=== PATIENT | female | born 1950 ===

== ENCOUNTER 2016-12-20 12:56 | Inpatient (IN) | payer MEDICARE, OTHER ==
[2016-12-20 12:56] VITALS: BMI 33.2
[2016-12-20] MEDS ORDERED: Morphine 4 MG/ML VIAL ONE (13:34)
[2016-12-20 13:47] LABS: BASO # 0.1 K/uL (0.0-0.2); BASO % 0.3 % (0.0-2.0); EOS # 0.1 K/uL (0.0-0.7); EOS % 0.5 % (0.0-4.0); HEMATOCRIT 38.5 % (34.0-47.0); LYMPH # 0.9 K/uL (1.0-4.3); LYMPH % 4.1 % (20.0-40.0); MEAN CELL VOLUME 85.5 fL (81.0-99.0); MEAN CORPUSCULAR HEMOGLOBIN 27.8 pg (27.0-31.0); MEAN CORPUSCULAR HGB CONC 32.5 g/dL (33.0-37.0); MEAN PLATELET VOLUME 8.7 fL (7.2-11.7); MONO # 1.5 K/uL (0.0-0.8); MONO % 6.7 % (0.0-10.0); PLATELET COUNT 239 K/uL (130-400); RED CELL DISTRIBUTION WIDTH 13.7 % (11.5-14.5); WHITE BLOOD COUNT 22.7 K/uL (4.8-10.8)
[2016-12-20 13:55] LABS: CHLORIDE 96 mmol/L (98-107); SODIUM 138 mmol/L (132-148)
[2016-12-20 13:57] LABS: GFR AFRICAN-AMERICAN > 60
[2016-12-20 13:58] LABS: ALB/GLOB RATIO 1.2 (1.0-2.1); ALKALINE PHOSPHATASE 62 U/L (38-126); ALT/SGPT 21 U/L (9-52); AST/SGOT 19 U/L (14-36); BILIRUBIN,TOTAL 0.6 mg/dL (0.2-1.3); BLOOD UREA NITROGEN 14 mg/dL (7-17); CALCIUM 8.7 mg/dl (8.6-10.4); CARBON DIOXIDE 34 mmol/L (22-30); GLUCOSE,RANDOM 121 mg/dL (65-105); TOTAL PROTEIN 6.9 g/dL (6.3-8.3)
[2016-12-20 14:12] LABS: INR 0.9
--- NOTE | 2016-12-20 14:28 | C.PDOC ---
History Of Present Illness Patient is a 66 y/o female, whose PMHx includes asthma, HTN, and hypercholesterolemia, presents to the ED s/p fall injury for evaluation of left side neck, shoulder, arm, hip, and leg pain. Pt states she tripped and fell at 11:30 this morning in her room, and landed on the left side of her body. Pt also reports hitting the left side of her head, and reports blackout of vision at the time. Patient states she had fever, and headache prior to the fall injury , and noted taking 2 tablets of Tylenol this morning for it. Pt also complains of intermittent cough and shortness of breath since early this morning. Otherwise, denies any abdominal pain, n/v/d, chest pain, palpitations, back pain , sensory changes, or any other associated symptoms at this time. - HPI Time Seen by Provider: 12/20/16 13:05 Chief Complaint (Nursing): Trauma History Per: Patient History/Exam Limitations: no limitations Injury Occurred (Timing): Today @ (11:30) Location Of Injury: Left: Arm, Hip, Neck, Shoulder Recent travel outside of the [place]: No Additional History Per: Family - Fall Fall:Prior To Injury: Tripped Past Medical History Reviewed: Historical Data, Nursing Documentation, Vital Signs Vital Signs: Last Vital Signs Temp 98 F 12/20/16 14:55 Pulse 94 H 12/20/16 13:19 Resp 22 12/20/16 13:19 BP 106/61 12/20/16 13:19 Pulse Ox 90 L 12/20/16 14:57 - Medical History PMH: Anemia, Arthritis, Asthma, COPD, Depression, Gastritis, HTN, Hypercholesterolemia Denies: Chronic Kidney Disease - [facility] Procedures ASSISTANCE WITH RESPIRATORY VENTILATION, 24-96 HRS, CPAP (09/22/16) ASSISTANCE WITH RESPIRATORY VENTILATION, <24 HRS, CPAP (05/19/15) ASSISTANCE WITH RESPIRATORY VENTILATION, >96 HRS, CPAP (05/12/16) EXCISION OF DESCENDING COLON, ENDO (09/30/15) EXCISION OF STOMACH, ENDO, DIAGN (09/30/15) INSERTION OF MONITOR DEV INTO PULM TRUNK, PERC APPROACH (04/04/16) MEASURE OF CARDIAC SAMPL & PRESSURE, L HEART, PERC APPROACH (04/04/16) NON-INVASIVE MECHANICAL VENTILATION (10/25/14) PLAIN RADIOGRAPHY OF LEFT HEART USING OTHER CONTRAST (04/04/16) PLAIN RADIOGRAPHY OF MULT COR ART USING OTH CONTRAST (04/04/16) Family History: States: Unknown Family Hx - Social History Hx Tobacco Use: No Hx Alcohol Use: No Hx Substance Use: No - Immunization History Hx Tetanus Toxoid Vaccination: No Hx Influenza Vaccination: Yes Hx Pneumococcal Vaccination: Yes Review Of Systems Except As Marked, All Systems Reviewed And Found Negative. Constitutional: Positive for: Fever Cardiovascular: Negative for: Chest Pain, Palpitations Respiratory: Positive for: Cough, Shortness of Breath. Negative for: Hemoptysis , Sputum, Wheezing Gastrointestinal: Negative for: Nausea, Vomiting, Abdominal Pain, Diarrhea Musculoskeletal: Positive for: Neck Pain, Shoulder Pain, Arm Pain, Leg Pain. Negative for: Back Pain, Hand Pain, Foot Pain Skin: Negative for: Rash Neurological: Positive for: Headache. Negative for: Weakness, Numbness Physical Exam - Physical Exam Appears: Non-toxic, No Acute Distress Skin: Warm, Dry Head: Atraumatic, Normacephalic Eye(s): bilateral: Normal Inspection, EOMI Neck: Normal, Normal ROM, No Midline Cervical Tenderness, No Paracervical Tenderness, Supple Chest: Symmetrical, No Tenderness Cardiovascular: Rhythm Regular, No Murmur Respiratory: No Accessory Muscle Use, No Rales, No Rhonchi, No Wheezing Gastrointestinal/Abdominal: Soft, No Tenderness, No Guarding, No Rebound Back: No CVA Tenderness, No Vertebral Tenderness, No Paraspinal Tenderness Extremity: No Normal ROM (limited ROM of left shoulder secondary to pain), Tenderness (diffuse tenderness to left shoulder; pain with flexion of left hip) , Capillary Refill (< 2 sec.), No Deformity, No Swelling, Other (testing impaired due to pain) Pulses: Left Radial: Normal, Right Radial: Normal, Left Dorsalis Pedis: Normal, Right Dorsalis Pedis: Normal Neurological/Psych: Oriented x3, Normal Speech, Normal Cognition, Normal Sensation (Normal sensation, strength, and ROM to left wrist, elbow, knee, and ankle), Other (no focal deficits) ED Course And Treatment - Laboratory Results Result Diagrams: 12/20/16 13:43 12/20/16 13:43 O2 Sat by Pulse Oximetry: 90 Progress Note: Labs, EKG, cervical spine CT, head CT, CXR, pelvis, left shoulder , left femur x-ray ordered and reviewed. Pt was given Albuterol treatment, Morphine, and solumedrol. Medical Decision Making Medical Decision Making: Head CT FINDINGS: HEMORRHAGE: No intracranial hemorrhage. BRAIN: No mass effect or edema. No atrophy or chronic microvascular ischemic changes. VENTRICLES: Unremarkable. No hydrocephalus. CALVARIUM: Unremarkable. PARANASAL SINUSES: Unremarkable as visualized. No significant inflammatory changes. MASTOID AIR CELLS: Unremarkable as visualized. No inflammatory changes. OTHER FINDINGS: None. IMPRESSION: No acute intracranial abnormalities. No significant findings to account for the clinical presentation. Cervical spine CT FINDINGS: VERTEBRAE: No fracture. Normal alignment. No destructive bony lesion. DISCS/SPINAL CANAL/NEURAL FORAMINA: No significant central canal or neural foraminal stenosis. Discs heights are grossly preserved. PARASPINAL SOFT TISSUES: Unremarkable. OTHER FINDINGS: Incompletely visualized apical scarring. No focal mass identified IMPRESSION: No acute findings related to/accounting for the clinical presentation. CXR FINDINGS: LUNGS: No active pulmonary disease. PLEURA: No significant pleural effusion identified, no pneumothorax apparent. CARDIOVASCULAR: No radiographic findings to suggest acute or significant cardiovascular disease. OSSEOUS STRUCTURES: No significant abnormalities. VISUALIZED UPPER ABDOMEN: Normal. OTHER FINDINGS: None. IMPRESSION: No active disease. No significant interval change compared to the prior examination(s). Left shoulder x-ray FINDINGS: BONES: Normal. No fracture. JOINTS: Normal. Glenohumeral and acromioclavicular joints preserved. No osteoarthritis. SOFT TISSUES: Normal. OTHER FINDINGS: None. IMPRESSION: No acute findings related to/accounting for the clinical presentation. Left femur x-ray FINDINGS: No significant/acute osseous, articular or soft tissue abnormalities. IMPRESSION: No acute findings related to/accounting for the clinical presentation. Left hip x-ray FINDINGS: BONES: No acute fracture. Diffuse osteopenia. JOINTS: Normal. SOFT TISSUES: Normal. OTHER FINDINGS: Mild and symmetrical degenerative changes both hips. IMPRESSION: No acute findings related to/accounting for the clinical presentation. Disposition - Disposition Disposition: HOSPITALIZED Disposition Time: 14:54 Condition: STABLE - Clinical Impression Clinical Impression: COPD exacerbation, Fall, Left shoulder pain, Left hip pain - Scribe Statement The provider has reviewed the documentation as recorded by the Maicol Escobar Provider Attestation: All medical record entries made by the Maicol were at my direction and personally dictated by me. I have reviewed the chart and agree that the record accurately reflects my personal performance of the history, physical exam, medical decision making, and the department course for this patient. I have also personally directed, reviewed, and agree with the discharge instructions and disposition.
[2016-12-20] MEDS ORDERED: Azithromycin 500 MG in Sodium Chloride 0.9% 250 ML IVPB STA (14:32)
[2016-12-20 14:35] LABS: NEUTROPHIL 84 % (50-75); TOTAL CELLS COUNTED 100
[2016-12-20] MEDS ORDERED: Albuterol-Ipratrop 3 mg / 0.5 (3 ml) UD IH STA (14:35)
--- NOTE | 2016-12-20 14:41 | CT ---
PROCEDURE: CT HEAD WITHOUT CONTRAST. HISTORY: Trauma/fall. COMPARISON: None available. TECHNIQUE: Axial computed tomography images were obtained through the head/brain without intravenous contrast. Radiation dose: Total exam DLP = 928.66 mGy-cm. This CT exam was performed using one or more of the following dose reduction techniques: Automated exposure control, adjustment of the mA and/or kV according to patient size, and/or use of iterative reconstruction technique. FINDINGS: HEMORRHAGE: No intracranial hemorrhage. BRAIN: No mass effect or edema. No atrophy or chronic microvascular ischemic changes. VENTRICLES: Unremarkable. No hydrocephalus. CALVARIUM: Unremarkable. PARANASAL SINUSES: Unremarkable as visualized. No significant inflammatory changes. MASTOID AIR CELLS: Unremarkable as visualized. No inflammatory changes. OTHER FINDINGS: None. IMPRESSION: No acute intracranial abnormalities. No significant findings to account for the clinical presentation.
--- NOTE | 2016-12-20 14:44 | CT ---
PROCEDURE: CT Cervical Spine without contrast HISTORY: <fall> COMPARISON: None available. TECHNIQUE: Axial computed tomography images were obtained of the cervical spine without the use of intravenous contrast. Coronal and sagittal reformatted images were created and reviewed. 3D volume rendering Radiation dose: Total exam DLP = 550.51 mGy-cm. This CT exam was performed using one or more of the following dose reduction techniques: Automated exposure control, adjustment of the mA and/or kV according to patient size, and/or use of iterative reconstruction technique. FINDINGS: VERTEBRAE: No fracture. Normal alignment. No destructive bony lesion. DISCS/SPINAL CANAL/NEURAL FORAMINA: No significant central canal or neural foraminal stenosis. Discs heights are grossly preserved. PARASPINAL SOFT TISSUES: Unremarkable. OTHER FINDINGS: Incompletely visualized apical scarring. No focal mass identified IMPRESSION: No acute findings related to/accounting for the clinical presentation.
[2016-12-20] MEDS ORDERED: Azithromycin 500mg/250ML NS 500 MG/250 ML BAG IVPB ONE (15:01)
--- NOTE | 2016-12-20 15:05 | RAD ---
PROCEDURE: Left Hip X-ray Radiographs. HISTORY: fall pain COMPARISON: None. FINDINGS: BONES: No acute fracture. Diffuse osteopenia. JOINTS: Normal. SOFT TISSUES: Normal. OTHER FINDINGS: Mild and symmetrical degenerative changes both hips. IMPRESSION: No acute findings related to/accounting for the clinical presentation.
--- NOTE | 2016-12-20 15:06 | RAD ---
PROCEDURE: Radiographs of the Left Shoulder HISTORY: fall pain COMPARISON: No prior. FINDINGS: BONES: Normal. No fracture. JOINTS: Normal. Glenohumeral and acromioclavicular joints preserved. No osteoarthritis. SOFT TISSUES: Normal. OTHER FINDINGS: None. IMPRESSION: No acute findings related to/accounting for the clinical presentation.
--- NOTE | 2016-12-20 15:06 | RAD ---
PROCEDURE: Left femur HISTORY: fall pain COMPARISON: December 20, 2016. TECHNIQUE: Standard protocol for this study/examination. FINDINGS: No significant/acute osseous, articular or soft tissue abnormalities. IMPRESSION: No acute findings related to/accounting for the clinical presentation.
--- NOTE | 2016-12-20 15:07 | RAD ---
HISTORY: Trauma. COMPARISON: 09/21/2016. FINDINGS: LUNGS: No active pulmonary disease. PLEURA: No significant pleural effusion identified, no pneumothorax apparent. CARDIOVASCULAR: No radiographic findings to suggest acute or significant cardiovascular disease. OSSEOUS STRUCTURES: No significant abnormalities. VISUALIZED UPPER ABDOMEN: Normal. OTHER FINDINGS: None. IMPRESSION: No active disease. No significant interval change compared to the prior examination(s).
[2016-12-20] MEDS ORDERED: MethylPREDNISolone 40 mg Vial ONE (15:16)
[2016-12-20] MEDS ORDERED: Albuterol-Ipratrop 3 mg / 0.5 (3 ml) UD ONE (15:46)
[2016-12-20 16:10] LABS: RBC URINE 1 /hpf (0-3); URINE BILIRUBIN NEGATIVE (NEGATIVE); URINE BLOOD NEGATIVE (NEGATIVE); URINE COLOR Straw (YELLOW); URINE GLUCOSE (UA) NORMAL (Normal); URINE KETONE NEGATIVE (NEGATIVE); URINE LEUKOCYTE ESTERASE NEG Leu/uL (Negative); URINE PROTEIN NEGATIVE (NEGATIVE); URINE UROBILINOGEN NORMAL mg/dL (0.2-1.0); WBC URINE < 1 /hpf (0-5)
[2016-12-20] MEDS: Fluticasone-Salmeterol 250-50mcg Diskus INH SCH (20:26)
[2016-12-20] MEDS: MethylPREDNISolone 40 mg Vial IVP SCH (21:57)
[2016-12-20] MEDS: Piperacill/Tazo 3.375gm in Dex 3.375 GM/50 ML BAG IVPB SCH (21:57)
[2016-12-20] MEDS ORDERED: Moxifloxacin IV 400mg/250ml NS 400 MG/250 ML BAG IVPB SCH (22:00)
[2016-12-21] MEDS: MethylPREDNISolone 40 mg Vial IVP SCH ×3 (06:44→21:50)
[2016-12-21] MEDS: Piperacill/Tazo 3.375gm in Dex 3.375 GM/50 ML BAG IVPB SCH ×3 (06:44→21:50)
[2016-12-21] MEDS: Fluticasone-Salmeterol 250-50mcg Diskus INH SCH ×2 (09:00→19:24)
[2016-12-21] MEDS: Tiotropium 18 mcg Cap For Inhalation INH SCH (09:00)
[2016-12-21] MEDS: Enoxaparin 40 mg Syringe SC SCH (09:10)
--- NOTE | 2016-12-21 12:55 | CP.PCM.HP ---
History of Present Illness - History of Present Illness History of Present Illness: Patient is 66-year-old female whose past medical history includes asthma, hypertension and hypercholesterolemia, presented to the ED S/P fall injury for evaluation of left-sided neck, shoulder, arm, hip and leg pain. Patient states she tripped and fell at 1130 this morning in her room, and landed on the left side of her body. Patient also reports hitting the left side of her head and reports a blackout of wheezing at the time. Patient states she has fever and headache prior to the fall injury and noted taking 2 tablets of Tylenol this morning for it. Patient also complains of intermittent cough and S OB since early this morning. Otherwise, denies any abdominal pain, nausea/vomiting/ diarrhea, chest pain, palpitation, back pain, sensory changes or any other associated symptoms at this time. Present on Admission - Present on Admission Any Indicators Present on Admission: No Past Patient History - Infectious Disease Hx of Infectious Diseases: None - Past Medical History & Family History Past Medical History?: Yes - Past Social History Smoking Status: Former Smoker - CARDIAC Hx Hypercholesterolemia: Yes Hx Hypertension: Yes - PULMONARY Hx Asthma: Yes Hx Chronic Obstructive Pulmonary Disease (COPD): Yes - NEUROLOGICAL Hx Neurological Disorder: No - HEENT Hx HEENT Problems: Yes Hx Cataracts: Yes Hx Glaucoma: Yes (Sx last Apr 2015) - RENAL Hx Chronic Kidney Disease: No - ENDOCRINE/METABOLIC Hx Endocrine Disorders: No - HEMATOLOGICAL/ONCOLOGICAL Hx Anemia: Yes - INTEGUMENTARY Hx Dermatological Problems: No - MUSCULOSKELETAL/RHEUMATOLOGICAL Hx Arthritis: Yes Hx Falls: Yes - GASTROINTESTINAL Hx Gastritis: Yes - GENITOURINARY/GYNECOLOGICAL Hx Genitourinary Disorders: No - PSYCHIATRIC Hx Depression: Yes Hx Substance Use: No - SURGICAL HISTORY Hx Surgeries: Yes Hx Breast Biopsy: Yes Hx Eye Surgery: Yes (glaucoma OU) Hx Musculoskeletal Surgery: Yes (L leg) Other/Comment: left leg surgery - ANESTHESIA Hx Anesthesia: Yes Hx Anesthesia Reactions: No Hx Malignant Hyperthermia: No Meds Home Medications: Home Medication List Medication Instructions Recorded Confirmed Type Aspirin [Aspirin Chewable] 81 mg PO DAILY 12/26/16 Rx Benzocaine/Menthol [Cepacol Sore 1 alexa MT Q4H PRN alexa 12/26/16 Rx Throat] Bisacodyl [Dulcolax] 5 mg PO ONCE 12/26/16 Rx Docusate [Colace] 100 mg PO BID cap 12/26/16 Rx Enoxaparin [Lovenox] 40 mg SC DAILY syr 12/26/16 Rx Rosuvastatin Calcium [Crestor] 5 mg PO HS tab 12/26/16 Rx Allergies/Adverse Reactions: Allergies Allergy/AdvReac Type Severity Reaction Status Date / Time moxifloxacin HCl Allergy Verified 01/13/17 11:57 [From Avelox] Physical Exam - Constitutional Appears: Well - Head Exam Head Exam: ATRAUMATIC, NORMAL INSPECTION, NORMOCEPHALIC - Eye Exam Eye Exam: EOMI, Normal appearance, PERRL Pupil Exam: NORMAL ACCOMODATION, PERRL - ENT Exam ENT Exam: Mucous Membranes Moist, Normal Exam - Neck Exam Neck exam: Positive for: Normal Inspection - Respiratory Exam Respiratory Exam: Decreased Breath Sounds - Cardiovascular Exam Cardiovascular Exam: REGULAR RHYTHM, +S1, +S2 - GI/Abdominal Exam GI & Abdominal Exam: Diminished Bowel Sounds, Soft - Rectal Exam Rectal Exam: Deferred Results - Vital Signs Recent Vital Signs: Last Vital Signs Temp 97.8 F 12/21/16 08:00 Pulse 63 12/21/16 08:00 Resp 20 12/21/16 08:00 BP 118/71 12/21/16 08:00 Pulse Ox 94 L 12/21/16 00:24 - Labs Result Diagrams: 12/26/16 07:08 12/26/16 07:08 Labs: Laboratory Results - last 24 hr 12/20/16 16:03 Urine Color Straw Urine Clarity Clear Urine pH 6.0 Ur Specific [place] 1.010 Urine Protein Negative Urine Glucose (UA) Normal Urine Ketones Negative Urine Blood Negative Urine Nitrate Negative Urine Bilirubin Negative Urine Urobilinogen Normal Ur Leukocyte Esterase Neg Urine WBC (Auto) < 1 Urine RBC (Auto) 1 Ur Squamous Epith Cells 2 Assessment & Plan (1) Acute and chronic respiratory failure with hypercapnia Status: Acute (2) Acute dyspnea Status: Acute (3) Acute electrocardiogram changes Status: Acute (4) Acute hypercapnic respiratory failure Status: Acute (5) Asthma Status: Acute (6) Asthma exacerbation Status: Acute (7) Asthma with COPD with status asthmaticus Status: Acute Priority: High (8) COPD (chronic obstructive pulmonary disease) Status: Acute (9) COPD exacerbation Status: Acute (10) Chest pain Status: Acute (11) Chronic back pain Status: Acute (12) Chronic respiratory failure Status: Acute (13) Closed fracture of anterior column of left acetabulum Status: Acute (14) Closed sacral fracture Status: Acute (15) Colitis Status: Acute (16) Dislocation of left shoulder joint Status: Acute (17) Dyspnea Status: Acute (18) Elevated troponin Status: Acute (19) Exacerbation of asthma Status: Acute (20) Fall Status: Acute (21) Fracture of glenoid process of left scapula Status: Acute (22) Fracture of left inferior pubic ramus Status: Acute (23) GI bleeding Status: Acute (24) Herniated lumbar disc without myelopathy Status: Acute (25) Hill-Sachs fracture of left humerus Status: Acute (26) Intractable pain Status: Acute (27) Left hip pain Status: Acute (28) Left shoulder pain Status: Acute (29) Leukocytosis Status: Acute (30) Liver mass Status: Acute (31) Lung nodule Status: Acute (32) Pneumonia Status: Acute (33) Prophylactic measure Status: Acute (34) Pulmonary hypertension Status: Acute (35) Respiratory distress Status: Acute (36) Respiratory distress Status: Acute (37) Respiratory failure, acute and chronic Status: Acute (38) Scapula coracoid process fracture Status: Acute (39) Shoulder dislocation Status: Acute (40) Tracheobronchitis Status: Acute (41) Chronic osteoarthritis Status: Chronic (42) Depressed Status: Chronic Priority: Medium (43) GERD (gastroesophageal reflux disease) Status: Chronic Priority: Medium (44) Lumbago Status: Chronic Priority: Medium - Assessment and Plan (Free Text) Plan: ct spine ct head x ray shoudlerx ray hip all cameback negative coti same mx for copd duoneb ivantibiotic cardio pulm consult avila as ordered
[2016-12-22] MEDS: Piperacill/Tazo 3.375gm in Dex 3.375 GM/50 ML BAG IVPB SCH ×3 (05:02→21:43)
[2016-12-22] MEDS: MethylPREDNISolone 40 mg Vial IVP SCH ×3 (05:02→21:43)
--- NOTE | 2016-12-22 07:50 | CP.PCM.CON ---
History of Present Illness - History of Present Illness History of Present Illness: Pt s/pfall no syncope. Found to have dislocation and is planned for emergency reduction. Called to evaluate for surgery. 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 Will follow enzymes and control bp Review of Systems - Review of Systems Systems not reviewed;Unavailable: Acuity of Condition - Constitutional Constitutional: absent: Headache - EENT Eyes: absent: Change in Vision Ears: absent: Ear Discharge, Ear Pain Nose/Mouth/Throat: absent: Nasal Congestion, Nasal Discharge - Cardiovascular Cardiovascular: Chest Pain - Respiratory Respiratory: absent: Dyspnea on Exertion - Gastrointestinal Gastrointestinal: absent: Diarrhea - Genitourinary Genitourinary: absent: Dysuria - Integumentary Integumentary: absent: Bleeding Lesions - Neurological Neurological: absent: Abnormal Hearing - Psychiatric Psychiatric: absent: Anxiety - Endocrine Endocrine: Fatigue Past Patient History - Infectious Disease Hx of Infectious Diseases: None - Past Medical History & Family History Past Medical History?: Yes - Past Social History Smoking Status: Former Smoker - CARDIAC Hx Hypercholesterolemia: Yes Hx Hypertension: Yes - PULMONARY Hx Asthma: Yes Hx Chronic Obstructive Pulmonary Disease (COPD): Yes - NEUROLOGICAL Hx Neurological Disorder: No - HEENT Hx HEENT Problems: Yes Hx Cataracts: Yes Hx Glaucoma: Yes (Sx last Apr 2015) - RENAL Hx Chronic Kidney Disease: No - ENDOCRINE/METABOLIC Hx Endocrine Disorders: No - HEMATOLOGICAL/ONCOLOGICAL Hx Anemia: Yes - INTEGUMENTARY Hx Dermatological Problems: No - MUSCULOSKELETAL/RHEUMATOLOGICAL Hx Arthritis: Yes Hx Falls: Yes - GASTROINTESTINAL Hx Gastritis: Yes - GENITOURINARY/GYNECOLOGICAL Hx Genitourinary Disorders: No - PSYCHIATRIC Hx Depression: Yes Hx Substance Use: No - SURGICAL HISTORY Hx Surgeries: Yes Hx Breast Biopsy: Yes Hx Eye Surgery: Yes (glaucoma OU) Hx Musculoskeletal Surgery: Yes (L leg) Other/Comment: left leg surgery - ANESTHESIA Hx Anesthesia: Yes Hx Anesthesia Reactions: No Hx Malignant Hyperthermia: No Meds Home Medications: Home Medication List Medication Instructions Recorded Confirmed Type Aspirin [Aspirin Chewable] 81 mg PO DAILY 12/26/16 Rx Benzocaine/Menthol [Cepacol Sore 1 alexa MT Q4H PRN alexa 12/26/16 Rx Throat] Bisacodyl [Dulcolax] 5 mg PO ONCE 12/26/16 Rx Docusate [Colace] 100 mg PO BID cap 12/26/16 Rx Enoxaparin [Lovenox] 40 mg SC DAILY syr 12/26/16 Rx Rosuvastatin Calcium [Crestor] 5 mg PO HS tab 12/26/16 Rx Allergies/Adverse Reactions: Allergies Allergy/AdvReac Type Severity Reaction Status Date / Time moxifloxacin HCl Allergy Verified 01/13/17 11:57 [From Avelox] - Medications Medications: Current Medications Enoxaparin Sodium (Lovenox) 40 mg SC DAILY [facility] Last Admin: 12/21/16 09:10 Dose: 40 mg Hydromorphone HCl (Dilaudid) 1 mg IVP Q4H PRN PRN Reason: Pain, moderate (4-7) Piperacillin Sod/Tazobactam Sod (Zosyn 3.375 Gm Iv Premix) 3.375 gm in 50 mls @ 100 mls/hr IVPB Q8 [facility] Last Admin: 12/22/16 05:02 Dose: 100 mls/hr Methylprednisolone (Solu-Medrol) 40 mg IVP Q8 [facility] Last Admin: 12/22/16 05:02 Dose: 40 mg Montelukast Sodium (Singulair) 10 mg PO [facility] Last Admin: 12/21/16 21:50 Dose: 10 mg Pantoprazole Sodium (Protonix Inj) 40 mg IVP DAILY [facility] Last Admin: 12/21/16 09:10 Dose: 40 mg Rosuvastatin Calcium (Crestor) 5 mg PO [facility] Last Admin: 12/21/16 21:50 Dose: 5 mg Fluticasone/Salmeterol (Advair Diskus 250/50) 1 puff INH RQ12 [facility] Last Admin: 12/21/16 19:24 Dose: Not Given Tiotropium [place] (Spiriva) 18 mcg INH RQ24 [facility] Last Admin: 12/21/16 09:00 Dose: Not Given Physical Exam - Constitutional Appears: Chronically Ill - Head Exam Head Exam: NORMOCEPHALIC - Eye Exam Eye Exam: Normal appearance - ENT Exam ENT Exam: Mucous Membranes Moist - Respiratory Exam Respiratory Exam: Clear to Auscultation Bilateral, NORMAL BREATHING PATTERN - Cardiovascular Exam Cardiovascular Exam: REGULAR RHYTHM - GI/Abdominal Exam GI & Abdominal Exam: Normal Bowel Sounds - Exam External exam: absent: Erythema - Extremities Exam Extremities exam: Positive for: joint swelling - Neurological Exam Neurological exam: Alert - Psychiatric Exam Psychiatric exam: Normal Affect - Skin Skin Exam: Dry Results - Vital Signs Recent Vital Signs: Last Vital Signs Temp 98 F 12/22/16 00:00 Pulse 71 12/22/16 00:00 Resp 20 12/22/16 00:00 BP 127/69 12/22/16 00:00 Pulse Ox 96 12/22/16 00:00 - Labs Result Diagrams: 12/26/16 07:08 12/26/16 07:08 Labs: Laboratory Results - last 24 hr 12/21/16 12/22/16 20:49 06:11 Total Creatine Kinase 83 57 CK-MB (Mass) 1.41 1.19 Troponin I, Quant < 0.0120 < 0.0120 Assessment & Plan (1) Acute electrocardiogram changes Assessment and Plan: Pt with ekg changes nl cardiac cath eval enzymes' nl ef in lieu of non obstructive cath benefits outweigh risks and may proceed to surgery Status: Acute (2) Closed fracture of anterior column of left acetabulum Status: Acute (3) Dislocation of left shoulder joint Status: Acute
[2016-12-22] MEDS: HYDROmorphone 1 mg/ml ISec IVP PRN ×2 (08:06→20:50)
[2016-12-22] MEDS: Tiotropium 18 mcg Cap For Inhalation INH SCH (09:56)
[2016-12-22] MEDS: Fluticasone-Salmeterol 250-50mcg Diskus INH SCH ×2 (09:56→22:42)
--- NOTE | 2016-12-22 11:04 | CT ---
PROCEDURE: CT left shoulder HISTORY: r/o fracture s/p fall COMPARISON: 12/20/2016 left shoulder radiographs. TECHNIQUE: 2.5 mm axial acquisition and display. Coronal and sagittal reconstructions. Dose report (mGy-cm): 383.85 3D volume rendering FINDINGS: Anterior inferior subluxation of the humeral head relative to the left glenoid. Associated avulsion fracture from the humeral head identified anterior to the main humeral component. Soft tissue swelling attests to the acuity of the fracture. Associated joint effusion identified. Hussein Incidental finding(s):Scarring, a traction bronchiectatic change noted left upper lobe. IMPRESSION: Acute Anterior inferior subluxation of the humeral head relative to the glenoid with small avulsion fracture anteriorly. Considerable soft tissue swelling and joint effusion identified.
[2016-12-22] MEDS: Enoxaparin 40 mg Syringe SC SCH (11:29)
[2016-12-22] MEDS ORDERED: Succinylcholine Chloride 20 mg/ml Syr (5 ml) IV ONE (12:22)
[2016-12-22] MEDS ORDERED: Propofol 10 mg/ml Inj (20 ML) ONE (12:23)
[2016-12-22] MEDS ORDERED: Lactated Ringer's 1,000 ML IV ONE (12:26)
[2016-12-22] MEDS ORDERED: Neostigmine Methylsulfate 3mg/3ml Syringe IV ONE ×2 (12:52→13:06)
[2016-12-22] MEDS ORDERED: HYDROmorphone 0.5 mg/0.5 ml ISec IVP PRN (13:00)
--- NOTE | 2016-12-22 13:00 | PCM.SURG1 ---
Surgeon's Initial Post Op Note - Surgeon's Notes Surgeon: marcelo Body Fitter: none Type of Anesthesia: General Endo Pre-Operative Diagnosis: left shoulder dislocation Operative Findings: see dictation Post-Operative Diagnosis: same Operation Performed: closed reduction left shoulder Specimen/Specimens Removed: nonw Estimated Blood Loss: EBL {In ML}: 0 Date of Surgery/Procedure: 12/23/16 Time of Surgery/Procedure: 13:00
[2016-12-22] MEDS ORDERED: Esmolol 100 mg/10ml Inj IV ONE (13:08)
[2016-12-22] MEDS ORDERED: Albuterol HFA 90 mcg/actuation (8 g) ONE (13:17)
--- NOTE | 2016-12-22 13:55 | RAD ---
PROCEDURE: Intraoperative Fluoroscopy. HISTORY: DISLOCATED LT. SHUOLDER FINDINGS: Fluoroscopic assistance was provided for left shoulder reduction. Total fluoroscopic time (continuous mode) utilized during the procedure: 24.4 seconds.. Please refer to the operative report from
--- NOTE | 2016-12-22 14:33 | RAD ---
PROCEDURE: Radiographs of the Left Shoulder HISTORY: post reduction COMPARISON: December 22, 2016. FINDINGS: BONES: Anatomic alignment returned left glenohumeral relationship. No fracture is seen. JOINTS: Unremarkable glenohumeral relationship, acromioclavicular degenerative change: Mild. SOFT TISSUES: Normal. OTHER FINDINGS: None. IMPRESSION: Satisfactory reduction of previously identified anterior inferior subluxation.
--- NOTE | 2016-12-22 18:23 | CP.PCM.PN ---
Subjective - Date & Time of Evaluation Date of Evaluation: 12/22/16 Time of Evaluation: 13:40 - Subjective Subjective: clinically same Objective - Vital Signs/Intake and Output Vital Signs (last 24 hours): Temp Pulse Resp BP Pulse Ox 98.2 F 60 20 138/64 98 12/22/16 15:40 12/22/16 15:40 12/22/16 15:40 12/22/16 15:40 12/22/16 15:40 - Medications Medications: Current Medications Enoxaparin Sodium (Lovenox) 40 mg SC DAILY [facility] Last Admin: 12/22/16 11:29 Dose: Not Given Hydromorphone HCl (Dilaudid) 1 mg IVP Q4H PRN PRN Reason: Pain, moderate (4-7) Last Admin: 12/22/16 08:06 Dose: 1 mg Piperacillin Sod/Tazobactam Sod (Zosyn 3.375 Gm Iv Premix) 3.375 gm in 50 mls @ 100 mls/hr IVPB Q8 [facility] Last Admin: 12/22/16 15:03 Dose: 100 mls/hr Methylprednisolone (Solu-Medrol) 40 mg IVP Q8 [facility] Last Admin: 12/22/16 15:02 Dose: 40 mg Montelukast Sodium (Singulair) 10 mg PO HS [facility] Last Admin: 12/21/16 21:50 Dose: 10 mg Pantoprazole Sodium (Protonix Inj) 40 mg IVP DAILY [facility] Last Admin: 12/22/16 11:27 Dose: 40 mg Rosuvastatin Calcium (Crestor) 5 mg PO HS [facility] Last Admin: 12/21/16 21:50 Dose: 5 mg Fluticasone/Salmeterol (Advair Diskus 250/50) 1 puff INH RQ12 [facility] Last Admin: 12/22/16 09:56 Dose: 1 puff Tiotropium [place] (Spiriva) 18 mcg INH RQ24 [facility] Last Admin: 12/22/16 09:56 Dose: 18 mcg - Labs Labs: PT 10.4 SECONDS (9.7-12.2) 12/20/16 13:43 INR 0.9 12/20/16 13:43 APTT 30 SECONDS (21-34) 12/20/16 13:43 - Constitutional Appears: Well - Head Exam Head Exam: ATRAUMATIC, NORMAL INSPECTION, NORMOCEPHALIC - Eye Exam Eye Exam: EOMI, Normal appearance, PERRL Pupil Exam: NORMAL ACCOMODATION, PERRL - ENT Exam ENT Exam: Mucous Membranes Moist, Normal Exam - Neck Exam Neck Exam: Full ROM, Normal Inspection. absent: Lymphadenopathy - Respiratory Exam Respiratory Exam: Decreased Breath Sounds - Cardiovascular Exam Cardiovascular Exam: REGULAR RHYTHM, +S1, +S2 - GI/Abdominal Exam GI & Abdominal Exam: Soft, Diminished Bowel Sounds - Rectal Exam Rectal Exam: Deferred Assessment and Plan (1) Acute and chronic respiratory failure with hypercapnia Status: Acute (2) Acute dyspnea Status: Acute (3) Acute electrocardiogram changes Status: Acute (4) Acute hypercapnic respiratory failure Status: Acute (5) Asthma Status: Acute (6) Asthma exacerbation Status: Acute (7) Asthma with COPD with status asthmaticus Status: Acute (8) COPD (chronic obstructive pulmonary disease) Status: Acute (9) COPD exacerbation Status: Acute (10) Chest pain Status: Acute (11) Chronic back pain Status: Acute (12) Chronic respiratory failure Status: Acute (13) Closed fracture of anterior column of left acetabulum Status: Acute (14) Closed sacral fracture Status: Acute (15) Colitis Status: Acute (16) Dislocation of left shoulder joint Status: Acute (17) Dyspnea Status: Acute (18) Elevated troponin Status: Acute (19) Exacerbation of asthma Status: Acute (20) Fall Status: Acute (21) Fracture of glenoid process of left scapula Status: Acute (22) Fracture of left inferior pubic ramus Status: Acute (23) GI bleeding Status: Acute (24) Herniated lumbar disc without myelopathy Status: Acute (25) Hill-Sachs fracture of left humerus Status: Acute (26) Intractable pain Status: Acute (27) Left hip pain Status: Acute (28) Left shoulder pain Status: Acute (29) Leukocytosis Status: Acute (30) Liver mass Status: Acute (31) Lung nodule Status: Acute (32) Pneumonia Status: Acute (33) Prophylactic measure Status: Acute (34) Pulmonary hypertension Status: Acute (35) Respiratory distress Status: Acute (36) Respiratory distress Status: Acute (37) Respiratory failure, acute and chronic Status: Acute (38) Scapula coracoid process fracture Status: Acute (39) Shoulder dislocation Status: Acute (40) Tracheobronchitis Status: Acute (41) Chronic osteoarthritis Status: Chronic (42) Depressed Status: Chronic (43) GERD (gastroesophageal reflux disease) Status: Chronic (44) Lumbago Status: Chronic - Assessment and Plan (Free Text) Plan: Status post left shoulder closed reduction Continue pain meds Antibiotics Dilaudid Lovenox Advair
[2016-12-22] MEDS ORDERED: Benzocaine/Menthol (Cepacol) Lozenge MT PRN (20:36)
--- NOTE | 2016-12-23 04:19 | OP ---
PROCEDURE DATE: 12/22/2016 SURGEON: Dwayne Morrow M.D. COVER STITCH MACHINE OPERATOR: None. PREOPERATIVE DIAGNOSIS: Dislocated left shoulder. POSTOPERATIVE DIAGNOSIS: Dislocated left shoulder. PROCEDURE: Left shoulder closed reduction. ESTIMATED BLOOD LOSS: None. ANESTHESIA: General. COMPLICATIONS: None. INDICATIONS: A 66-year-old female, who sustained a slip and fall 2 days ago. The patient was brought to the Emergency Room and admitted to the hospital for workup. Left shoulder CT scan confirmed an anterior inferior shoulder dislocation. DESCRIPTION OF PROCEDURE: The patient was brought into the operating room and placed supine on the operating room table. After general anesthesia was given, timeout was performed. Then, under fluoroscopy, x-rays of the left shoulder confirmed anterior dislocation of the glenohumeral joint. With manual traction , abduction, and external rotation, the shoulder was pulled and placed back into the joint. Fluoroscopy, both AP, y view and axillary, confirmed well- reduced glenohumeral joint. The patient tolerated the procedure well. Abduction sling was placed. She was extubated and returned to recovery room in excellent condition. Dwayne Morrow M.D. cc: [id number] TT: 12/23/2016 04:19:10 tn MTDD
[2016-12-23] MEDS: Piperacill/Tazo 3.375gm in Dex 3.375 GM/50 ML BAG IVPB SCH ×3 (05:38→21:13)
[2016-12-23] MEDS: MethylPREDNISolone 40 mg Vial IVP SCH ×3 (05:38→21:12)
[2016-12-23] MEDS: HYDROmorphone 1 mg/ml ISec IVP PRN (05:39)
--- NOTE | 2016-12-23 07:47 | CP.PCM.PN ---
<Ashwini Barnhart - Last Filed: 12/23/16 10:56> Subjective - Date & Time of Evaluation Date of Evaluation: 12/23/16 Time of Evaluation: 09:00 - Subjective Subjective: Cardiology Progress Note- Dr. Romero Service: Patient seen and examined at bedside this AM. Patient seen and examined at bedside this AM. Patient reports feeling in some pain this AM. She admits to left sided chest pain that has been present only since her fall. Admits to associated left sided body pain also related to fall. She admits SOB secondary to asthma in the past that is controlled. No fevers, chills, nausea, vomiting. No other complaints at this time. All other 12 point ROS done and negative. Objective - Vital Signs/Intake and Output Vital Signs (last 24 hours): Temp Pulse Resp BP Pulse Ox 98.1 F 65 20 136/62 99 12/22/16 23:45 12/23/16 05:51 12/22/16 23:45 12/23/16 05:51 12/22/16 23:45 Intake and Output: 12/23/16 12/23/16 06:59 18:59 Intake Total 600 Output Total 500 Balance 100 - Medications Medications: Current Medications Benzocaine/Menthol (Cepacol Sore Throat) 1 alexa MT Q4H PRN PRN Reason: Sore Throat Last Admin: 12/22/16 21:43 Dose: 1 alexa Enoxaparin Sodium (Lovenox) 40 mg SC DAILY [facility] Last Admin: 12/22/16 11:29 Dose: Not Given Hydromorphone HCl (Dilaudid) 1 mg IVP Q4H PRN PRN Reason: Pain, moderate (4-7) Last Admin: 12/23/16 05:39 Dose: 1 mg Piperacillin Sod/Tazobactam Sod (Zosyn 3.375 Gm Iv Premix) 3.375 gm in 50 mls @ 100 mls/hr IVPB Q8 [facility] Last Admin: 12/23/16 05:38 Dose: 100 mls/hr Methylprednisolone (Solu-Medrol) 40 mg IVP Q8 [facility] Last Admin: 12/23/16 05:38 Dose: 40 mg Montelukast Sodium (Singulair) 10 mg PO HS [facility] Last Admin: 12/22/16 21:44 Dose: 10 mg Pantoprazole Sodium (Protonix Inj) 40 mg IVP DAILY [facility] Last Admin: 12/22/16 11:27 Dose: 40 mg Rosuvastatin Calcium (Crestor) 5 mg PO HS [facility] Last Admin: 12/22/16 21:43 Dose: 5 mg Fluticasone/Salmeterol (Advair Diskus 250/50) 1 puff INH RQ12 [facility] Last Admin: 12/22/16 22:42 Dose: 1 puff Tiotropium [place] (Spiriva) 18 mcg INH RQ24 [facility] Last Admin: 12/22/16 09:56 Dose: 18 mcg - Labs Labs: PT 10.4 SECONDS (9.7-12.2) 12/20/16 13:43 INR 0.9 12/20/16 13:43 APTT 30 SECONDS (21-34) 12/20/16 13:43 - Constitutional Appears: No Acute Distress - Head Exam Head Exam: NORMAL INSPECTION, NORMOCEPHALIC - Eye Exam Eye Exam: EOMI, Normal appearance - ENT Exam ENT Exam: Mucous Membranes Moist - Neck Exam Neck Exam: Normal Inspection - Respiratory Exam Respiratory Exam: Clear to Ausculation Bilateral, NORMAL BREATHING PATTERN - Cardiovascular Exam Cardiovascular Exam: REGULAR RHYTHM, +S1, +S2 Additional comments: +chest wall on left TTP (improved as per pt) - GI/Abdominal Exam GI & Abdominal Exam: Soft. absent: Distended, Tenderness - Extremities Exam Extremities Exam: Tenderness (left LE). absent: Pedal Edema - Neurological Exam Neurological Exam: Alert, Awake, Oriented x3 Assessment and Plan (1) Chest pain Assessment & Plan: 66 y/o F POD #1 s/p closed reduction left shoulder. CONOR negative X 3. EKG 12/20/16 on admission showed NSR [address] changes. CXR 12/20/16 showed no active disease. ECHO 07/30/16 shows LV Fx normal 65% EF. Cardiac cath done 04/08/[address] Frank showed: 1. Mild to Moderate Pulmonary HTN (PA 47/10) 3. Moderate CAD L Main: Patent LAD: Distal long 60% stenosis L Cx: Patent RCA: dominant and patent EF: 55-60% Cath impression on 03/2016: 1. Moderate CAD. 2. Moderate pulmonary HTN. 3. Diastolic CHF. Continue medical management: * ASA 81 mg PO daily * Crestor 5 mg PO HS Status: Acute (2) Fall Assessment & Plan: 66 y/o F POD #1 s/p closed reduction left shoulder. Status: Acute - Assessment and Plan (Free Text) Assessment: Discussed with Dr. Romero. <Hira Romero - Last Filed: 02/02/17 03:06> Objective - Vital Signs/Intake and Output Vital Signs (last 24 hours): Temp Pulse Resp BP Pulse Ox 98.5 F 70 20 134/75 98 12/26/16 15:33 12/26/16 15:33 12/26/16 15:33 12/26/16 15:33 12/26/16 15:33 - Labs Labs: 12/26/16 07:08 12/26/16 07:08 PT 10.4 SECONDS (9.7-12.2) 12/20/16 13:43 INR 0.9 12/20/16 13:43 APTT 30 SECONDS (21-34) 12/20/16 13:43 Attending/Attestation - Attestation I have personally seen and examined this patient.: Yes I have fully participated in the care of the patient.: Yes I have reviewed all pertinent clinical information, including history, physical exam and plan: Yes Notes (Text): 02/02/17 03:06 pt c/o cp but from fall causing ortho isues bp stable
[2016-12-23] MEDS: Tiotropium 18 mcg Cap For Inhalation INH SCH (07:56)
[2016-12-23] MEDS: Fluticasone-Salmeterol 250-50mcg Diskus INH SCH ×2 (07:56→19:58)
[2016-12-23] MEDS: Enoxaparin 40 mg Syringe SC SCH (09:43)
[2016-12-23] MEDS ORDERED: Magnesium Hydroxide Susp 30 ml UD PO ONE ×2 (11:58→14:45)
--- NOTE | 2016-12-23 12:15 | CARD ---
APPROVED REPORT EKG Measurement Heart [id number] <Conclusion> Normal sinus rhythm Normal ECG
[2016-12-23 14:30] LABS: BASO % 0.3 % (0.0-2.0); EOS % 0.1 % (0.0-4.0); HEMATOCRIT 38.9 % (34.0-47.0); LYMPH # 0.9 K/uL (1.0-4.3); MEAN CELL VOLUME 86.2 fL (81.0-99.0); MEAN CORPUSCULAR HEMOGLOBIN 27.6 pg (27.0-31.0); MEAN PLATELET VOLUME 9.2 fL (7.2-11.7); MONO # 0.7 K/uL (0.0-0.8); MONO % 5.1 % (0.0-10.0); PLATELET COUNT 289 K/uL (130-400); RED CELL DISTRIBUTION WIDTH 13.5 % (11.5-14.5); WHITE BLOOD COUNT 14.7 K/uL (4.8-10.8)
[2016-12-23 14:39] LABS: CHLORIDE 90 mmol/L (98-107)
[2016-12-23 14:40] LABS: SODIUM 134 mmol/L (132-148)
[2016-12-23 14:43] LABS: ALB/GLOB RATIO 1.1 (1.0-2.1); ALKALINE PHOSPHATASE 56 U/L (38-126); AST/SGOT 17 U/L (14-36); BILIRUBIN,TOTAL 0.4 mg/dL (0.2-1.3); BLOOD UREA NITROGEN 19 mg/dL (7-17); CARBON DIOXIDE 36 mmol/L (22-30); GFR AFRICAN-AMERICAN > 60; TOTAL PROTEIN 6.3 g/dL (6.3-8.3)
[2016-12-23 14:44] LABS: ALT/SGPT 19 U/L (9-52); CALCIUM 8.4 mg/dl (8.6-10.4); GLUCOSE,RANDOM 253 mg/dL (65-105)
--- NOTE | 2016-12-23 15:52 | CP.PCM.PN ---
Subjective - Date & Time of Evaluation Date of Evaluation: 12/23/16 Time of Evaluation: 13:00 - Subjective Subjective: clinically same Objective - Vital Signs/Intake and Output Vital Signs (last 24 hours): Temp Pulse Resp BP Pulse Ox 98.9 F 66 20 127/65 97 12/23/16 15:23 12/23/16 15:23 12/23/16 15:23 12/23/16 15:23 12/23/16 15:23 Intake and Output: 12/23/16 12/23/16 06:59 18:59 Intake Total 600 Output Total 500 Balance 100 - Medications Medications: Current Medications Aspirin (Aspirin Chewable) 81 mg PO DAILY [facility] Benzocaine/Menthol (Cepacol Sore Throat) 1 alexa MT Q4H PRN PRN Reason: Sore Throat Last Admin: 12/22/16 21:43 Dose: 1 alexa Enoxaparin Sodium (Lovenox) 40 mg SC DAILY [facility] Last Admin: 12/23/16 09:43 Dose: 40 mg Hydromorphone HCl (Dilaudid) 1 mg IVP Q4H PRN PRN Reason: Pain, moderate (4-7) Last Admin: 12/23/16 05:39 Dose: 1 mg Piperacillin Sod/Tazobactam Sod (Zosyn 3.375 Gm Iv Premix) 3.375 gm in 50 mls @ 100 mls/hr IVPB Q8 [facility] Last Admin: 12/23/16 13:48 Dose: 100 mls/hr Methylprednisolone (Solu-Medrol) 40 mg IVP Q8 [facility] Last Admin: 12/23/16 13:47 Dose: 40 mg Montelukast Sodium (Singulair) 10 mg PO [facility] Last Admin: 12/22/16 21:44 Dose: 10 mg Pantoprazole Sodium (Protonix Inj) 40 mg IVP DAILY [facility] Last Admin: 12/23/16 09:43 Dose: 40 mg Pneumococcal Polyvalent Vaccine (Pneumovax 23 Vaccine) 0.5 ml IM .ONCE ONE Stop: 12/24/16 10:01 Rosuvastatin Calcium (Crestor) 5 mg PO [facility] Last Admin: 12/22/16 21:43 Dose: 5 mg Fluticasone/Salmeterol (Advair Diskus 250/50) 1 puff INH RQ12 [facility] Last Admin: 12/23/16 07:56 Dose: 1 puff Tiotropium [place] (Spiriva) 18 mcg INH RQ24 [facility] Last Admin: 12/23/16 07:56 Dose: 18 mcg - Labs Labs: 12/23/16 14:20 12/23/16 14:20 PT 10.4 SECONDS (9.7-12.2) 12/20/16 13:43 INR 0.9 12/20/16 13:43 APTT 30 SECONDS (21-34) 12/20/16 13:43 - Constitutional Appears: Well - Head Exam Head Exam: ATRAUMATIC, NORMAL INSPECTION, NORMOCEPHALIC - Eye Exam Eye Exam: EOMI, Normal appearance, PERRL Pupil Exam: NORMAL ACCOMODATION, PERRL - ENT Exam ENT Exam: Mucous Membranes Moist, Normal Exam - Neck Exam Neck Exam: Full ROM, Normal Inspection. absent: Lymphadenopathy - Respiratory Exam Respiratory Exam: Decreased Breath Sounds - Cardiovascular Exam Cardiovascular Exam: REGULAR RHYTHM, +S1, +S2 - GI/Abdominal Exam GI & Abdominal Exam: Soft, Diminished Bowel Sounds - Rectal Exam Rectal Exam: Deferred Assessment and Plan (1) Acute and chronic respiratory failure with hypercapnia Status: Acute (2) Acute dyspnea Status: Acute (3) Acute electrocardiogram changes Status: Acute (4) Acute hypercapnic respiratory failure Status: Acute (5) Asthma Status: Acute (6) Asthma exacerbation Status: Acute (7) Asthma with COPD with status asthmaticus Status: Acute (8) COPD (chronic obstructive pulmonary disease) Status: Acute (9) COPD exacerbation Status: Acute (10) Chest pain Status: Acute (11) Chronic back pain Status: Acute (12) Chronic respiratory failure Status: Acute (13) Closed fracture of anterior column of left acetabulum Status: Acute (14) Closed sacral fracture Status: Acute (15) Colitis Status: Acute (16) Dislocation of left shoulder joint Status: Acute (17) Dyspnea Status: Acute (18) Elevated troponin Status: Acute (19) Exacerbation of asthma Status: Acute (20) Fall Status: Acute (21) Fracture of glenoid process of left scapula Status: Acute (22) Fracture of left inferior pubic ramus Status: Acute (23) GI bleeding Status: Acute (24) Herniated lumbar disc without myelopathy Status: Acute (25) Hill-Sachs fracture of left humerus Status: Acute (26) Intractable pain Status: Acute (27) Left hip pain Status: Acute (28) Left shoulder pain Status: Acute (29) Leukocytosis Status: Acute (30) Liver mass Status: Acute (31) Lung nodule Status: Acute (32) Pneumonia Status: Acute (33) Prophylactic measure Status: Acute (34) Pulmonary hypertension Status: Acute (35) Respiratory distress Status: Acute (36) Respiratory distress Status: Acute (37) Respiratory failure, acute and chronic Status: Acute (38) Scapula coracoid process fracture Status: Acute (39) Shoulder dislocation Status: Acute (40) Tracheobronchitis Status: Acute (41) Chronic osteoarthritis Status: Chronic (42) Depressed Status: Chronic (43) GERD (gastroesophageal reflux disease) Status: Chronic (44) Lumbago Status: Chronic - Assessment and Plan (Free Text) Plan: Monitor vitals Continue antibiotics Cardio consult on board Aspirin Lovenox Solu-Medrol Advair
[2016-12-23 16:16] LABS: NEUTROPHIL 89 % (50-75); TOTAL CELLS COUNTED 100
--- NOTE | 2016-12-23 17:34 | CP.PCM.CON ---
History of Present Illness - History of Present Illness History of Present Illness: Reason for consultation: History of COPD and dyspnea on exertion 66 y/o female, whose PMHx includes copd, HTN, and hypercholesterolemia, presents to the ED s/p fall . Pt states she tripped and fell in her room, and landed on the left side of her body. Pt also reports hitting the left side of her head, and reports blackout of vision at the time. Pt also complains of intermittent cough and shortness of breath. Otherwise, denies any abdominal pain , n/v/d, chest pain, palpitations, back pain, sensory changes, or any other associated symptoms at this time. Patient status post closed reduction of left shoulder dislocation. Review of Systems - Review of Systems All systems: reviewed and no additional remarkable complaints except (Left shoulder pain and shortness of breath on exertion) Past Patient History - Infectious Disease Hx of Infectious Diseases: None - Past Medical History & Family History Past Medical History?: Yes - Past Social History Smoking Status: Former Smoker - CARDIAC Hx Hypercholesterolemia: Yes Hx Hypertension: Yes - PULMONARY Hx Asthma: Yes Hx Chronic Obstructive Pulmonary Disease (COPD): Yes - NEUROLOGICAL Hx Neurological Disorder: No - HEENT Hx HEENT Problems: Yes Hx Cataracts: Yes Hx Glaucoma: Yes (Sx last Apr 2015) - RENAL Hx Chronic Kidney Disease: No - ENDOCRINE/METABOLIC Hx Endocrine Disorders: No - HEMATOLOGICAL/ONCOLOGICAL Hx Anemia: Yes - INTEGUMENTARY Hx Dermatological Problems: No - MUSCULOSKELETAL/RHEUMATOLOGICAL Hx Arthritis: Yes Hx Falls: Yes - GASTROINTESTINAL Hx Gastritis: Yes - GENITOURINARY/GYNECOLOGICAL Hx Genitourinary Disorders: No - PSYCHIATRIC Hx Depression: Yes Hx Substance Use: No - SURGICAL HISTORY Hx Surgeries: Yes Hx Breast Biopsy: Yes Hx Eye Surgery: Yes (glaucoma OU) Hx Musculoskeletal Surgery: Yes (L leg) Other/Comment: left leg surgery - ANESTHESIA Hx Anesthesia: Yes Hx Anesthesia Reactions: No Hx Malignant Hyperthermia: No Meds Allergies/Adverse Reactions: Allergies Allergy/AdvReac Type Severity Reaction Status Date / Time moxifloxacin HCl Allergy Verified 09/21/16 13:59 [From Avelox] - Medications Medications: Current Medications Aspirin (Aspirin Chewable) 81 mg PO DAILY [facility] Benzocaine/Menthol (Cepacol Sore Throat) 1 alexa MT Q4H PRN PRN Reason: Sore Throat Last Admin: 12/22/16 21:43 Dose: 1 alexa Enoxaparin Sodium (Lovenox) 40 mg SC DAILY [facility] Last Admin: 12/23/16 09:43 Dose: 40 mg Hydromorphone HCl (Dilaudid) 1 mg IVP Q4H PRN PRN Reason: Pain, moderate (4-7) Last Admin: 12/23/16 05:39 Dose: 1 mg Piperacillin Sod/Tazobactam Sod (Zosyn 3.375 Gm Iv Premix) 3.375 gm in 50 mls @ 100 mls/hr IVPB Q8 [facility] Last Admin: 12/23/16 13:48 Dose: 100 mls/hr Methylprednisolone (Solu-Medrol) 40 mg IVP Q8 [facility] Last Admin: 12/23/16 13:47 Dose: 40 mg Montelukast Sodium (Singulair) 10 mg PO [facility] Last Admin: 12/22/16 21:44 Dose: 10 mg Pantoprazole Sodium (Protonix Inj) 40 mg IVP DAILY [facility] Last Admin: 12/23/16 09:43 Dose: 40 mg Pneumococcal Polyvalent Vaccine (Pneumovax 23 Vaccine) 0.5 ml IM .ONCE ONE Stop: 12/24/16 10:01 Rosuvastatin Calcium (Crestor) 5 mg PO [facility] Last Admin: 12/22/16 21:43 Dose: 5 mg Fluticasone/Salmeterol (Advair Diskus 250/50) 1 puff INH RQ12 [facility] Last Admin: 12/23/16 07:56 Dose: 1 puff Tiotropium [place] (Spiriva) 18 mcg INH RQ24 [facility] Last Admin: 12/23/16 07:56 Dose: 18 mcg Physical Exam - Constitutional Appears: No Acute Distress - Head Exam Head Exam: ATRAUMATIC, NORMOCEPHALIC - Eye Exam Eye Exam: Normal appearance - ENT Exam ENT Exam: Mucous Membranes Moist - Neck Exam Neck exam: Positive for: Normal Inspection - Respiratory Exam Respiratory Exam: Decreased Breath Sounds - Cardiovascular Exam Cardiovascular Exam: REGULAR RHYTHM - GI/Abdominal Exam GI & Abdominal Exam: Normal Bowel Sounds, Soft - Extremities Exam Extremities exam: Positive for: normal inspection, pedal edema - Neurological Exam Neurological exam: Alert, Oriented x3 Results - Vital Signs Recent Vital Signs: Last Vital Signs Temp 98.9 F 12/23/16 15:23 Pulse 66 12/23/16 15:23 Resp 20 12/23/16 15:23 BP 127/65 12/23/16 15:23 Pulse Ox 97 12/23/16 15:23 - Labs Result Diagrams: 12/23/16 14:20 12/23/16 14:20 Labs: Laboratory Results - last 24 hr 12/22/16 12/23/16 12/23/16 19:19 14:20 14:20 WBC 14.7 H RBC 4.52 Hgb 12.5 Hct 38.9 MCV 86.2 MCH 27.6 MCHC 32.0 L RDW 13.5 Plt Count 289 MPV 9.2 Neut % (Auto) 88.5 H Lymph % (Auto) 6.0 L [place] % (Auto) 5.1 Eos % (Auto) 0.1 Baso % (Auto) 0.3 Neut # 13.1 H Lymph # 0.9 L [place] # 0.7 Eos # 0.0 Baso # 0.0 Neutrophils % (Manual) 89 H Lymphocytes % (Manual) 7 L Monocytes % (Manual) 4 Platelet Estimate Normal RBC Morphology Normal Sodium 134 Potassium 4.0 Chloride 90 L Carbon Dioxide 36 H Anion Gap 12 BUN 19 H Creatinine 0.6 L Est GFR ( Amer) > 60 Est GFR (Non-Af Amer) > 60 Random Glucose 253 H Calcium 8.4 L Total Bilirubin 0.4 AST 17 ALT 19 Alkaline Phosphatase 56 Total Creatine Kinase 70 CK-MB (Mass) 0.96 Troponin I, Quant 0.0290 Total Protein 6.3 Albumin 3.4 L Globulin 3.0 Albumin/Globulin Ratio 1.1 Assessment & Plan (1) COPD (chronic obstructive pulmonary disease) Status: Acute (2) Shoulder dislocation Status: Acute
[2016-12-24] MEDS: HYDROmorphone 1 mg/ml ISec IVP PRN ×2 (02:02→21:59)
[2016-12-24] MEDS: MethylPREDNISolone 40 mg Vial IVP SCH ×3 (06:38→21:51)
[2016-12-24] MEDS: Piperacill/Tazo 3.375gm in Dex 3.375 GM/50 ML BAG IVPB SCH ×3 (06:38→22:03)
[2016-12-24] MEDS: Tiotropium 18 mcg Cap For Inhalation INH SCH (08:06)
[2016-12-24] MEDS: Fluticasone-Salmeterol 250-50mcg Diskus INH SCH ×2 (08:06→20:56)
[2016-12-24] MEDS ORDERED: Pneumococcal 23-Valent Vaccine IM ONE (10:00)
[2016-12-24] MEDS: Enoxaparin 40 mg Syringe SC SCH (10:39)
--- NOTE | 2016-12-24 12:15 | CP.PCM.PN ---
<Braeden Griffith - Last Filed: 12/24/16 12:12> Subjective - Date & Time of Evaluation Date of Evaluation: 12/24/16 Time of Evaluation: 12:00 - Subjective Subjective: Cardiology Progress Note Dr. Romero Patient seen and examined at bedside. No acute distress, no acute events overnight. Midline and left sided chest pain persists, worse with deep respiration or movement of neck or attempted movement of left shoulder/arm; overall though improved. Generalized body aches persist as well, although improved over yesterday. Baseline SOB 2/2 longstanding asthma persists but is controlled, no acute exacerbations. Admits also to some nausea, and some lightheadedness when attempting to lay bed flat, but denies emesis or syncopal/ near-syncopal episodes. All other ROS are negative. Objective - Vital Signs/Intake and Output Vital Signs (last 24 hours): Temp Pulse Resp BP Pulse Ox 97.5 F L 65 20 145/76 96 12/24/16 07:35 12/24/16 07:35 12/24/16 07:35 12/24/16 07:35 12/24/16 07:35 Intake and Output: 12/24/16 12/24/16 06:59 18:59 Intake Total 240 300 Balance 240 300 - Medications Medications: Current Medications Aspirin (Aspirin Chewable) 81 mg PO DAILY [facility] Last Admin: 12/24/16 10:32 Dose: 81 mg Benzocaine/Menthol (Cepacol Sore Throat) 1 alexa MT Q4H PRN PRN Reason: Sore Throat Last Admin: 12/22/16 21:43 Dose: 1 alexa Enoxaparin Sodium (Lovenox) 40 mg SC DAILY [facility] Last Admin: 12/24/16 10:39 Dose: 40 mg Hydromorphone HCl (Dilaudid) 1 mg IVP Q4H PRN PRN Reason: Pain, moderate (4-7) Last Admin: 12/24/16 02:02 Dose: 1 mg Piperacillin Sod/Tazobactam Sod (Zosyn 3.375 Gm Iv Premix) 3.375 gm in 50 mls @ 100 mls/hr IVPB Q8 [facility] Last Admin: 12/24/16 06:38 Dose: 100 mls/hr Methylprednisolone (Solu-Medrol) 40 mg IVP Q8 [facility] Last Admin: 12/24/16 06:38 Dose: 40 mg Montelukast Sodium (Singulair) 10 mg PO HS [facility] Last Admin: 12/23/16 21:12 Dose: 10 mg Pantoprazole Sodium (Protonix Inj) 40 mg IVP DAILY [facility] Last Admin: 12/24/16 10:24 Dose: 40 mg Rosuvastatin Calcium (Crestor) 5 mg PO HS [facility] Last Admin: 12/23/16 21:12 Dose: 5 mg Fluticasone/Salmeterol (Advair Diskus 250/50) 1 puff INH RQ12 [facility] Last Admin: 12/24/16 08:06 Dose: 1 puff Tiotropium [place] (Spiriva) 18 mcg INH RQ24 [facility] Last Admin: 12/24/16 08:06 Dose: 18 mcg - Labs Labs: 12/23/16 14:20 12/23/16 14:20 PT 10.4 SECONDS (9.7-12.2) 12/20/16 13:43 INR 0.9 12/20/16 13:43 APTT 30 SECONDS (21-34) 12/20/16 13:43 - Constitutional Appears: Non-toxic, No Acute Distress - Head Exam Head Exam: ATRAUMATIC, NORMAL INSPECTION, NORMOCEPHALIC - Eye Exam Eye Exam: EOMI, Normal appearance. absent: Conjunctival injection, Scleral icterus Pupil Exam: absent: Irregular, Unequal - ENT Exam ENT Exam: Mucous Membranes Moist - Neck Exam Neck Exam: Tenderness. absent: Full ROM (intentionally restricting ROM 2/2 pain , but no anatomical/physiological barriers/abnormalities appreciated with mild passive movement) - Respiratory Exam Respiratory Exam: Chest Wall Tenderness (mild diffuse tenderness to palpation, most prominent along superior midline and left lateral chest wall), Clear to Ausculation Bilateral, NORMAL BREATHING PATTERN. absent: Accessory Muscle Use, Rales, Rhonchi, Wheezes - Cardiovascular Exam Cardiovascular Exam: REGULAR RHYTHM, RRR, +S1, +S2. absent: Bradycardia, Tachycardia, Irregular Rhythm, +S4 - GI/Abdominal Exam GI & Abdominal Exam: Soft, Tenderness (mild diffuse tenderness, no single area of prominence), Normal Bowel Sounds. absent: Distended, Firm, Rigid, Diminished Bowel Sounds, Hypoactive Bowel Sounds - Extremities Exam Extremities Exam: Normal Capillary Refill, Normal Inspection. absent: Calf Tenderness, Full ROM (appropriate ROM of RLE, intentionally limiting LLE movement due to pain) - Back Exam Back Exam: tenderness (at and immediately around left shoulder/scapular region) - Neurological Exam Neurological Exam: Alert, Awake, Oriented x3 Additional comments: Gross motor of RLE and RUE intact, LLE foot and LUE hand movements intact Sensory grossly intact, able to discriminate sensation between R and L LE - Psychiatric Exam Psychiatric exam: Normal Affect, Normal Mood - Skin Skin Exam: Dry, Intact, Normal Color, Warm Assessment and Plan (1) Chest pain Assessment & Plan: EKG 12/20/16 on admission showed NSR [address] changes. CXR 12/20/16 showed no active disease. ECHO 07/30/16 shows LV Fx normal 65% EF. Cardiac cath 04/08/16 (Dr. Frank): Mild to Moderate Pulmonary HTN (PA 47/10), Moderate CAD, LAD: Distal long 60% stenosis, EF: 55-60%, Diastolic CHF. CONOR negative X 3. -Likely 2/2 traumatic fall, less likely ACS as trops are negative and EKG was NSR with no abnormal ST-T segments -Continue medical management: ASA 81 mg PO daily, Crestor 5 mg PO HS -Pain control as per Primary and Ortho teams Status: Acute (2) Fall Assessment & Plan: -As per description of patient, fall was mechanical, tripped and fell -Retains full memory of the fall, denies LOS/loss of memory -Neurologically appropriate on exam, gross sensory intact, AAO, answering questions appropriately and following all commands appropriately -Head CT on admission negative for acute intracranial abnormalities, and EKG on admission NSR without segment abnormalities, no signs/sx of arrhythmias since admission -Continue to monitor, rec fall precautions Status: Acute - Assessment and Plan (Free Text) Assessment: Case discussed with Dr. Romero. <Hira Romero - Last Filed: 02/02/17 03:05> Objective - Vital Signs/Intake and Output Vital Signs (last 24 hours): Temp Pulse Resp BP Pulse Ox 98.5 F 70 20 134/75 98 12/26/16 15:33 12/26/16 15:33 12/26/16 15:33 12/26/16 15:33 12/26/16 15:33 - Labs Labs: 12/26/16 07:08 06/02/17 07:08 PT 10.4 SECONDS (9.7-12.2) 12/20/16 13:43 INR 0.9 12/20/16 13:43 APTT 30 SECONDS (21-34) 12/20/16 13:43 Attending/Attestation - Attestation I have personally seen and examined this patient.: Yes I have fully participated in the care of the patient.: Yes I have reviewed all pertinent clinical information, including history, physical exam and plan: Yes Notes (Text): 02/02/17 03:05 pain controlled with meds clearance given in lieu of nl cath
--- NOTE | 2016-12-24 13:13 | CP.PCM.PN ---
Subjective - Date & Time of Evaluation Date of Evaluation: 12/24/16 Time of Evaluation: 13:11 - Subjective Subjective: Patient states pain in her left shoulder is much better. She still has pain all the time in shoulder, but it feels better, and hand feels stronger. She saysshe has pain in her left groin that is not getting any better, and she has a lot of pain when she tries to walk or to lift leg up. Denies back pain. Mild knee pain in that side also. She says she has arthritis but pain isn't usually this bad. Denies numbness/tingling. Objective - Vital Signs/Intake and Output Vital Signs (last 24 hours): Temp Pulse Resp BP Pulse Ox 97.5 F L 65 20 145/76 96 12/24/16 07:35 12/24/16 07:35 12/24/16 07:35 12/24/16 07:35 12/24/16 07:35 Intake and Output: 12/24/16 12/24/16 06:59 18:59 Intake Total 240 300 Balance 240 300 - Medications Medications: Current Medications Aspirin (Aspirin Chewable) 81 mg PO DAILY [facility] Last Admin: 12/24/16 10:32 Dose: 81 mg Benzocaine/Menthol (Cepacol Sore Throat) 1 alexa MT Q4H PRN PRN Reason: Sore Throat Last Admin: 12/22/16 21:43 Dose: 1 alexa Enoxaparin Sodium (Lovenox) 40 mg SC DAILY [facility] Last Admin: 12/24/16 10:39 Dose: 40 mg Hydromorphone HCl (Dilaudid) 1 mg IVP Q4H PRN PRN Reason: Pain, moderate (4-7) Last Admin: 12/24/16 02:02 Dose: 1 mg Piperacillin Sod/Tazobactam Sod (Zosyn 3.375 Gm Iv Premix) 3.375 gm in 50 mls @ 100 mls/hr IVPB Q8 [facility] Last Admin: 12/24/16 06:38 Dose: 100 mls/hr Methylprednisolone (Solu-Medrol) 40 mg IVP Q8 [facility] Last Admin: 12/24/16 06:38 Dose: 40 mg Montelukast Sodium (Singulair) 10 mg PO HS [facility] Last Admin: 12/23/16 21:12 Dose: 10 mg Pantoprazole Sodium (Protonix Inj) 40 mg IVP DAILY [facility] Last Admin: 12/24/16 10:24 Dose: 40 mg Rosuvastatin Calcium (Crestor) 5 mg PO HS [facility] Last Admin: 12/23/16 21:12 Dose: 5 mg Fluticasone/Salmeterol (Advair Diskus 250/50) 1 puff INH RQ12 [facility] Last Admin: 12/24/16 08:06 Dose: 1 puff Tiotropium [place] (Spiriva) 18 mcg INH RQ24 [facility] Last Admin: 12/24/16 08:06 Dose: 18 mcg - Labs Labs: 12/23/16 14:20 12/23/16 14:20 PT 10.4 SECONDS (9.7-12.2) 12/20/16 13:43 INR 0.9 12/20/16 13:43 APTT 30 SECONDS (21-34) 12/20/16 13:43 - Extremities Exam Additional comments: LUE: +ROM fingers/wrist flex/ext full strength and ROM. Minimal pain with elbow ROM in sling. TTP to shoulder, sensation intact o rad/ulnar/median nerve distrib. +Radial pulse, mild swelling to shoulder LLE: pain in groin with knee/hip flexion. Complains of pain with SLR but able to do do with 4/5 strength. Sensation intacyt, 5/5 ankle DF/PF, great toe ext. No pain with longitudinal traction or loading, no pain with log roll. Calves soft NT neg homans Assessment and Plan (1) Dislocation of left shoulder joint Assessment & Plan: s/p closed reduction in OR pain significantly improved continue immobilizer at this time d/w Dr. Morrow, agrees with above Status: Acute (2) Left hip pain Assessment & Plan: continuing after fall no fx on xray, some DJD of left hip noted on xray r/o OA exacerbation, occult fx from fall MRI ordered left hip xrays left knee for completion, no fracture noted on fluoroscopy intraop images , but do to continued pain will order complete series will follow plan PT/OT VTE proph Status: Acute Radiology Interpretation - Radiology Interpretation #2 Interpretation: atient Name / ID : HILARIO MOREL / [id number] Exam Date : 12/20/2016 13:46:30 ( Approved ) Study Comment : Sex / Age : F / 66Y Creator : Gonzalo Darby MD Dictator : Gonzalo Darby MD Iron Worker : Box Toe Cutter : Gonzalo Darby MD Approver2 : Report Date : 12/20/2016 15:03:50 My Comment : PROCEDURE: Left Hip X-ray Radiographs. HISTORY: fall pain COMPARISON: None. FINDINGS: BONES: No acute fracture. Diffuse osteopenia. JOINTS: Normal. SOFT TISSUES: Normal. OTHER FINDINGS: Mild and symmetrical degenerative changes both hips. IMPRESSION: No acute findings related to/accounting for the clinical presentation. - Radiology Interpretation #3 Interpretation: Patient Name / ID : HILARIO MOREL / [id number] Exam Date : 12/20/2016 13:46:10 ( Approved ) Study Comment : Sex / Age : Creator : Gonzalo Darby MD Dictator : Gonzalo Darby MD Iron Worker : Box Toe Cutter : Gonzalo Darby MD Approver2 : Report Date : 12/20/2016 15:04:33 My Comment : PROCEDURE: Left femur HISTORY: fall pain COMPARISON: December 20, 2016. TECHNIQUE: Standard protocol for this study/examination. FINDINGS: No significant/acute osseous, articular or soft tissue abnormalities.
[2016-12-24 13:59] LABS: BASO % 0.3 % (0.0-2.0); HEMATOCRIT 40.7 % (34.0-47.0); LYMPH # 1.1 K/uL (1.0-4.3); LYMPH % 7.8 % (20.0-40.0); MEAN CELL VOLUME 86.1 fL (81.0-99.0); MEAN CORPUSCULAR HGB CONC 32.5 g/dL (33.0-37.0); MEAN PLATELET VOLUME 8.6 fL (7.2-11.7); MONO # 0.9 K/uL (0.0-0.8); MONO % 6.7 % (0.0-10.0); PLATELET COUNT 312 K/uL (130-400); RED CELL DISTRIBUTION WIDTH 13.9 % (11.5-14.5); WHITE BLOOD COUNT 13.8 K/uL (4.8-10.8)
[2016-12-24 14:07] LABS: CHLORIDE 92 mmol/L (98-107); SODIUM 138 mmol/L (132-148)
[2016-12-24 14:10] LABS: ALB/GLOB RATIO 1.1 (1.0-2.1); ALKALINE PHOSPHATASE 67 U/L (38-126); ALT/SGPT 26 U/L (9-52); AST/SGOT 15 U/L (14-36); BILIRUBIN,TOTAL 0.4 mg/dL (0.2-1.3); BLOOD UREA NITROGEN 22 mg/dL (7-17); CARBON DIOXIDE 37 mmol/L (22-30); GFR AFRICAN-AMERICAN > 60; GLUCOSE,RANDOM 215 mg/dL (65-105); TOTAL PROTEIN 6.5 g/dL (6.3-8.3)
[2016-12-24 14:11] LABS: CALCIUM 8.7 mg/dl (8.6-10.4)
--- NOTE | 2016-12-24 14:55 | CP.PCM.PN ---
Subjective - Date & Time of Evaluation Date of Evaluation: 12/24/16 Time of Evaluation: 11:20 - Subjective Subjective: clinically same Objective - Vital Signs/Intake and Output Vital Signs (last 24 hours): Temp Pulse Resp BP Pulse Ox 97.5 F L 65 20 145/76 96 12/24/16 07:35 12/24/16 07:35 12/24/16 07:35 12/24/16 07:35 12/24/16 07:35 Intake and Output: 12/24/16 12/24/16 06:59 18:59 Intake Total 240 300 Balance 240 300 - Medications Medications: Current Medications Aspirin (Aspirin Chewable) 81 mg PO DAILY [facility] Last Admin: 12/24/16 10:32 Dose: 81 mg Benzocaine/Menthol (Cepacol Sore Throat) 1 alexa MT Q4H PRN PRN Reason: Sore Throat Last Admin: 12/22/16 21:43 Dose: 1 alexa Enoxaparin Sodium (Lovenox) 40 mg SC DAILY [facility] Last Admin: 12/24/16 10:39 Dose: 40 mg Hydromorphone HCl (Dilaudid) 1 mg IVP Q4H PRN PRN Reason: Pain, moderate (4-7) Last Admin: 12/24/16 02:02 Dose: 1 mg Piperacillin Sod/Tazobactam Sod (Zosyn 3.375 Gm Iv Premix) 3.375 gm in 50 mls @ 100 mls/hr IVPB Q8 [facility] Last Admin: 12/24/16 14:24 Dose: 100 mls/hr Methylprednisolone (Solu-Medrol) 40 mg IVP Q8 [facility] Last Admin: 12/24/16 14:24 Dose: 40 mg Montelukast Sodium (Singulair) 10 mg PO HS [facility] Last Admin: 12/23/16 21:12 Dose: 10 mg Pantoprazole Sodium (Protonix Inj) 40 mg IVP DAILY [facility] Last Admin: 12/24/16 10:24 Dose: 40 mg Rosuvastatin Calcium (Crestor) 5 mg PO HS [facility] Last Admin: 12/23/16 21:12 Dose: 5 mg Fluticasone/Salmeterol (Advair Diskus 250/50) 1 puff INH RQ12 [facility] Last Admin: 12/24/16 08:06 Dose: 1 puff Tiotropium [place] (Spiriva) 18 mcg INH RQ24 [facility] Last Admin: 12/24/16 08:06 Dose: 18 mcg - Labs Labs: 12/24/16 13:51 12/24/16 13:51 PT 10.4 SECONDS (9.7-12.2) 12/20/16 13:43 INR 0.9 12/20/16 13:43 APTT 30 SECONDS (21-34) 12/20/16 13:43 - Constitutional Appears: Well - Head Exam Head Exam: ATRAUMATIC, NORMAL INSPECTION, NORMOCEPHALIC - Eye Exam Eye Exam: EOMI, Normal appearance, PERRL Pupil Exam: NORMAL ACCOMODATION, PERRL - ENT Exam ENT Exam: Mucous Membranes Moist, Normal Exam - Neck Exam Neck Exam: Full ROM, Normal Inspection. absent: Lymphadenopathy - Respiratory Exam Respiratory Exam: Decreased Breath Sounds - Cardiovascular Exam Cardiovascular Exam: REGULAR RHYTHM, +S1, +S2 - GI/Abdominal Exam GI & Abdominal Exam: Soft, Diminished Bowel Sounds - Rectal Exam Rectal Exam: Deferred Assessment and Plan (1) Acute and chronic respiratory failure with hypercapnia Status: Acute (2) Acute dyspnea Status: Acute (3) Acute electrocardiogram changes Status: Acute (4) Acute hypercapnic respiratory failure Status: Acute (5) Asthma Status: Acute (6) Asthma exacerbation Status: Acute (7) Asthma with COPD with status asthmaticus Status: Acute (8) COPD (chronic obstructive pulmonary disease) Status: Acute (9) COPD exacerbation Status: Acute (10) Chest pain Status: Acute (11) Chronic back pain Status: Acute (12) Chronic respiratory failure Status: Acute (13) Closed fracture of anterior column of left acetabulum Status: Acute (14) Closed sacral fracture Status: Acute (15) Colitis Status: Acute (16) Dislocation of left shoulder joint Status: Acute (17) Dyspnea Status: Acute (18) Elevated troponin Status: Acute (19) Exacerbation of asthma Status: Acute (20) Fall Status: Acute (21) Fracture of glenoid process of left scapula Status: Acute (22) Fracture of left inferior pubic ramus Status: Acute (23) GI bleeding Status: Acute (24) Herniated lumbar disc without myelopathy Status: Acute (25) Hill-Sachs fracture of left humerus Status: Acute (26) Intractable pain Status: Acute (27) Left hip pain Status: Acute (28) Left shoulder pain Status: Acute (29) Leukocytosis Status: Acute (30) Liver mass Status: Acute (31) Lung nodule Status: Acute (32) Pneumonia Status: Acute (33) Prophylactic measure Status: Acute (34) Pulmonary hypertension Status: Acute (35) Respiratory distress Status: Acute (36) Respiratory distress Status: Acute (37) Respiratory failure, acute and chronic Status: Acute (38) Scapula coracoid process fracture Status: Acute (39) Shoulder dislocation Status: Acute (40) Tracheobronchitis Status: Acute (41) Chronic osteoarthritis Status: Chronic (42) Depressed Status: Chronic (43) GERD (gastroesophageal reflux disease) Status: Chronic (44) Lumbago Status: Chronic - Assessment and Plan (Free Text) Plan: Continue Zosyn Lovenox Dilaudid Postop care Fall precautions Singulair Monitor vitals
[2016-12-24 14:58] LABS: NEUTROPHIL 84 % (50-75); TOTAL CELLS COUNTED 100
[2016-12-25] MEDS: HYDROmorphone 1 mg/ml ISec IVP PRN ×2 (02:01→05:55)
[2016-12-25] MEDS: MethylPREDNISolone 40 mg Vial IVP SCH ×2 (05:16→21:55)
[2016-12-25] MEDS: Piperacill/Tazo 3.375gm in Dex 3.375 GM/50 ML BAG IVPB SCH ×3 (05:16→21:58)
[2016-12-25] MEDS: Fluticasone-Salmeterol 250-50mcg Diskus INH SCH ×2 (08:02→20:27)
[2016-12-25] MEDS: Tiotropium 18 mcg Cap For Inhalation INH SCH (08:02)
--- NOTE | 2016-12-25 08:19 | RAD ---
Left knee three views History: Pain. Comparison: None available. Findings: Vascular calcifications. Moderate medial compartment joint space narrowing with subchondral sclerosis. No significant suprapatellar joint effusion. Mild patellofemoral compartment joint space narrowing. Impression: Degenerative changes. If pain persists, consider MRI.
--- NOTE | 2016-12-25 09:29 | CP.PCM.PN ---
Subjective - Date & Time of Evaluation Date of Evaluation: 12/25/16 Time of Evaluation: 09:00 - Subjective Subjective: PGY2 on medicine Dr. Escobar service: Pt seen and examined at bedside this morning. Pt reports severe pain with left arm in the morning and cannot move. Pain not controlled with medication. Per RN sling also not in correct position. No other complaints at the moment. Objective - Vital Signs/Intake and Output Vital Signs (last 24 hours): Temp Pulse Resp BP Pulse Ox 97.9 F 60 20 162/72 H 98 12/25/16 08:28 12/25/16 08:28 12/25/16 08:28 12/25/16 09:07 12/25/16 08:28 Intake and Output: 12/25/16 12/25/16 06:59 18:59 Intake Total 290 Balance 290 - Medications Medications: Current Medications Aspirin (Aspirin Chewable) 81 mg PO DAILY [facility] Last Admin: 12/24/16 10:32 Dose: 81 mg Benzocaine/Menthol (Cepacol Sore Throat) 1 alexa MT Q4H PRN PRN Reason: Sore Throat Last Admin: 12/22/16 21:43 Dose: 1 alexa Enoxaparin Sodium (Lovenox) 40 mg SC DAILY [facility] Last Admin: 12/24/16 10:39 Dose: 40 mg Hydromorphone HCl (Dilaudid) 1 mg IVP Q4H PRN PRN Reason: Pain, moderate (4-7) Last Admin: 12/25/16 05:55 Dose: 1 mg Piperacillin Sod/Tazobactam Sod (Zosyn 3.375 Gm Iv Premix) 3.375 gm in 50 mls @ 100 mls/hr IVPB Q8 [facility] Last Admin: 12/25/16 05:16 Dose: 100 mls/hr Methylprednisolone (Solu-Medrol) 40 mg IVP Q8 [facility] Last Admin: 12/25/16 05:16 Dose: 40 mg Montelukast Sodium (Singulair) 10 mg PO HS [facility] Last Admin: 12/24/16 21:51 Dose: 10 mg Morphine Sulfate (Morphine) 4 mg IVP Q4 PRN PRN Reason: moderate pain Pantoprazole Sodium (Protonix Inj) 40 mg IVP DAILY [facility] Last Admin: 12/24/16 10:24 Dose: 40 mg Rosuvastatin Calcium (Crestor) 5 mg PO HS [facility] Last Admin: 12/24/16 21:51 Dose: 5 mg Fluticasone/Salmeterol (Advair Diskus 250/50) 1 puff INH RQ12 [facility] Last Admin: 12/25/16 08:02 Dose: 1 puff Tiotropium [place] (Spiriva) 18 mcg INH RQ24 [facility] Last Admin: 12/25/16 08:02 Dose: 18 mcg - Labs Labs: 12/24/16 13:51 12/24/16 13:51 PT 10.4 SECONDS (9.7-12.2) 12/20/16 13:43 INR 0.9 12/20/16 13:43 APTT 30 SECONDS (21-34) 12/20/16 13:43 - Constitutional Appears: Non-toxic, No Acute Distress - Head Exam Head Exam: NORMOCEPHALIC - Eye Exam Eye Exam: Normal appearance Pupil Exam: NORMAL ACCOMODATION - ENT Exam ENT Exam: Mucous Membranes Moist - Respiratory Exam Respiratory Exam: Clear to Ausculation Bilateral, NORMAL BREATHING PATTERN. absent: Rhonchi, Wheezes - Cardiovascular Exam Cardiovascular Exam: REGULAR RHYTHM, +S1, +S2. absent: Gallop, Rubs - Extremities Exam Additional comments: left shoulder severe tenderness, sling not in place - Neurological Exam Neurological Exam: Alert, Awake, Oriented x3 - Psychiatric Exam Psychiatric exam: Normal Mood - Skin Skin Exam: Intact Assessment and Plan - Assessment and Plan (Free Text) Assessment: Left shoulder pain S/P reduction on 12/22. Repeat xray today show anterior dislocation. Ortho team notified, will have OR reduction today in the afternoon. Dilaudid and morphine PRN. Zosyn started 12/20. NPO for procedure. Chest pain CONOR negative Cath 2015 showed moderate CAD and diastolic CHF. Continue medical management ASA and Crestor. Asthma Solumedrol 40mg IV q8. Singulair 10mg PO HS. Advair, Spiriva Prophylactic measure Lovenox, Protonix, SCD
[2016-12-25] MEDS: Enoxaparin 40 mg Syringe SC SCH (09:40)
[2016-12-25] MEDS ORDERED: HYDROmorphone 1 mg/ml ISec IVP PRN (09:45)
[2016-12-25] MEDS: Morphine 4 MG/ML VIAL IVP PRN ×2 (09:51→20:07)
--- NOTE | 2016-12-25 09:59 | CP.PCM.PN ---
<Ashwini Barnhart - Last Filed: 12/25/16 09:55> Subjective - Date & Time of Evaluation Date of Evaluation: 12/25/16 Time of Evaluation: 08:00 - Subjective Subjective: Cardiology Progress Note- Dr. Sotomayor Patient seen and examined at bedside this Am. Patient admits to 10/10 left upper extremity pain. Patient is POD #1 s/p closed reduction left shoulder. She admits to left chest wall pain that is related to her arm pain. She was reaching for objects yesterday and today which aggravated her symptoms. No fevers, chills, nausea, vomiting. No other complaints at this time. All other 12 point ROS done and negative. Objective - Vital Signs/Intake and Output Vital Signs (last 24 hours): Temp Pulse Resp BP Pulse Ox 97.9 F 60 20 162/72 H 98 12/25/16 08:28 12/25/16 08:28 12/25/16 08:28 12/25/16 09:07 12/25/16 08:28 Intake and Output: 12/25/16 12/25/16 06:59 18:59 Intake Total 290 Balance 290 - Medications Medications: Current Medications Aspirin (Aspirin Chewable) 81 mg PO DAILY [facility] Last Admin: 12/25/16 09:39 Dose: 81 mg Benzocaine/Menthol (Cepacol Sore Throat) 1 alexa MT Q4H PRN PRN Reason: Sore Throat Last Admin: 12/22/16 21:43 Dose: 1 alexa Enoxaparin Sodium (Lovenox) 40 mg SC DAILY [facility] Last Admin: 12/25/16 09:40 Dose: 40 mg Hydromorphone HCl (Dilaudid) 1 mg IVP Q4H PRN PRN Reason: SEVERE PAIN 8-10 Piperacillin Sod/Tazobactam Sod (Zosyn 3.375 Gm Iv Premix) 3.375 gm in 50 mls @ 100 mls/hr IVPB Q8 [facility] Last Admin: 12/25/16 05:16 Dose: 100 mls/hr Methylprednisolone (Solu-Medrol) 40 mg IVP Q8 [facility] Last Admin: 12/25/16 05:16 Dose: 40 mg Montelukast Sodium (Singulair) 10 mg PO HS [facility] Last Admin: 12/24/16 21:51 Dose: 10 mg Morphine Sulfate (Morphine) 4 mg IVP Q4 PRN PRN Reason: moderate pain Last Admin: 12/25/16 09:51 Dose: 4 mg Pantoprazole Sodium (Protonix Inj) 40 mg IVP DAILY [facility] Last Admin: 12/25/16 09:40 Dose: 40 mg Rosuvastatin Calcium (Crestor) 5 mg PO HS [facility] Last Admin: 12/24/16 21:51 Dose: 5 mg Fluticasone/Salmeterol (Advair Diskus 250/50) 1 puff INH RQ12 [facility] Last Admin: 12/25/16 08:02 Dose: 1 puff Tiotropium [place] (Spiriva) 18 mcg INH RQ24 [facility] Last Admin: 12/25/16 08:02 Dose: 18 mcg - Labs Labs: 12/24/16 13:51 12/24/16 13:51 PT 10.4 SECONDS (9.7-12.2) 12/20/16 13:43 INR 0.9 12/20/16 13:43 APTT 30 SECONDS (21-34) 12/20/16 13:43 - Constitutional Appears: In Acute Distress (in pain) - Head Exam Head Exam: NORMAL INSPECTION, NORMOCEPHALIC - Eye Exam Eye Exam: EOMI, Normal appearance - ENT Exam ENT Exam: Mucous Membranes Moist - Respiratory Exam Respiratory Exam: Clear to Ausculation Bilateral, NORMAL BREATHING PATTERN - Cardiovascular Exam Cardiovascular Exam: REGULAR RHYTHM, +S1, +S2 - GI/Abdominal Exam GI & Abdominal Exam: Soft. absent: Distended, Tenderness - Extremities Exam Extremities Exam: Full ROM, Normal Inspection - Back Exam Back Exam: NORMAL INSPECTION - Neurological Exam Neurological Exam: Alert, Awake, Oriented x3 - Psychiatric Exam Psychiatric exam: Normal Affect, Normal Mood - Skin Skin Exam: Dry, Normal Color, Warm Assessment and Plan - Assessment and Plan (Free Text) Assessment: (1) Chest pain Assessment & Plan: 66 y/o F POD #1 s/p closed reduction left shoulder. CONOR negative X 3. EKG 12/20/16 on admission showed NSR [address] changes. CXR 12/20/16 showed no active disease. ECHO 07/30/16 shows LV Fx normal 65% EF. Cardiac cath done 04/08/[address] Frank showed: 1. Mild to Moderate Pulmonary HTN (PA 47/10) 3. Moderate CAD L Main: Patent LAD: Distal long 60% stenosis L Cx: Patent RCA: dominant and patent EF: 55-60% Cath impression on 03/2016: 1. Moderate CAD. 2. Moderate pulmonary HTN. 3. Diastolic CHF. Continue medical management: * ASA 81 mg PO daily * Crestor 5 mg PO HS Status: Acute (2) Fall Assessment & Plan: 66 y/o F POD #3 s/p closed reduction left shoulder. Status: Acute - Assessment and Plan (Free Text) Assessment: Will sign off case. Please re-consult as needed. Patient seen and discussed with Dr. Romero. Bailee Barnhart, PGY 2 <Hira Romero - Last Filed: 02/02/17 03:03> Objective - Vital Signs/Intake and Output Vital Signs (last 24 hours): Temp Pulse Resp BP Pulse Ox 98.5 F 70 20 134/75 98 12/26/16 15:33 12/26/16 15:33 12/26/16 15:33 12/26/16 15:33 12/26/16 15:33 - Labs Labs: 12/26/16 07:08 12/26/16 07:08 PT 10.4 SECONDS (9.7-12.2) 12/20/16 13:43 INR 0.9 12/20/16 13:43 APTT 30 SECONDS (21-34) 12/20/16 13:43 Attending/Attestation - Attestation I have personally seen and examined this patient.: Yes I have fully participated in the care of the patient.: Yes I have reviewed all pertinent clinical information, including history, physical exam and plan: Yes Notes (Text): 02/02/17 03:03 non obstructive cad nl enzymes continue bp control and anti platetlet
--- NOTE | 2016-12-25 10:39 | CP.PCM.PN ---
Subjective - Date & Time of Evaluation Date of Evaluation: 12/25/16 Time of Evaluation: 10:00 - Subjective Subjective: clinically same Objective - Vital Signs/Intake and Output Vital Signs (last 24 hours): Temp Pulse Resp BP Pulse Ox 97.9 F 60 20 162/72 H 98 12/25/16 08:28 12/25/16 08:28 12/25/16 08:28 12/25/16 09:07 12/25/16 08:28 Intake and Output: 12/25/16 12/25/16 06:59 18:59 Intake Total 290 Balance 290 - Medications Medications: Current Medications Aspirin (Aspirin Chewable) 81 mg PO DAILY [facility] Last Admin: 12/25/16 09:39 Dose: 81 mg Benzocaine/Menthol (Cepacol Sore Throat) 1 alexa MT Q4H PRN PRN Reason: Sore Throat Last Admin: 12/22/16 21:43 Dose: 1 alexa Enoxaparin Sodium (Lovenox) 40 mg SC DAILY [facility] Last Admin: 12/25/16 09:40 Dose: 40 mg Hydromorphone HCl (Dilaudid) 1 mg IVP Q4H PRN PRN Reason: SEVERE PAIN 8-10 Piperacillin Sod/Tazobactam Sod (Zosyn 3.375 Gm Iv Premix) 3.375 gm in 50 mls @ 100 mls/hr IVPB Q8 [facility] Last Admin: 12/25/16 05:16 Dose: 100 mls/hr Methylprednisolone (Solu-Medrol) 40 mg IVP Q8 [facility] Last Admin: 12/25/16 05:16 Dose: 40 mg Montelukast Sodium (Singulair) 10 mg PO [facility] Last Admin: 12/24/16 21:51 Dose: 10 mg Morphine Sulfate (Morphine) 4 mg IVP Q4 PRN PRN Reason: moderate pain Last Admin: 12/25/16 09:51 Dose: 4 mg Pantoprazole Sodium (Protonix Inj) 40 mg IVP DAILY [facility] Last Admin: 12/25/16 09:40 Dose: 40 mg Rosuvastatin Calcium (Crestor) 5 mg PO [facility] Last Admin: 12/24/16 21:51 Dose: 5 mg Fluticasone/Salmeterol (Advair Diskus 250/50) 1 puff INH RQ12 [facility] Last Admin: 12/25/16 08:02 Dose: 1 puff Tiotropium [place] (Spiriva) 18 mcg INH RQ24 [facility] Last Admin: 12/25/16 08:02 Dose: 18 mcg - Labs Labs: 12/24/16 13:51 12/24/16 13:51 PT 10.4 SECONDS (9.7-12.2) 12/20/16 13:43 INR 0.9 12/20/16 13:43 APTT 30 SECONDS (21-34) 12/20/16 13:43 - Constitutional Appears: Well - Head Exam Head Exam: ATRAUMATIC, NORMAL INSPECTION, NORMOCEPHALIC - Eye Exam Eye Exam: EOMI, Normal appearance, PERRL Pupil Exam: NORMAL ACCOMODATION, PERRL - ENT Exam ENT Exam: Mucous Membranes Moist, Normal Exam - Neck Exam Neck Exam: Full ROM, Normal Inspection. absent: Lymphadenopathy - Respiratory Exam Respiratory Exam: Decreased Breath Sounds - Cardiovascular Exam Cardiovascular Exam: REGULAR RHYTHM, +S1, +S2 - GI/Abdominal Exam GI & Abdominal Exam: Soft, Diminished Bowel Sounds - Rectal Exam Rectal Exam: Deferred Assessment and Plan (1) Acute and chronic respiratory failure with hypercapnia Status: Acute (2) Acute dyspnea Status: Acute (3) Acute electrocardiogram changes Status: Acute (4) Acute hypercapnic respiratory failure Status: Acute (5) Asthma Status: Acute (6) Asthma exacerbation Status: Acute (7) Asthma with COPD with status asthmaticus Status: Acute (8) COPD (chronic obstructive pulmonary disease) Status: Acute (9) COPD exacerbation Status: Acute (10) Chest pain Status: Acute (11) Chronic back pain Status: Acute (12) Chronic respiratory failure Status: Acute (13) Closed fracture of anterior column of left acetabulum Status: Acute (14) Closed sacral fracture Status: Acute (15) Colitis Status: Acute (16) Dislocation of left shoulder joint Status: Acute (17) Dyspnea Status: Acute (18) Elevated troponin Status: Acute (19) Exacerbation of asthma Status: Acute (20) Fall Status: Acute (21) Fracture of glenoid process of left scapula Status: Acute (22) Fracture of left inferior pubic ramus Status: Acute (23) GI bleeding Status: Acute (24) Herniated lumbar disc without myelopathy Status: Acute (25) Hill-Sachs fracture of left humerus Status: Acute (26) Intractable pain Status: Acute (27) Left hip pain Status: Acute (28) Left shoulder pain Status: Acute (29) Leukocytosis Status: Acute (30) Liver mass Status: Acute (31) Lung nodule Status: Acute (32) Pneumonia Status: Acute (33) Prophylactic measure Status: Acute (34) Pulmonary hypertension Status: Acute (35) Respiratory distress Status: Acute (36) Respiratory distress Status: Acute (37) Respiratory failure, acute and chronic Status: Acute (38) Scapula coracoid process fracture Status: Acute (39) Shoulder dislocation Status: Acute (40) Tracheobronchitis Status: Acute (41) Chronic osteoarthritis Status: Chronic (42) Depressed Status: Chronic (43) GERD (gastroesophageal reflux disease) Status: Chronic (44) Lumbago Status: Chronic - Assessment and Plan (Free Text) Plan: Left shoulder pain 10/ 10 Pain not controlled with medications Ortho consult Continue Zosyn Solu-Medrol Lovenox Advair
--- NOTE | 2016-12-25 10:45 | RAD ---
PROCEDURE: Left shoulder HISTORY: new onset pain, s/p reduction COMPARISON: 12/22/2016 TECHNIQUE: AP and transscapular views FINDINGS: There is anterior dislocation of the left humeral head. No definite fracture is identified. There is mild acromioclavicular degenerative arthritis. IMPRESSION: Anterior glenohumeral dislocation.
--- NOTE | 2016-12-25 11:57 | CP.PCM.PN ---
Subjective - Date & Time of Evaluation Date of Evaluation: 12/25/16 Time of Evaluation: 11:54 - Subjective Subjective: Called by resident at 09:30 as patient was having increased pain to left shoulder. Advised to order xray to see if shoulder dislocated. Xrays reviewed, shows recurrence of left shoulder anterior dislocation. D/w Dr. Morrow, NPO now for CR in OR setting. Patient ate little breakfast at 9am, however per DR. Morrow, this is emergency and shoulder should be reduced as quickly as possible to try to prevent further laxity and risk of recurrent dislocations. Objective - Vital Signs/Intake and Output Vital Signs (last 24 hours): Temp Pulse Resp BP Pulse Ox 97.9 F 60 20 162/72 H 98 12/25/16 08:28 12/25/16 08:28 12/25/16 08:28 12/25/16 09:07 12/25/16 08:28 Intake and Output: 12/25/16 12/25/16 06:59 18:59 Intake Total 290 Balance 290 - Medications Medications: Current Medications Aspirin (Aspirin Chewable) 81 mg PO DAILY [facility] Last Admin: 12/25/16 09:39 Dose: 81 mg Benzocaine/Menthol (Cepacol Sore Throat) 1 alexa MT Q4H PRN PRN Reason: Sore Throat Last Admin: 12/22/16 21:43 Dose: 1 alexa Enoxaparin Sodium (Lovenox) 40 mg SC DAILY [facility] Last Admin: 12/25/16 09:40 Dose: 40 mg Hydromorphone HCl (Dilaudid) 1 mg IVP Q4H PRN PRN Reason: SEVERE PAIN 8-10 Piperacillin Sod/Tazobactam Sod (Zosyn 3.375 Gm Iv Premix) 3.375 gm in 50 mls @ 100 mls/hr IVPB Q8 [facility] Last Admin: 12/25/16 05:16 Dose: 100 mls/hr Methylprednisolone (Solu-Medrol) 40 mg IVP Q8 [facility] Last Admin: 12/25/16 05:16 Dose: 40 mg Montelukast Sodium (Singulair) 10 mg PO HS [facility] Last Admin: 12/24/16 21:51 Dose: 10 mg Morphine Sulfate (Morphine) 4 mg IVP Q4 PRN PRN Reason: moderate pain Last Admin: 12/25/16 09:51 Dose: 4 mg Pantoprazole Sodium (Protonix Inj) 40 mg IVP DAILY [facility] Last Admin: 12/25/16 09:40 Dose: 40 mg Rosuvastatin Calcium (Crestor) 5 mg PO HS [facility] Last Admin: 12/24/16 21:51 Dose: 5 mg Fluticasone/Salmeterol (Advair Diskus 250/50) 1 puff INH RQ12 [facility] Last Admin: 12/25/16 08:02 Dose: 1 puff Tiotropium [place] (Spiriva) 18 mcg INH RQ24 [facility] Last Admin: 12/25/16 08:02 Dose: 18 mcg - Labs Labs: 12/24/16 13:51 12/24/16 13:51 PT 10.4 SECONDS (9.7-12.2) 12/20/16 13:43 INR 0.9 12/20/16 13:43 APTT 30 SECONDS (21-34) 12/20/16 13:43 Assessment and Plan (1) Dislocation of left shoulder joint Assessment & Plan: s/p CR 12/22, now again dislocated NPO for OR for CR Status: Acute (2) Left hip pain Assessment & Plan: MRI completed, awaiting reading per THIERNO Soto LLE Status: Acute Radiology Interpretation - Radiology Interpretation #2 Interpretation: Accession No. : [id number] Patient Name / ID : HILARIO MOREL / [id number] Exam Date : 12/25/2016 10:23:48 ( Approved ) Study Comment : Sex / Age : F / 66Y Creator : Dmitriy Magaña MD Dictator : Dmitriy Magaña MD Intelligence Operations Specialist : Design/Animation Instructor : Dmitriy Magaña MD Approver2 : Report Date : 12/25/2016 10:43:32 My Comment : PROCEDURE: Left shoulder HISTORY: new onset pain, s/p reduction COMPARISON: 12/22/2016 TECHNIQUE: AP and transscapular views FINDINGS: There is anterior dislocation of the left humeral head. No definite fracture is identified. There is mild acromioclavicular degenerative arthritis. IMPRESSION: Anterior glenohumeral dislocation. atient Name / ID : HILARIO Foreman [id number] Exam Date : 12/24/2016 15:56:38 ( Approved ) Study Comment : Sex / Age : F / 66Y Creator : Dmitriy Navarrete MD Dictator : Dmitriy Navarrete MD Intelligence Operations Specialist : Design/Animation Instructor : Dmitriy Navarrete MD Approver2 : Report Date : 12/25/2016 08:14:08 My Comment : Left knee three views History: Pain. Comparison: None available. Findings: Vascular calcifications. Moderate medial compartment joint space narrowing with subchondral sclerosis. No significant suprapatellar joint effusion. Mild patellofemoral compartment joint space narrowing. Impression: Degenerative changes. If pain persists, consider MRI. Patient Name / ID : HILARIO Foreman [id number] Exam Date : 12/24/2016 17:08:11 ( Approved ) Study Comment : Sex / Age : F / 66Y Creator : Dmitriy Navarrete MD Dictator : Dmitriy Navarrete MD Intelligence Operations Specialist : Design/Animation Instructor : Dmitriy Navarrete MD Approver2 : Report Date : 12/25/2016 12:37:32 My Comment : MRI left hip History: Hip pain. Comparison: None available. Technique: Multi-echo multiplanar sequences were performed through the left hip without the use of intravenous contrast. Findings: Focal signal abnormality with patchy decreased T1 signal and increased STIR signal seen within the left anterior acetabular at the level of the anterior column with additional similar signal abnormality seen within the mid inferior left pubic bone. This is concerning for subchondral osseous injury/fracture deformities versus prominent bone bruising. Adjacent prominent reactive edema seen within the lateral musculature at the level of the left inferior pubic bone concerning for muscle strain and or partial tearing. Focal signal abnormality with decreased T1 signal and increased STIR signal seen at the level of the left hemisacrum suggestive for a fracture deformity versus stress injury versus additional etiology. Narrowing at the superior aspect of the left hip joint space with cartilage thinning. Adjacent degenerative fraying of the left anterior acetabular labrum. Moderate insertional tendinopathy and or mild partial interstitial tearing of the distal left iliopsoas tendon at its attachment on the lesser trochanter. Left rectus femoris and hamstring tendon origins are preserved. Partial tearing and or moderate tendinopathy of the left gluteus tendon at their attachment on the greater trochanter. Lobulated 5.9 x 2.5 x 8.9 centimeter focal area of signal abnormality seen within the musculature anterior to proximal medullary cavity of the left femur demonstrating increased T1 signal which demonstrates suppression on fat saturated sequences suggestive for an intramuscular lipomatous lesion with a few internal septations versus prominent focal fatty atrophy of the muscle at that level versus additional etiology. Evaluation of the right hip demonstrates moderate degenerative changes with joint space narrowing and cartilage thinning. Moderate insertional tendinopathy of the right gluteus tendons at their attachment on the greater trochanter. Prominent degenerative changes in the lower lumbar spine. Impression: 1. Focal signal abnormality with patchy decreased T1 signal and increased STIR signal seen within the left anterior acetabular at the level of the anterior column with additional similar signal abnormality seen within the mid inferior left pubic bone. This is concerning for subchondral osseous injury/fracture deformities versus prominent bone bruising. 2. Adjacent prominent reactive edema seen within the lateral musculature at the level of the left inferior pubic bone concerning for muscle strain and or partial tearing. 3. Focal signal abnormality with decreased T1 signal and increased STIR signal seen at the level of the left hemisacrum suggestive for a fracture deformity versus stress injury versus additional etiology. 4. Narrowing at the superior aspect of the left hip joint space with cartilage thinning. Adjacent degenerative fraying of the left anterior acetabular labrum. 5. Moderate insertional tendinopathy and or mild partial interstitial tearing of the distal left iliopsoas tendon at its attachment on the lesser trochanter. 6. Partial tearing and or moderate tendinopathy of the left gluteus tendon at their attachment on the greater trochanter. 7. Lobulated 5.9 x 2.5 x 8.9 centimeter focal area of signal abnormality seen within the musculature anterior to proximal medullary cavity of the left femur demonstrating increased T1 signal which demonstrates suppression on fat saturated sequences suggestive for an intramuscular lipomatous lesion with a few internal septations versus prominent focal fatty atrophy of the muscle at that level versus additional etiology. 8. Evaluation of the right hip demonstrates moderate degenerative changes with joint space narrowing and cartilage thinning. 9. Moderate insertional tendinopathy of the right gluteus tendons at their attachment on the greater trochanter. 10. Prominent degenerative changes in the lower lumbar spine.
--- NOTE | 2016-12-25 12:42 | MRI ---
MRI left hip History: Hip pain. Comparison: None available. Technique: Multi-echo multiplanar sequences were performed through the left hip without the use of intravenous contrast. Findings: Focal signal abnormality with patchy decreased T1 signal and increased STIR signal seen within the left anterior acetabular at the level of the anterior column with additional similar signal abnormality seen within the mid inferior left pubic bone. This is concerning for subchondral osseous injury/fracture deformities versus prominent bone bruising. Adjacent prominent reactive edema seen within the lateral musculature at the level of the left inferior pubic bone concerning for muscle strain and or partial tearing. Focal signal abnormality with decreased T1 signal and increased STIR signal seen at the level of the left hemisacrum suggestive for a fracture deformity versus stress injury versus additional etiology. Narrowing at the superior aspect of the left hip joint space with cartilage thinning. Adjacent degenerative fraying of the left anterior acetabular labrum. Moderate insertional tendinopathy and or mild partial interstitial tearing of the distal left iliopsoas tendon at its attachment on the lesser trochanter. Left rectus femoris and hamstring tendon origins are preserved. Partial tearing and or moderate tendinopathy of the left gluteus tendon at their attachment on the greater trochanter. Lobulated 5.9 x 2.5 x 8.9 centimeter focal area of signal abnormality seen within the musculature anterior to proximal medullary cavity of the left femur demonstrating increased T1 signal which demonstrates suppression on fat saturated sequences suggestive for an intramuscular lipomatous lesion with a few internal septations versus prominent focal fatty atrophy of the muscle at that level versus additional etiology. Evaluation of the right hip demonstrates moderate degenerative changes with joint space narrowing and cartilage thinning. Moderate insertional tendinopathy of the right gluteus tendons at their attachment on the greater trochanter. Prominent degenerative changes in the lower lumbar spine. Impression: 1. Focal signal abnormality with patchy decreased T1 signal and increased STIR signal seen within the left anterior acetabular at the level of the anterior column with additional similar signal abnormality seen within the mid inferior left pubic bone. This is concerning for subchondral osseous injury/fracture deformities versus prominent bone bruising. 2. Adjacent prominent reactive edema seen within the lateral musculature at the level of the left inferior pubic bone concerning for muscle strain and or partial tearing. 3. Focal signal abnormality with decreased T1 signal and increased STIR signal seen at the level of the left hemisacrum suggestive for a fracture deformity versus stress injury versus additional etiology. 4. Narrowing at the superior aspect of the left hip joint space with cartilage thinning. Adjacent degenerative fraying of the left anterior acetabular labrum. 5. Moderate insertional tendinopathy and or mild partial interstitial tearing of the distal left iliopsoas tendon at its attachment on the lesser trochanter. 6. Partial tearing and or moderate tendinopathy of the left gluteus tendon at their attachment on the greater trochanter. 7. Lobulated 5.9 x 2.5 x 8.9 centimeter focal area of signal abnormality seen within the musculature anterior to proximal medullary cavity of the left femur demonstrating increased T1 signal which demonstrates suppression on fat saturated sequences suggestive for an intramuscular lipomatous lesion with a few internal septations versus prominent focal fatty atrophy of the muscle at that level versus additional etiology. 8. Evaluation of the right hip demonstrates moderate degenerative changes with joint space narrowing and cartilage thinning. 9. Moderate insertional tendinopathy of the right gluteus tendons at their attachment on the greater trochanter. 10. Prominent degenerative changes in the lower lumbar spine.
[2016-12-25] MEDS ORDERED: Lactated Ringer's 1,000 ML IV ONE ×2 (13:08)
[2016-12-25] MEDS ORDERED: Propofol 10 mg/ml Inj (20 ML) ONE (13:28)
[2016-12-25] MEDS ORDERED: Succinylcholine Chloride 20 mg/ml Syr (5 ml) IV ONE (13:28)
[2016-12-25] MEDS ORDERED: Midazolam 2 MG/2 ML VIAL ONE (13:28)
--- NOTE | 2016-12-25 13:51 | CP.PCM.PN ---
Subjective - Date & Time of Evaluation Date of Evaluation: 12/25/16 Time of Evaluation: 10:20 - Subjective Subjective: patient seen and examined. complaining of left shoulder pain with dislocation. Patient states breathing stable Denies cough, denies fever chills Objective - Vital Signs/Intake and Output Vital Signs (last 24 hours): Temp Pulse Resp BP Pulse Ox 97.9 F 60 20 162/72 H 98 12/25/16 08:28 12/25/16 08:28 12/25/16 08:28 12/25/16 09:07 12/25/16 08:28 Intake and Output: 12/25/16 12/25/16 06:59 18:59 Intake Total 290 Balance 290 - Medications Medications: Current Medications Aspirin (Aspirin Chewable) 81 mg PO DAILY [facility] Last Admin: 12/25/16 09:39 Dose: 81 mg Benzocaine/Menthol (Cepacol Sore Throat) 1 alexa MT Q4H PRN PRN Reason: Sore Throat Last Admin: 12/22/16 21:43 Dose: 1 alexa Enoxaparin Sodium (Lovenox) 40 mg SC DAILY [facility] Last Admin: 12/25/16 09:40 Dose: 40 mg Hydromorphone HCl (Dilaudid) 1 mg IVP Q4H PRN PRN Reason: SEVERE PAIN 8-10 Piperacillin Sod/Tazobactam Sod (Zosyn 3.375 Gm Iv Premix) 3.375 gm in 50 mls @ 100 mls/hr IVPB Q8 [facility] Last Admin: 12/25/16 05:16 Dose: 100 mls/hr Methylprednisolone (Solu-Medrol) 40 mg IVP Q8 [facility] Last Admin: 12/25/16 05:16 Dose: 40 mg Montelukast Sodium (Singulair) 10 mg PO [facility] Last Admin: 12/24/16 21:51 Dose: 10 mg Morphine Sulfate (Morphine) 4 mg IVP Q4 PRN PRN Reason: moderate pain Last Admin: 12/25/16 09:51 Dose: 4 mg Pantoprazole Sodium (Protonix Inj) 40 mg IVP DAILY [facility] Last Admin: 12/25/16 09:40 Dose: 40 mg Rosuvastatin Calcium (Crestor) 5 mg PO [facility] Last Admin: 12/24/16 21:51 Dose: 5 mg Fluticasone/Salmeterol (Advair Diskus 250/50) 1 puff INH RQ12 [facility] Last Admin: 12/25/16 08:02 Dose: 1 puff Tiotropium [place] (Spiriva) 18 mcg INH RQ24 [facility] Last Admin: 12/25/16 08:02 Dose: 18 mcg - Labs Labs: 12/24/16 13:51 12/24/16 13:51 PT 10.4 SECONDS (9.7-12.2) 12/20/16 13:43 INR 0.9 12/20/16 13:43 APTT 30 SECONDS (21-34) 12/20/16 13:43 - Head Exam Head Exam: ATRAUMATIC, NORMOCEPHALIC - Eye Exam Eye Exam: Normal appearance - ENT Exam ENT Exam: Mucous Membranes Moist - Neck Exam Neck Exam: Normal Inspection - Respiratory Exam Respiratory Exam: Decreased Breath Sounds - Cardiovascular Exam Cardiovascular Exam: REGULAR RHYTHM Assessment and Plan (1) COPD (chronic obstructive pulmonary disease) Assessment & Plan: continue nebulizer treatme Continue IV steroids Orthopedic evaluation Status: Acute (2) Shoulder dislocation Status: Acute
[2016-12-25] MEDS ORDERED: Neostigmine Methylsulfate 3mg/3ml Syringe IV ONE (14:08)
--- NOTE | 2016-12-25 14:19 | PCM.SURG1 ---
Surgeon's Initial Post Op Note - Surgeon's Notes Surgeon: Man Morrow MD Boardinghouse Keeper: Hannah Molina PA-C Type of Anesthesia: General Endo Anesthesia Administered By: Dr. Narayanan Pre-Operative Diagnosis: Left shoulder anterior dislocation Operative Findings: unstable >100 deg ER Post-Operative Diagnosis: same Operation Performed: closed reduction left shoulder dislocation, evaluation under anesthesia Specimen/Specimens Removed: none Estimated Blood Loss: EBL {In ML}: 0 Blood Products Given: N/A Drains Used: No Drains Post-Op Condition: Fair Date of Surgery/Procedure: 12/25/16 Time of Surgery/Procedure: 14:18
[2016-12-25] MEDS ORDERED: HYDROmorphone 0.5 mg/0.5 ml ISec IVP PRN (14:32)
--- NOTE | 2016-12-25 14:44 | OP ---
PROCEDURE DATE: 12/25/2016 SURGEON: Dwayne Morrow MD [employer]INT B[employer]ING AND FINISHING WORKER: ADRIANNE Shoemaker PREOPERATIVE DIAGNOSIS: Recurrent left shoulder dislocation. POSTOPERATIVE DIAGNOSES: 1. Recurrent left shoulder dislocation. 2. Anterior inferior glenoid fracture. PROCEDURE: Closed left shoulder reduction. BLOOD LOSS: None. ANESTHESIA: General. COMPLICATIONS: None. DISPOSITION: Stable to recovery room. INDICATIONS: A 66-year-old female with fall and diagnosed with left shoulder dislocation. The patient underwent closed reduction of her shoulder a few days ago. However, she had a recurrent dislocation while lying in the sling. She was taken to the operating room for another closed reduction. Timeout was performed. The patient was placed in supine position. General anesthesia was administered. Then, under fluoroscopic guidance, traction was applied to the left arm with abduction and external rotation. The shoulder popped back into its socket. Fluoroscopy confirmed a well reduced shoulder. Y view and axillary confirmed congruent shoulder joint. However, there is anterior inferior glenoid fracture with depression. The patient's stability of the shoulder was checked. The patient was unstable at 90 degrees of abduction, 110 degrees of external rotation. The patient was placed into a shoulder immobilizer. She was returned to recovery room. Will undergo a repeat CT scan for evaluation of her glenoid fracture. Dwayne Morrow M.D. cc: [id number] TT: 12/25/2016 14:44:03 en MTDD
[2016-12-25] MEDS ORDERED: Lactated Ringer's 1,000 ML IV SCH (14:45)
--- NOTE | 2016-12-25 15:52 | RAD ---
PROCEDURE: Intraoperative Fluoroscopy. HISTORY: LT SHOULDER DISCLOCATION FINDINGS: Fluoroscopic assistance was provided for left shoulder reduction.
[2016-12-25 16:02] VITALS: RESP 20
[2016-12-26] MEDS: Piperacill/Tazo 3.375gm in Dex 3.375 GM/50 ML BAG IVPB SCH ×2 (06:33→14:50)
[2016-12-26] MEDS: MethylPREDNISolone 40 mg Vial IVP SCH ×2 (06:33→14:51)
[2016-12-26 07:18] LABS: BASO % 0.2 % (0.0-2.0); HEMATOCRIT 39.7 % (34.0-47.0); LYMPH # 1.2 K/uL (1.0-4.3); LYMPH % 7.7 % (20.0-40.0); MEAN CELL VOLUME 85.2 fL (81.0-99.0); MEAN CORPUSCULAR HEMOGLOBIN 27.8 pg (27.0-31.0); MEAN CORPUSCULAR HGB CONC 32.6 g/dL (33.0-37.0); MEAN PLATELET VOLUME 8.3 fL (7.2-11.7); MONO # 1.3 K/uL (0.0-0.8); MONO % 8.2 % (0.0-10.0); PLATELET COUNT 326 K/uL (130-400); RED CELL DISTRIBUTION WIDTH 13.5 % (11.5-14.5); WHITE BLOOD COUNT 15.5 K/uL (4.8-10.8)
[2016-12-26 07:44] LABS: CHLORIDE 95 mmol/L (98-107); POTASSIUM 4.1 mmol/L (3.6-5.2); SODIUM 137 mmol/L (132-148)
[2016-12-26 07:46] LABS: BILIRUBIN,TOTAL 0.4 mg/dL (0.2-1.3); GFR AFRICAN-AMERICAN > 60
[2016-12-26 07:47] LABS: ALB/GLOB RATIO 1.2 (1.0-2.1); ALKALINE PHOSPHATASE 55 U/L (38-126); ALT/SGPT 12 U/L (9-52); AST/SGOT 10 U/L (14-36); BLOOD UREA NITROGEN 20 mg/dL (7-17); CALCIUM 8.5 mg/dl (8.6-10.4); CARBON DIOXIDE 35 mmol/L (22-30); GLUCOSE,RANDOM 158 mg/dL (65-105); TOTAL PROTEIN 5.9 g/dL (6.3-8.3)
[2016-12-26 08:53] LABS: MYELOCYTE 1 % (0-0); NEUTROPHIL 78 % (50-75); TOTAL CELLS COUNTED 100
[2016-12-26] MEDS: Enoxaparin 40 mg Syringe SC SCH (09:18)
--- NOTE | 2016-12-26 11:04 | CP.PCM.PN ---
Subjective - Date & Time of Evaluation Date of Evaluation: 12/26/16 Time of Evaluation: 11:02 - Subjective Subjective: Patient comfortable now. Shoulder pain is slightly worse than 2 days ago, but much improved from yesterday. Denies numbness/tingling/weakness Objective - Vital Signs/Intake and Output Vital Signs (last 24 hours): Temp Pulse Resp BP Pulse Ox 97.7 F 82 20 115/78 97 12/26/16 09:06 12/26/16 09:06 12/26/16 09:06 12/26/16 09:06 12/26/16 09:06 Intake and Output: 12/26/16 12/26/16 06:59 18:59 Intake Total 2400 Balance 2400 - Medications Medications: Current Medications Aspirin (Aspirin Chewable) 81 mg PO DAILY [facility] Last Admin: 12/26/16 09:17 Dose: 81 mg Benzocaine/Menthol (Cepacol Sore Throat) 1 alexa MT Q4H PRN PRN Reason: Sore Throat Last Admin: 12/22/16 21:43 Dose: 1 alexa Enoxaparin Sodium (Lovenox) 40 mg SC DAILY [facility] Last Admin: 12/26/16 09:18 Dose: 40 mg Hydromorphone HCl (Dilaudid) 1 mg IVP Q4H PRN PRN Reason: SEVERE PAIN 8-10 Piperacillin Sod/Tazobactam Sod (Zosyn 3.375 Gm Iv Premix) 3.375 gm in 50 mls @ 100 mls/hr IVPB Q8 [facility] Last Admin: 12/26/16 06:33 Dose: 100 mls/hr Methylprednisolone (Solu-Medrol) 40 mg IVP Q8 [facility] Last Admin: 12/26/16 06:33 Dose: 40 mg Montelukast Sodium (Singulair) 10 mg PO [facility] Last Admin: 12/25/16 21:54 Dose: 10 mg Morphine Sulfate (Morphine) 4 mg IVP Q4 PRN PRN Reason: moderate pain Last Admin: 12/25/16 20:07 Dose: 4 mg Pantoprazole Sodium (Protonix Inj) 40 mg IVP DAILY [facility] Last Admin: 12/26/16 09:17 Dose: 40 mg Rosuvastatin Calcium (Crestor) 5 mg PO [facility] Last Admin: 12/25/16 21:53 Dose: 5 mg Fluticasone/Salmeterol (Advair Diskus 250/50) 1 puff INH RQ12 [facility] Last Admin: 12/25/16 20:27 Dose: 1 puff Tiotropium [place] (Spiriva) 18 mcg INH RQ24 [facility] Last Admin: 12/25/16 08:02 Dose: 18 mcg - Labs Labs: 12/26/16 07:08 12/26/16 07:08 PT 10.4 SECONDS (9.7-12.2) 12/20/16 13:43 INR 0.9 12/20/16 13:43 APTT 30 SECONDS (21-34) 12/20/16 13:43 - Extremities Exam Additional comments: LUE: +ROM fingers/wrist flex/ext/add/abd, sensation intact, +radial pulse, shoulder immob intact LLE: improving ROM, sits with hips/knees flexes, calves soft NT neg homans +ROM ankle/toes sensation intact Assessment and Plan (1) Dislocation of left shoulder joint Assessment & Plan: s/p closed reduction 12/22 and 12/25 shoulder immobilizer at all times CT scan ordered, still pending, CT called again to expedite Dr. Morrow to review CT scan and determine if surgical intervention is indicated during this admission. Left shoulder is unstable and at risk to dislocate again. Immobilizer not to be removed. Patient agrees. Addendum: Ct reviewed by Dr. Morrow, CT shows bony bankart fx and small fx coracoid process with hill sachs lesion. No surgery is indicated at this time. Patient must maintain shoulder immobilizer at all times, she verbalized understanding as at high risk to dislocate again. Patient is WBAT LLE. She can follow up Dr. Elizabeth/Cristhian in 10-14 days, call for appointment. Return to ER for severe pain/suspicion of dislocation. Status: Acute (2) Left hip pain Assessment & Plan: MRI reviewed by Dr. Morrow states patient can be WBAT LLE at this time, PT/OT reordered and WBAT ordreed Status: Acute
--- NOTE | 2016-12-26 11:19 | CP.PCM.PN ---
Subjective - Date & Time of Evaluation Date of Evaluation: 12/26/16 Time of Evaluation: 09:00 - Subjective Subjective: PGY2 on medicine Dr. Escobar service: Pt seen and examined at bedside this morning. Pt to be discharged to rehab per ortho today. Will resume current medications at rehab. Objective - Vital Signs/Intake and Output Vital Signs (last 24 hours): Temp Pulse Resp BP Pulse Ox 97.7 F 82 20 115/78 97 12/26/16 09:06 12/26/16 09:06 12/26/16 09:06 12/26/16 09:06 12/26/16 09:06 Intake and Output: 12/26/16 12/26/16 06:59 18:59 Intake Total 2400 Balance 2400 - Medications Medications: Current Medications Aspirin (Aspirin Chewable) 81 mg PO DAILY [facility] Last Admin: 12/26/16 09:17 Dose: 81 mg Benzocaine/Menthol (Cepacol Sore Throat) 1 alexa MT Q4H PRN PRN Reason: Sore Throat Last Admin: 12/22/16 21:43 Dose: 1 alexa Enoxaparin Sodium (Lovenox) 40 mg SC DAILY [facility] Last Admin: 12/26/16 09:18 Dose: 40 mg Hydromorphone HCl (Dilaudid) 1 mg IVP Q4H PRN PRN Reason: SEVERE PAIN 8-10 Piperacillin Sod/Tazobactam Sod (Zosyn 3.375 Gm Iv Premix) 3.375 gm in 50 mls @ 100 mls/hr IVPB Q8 [facility] Last Admin: 12/26/16 06:33 Dose: 100 mls/hr Methylprednisolone (Solu-Medrol) 40 mg IVP Q8 [facility] Last Admin: 12/26/16 06:33 Dose: 40 mg Montelukast Sodium (Singulair) 10 mg PO HS [facility] Last Admin: 12/25/16 21:54 Dose: 10 mg Morphine Sulfate (Morphine) 4 mg IVP Q4 PRN PRN Reason: moderate pain Last Admin: 12/25/16 20:07 Dose: 4 mg Pantoprazole Sodium (Protonix Inj) 40 mg IVP DAILY [facility] Last Admin: 12/26/16 09:17 Dose: 40 mg Rosuvastatin Calcium (Crestor) [address] [facility] Last Admin: 12/25/16 21:53 Dose: 5 mg Fluticasone/Salmeterol (Advair Diskus 250/50) 1 puff INH RQ12 [facility] Last Admin: 12/25/16 20:27 Dose: 1 puff Tiotropium [place] (Spiriva) 18 mcg INH RQ24 [facility] Last Admin: 12/25/16 08:02 Dose: 18 mcg - Labs Labs: 12/26/16 07:08 12/26/16 07:08 PT 10.4 SECONDS (9.7-12.2) 12/20/16 13:43 INR 0.9 12/20/16 13:43 APTT 30 SECONDS (21-34) 12/20/16 13:43 - Constitutional Appears: Non-toxic, No Acute Distress - Head Exam Head Exam: NORMOCEPHALIC - Eye Exam Eye Exam: Normal appearance Pupil Exam: NORMAL ACCOMODATION - ENT Exam ENT Exam: Mucous Membranes Moist - Respiratory Exam Respiratory Exam: Clear to Ausculation Bilateral, NORMAL BREATHING PATTERN - Cardiovascular Exam Cardiovascular Exam: Clicks - GI/Abdominal Exam GI & Abdominal Exam: Soft, Normal Bowel Sounds - Extremities Exam Additional comments: left arm immobilizer in place
[2016-12-26] MEDS: Morphine 4 MG/ML VIAL IVP PRN (11:22)
[2016-12-26] MEDS ORDERED: Bisacodyl 5mg EC Tab PO ONE (14:57)
--- NOTE | 2016-12-26 15:21 | CT ---
PROCEDURE: HISTORY: left shoulder, s/p closed reduction COMPARISON: TECHNIQUE: FINDINGS: Evaluation demonstrates a Hill-Sachs defect as well as a Bankart fracture with osseous fragment displaced medially along the anterior bony glenoid. There is an associated large glenohumeral joint effusion. There is a questionable fracture of the anterior coracoid process as well. The acromioclavicular joint is intact. No gross soft tissue abnormality is observed. IMPRESSION: Evidence of shoulder dislocation with Bankart fracture and Hill-Sachs defect. Accompanying large joint effusion. Possible anterior coracoid process fracture.
[2016-12-26 15:36] VITALS: BP 134/75; PULSE 70; TEMP 98.5; O2SAT 98
--- NOTE | 2016-12-26 16:01 | CP.PCM.PN ---
Subjective - Date & Time of Evaluation Date of Evaluation: 12/26/16 Time of Evaluation: 13:00 - Subjective Subjective: patient seen and examined. Denies shortness of breath still complaining of pain left shoulder No surgical intervention Continue present nebulizer treatment and steroids Stable from pulmonary standpoint Objective - Vital Signs/Intake and Output Vital Signs (last 24 hours): Temp Pulse Resp BP Pulse Ox 98.5 F 70 20 134/75 98 12/26/16 15:33 12/26/16 15:33 12/26/16 15:33 12/26/16 15:33 12/26/16 15:33 Intake and Output: 12/26/16 12/26/16 06:59 18:59 Intake Total 2400 Balance 2400 - Medications Medications: Current Medications Aspirin (Aspirin Chewable) 81 mg PO DAILY [facility] Last Admin: 12/26/16 09:17 Dose: 81 mg Benzocaine/Menthol (Cepacol Sore Throat) 1 alexa MT Q4H PRN PRN Reason: Sore Throat Last Admin: 12/22/16 21:43 Dose: 1 alexa Bisacodyl (Dulcolax) 5 mg PO ONCE ONE Stop: 12/26/16 14:58 Docusate Sodium (Colace) 100 mg PO BID [facility] Enoxaparin Sodium (Lovenox) 40 mg SC DAILY [facility] Last Admin: 12/26/16 09:18 Dose: 40 mg Hydromorphone HCl (Dilaudid) 1 mg IVP Q4H PRN PRN Reason: SEVERE PAIN 8-10 Piperacillin Sod/Tazobactam Sod (Zosyn 3.375 Gm Iv Premix) 3.375 gm in 50 mls @ 100 mls/hr IVPB Q8 [facility] Last Admin: 12/26/16 14:50 Dose: 100 mls/hr Methylprednisolone (Solu-Medrol) 40 mg IVP Q8 [facility] Last Admin: 12/26/16 14:51 Dose: 40 mg Montelukast Sodium (Singulair) 10 mg PO HS [facility] Last Admin: 12/25/16 21:54 Dose: 10 mg Morphine Sulfate (Morphine) 4 mg IVP Q4 PRN PRN Reason: moderate pain Last Admin: 12/26/16 11:22 Dose: 4 mg Pantoprazole Sodium (Protonix Inj) 40 mg IVP DAILY [facility] Last Admin: 12/26/16 09:17 Dose: 40 mg Rosuvastatin Calcium (Crestor) 5 mg PO HS [facility] Last Admin: 12/25/16 21:53 Dose: 5 mg Fluticasone/Salmeterol (Advair Diskus 250/50) 1 puff INH RQ12 [facility] Last Admin: 12/25/16 20:27 Dose: 1 puff Tiotropium [place] (Spiriva) 18 mcg INH RQ24 [facility] Last Admin: 12/25/16 08:02 Dose: 18 mcg - Labs Labs: 12/26/16 07:08 12/26/16 07:08 PT 10.4 SECONDS (9.7-12.2) 12/20/16 13:43 INR 0.9 12/20/16 13:43 APTT 30 SECONDS (21-34) 12/20/16 13:43 - Head Exam Head Exam: ATRAUMATIC, NORMOCEPHALIC - ENT Exam ENT Exam: Mucous Membranes Moist - Neck Exam Neck Exam: Normal Inspection - Respiratory Exam Respiratory Exam: Decreased Breath Sounds - Cardiovascular Exam Cardiovascular Exam: REGULAR RHYTHM - GI/Abdominal Exam GI & Abdominal Exam: Soft, Normal Bowel Sounds Assessment and Plan (1) COPD (chronic obstructive pulmonary disease) Status: Acute (2) Shoulder dislocation Status: Acute
--- NOTE | 2016-12-26 18:23 | CP.PCM.PN ---
Subjective - Date & Time of Evaluation Date of Evaluation: 12/26/16 Time of Evaluation: 10:20 - Subjective Subjective: clinically same Objective - Vital Signs/Intake and Output Vital Signs (last 24 hours): Temp Pulse Resp BP Pulse Ox 98.5 F 70 20 134/75 98 12/26/16 15:33 12/26/16 15:33 12/26/16 15:33 12/26/16 15:33 12/26/16 15:33 Intake and Output: 12/26/16 12/26/16 06:59 18:59 Intake Total 2400 Balance 2400 - Medications Medications: Current Medications Aspirin (Aspirin Chewable) 81 mg PO DAILY [facility] Last Admin: 12/26/16 09:17 Dose: 81 mg Benzocaine/Menthol (Cepacol Sore Throat) 1 alexa MT Q4H PRN PRN Reason: Sore Throat Last Admin: 12/22/16 21:43 Dose: 1 alexa Docusate Sodium (Colace) 100 mg PO BID [facility] Last Admin: 12/26/16 17:44 Dose: 100 mg Enoxaparin Sodium (Lovenox) 40 mg SC DAILY [facility] Last Admin: 12/26/16 09:18 Dose: 40 mg Hydromorphone HCl (Dilaudid) 1 mg IVP Q4H PRN PRN Reason: SEVERE PAIN 8-10 Piperacillin Sod/Tazobactam Sod (Zosyn 3.375 Gm Iv Premix) 3.375 gm in 50 mls @ 100 mls/hr IVPB Q8 [facility] Last Admin: 12/26/16 14:50 Dose: 100 mls/hr Methylprednisolone (Solu-Medrol) 40 mg IVP Q8 [facility] Last Admin: 12/26/16 14:51 Dose: 40 mg Montelukast Sodium (Singulair) 10 mg PO HS [facility] Last Admin: 12/25/16 21:54 Dose: 10 mg Morphine Sulfate (Morphine) 4 mg IVP Q4 PRN PRN Reason: moderate pain Last Admin: 12/26/16 11:22 Dose: 4 mg Pantoprazole Sodium (Protonix Ec Tab) 40 mg PO DAILY [facility] Rosuvastatin Calcium (Crestor) 5 mg PO HS [facility] Last Admin: 12/25/16 21:53 Dose: 5 mg Fluticasone/Salmeterol (Advair Diskus 250/50) 1 puff INH RQ12 [facility] Last Admin: 12/25/16 20:27 Dose: 1 puff Tiotropium [place] (Spiriva) 18 mcg INH RQ24 [facility] Last Admin: 12/25/16 08:02 Dose: 18 mcg - Labs Labs: 12/26/16 07:08 12/26/16 07:08 PT 10.4 SECONDS (9.7-12.2) 12/20/16 13:43 INR 0.9 12/20/16 13:43 APTT 30 SECONDS (21-34) 12/20/16 13:43 Assessment and Plan (1) Acute and chronic respiratory failure with hypercapnia Status: Acute (2) Acute dyspnea Status: Acute (3) Acute electrocardiogram changes Status: Acute (4) Acute hypercapnic respiratory failure Status: Acute (5) Asthma Status: Acute (6) Asthma exacerbation Status: Acute (7) Asthma with COPD with status asthmaticus Status: Acute (8) COPD (chronic obstructive pulmonary disease) Status: Acute (9) COPD exacerbation Status: Acute (10) Chest pain Status: Acute (11) Chronic back pain Status: Acute (12) Chronic respiratory failure Status: Acute (13) Closed fracture of anterior column of left acetabulum Status: Acute (14) Closed sacral fracture Status: Acute (15) Colitis Status: Acute (16) Dislocation of left shoulder joint Status: Acute (17) Dyspnea Status: Acute (18) Elevated troponin Status: Acute (19) Exacerbation of asthma Status: Acute (20) Fall Status: Acute (21) Fracture of glenoid process of left scapula Status: Acute (22) Fracture of left inferior pubic ramus Status: Acute (23) GI bleeding Status: Acute (24) Herniated lumbar disc without myelopathy Status: Acute (25) Hill-Sachs fracture of left humerus Status: Acute (26) Intractable pain Status: Acute (27) Left hip pain Status: Acute (28) Left shoulder pain Status: Acute (29) Leukocytosis Status: Acute (30) Liver mass Status: Acute (31) Lung nodule Status: Acute (32) Pneumonia Status: Acute (33) Prophylactic measure Status: Acute (34) Pulmonary hypertension Status: Acute (35) Respiratory distress Status: Acute (36) Respiratory distress Status: Acute (37) Respiratory failure, acute and chronic Status: Acute (38) Scapula coracoid process fracture Status: Acute (39) Shoulder dislocation Status: Acute (40) Tracheobronchitis Status: Acute (41) Chronic osteoarthritis Status: Chronic (42) Depressed Status: Chronic (43) GERD (gastroesophageal reflux disease) Status: Chronic (44) Lumbago Status: Chronic - Assessment and Plan (Free Text) Plan: Cleared for Ortho Plan discharge to rehab Continue Zosyn DVT prophylaxis Advair Spiriva Continue aspirin Left arm immobilizer
[2016-12-26] MEDS: Fluticasone-Salmeterol 250-50mcg Diskus INH SCH (19:03)
[2016-12-27] MEDS ORDERED: Pantoprazole 40 mg EC Tab PO SCH (10:00)
== END 2016-12-26 20:39 | DRG 563 ==
LOC: C.ER 12:56 → C.9E 14:53 → C.5T 15:36 → C.3T 12-21 12:38 → C.6T 12-22 14:00 → OBSVTOIN 12-22 17:54
PROVIDERS: ADMIT Internal Medicine Nephrology; ATTEND Internal Medicine Nephrology
PROC: 0RSKXZZ Reposition Left Shoulder Joint, External Approach (ICD-10-PCS; principal; 2016-12-22 12:10)
PROC: 0RSKXZZ Reposition Left Shoulder Joint, External Approach (ICD-10-PCS; 2016-12-25)
DX: S42.142A Displaced fracture of glenoid cavity of scapula, left shoulder, initial encounter for closed fracture (principal); J44.1 Chronic obstructive pulmonary disease with (acute) exacerbation; I10 Essential (primary) hypertension; M24.412 Recurrent dislocation, left shoulder; W01.0XXA Fall on same level from slipping, tripping and stumbling without subsequent striking against object, initial encounter; S43.015A Anterior dislocation of left humerus, initial encounter; M25.552 Pain in left hip; E78.00 Pure hypercholesterolemia, unspecified; H40.9 Unspecified glaucoma; J45.909 Unspecified asthma, uncomplicated; M19.90 Unspecified osteoarthritis, unspecified site; Z79.899 Other long term (current) drug therapy; Z87.891 Personal history of nicotine dependence

== ENCOUNTER 2017-01-13 11:44 | Inpatient (IN) | payer MEDICARE, OTHER ==
[2017-01-13 11:45] VITALS: BMI 33.2
--- NOTE | 2017-01-13 13:36 | C.PDOC ---
History Of Present Illness 66 y/o female presents to ED with complaints of pain to left shoulder and pelvic area for the past few weeks. Pt s/p fall, evaluated in ED for shoulder dislocation, all other imaging normal; pt then transferred to rehab (2 weeks ago ). Pt states pain has persisted to left shoulder and pelvic area and unable to be controlled at rehab despite narcotic oral medication. Can't bear weight on left leg. Denies weakness, numbness, chest pain, SOB or any other complaints. Time Seen by Provider: 01/13/17 13:05 Chief Complaint (Nursing): Upper Extremity Problem/Injury History Per: Patient History/Exam Limitations: no limitations Onset/Duration Of Symptoms: Days Current Symptoms Are (Timing): Still Present Severity: Moderate Reports Recently: Seen In ED, Treated By A Physician Recent travel outside of the [place]: No Past Medical History Reviewed: Historical Data, Nursing Documentation, Vital Signs Vital Signs: Last Vital Signs Temp 97.9 F 01/13/17 11:49 Pulse 77 01/13/17 11:49 Resp 18 01/13/17 11:49 BP 103/64 01/13/17 11:49 Pulse Ox 94 L 01/13/17 14:43 - Medical History PMH: Anemia, Arthritis, Asthma, COPD, Depression, Gastritis, HTN, Hypercholesterolemia, Rheumatoid Arthritis - [facility] Procedures ASSISTANCE WITH RESPIRATORY VENTILATION, 24-96 HRS, CPAP (09/22/16) ASSISTANCE WITH RESPIRATORY VENTILATION, <24 HRS, CPAP (05/19/15) ASSISTANCE WITH RESPIRATORY VENTILATION, >96 HRS, CPAP (05/12/16) EXCISION OF DESCENDING COLON, ENDO (09/30/15) EXCISION OF STOMACH, ENDO, DIAGN (09/30/15) INSERTION OF MONITOR DEV INTO PULM TRUNK, PERC APPROACH (04/04/16) MEASURE OF CARDIAC SAMPL & PRESSURE, L HEART, PERC APPROACH (04/04/16) NON-INVASIVE MECHANICAL VENTILATION (10/25/14) PLAIN RADIOGRAPHY OF LEFT HEART USING OTHER CONTRAST (04/04/16) PLAIN RADIOGRAPHY OF MULT COR ART USING OTH CONTRAST (04/04/16) REPOSITION LEFT SHOULDER JOINT, EXTERNAL APPROACH (12/22/16) Family History: States: Unknown Family Hx - Social History Hx Tobacco Use: No Hx Alcohol Use: No Hx Substance Use: No - Immunization History Hx Tetanus Toxoid Vaccination: No Hx Influenza Vaccination: Yes Hx Pneumococcal Vaccination: Yes Review Of Systems Cardiovascular: Negative for: Chest Pain Respiratory: Negative for: Shortness of Breath Musculoskeletal: Positive for: Shoulder Pain (left), Other (pelvic pain) Neurological: Negative for: Weakness, Numbness Physical Exam - Physical Exam Additional Physical Exam Comments: Constitutional: No acute distress. Head: Normocephalic. Atraumatic. Eyes: PERRL. Neck: Supple. Cardiovascular: Regular rate. Radial pulse 2+ bilaterally. Chest: No tenderness. Respiratory: Clear to auscultation bilaterally. GI: Soft. Nontender. Nondistended. Back: No CVA tenderness. Musculoskeletal: Left shoulder immobilizer, no deformity Skin: No rash. Neurologic: Alert, no focal deficit. ED Course And Treatment - Laboratory Results Result Diagrams: 01/13/17 14:04 01/13/17 14:04 ECG: Interpreted By Me, Viewed By Me ECG Rhythm: Sinus Rhythm Interpretation Of ECG: No ST elevation. T wave inversions V1-V4, new since previous EKG. Rate From EC (BPM) O2 Sat by Pulse Oximetry: 94 (room air) Pulse Ox Interpretation: Normal Medical Decision Making Medical Decision Making: Plan: * EKG * labs * morphine CXR HISTORY: pain COMPARISON: 12/20/2016 FINDINGS: LUNGS: Mild venous congestion. Biapical pleural thickening with upper lobe granulomatous changes. Linear focal consolidative changes in the left suprahilar region. Mild patchy increased markings at the lung bases. Right peritracheal airspace opacity may represent prominent vasculature. PLEURA: As above. CARDIOVASCULAR: Cardiomegaly. OSSEOUS STRUCTURES: Degenerative changes in the spine and shoulders. VISUALIZED UPPER ABDOMEN: Normal. OTHER FINDINGS: None. IMPRESSION: Mild venous congestion. Biapical pleural thickening with upper lobe granulomatous changes. Linear focal consolidative changes in the left suprahilar region. Mild patchy increased markings at the lung bases. Right peritracheal airspace opacity may represent prominent vasculature. EKG shows new flipped T waves, troponin negative. Dr. Santos accepts patient to his service for intractible pain and this new EKG finding. He also recommends consultation with Dr. Fry. Consult placed. Disposition Discussed With : Luis Santos Doctor Will See Patient In The: Hospital - Disposition Disposition: HOSPITALIZED Disposition Time: 14:59 Condition: FAIR - Clinical Impression Clinical Impression: Intractable pain, Acute electrocardiogram changes - Scribe Statement The provider has reviewed the documentation as recorded by the Nishantibrekha Koch Provider Attestation: All medical record entries made by the Nishantibe were at my direction and personally dictated by me. I have reviewed the chart and agree that the record accurately reflects my personal performance of the history, physical exam, medical decision making, and the department course for this patient. I have also personally directed, reviewed, and agree with the discharge instructions and disposition.
[2017-01-13] MEDS ORDERED: Morphine 4 MG/ML VIAL ONE (14:05)
--- NOTE | 2017-01-13 14:09 | RAD ---
HISTORY: pain COMPARISON: 12/20/2016 FINDINGS: LUNGS: Mild venous congestion. Biapical pleural thickening with upper lobe granulomatous changes. Linear focal consolidative changes in the left suprahilar region. Mild patchy increased markings at the lung bases. Right peritracheal airspace opacity may represent prominent vasculature. PLEURA: As above. CARDIOVASCULAR: Cardiomegaly. OSSEOUS STRUCTURES: Degenerative changes in the spine and shoulders. VISUALIZED UPPER ABDOMEN: Normal. OTHER FINDINGS: None. IMPRESSION: Mild venous congestion. Biapical pleural thickening with upper lobe granulomatous changes. Linear focal consolidative changes in the left suprahilar region. Mild patchy increased markings at the lung bases. Right peritracheal airspace opacity may represent prominent vasculature.
[2017-01-13 14:15] LABS: BASO # 0.1 K/uL (0.0-0.2); BASO % 0.7 % (0.0-2.0); EOS # 0.3 K/uL (0.0-0.7); EOS % 3.5 % (0.0-4.0); HEMATOCRIT 37.1 % (34.0-47.0); LYMPH # 2.6 K/uL (1.0-4.3); MEAN CELL VOLUME 84.7 fL (81.0-99.0); MEAN CORPUSCULAR HEMOGLOBIN 27.8 pg (27.0-31.0); MEAN CORPUSCULAR HGB CONC 32.8 g/dL (33.0-37.0); MEAN PLATELET VOLUME 8.7 fL (7.2-11.7); MONO # 0.7 K/uL (0.0-0.8); MONO % 8.1 % (0.0-10.0); RED CELL DISTRIBUTION WIDTH 13.6 % (11.5-14.5); WHITE BLOOD COUNT 8.6 K/uL (4.8-10.8)
[2017-01-13 14:22] LABS: CHLORIDE 99 mmol/L (98-107); SODIUM 136 mmol/L (132-148)
[2017-01-13 14:25] LABS: ALB/GLOB RATIO 1.2 (1.0-2.1); ALKALINE PHOSPHATASE 88 U/L (38-126); ALT/SGPT 28 U/L (9-52); AST/SGOT 29 U/L (14-36); BILIRUBIN,TOTAL 0.6 mg/dL (0.2-1.3); BLOOD UREA NITROGEN 9 mg/dL (7-17); CARBON DIOXIDE 28 mmol/L (22-30); GFR AFRICAN-AMERICAN > 60; GLUCOSE,RANDOM 96 mg/dL (65-105); TOTAL PROTEIN 6.6 g/dL (6.3-8.3)
[2017-01-13 14:26] LABS: CALCIUM 8.6 mg/dl (8.6-10.4)
[2017-01-13 14:27] LABS: POTASSIUM 3.9 mmol/L (3.6-5.2)
[2017-01-13] MEDS: HYDROmorphone 1 mg/ml ISec IVP PRN (22:44)
[2017-01-14] MEDS: Pantoprazole 40 mg EC Tab PO SCH (09:20)
[2017-01-14] MEDS: Enoxaparin 40 mg Syringe SC SCH (09:20)
[2017-01-14] MEDS: Albuterol HFA 90 mcg/actuation (8 g) INH SCH ×2 (09:58→20:47)
[2017-01-14] MEDS: Tiotropium 18 mcg Cap For Inhalation IH SCH (09:58)
[2017-01-14] MEDS: Fluticasone-Salmeterol 250-50mcg Diskus INH SCH ×2 (09:58→20:47)
[2017-01-14] MEDS ORDERED: methylPREDNISolone Depo 80 mg/ml Inj IM ONE (19:45)
[2017-01-14] MEDS ORDERED: Bupivacaine HCl 0.5% PF (10 ml) Inj IJ ONE (19:48)
[2017-01-14] MEDS ORDERED: Lidocaine 2% Inj (20ml) INFIL ONE (19:51)
[2017-01-15] MEDS: HYDROmorphone 1 mg/ml ISec IVP PRN (00:54)
--- NOTE | 2017-01-15 07:24 | HP ---
HISTORY OF PRESENT ILLNESS: This is a 66-year-old female with history of multiple medical problems including chronic obstructive pulmonary disease on home oxygen therapy and history of multiple admissions to the hospital for exacerbation of COPD. The patient fell at home about 2 weeks ago and she sustained a suprapubic fracture as well as left shoulder dislocation. The patient was evaluated in Emergency, treated by admission and she was transferred to subacute rehabilitation at [place] for pain management and physical therapy. While the patient was there, she was suffering severe pain that was not controlled. The patient was transferred to the Emergency Room for evaluation and subsequently admitted. Other review of systems is negative. ALLERGIES: ____ HOME MEDICATIONS: Include Advair 250/50 aspirin 81 mg daily, Colace 100 mg , Crestor 5 mg daily, vitamin D 50,000 units per week, , Protonix 40 mg daily, Spiriva 18 mcg daily, albuterol and Zoloft 50 mg daily. PAST MEDICAL HISTORY: 1. COPD on O2 home therapy. 2. Hypercholesterolemia. 3. Fall with Lt. shoulder dislocation and suprapubic fx. 4. Mild depression. SOCIAL HISTORY: No history of smoking, ETOH or substance abuse. FAMILY HISTORY: Not contributory. PHYSICAL EXAMINATION: GENERAL: The patient is in bed, not in any cardiopulmonary distress. VITAL SIGNS: Blood pressure 101/64, temperature 98, respiratory rate 20, and pulse is 70. HEENT: Pupils equal, reactive to light. Normal-appearing mucosa of the conjunctivae, oropharyngeal and nasal membrane mucosa. NECK: Supple, no JVD, no carotid bruit, no lymph node, no thyromegaly. CHEST AND LUNGS: Bilateral symmetrical expansion, good air exchange, no rales, no rhonchi. CARDIOVASCULAR: PMI not localized. S1, S2. No additional sounds. ABDOMEN: Normoactive bowel sounds. No tenderness. No organomegaly. No masses. EXTREMITIES: no edema. severe limitation of left shoulder mobility as well as left lower ext. CENTRAL NERVOUS SYSTEM: Alert, awake, oriented x 3. No neurological deficits could be appreciated. ASSESSMENT: 1. Fall, with left shoulder dislocation and left suprapubic fracture. 2. Chronic obstructive pulmonary disease on home oxygen. 3. Hypercholesterolemia. 4. Pain management uncontrolled. PLAN: We will give patient Dilaudid every 6 hours as needed, orthopedic consult and follow recommendations. Resume the patient's home medications. [facility] S Tom GATES cc: [id number] TT: 01/14/2017 21:24:42 [facility] # [id number] jn MTDD
[2017-01-15 07:56] LABS: BASO # 0.1 K/uL (0.0-0.2); BASO % 0.6 % (0.0-2.0); EOS # 0.4 K/uL (0.0-0.7); EOS % 4.8 % (0.0-4.0); HEMATOCRIT 37.5 % (34.0-47.0); LYMPH # 3.1 K/uL (1.0-4.3); MEAN CELL VOLUME 84.7 fL (81.0-99.0); MEAN CORPUSCULAR HEMOGLOBIN 27.7 pg (27.0-31.0); MEAN CORPUSCULAR HGB CONC 32.7 g/dL (33.0-37.0); MONO # 0.7 K/uL (0.0-0.8); MONO % 8.5 % (0.0-10.0); RED CELL DISTRIBUTION WIDTH 13.6 % (11.5-14.5); WHITE BLOOD COUNT 8.7 K/uL (4.8-10.8)
[2017-01-15 08:02] LABS: CHLORIDE 96 mmol/L (98-107); POTASSIUM 3.4 mmol/L (3.6-5.2); SODIUM 139 mmol/L (132-148)
[2017-01-15 08:05] LABS: BLOOD UREA NITROGEN 8 mg/dL (7-17); CALCIUM 9.3 mg/dl (8.6-10.4); CARBON DIOXIDE 33 mmol/L (22-30); GFR AFRICAN-AMERICAN > 60; GLUCOSE,RANDOM 90 mg/dL (65-105)
--- NOTE | 2017-01-15 08:38 | RAD ---
PROCEDURE: Radiographs of both shoulders HISTORY: rule out dislocation COMPARISON: No prior. FINDINGS: BONES: Right shoulder: No fracture or dislocation appreciated Left shoulder: No fracture dislocation appreciated JOINTS: Right shoulder: Acromioclavicular and mild glenohumeral arthrosis Left shoulder: Acromioclavicular and mild glenohumeral arthrosis SOFT TISSUES: Right shoulder: Grossly unremarkable. Right shoulder: Grossly unremarkable. OTHER FINDINGS: Over left side of the neck there are 2 small metallic densities with faint tubing close proximity. Their etiology is not clear. Metallic densities approximately 1 to 2 mm in size by approximately 6 mm IMPRESSION: No fracture dislocation. Bilateral shoulder arthrosis Metallic densities with adjacent tubing checking of the left neck of unclear significance. Correlate clinically
[2017-01-15] MEDS ORDERED: Potassium Chloride 20 mEq ER Tab PO ONE (09:00)
--- NOTE | 2017-01-15 10:36 | CT ---
PROCEDURE: CT left shoulder HISTORY: L shoulder pain, r/o dislocation and fx COMPARISON: Not available TECHNIQUE: 2.5 mm contiguous axial sections were acquired through the left shoulder. Sagittal and coronal images were reformatted from the axial scan. FINDINGS: There is a minimally displaced oblique fracture of the anterior/inferior left glenoid. There is a mildly displaced comminuted fracture of the tip of the coracoid process. There is no other fracture identified. The glenohumeral articulation is intact. There is no humeral fracture. There is no significant surrounding soft tissue abnormality. There is bronchiectasis in the medial left upper lobe abutting the mediastinum. There is linear scar and fibrosis in the left apex. There are multiple calcified granulomas identified. Nodular left hilar calcifications noted consistent with calcified old lymph nodes. IMPRESSION: Mildly displaced oblique fracture of the anterior inferior left glenoid. Mildly displaced comminuted fracture of the tip of the coracoid process. No humeral fracture. No dislocation. Probable old granulomatous disease involving the visualized left upper lung.
[2017-01-15] MEDS: Tiotropium 18 mcg Cap For Inhalation IH SCH (10:38)
--- NOTE | 2017-01-15 11:01 | PN ---
DATE: 01/15/2017 SUBJECTIVE: The patient is seen today, 01/15/2017. She is not in any cardiopulmonary distress. The patient still has pain in her left shoulder and left hip area. PHYSICAL EXAMINATION: VITAL SIGNS: Blood pressure 101/61, temperature 98.4, respiratory rate 20, and pulse is 78. HEENT: Pupils equal, reactive to light. Normal-appearing mucosa of the conjunctivae, oropharyngeal and nasal membrane mucosa. NECK: Supple. No JVD, no carotid bruit, no lymph node, no thyromegaly. CHEST AND LUNGS: Bilateral symmetrical expansion, good air exchange. No rales, no rhonchi. CARDIOVASCULAR: PMI not localized. S1, S2. No additional sounds. ABDOMEN: Normoactive bowel sounds. No tenderness, no organomegaly, no masses. EXTREMITIES: No cyanosis, no clubbing, no edema. CENTRAL NERVOUS SYSTEM: Alert, awake, oriented x 2. No neurological deficits could be appreciated. ASSESSMENT: Status post fall with dislocation of the left shoulder and persistent pain of the left s houlder. Stress fracture of the left hip which precludes the patient from ambulating and she still h as severe pain. PLAN: Discussed patient's condition with Dr. Manzo who ordered a CAT scan of the pelvis as well as MRI of the shoulder. We will follow the results and follow recommendations of orthopedics. DVT p rophylaxis and continue the current home medications of the patient. Luis Santos MD cc: 167 TT: 01/15/2017 11:00:25 Confirmation # [id number] Dictation # [id number] mn
[2017-01-15] MEDS ORDERED: Iodixanol 320 MG/ML 100 ML BOTTLE IV ONE (11:28)
[2017-01-15] MEDS: Pantoprazole 40 mg EC Tab PO SCH (12:33)
[2017-01-15] MEDS: Enoxaparin 40 mg Syringe SC SCH (12:34)
--- NOTE | 2017-01-15 12:43 | CT ---
PROCEDURE: CT pelvis HISTORY: pelvic pain COMPARISON: CT abdomen/ pelvis 09/28/2015 TECHNIQUE: 2.5 mm contiguous axial sections were acquired from the iliac crest to the pelvic floor. The examination was performed with intravenous contrast administration. Sagittal and coronal images were reformatted from the axial scan. Contrast administered: 100 mL Visipaque [id number] Total exam DLP: 748.43 mGy-cm FINDINGS: The visualized bowel shows scattered diverticulae. There is no evidence of diverticulitis. There is no evidence of bowel obstruction. A normal appendix is identified. The terminal ileum is unremarkable in appearance. There is no evidence of ascites. The uterus is atrophic consistent with postmenopausal status. The urinary bladder is unremarkable in appearance. There is no pelvic lymphadenopathy. There is a healing fracture of the left inferior pubic ramus. There is a nondisplaced fracture of the anterior medial left acetabulum without evidence of callus. There is no other fracture identified. There is suspected nondisplaced vertical fracture through the left daniel sacrum. There is linear seen at several levels of the sacrum through the junction of the sacral body and left ala. This fracture is of indeterminate age. This is best demonstrated on series 601, image 73 and series 3, image 32 and 42. IMPRESSION: Healing fracture of the left inferior pubic ramus. Probable nondisplaced fracture of the anterior medial left acetabulum. Suspected nondisplaced vertical fracture through the left daniel sacrum. No other significant abnormality.
--- NOTE | 2017-01-15 13:28 | MRI ---
MRI left shoulder History: Pain. Injury. Comparison: None available. Technique: Multi-echo multiplanar sequences were performed through the left shoulder without the use of intravenous contrast. Findings: Prominent signal abnormality seen within the posterior lateral humeral head with exuberant reactive edema and patchy decreased T1 signal. More focally oriented decreased linear T1 signal is noted at the level of the greater tuberosity. These findings may represent a fracture deformity of the posterior lateral proximal humerus, possibly a Hill-Sachs deformity versus stress fracture versus subchondral osseous injury versus additional etiology. Clinical correlation. Focal signal abnormality seen within anterior bony glenoid most prominently noted inferiorly concerning for a Bankart deformity. Correlation with CT scan may be helpful to better evaluate the osseous anatomy at this level to exclude a bony Bankart deformity. Marked thinning and fraying with increased signal seen within and at the undersurface of the distal supraspinatus tendon suggestive for partial articular surface tearing with a moderate tendinopathy. No gross tendon retraction or muscle atrophy. Partial articular surface tearing of the distal infraspinatus tendon with an associated moderate tendinopathy. Associated interstitial partial tearing of the distal infraspinatus tendon. No significant tendon retraction or muscle atrophy. Teres minor tendon is preserved. Partial tearing of the superior distal tendon strand fibers of the subscapularis tendon with an associated severe tendinopathy. Mild fatty atrophy of the muscle belly. Proximal portion of the long head of the biceps tendon is maintained within its normal position in the bicipital groove. Evaluation of the glenoid labrum demonstrates prominent fraying and tearing of the anterior glenoid labrum from superior to inferior. In addition, there may be a labral Bankart deformity with prominent fraying and tearing at the level of the anterior inferior labrum. Correlation with CT scan would be helpful to evaluate the bony glenoid at this level. Mild increased signal within the superior labrum extending from its mid to posterior aspect suggestive for partial tearing. High grade strain and or partial tearing of the inferior glenohumeral ligament. Small glenohumeral joint effusion. Moderate fluid within the subacromion subdeltoid bursa. Moderate acromioclavicular joint space degenerative changes with joint space narrowing, subchondral edema, and bony hypertrophy. Impression: 1. Prominent signal abnormality seen within the posterior lateral humeral head with exuberant reactive edema and patchy decreased T1 signal. More focally oriented decreased linear T1 signal is noted at the level of the greater tuberosity. These findings may represent a fracture deformity of the posterior lateral proximal humerus, possibly a Hill-Sachs deformity versus stress fracture versus subchondral osseous injury versus additional etiology. Clinical correlation. 2. Focal signal abnormality seen within anterior bony glenoid most prominently noted inferiorly concerning for a Bankart deformity. Correlation with CT scan may be helpful to better evaluate the osseous anatomy at this level to exclude a bony Bankart deformity. 3. Marked thinning and fraying with increased signal seen within and at the undersurface of the distal supraspinatus tendon suggestive for partial articular surface tearing with a moderate tendinopathy. No gross tendon retraction or muscle atrophy. 4. Partial articular surface tearing of the distal infraspinatus tendon with an associated moderate tendinopathy. Associated interstitial partial tearing of the distal infraspinatus tendon. No significant tendon retraction or muscle atrophy. 5. Partial tearing of the superior distal tendon strand fibers of the subscapularis tendon with an associated severe tendinopathy. Mild fatty atrophy of the muscle belly. 6. Evaluation of the glenoid labrum demonstrates prominent fraying and tearing of the anterior glenoid labrum from superior to inferior. In addition, there may be a labral Bankart deformity with prominent fraying and tearing at the level of the anterior inferior labrum. Correlation with CT scan would be helpful to evaluate the bony glenoid at this level. Mild increased signal within the superior labrum extending from its mid to posterior aspect suggestive for partial tearing. 7. High grade strain and or partial tearing of the inferior glenohumeral ligament. 8. Small glenohumeral joint effusion. Moderate fluid within the subacromion subdeltoid bursa. 9. Moderate acromioclavicular joint space degenerative changes with joint space narrowing, subchondral edema, and bony hypertrophy.
[2017-01-15] MEDS: Fluticasone-Salmeterol 250-50mcg Diskus INH SCH ×2 (13:53→20:04)
[2017-01-15] MEDS: Albuterol HFA 90 mcg/actuation (8 g) INH SCH ×2 (13:54→20:03)
--- NOTE | 2017-01-15 13:59 | MRI ---
MRI bony pelvis History: Stress fracture. Left hip pain. Comparison: CT scan dated 01/15/2017 Technique: Multi-echo multiplanar sequences were performed through the bony pelvis without the use of intravenous contrast. Findings: Left hip: Intense reactive bone marrow edema with patchy decreased T1 signal seen within the anterior column of the left acetabulum with more focal linear decreased T1 signal along the anterior cortex consistent with a fracture deformity. In correlation with the CT scan, there is bony involvement of the anterior cortex of the anterior column of the acetabulum. Focal reactive bone marrow edema with cortical irregularity and decreased T1 signal seen at the inferior left pubic bone suggestive for a fracture deformity. Adjacent edema seen within the pelvic floor musculature at that level. Moderate insertional tendinopathy of the left gluteus tendons at their attachment on the greater trochanter. Within the anterior left thigh musculature, there is a large fat containing lesion measuring 7.4 x 2.3 x 8.2 centimeters suggestive for a large intramuscular lipomatous lesion. Few traversing vessels and septations noted within the lesion. Lesion appears to abut the anterior cortex of the proximal femur. Osteitis pubis with some reactive edema at the pubic symphysis. Vertically oriented linear decreased T1 signal with exuberant surrounding reactive edema seen within the left hemisacrum consistent with a sacral fracture. Incidentally noted is patchy reactive bone marrow edema with some minimal patchy decreased T1 signal seen within the anterior column of the right bony acetabulum. This is of uncertain clinical etiology. Clinical correlation. Moderate to severe insertional tendinopathy of the right gluteus tendons at their attachment on the greater trochanter. Moderate left and small right hip joint effusion. Impression: 1. Intense reactive bone marrow edema with patchy decreased T1 signal seen within the anterior column of the left acetabulum with more focal linear decreased T1 signal along the anterior cortex consistent with a fracture deformity. In correlation with the CT scan, there is bony involvement of the anterior cortex of the anterior column of the acetabulum. 2. Focal reactive bone marrow edema with cortical irregularity and decreased T1 signal seen at the inferior left pubic bone suggestive for a fracture deformity. Adjacent edema seen within the pelvic floor musculature at that level. 3. Vertically oriented linear decreased T1 signal with exuberant surrounding reactive edema seen within the left hemisacrum consistent with a sacral fracture. 4. Moderate insertional tendinopathy of the left gluteus tendons at their attachment on the greater trochanter. 5. Within the anterior left thigh musculature, there is a large fat containing lesion measuring 7.4 x 2.3 x 8.2 centimeters suggestive for a large intramuscular lipomatous lesion. Few traversing vessels and septations noted within the lesion. Lesion appears to abut the anterior cortex of the proximal femur. 6. Osteitis pubis with some reactive edema at the pubic symphysis. 7. Incidentally noted is patchy reactive bone marrow edema with some minimal patchy decreased T1 signal seen within the anterior column of the right bony acetabulum. This is of uncertain clinical etiology. Clinical correlation. 8. Moderate to severe insertional tendinopathy of the right gluteus tendons at their attachment on the greater trochanter. 9. Moderate left and small right hip joint effusion.
[2017-01-16] MEDS: HYDROmorphone 0.5 mg/0.5 ml ISec IVP PRN ×2 (05:25→15:25)
[2017-01-16] MEDS: Fluticasone-Salmeterol 250-50mcg Diskus INH SCH ×2 (08:50→19:44)
[2017-01-16] MEDS: Albuterol HFA 90 mcg/actuation (8 g) INH SCH ×2 (08:50→19:48)
[2017-01-16] MEDS: Tiotropium 18 mcg Cap For Inhalation IH SCH (08:50)
[2017-01-16] MEDS ORDERED: MethylPREDNISolone Depo 40 mg/ml Inj IAA ONE ×2 (09:23→09:24)
[2017-01-16] MEDS: Pantoprazole 40 mg EC Tab PO SCH (10:05)
[2017-01-16] MEDS: Enoxaparin 40 mg Syringe SC SCH (10:06)
--- NOTE | 2017-01-16 11:21 | CP.PCM.PN ---
Subjective - Date & Time of Evaluation Date of Evaluation: 01/16/17 Time of Evaluation: 11:11 - Subjective Subjective: patient seen and examined by Dr. Roca, full consult to follow Objective - Vital Signs/Intake and Output Vital Signs (last 24 hours): Temp Pulse Resp BP Pulse Ox 97.9 F 73 20 104/58 L 98 01/16/17 08:31 01/16/17 08:31 01/16/17 08:31 01/16/17 08:31 01/16/17 08:31 Intake and Output: 01/16/17 01/16/17 06:59 18:59 Intake Total 240 Balance 240 - Medications Medications: Current Medications Albuterol (Ventolin Hfa 90 Mcg/Actuation (8 G)) 1 puff INH BID [facility] Last Admin: 01/16/17 08:50 Dose: 1 puff Aspirin (Aspirin Chewable) 81 mg PO DAILY [facility] Last Admin: 01/16/17 10:05 Dose: 81 mg Benzocaine/Menthol (Cepacol Sore Throat) 1 alexa MT Q4H PRN PRN Reason: Sore Throat Docusate Sodium (Colace) 100 mg PO BID [facility] Last Admin: 01/16/17 10:06 Dose: 100 mg Enoxaparin Sodium (Lovenox) 40 mg SC DAILY [facility] Last Admin: 01/16/17 10:06 Dose: 40 mg Ergocalciferol (Drisdol 50,000 Intl Units Cap) 1 cap PO QWK [facility] Fentanyl (Duragesic) 1 patch TD Q72H [facility] Last Admin: 01/15/17 12:34 Dose: 1 patch Gabapentin (Neurontin) 100 mg PO DAILY [facility] Last Admin: 01/16/17 10:06 Dose: 100 mg Hydromorphone HCl (Dilaudid) 0.5 mg IVP Q6H PRN PRN Reason: Pain, moderate (4-7) Last Admin: 01/16/17 05:25 Dose: 0.5 mg Montelukast Sodium (Singulair) 10 mg PO HS [facility] Last Admin: 01/15/17 21:29 Dose: 10 mg Pantoprazole Sodium (Protonix Ec Tab) 40 mg PO DAILY [facility] Last Admin: 01/16/17 10:05 Dose: 40 mg Rosuvastatin Calcium (Crestor) 5 mg PO HS [facility] Last Admin: 01/15/17 21:29 Dose: 5 mg Fluticasone/Salmeterol (Advair Diskus 250/50) 1 puff INH RQ12 [facility] Last Admin: 01/16/17 08:50 Dose: 1 puff Sertraline HCl (Zoloft) 50 mg PO DAILY [facility] Last Admin: 01/16/17 10:06 Dose: 50 mg Tiotropium [place] (Spiriva) 18 mcg IH DAILY [facility] Last Admin: 01/16/17 08:50 Dose: 18 mcg - Labs Labs: PT 11.4 SECONDS (9.7-12.2) 01/15/17 07:40 INR 1.0 01/15/17 07:40 Assessment and Plan (1) Dislocation of left shoulder joint Assessment & Plan: Patient seen and examined with Dr. Roca, full consult to follow 3 weeks s/p left shoulder closed reduction dislocation x 2 Injection left shoulder subacromial and biceps tendon NWB LUE/LLE maintain shoulder immobilizer at all times x 2 more weeks. Starting 01/30, while at facility patient can start gentle passive ROM of left shoulder with PT and continue immobilizer when not with PT Patient to f/u in office of Dr. Roca in 4 weeks, continue non weight bearing orthopedically stable for d/c back to rehab after lumbar spine MRI (patient complaining of LBP and gives hx of disc disease) Status: Acute (2) Hill-Sachs fracture of left humerus Status: Acute (3) Scapula coracoid process fracture Status: Acute (4) Fracture of glenoid process of left scapula Status: Acute (5) Closed fracture of anterior column of left acetabulum Status: Acute (6) Fracture of left inferior pubic ramus Status: Acute (7) Closed sacral fracture Status: Acute
[2017-01-16] MEDS ORDERED: Sodium Chloride 0.9% 500 ML IV ONE (15:13)
--- NOTE | 2017-01-16 15:25 | MRI ---
PROCEDURE: MRI lumbar spine dated 01/16/2017 HISTORY: Low back pain. History of HNP. COMPARISON: Comparison made with CT scan abdomen pelvis 09/28/2015 which image the lumbar spine in 3 planes. TECHNIQUE: Multiecho multiplanar sequences were performed through the lumbar spine without the use of intravenous contrast. FINDINGS: Current study reveals no acute compression fractures nor retropulsed fragments. Vertebral bodies exhibit normal stature. Vertebral bodies and facets normally aligned. At the L5-S1 level, there is disc desiccation and disc space narrowing with small central and bilateral though asymmetric disc bulge larger on the right than left with what appears represent small proximal bilateral foraminal herniation components right side slightly larger than left. The facet joints are mildly hypertrophic. The disc appears to compress and may slightly posteriorly displace the ventral surface of the right-sided descending S1 nerve roots however the overall central canal is adequate at this level. The exit foramina are narrowed bilaterally with mild the compression of the anterior inferior surfaces of both L 5 foraminal nerve roots more so on the left side. Note made of what appears represent small right-sided Tarlov cystic changes at the S1 and S2 segments. At the L4-L5 level, there is mild disc desiccation. Minimal posterior disc space narrowing. Small broad-based disc bulge ridge complex results in mild compression of the ventral surface of the thecal sac however the overall central canal appears adequate. Facets are hypertrophic. Minimal bulging extends into the proximal aspect of the right exit foramen. Exit foramina appear adequate. At the L3-L4 level, there is mild age related disc desiccation. Disc space heights maintained. Minimal broad-based bulge of the posterior annulus with slight extension into the proximal inferior borders of both exit foramina. Facets are hypertrophic. Central canal appears adequate. Exit foramina appear adequate. There is minimal age related disc desiccation changes seen at the remaining levels. No disc herniations nor significant disc bulges. Central canal and exit foramina appear adequate. Conus terminates at approximately the L1-L2 level Impression: Mild multilevel degenerative spondylosis most notably affecting L5-S1 and to a lesser degree L4-L5 and L3-L4 levels.
[2017-01-16] MEDS: Clotrimazole/Betamethasone Cream(15 gm) TOP SCH (22:22)
[2017-01-17] MEDS: Fluticasone-Salmeterol 250-50mcg Diskus INH SCH ×2 (07:46→19:23)
[2017-01-17] MEDS: Tiotropium 18 mcg Cap For Inhalation IH SCH (09:30)
[2017-01-17] MEDS: Albuterol HFA 90 mcg/actuation (8 g) INH SCH ×2 (09:30→19:23)
[2017-01-17] MEDS: Pantoprazole 40 mg EC Tab PO SCH (09:44)
[2017-01-17] MEDS: Benzocaine/Menthol (Cepacol) Lozenge MT PRN (09:45)
[2017-01-17] MEDS: Clotrimazole/Betamethasone Cream(15 gm) TOP SCH ×3 (09:45→17:35)
[2017-01-17] MEDS: Enoxaparin 40 mg Syringe SC SCH (09:45)
--- NOTE | 2017-01-17 15:21 | CARD ---
APPROVED REPORT EKG Measurement Heart [id number] ID [id number] <Conclusion> Normal sinus rhythm T wave abnormality, consider anterior ischemia Abnormal ECG
--- NOTE | 2017-01-17 18:15 | PN ---
DATE: 01/16/2017 SUBJECTIVE: The patient is still in pain and she needs Dilaudid intravenously for pain control. PHYSICAL EXAMINATION: VITAL SIGNS: Blood pressure is 100/70, temperature 98.2, respiratory rate 18, and pulse is 76. HEENT: Pupils equal, reactive to light. Normal appearing mucosa. NECK: Supple, no JVD, no carotid bruit, no lymph node, and no thyromegaly. CHEST AND LUNGS: Bilateral symmetrical expansion, good air exchange, no rales, no rhonchi. CARDIOVASCULAR: PMI not localized. S1, S2. No additional sounds. ABDOMEN: Normoactive bowel sounds, no tenderness, no organomegaly, no masses. EXTREMITIES: No cyanosis, no clubbing, no edema. CENTRAL NERVOUS SYSTEM: Alert, awake, oriented x 3. No neurological deficits could be appreciated. ASSESSMENT: Fall with dislocation of the shoulder and also the MRI showed that showed intense reactive bone marrow edema with patchy decreased T1 signal seen within the anterior column of the left acetabulum with more focal linear decreased T1 signal along the anterior cortex consistent with fracture deformity in correlation with a CT scan, there is bony reaction of the anterior cortex of the anterior column of the acetabulum. There is also inferior left pubic bone fracture deformity. PLAN: Follow orthopedic recommendations of no weightbearing on the left shoulder and the left lower extremity and the patient is for subacute rehabilitation. Continue DVT prophylaxis and pain management. I will be away until 01/20/2017, and the hospitalist group will be covering for me. [facility] Laurie Santos MD cc: [phone] TT: 01/16/2017 21:14:09 Confirmation # [id number] Dictation # [id number] jordan RAMOS
--- NOTE | 2017-01-17 23:39 | CP.PCM.PN ---
Subjective - Date & Time of Evaluation Date of Evaluation: 01/17/17 Time of Evaluation: 15:45 - Subjective Subjective: Hospitalist Covering Dr. Santos's service Patient seen and examined. patient denies headache, denies chills, denies chest pain, denies shortness of breathe, denies abdominal pain, denies nausea, denies vomitting, reports last bowel movement was yesterday, denies dysuria. Reports low back pain, arm in sling. and reports pain. Objective - Vital Signs/Intake and Output Vital Signs (last 24 hours): Temp Pulse Resp BP Pulse Ox 98 F 98 H 20 110/63 97 01/17/17 16:00 01/17/17 16:00 01/17/17 16:00 01/17/17 16:00 01/17/17 16:00 - Medications Medications: Current Medications Albuterol (Ventolin Hfa 90 Mcg/Actuation (8 G)) 1 puff INH BID [facility] Last Admin: 01/17/17 19:23 Dose: 1 puff Aspirin (Aspirin Chewable) 81 mg PO DAILY [facility] Last Admin: 01/17/17 09:44 Dose: 81 mg Benzocaine/Menthol (Cepacol Sore Throat) 1 alexa MT Q4H PRN PRN Reason: Sore Throat Last Admin: 01/17/17 09:45 Dose: 1 alexa Betamethasone/Clotrimazole (Lotrisone) 1 gm TOP TID [facility] Last Admin: 01/17/17 17:35 Dose: 1 applic Cyclobenzaprine HCl (Flexeril) 5 mg PO TID PRN PRN Reason: Muscle spasm Docusate Sodium (Colace) 100 mg PO BID [facility] Last Admin: 01/17/17 17:31 Dose: 100 mg Enoxaparin Sodium (Lovenox) 40 mg SC DAILY [facility] Last Admin: 01/17/17 09:45 Dose: 40 mg Ergocalciferol (Drisdol 50,000 Intl Units Cap) 1 cap PO QWK [facility] Fentanyl (Duragesic) 1 patch TD Q72H [facility] Last Admin: 01/15/17 12:34 Dose: 1 patch Gabapentin (Neurontin) 100 mg PO DAILY [facility] Last Admin: 01/17/17 09:44 Dose: 100 mg Hydromorphone HCl (Dilaudid) 0.5 mg IVP Q6H PRN PRN Reason: Pain, moderate (4-7) Last Admin: 01/16/17 15:25 Dose: 0.5 mg Montelukast Sodium (Singulair) 10 mg PO HS [facility] Last Admin: 01/17/17 21:38 Dose: 10 mg Pantoprazole Sodium (Protonix Ec Tab) 40 mg PO DAILY [facility] Last Admin: 01/17/17 09:44 Dose: 40 mg Rosuvastatin Calcium (Crestor) 5 mg PO HS [facility] Last Admin: 01/17/17 21:38 Dose: 5 mg Fluticasone/Salmeterol (Advair Diskus 250/50) 1 puff INH RQ12 [facility] Last Admin: 01/17/17 19:23 Dose: 1 puff Sertraline HCl (Zoloft) 50 mg PO DAILY [facility] Last Admin: 01/17/17 09:44 Dose: 50 mg Tiotropium [place] (Spiriva) 18 mcg IH DAILY [facility] Last Admin: 01/17/17 09:30 Dose: 18 mcg - Labs Labs: PT 11.4 SECONDS (9.7-12.2) 01/15/17 07:40 INR 1.0 01/15/17 07:40 - Constitutional Appears: Non-toxic, No Acute Distress - Head Exam Head Exam: NORMAL INSPECTION - ENT Exam ENT Exam: Mucous Membranes Moist - Respiratory Exam Respiratory Exam: Clear to Ausculation Bilateral - Cardiovascular Exam Cardiovascular Exam: +S1, +S2 - GI/Abdominal Exam GI & Abdominal Exam: Soft, Normal Bowel Sounds - Neurological Exam Neurological Exam: Alert, Awake, Oriented x3 - Psychiatric Exam Psychiatric exam: Normal Affect, Normal Mood - Skin Skin Exam: Dry, Normal Color, Warm Assessment and Plan (1) COPD (chronic obstructive pulmonary disease) Status: Acute (2) Closed fracture of anterior column of left acetabulum Status: Acute (3) Closed sacral fracture Status: Acute (4) Fracture of glenoid process of left scapula Status: Acute (5) Fracture of left inferior pubic ramus Status: Acute (6) Hill-Sachs fracture of left humerus Status: Acute (7) Prophylactic measure Status: Acute - Assessment and Plan (Free Text) Assessment: Multiple fractures noted in assessment/Plan 01/16: Per orthopedic, "Patient seen and examined with Dr. Roca, full consult to follow 3 weeks s/p left shoulder closed reduction dislocation x 2 Injection left shoulder subacromial and biceps tendon NWB LUE/LLE maintain shoulder immobilizer at all times x 2 more weeks. Starting 01/30, while at facility patient can start gentle passive ROM of left shoulder with PT and continue immobilizer when not with PT Patient to f/u in office of Dr. Roca in 4 weeks, continue non weight bearing orthopedically stable for d/c back to rehab after lumbar spine MRI" 01-17: Discussed with Dr. Roca, patient is orthopedically stable for discharge for rehabiltation when bed is available. Patient is not surgical candidate, will need rehab. Patient recommended to f/u orthopedic upon discharge while rehabbing. History of COPD/Asthma On Aspirin 81mg PO daily Spiriva 18mcg inhaled daily Duragescic transdermal patch Neurotonin 100mg PO daily Singulair 10mg PO daily Advair 250/50 1 puff q 12hours sees Dr. Rinaldi ([facility]) as outpatient not in acute exacerbation PPx -Lovenox 40mg subqdaily -Aspirin 81mg PO daily -Pain control: Duragescic transdermal patch Neurotonin 100mg PO daily Gabapentin 100mg PO daily PT eval: Pt taken to eob from lying position w/ mod-max a and did sit<>stand x2 NWB UE/LE w/ mod-max a x2; pt educated to weight bearing status while doing bed to commode transfers and put back to bed. OT eval in progress
[2017-01-18] MEDS: Fluticasone-Salmeterol 250-50mcg Diskus INH SCH ×2 (07:28→19:31)
[2017-01-18] MEDS: Pantoprazole 40 mg EC Tab PO SCH (10:02)
[2017-01-18] MEDS: Clotrimazole/Betamethasone Cream(15 gm) TOP SCH ×3 (10:03→18:37)
[2017-01-18] MEDS: Enoxaparin 40 mg Syringe SC SCH (10:03)
[2017-01-18] MEDS: Benzocaine/Menthol (Cepacol) Lozenge MT PRN (10:04)
[2017-01-18 13:59] LABS: BASO # 0.1 K/uL (0.0-0.2); BASO % 0.5 % (0.0-2.0); EOS # 0.2 K/uL (0.0-0.7); EOS % 1.8 % (0.0-4.0); HEMATOCRIT 38.7 % (34.0-47.0); LYMPH # 1.7 K/uL (1.0-4.3); MEAN CELL VOLUME 85.7 fL (81.0-99.0); MEAN CORPUSCULAR HGB CONC 31.6 g/dL (33.0-37.0); MONO # 0.6 K/uL (0.0-0.8); NRBC % 0.1 % (0.0-2.0); RED CELL DISTRIBUTION WIDTH 13.8 % (11.5-14.5); WHITE BLOOD COUNT 10.2 K/uL (4.8-10.8)
[2017-01-18 14:10] LABS: CHLORIDE 97 mmol/L (98-107); POTASSIUM 3.7 mmol/L (3.6-5.2); SODIUM 140 mmol/L (132-148)
[2017-01-18 14:12] LABS: ALB/GLOB RATIO 1.1 (1.0-2.1); ALKALINE PHOSPHATASE 91 U/L (38-126); AST/SGOT 11 U/L (14-36); BILIRUBIN,TOTAL 0.4 mg/dL (0.2-1.3); CARBON DIOXIDE 31 mmol/L (22-30); GFR AFRICAN-AMERICAN > 60; TOTAL PROTEIN 6.9 g/dL (6.3-8.3)
[2017-01-18 14:13] LABS: ALT/SGPT 20 U/L (9-52); BLOOD UREA NITROGEN 15 mg/dL (7-17); CALCIUM 9.1 mg/dl (8.6-10.4); GLUCOSE,RANDOM 160 mg/dL (65-105); MAGNESIUM 1.9 mg/dL (1.6-2.3); PHOSPHOROUS 4.2 mg/dL (2.5-4.5)
--- NOTE | 2017-01-18 19:09 | CP.PCM.PN ---
Subjective - Date & Time of Evaluation Date of Evaluation: 01/18/17 Time of Evaluation: 13:10 - Subjective Subjective: Hospitalist Covering Dr. Santos Patient seen and examined. Patient reports pain is controlled. Denies acute complaints. Objective - Vital Signs/Intake and Output Vital Signs (last 24 hours): Temp Pulse Resp BP Pulse Ox 97.4 F L 65 20 115/64 98 01/18/17 16:00 01/18/17 16:00 01/18/17 16:00 01/18/17 16:00 01/18/17 16:00 - Medications Medications: Current Medications Albuterol (Ventolin Hfa 90 Mcg/Actuation (8 G)) 1 puff INH BID [facility] Last Admin: 01/17/17 19:23 Dose: 1 puff Aspirin (Aspirin Chewable) 81 mg PO DAILY [facility] Last Admin: 01/18/17 10:03 Dose: 81 mg Benzocaine/Menthol (Cepacol Sore Throat) 1 alexa MT Q4H PRN PRN Reason: Sore Throat Last Admin: 01/18/17 10:04 Dose: 1 alexa Betamethasone/Clotrimazole (Lotrisone) 1 gm TOP TID [facility] Last Admin: 01/18/17 18:37 Dose: 1 applic Cyclobenzaprine HCl (Flexeril) 5 mg PO TID PRN PRN Reason: Muscle spasm Docusate Sodium (Colace) 100 mg PO BID [facility] Last Admin: 01/18/17 18:36 Dose: 100 mg Enoxaparin Sodium (Lovenox) 40 mg SC DAILY [facility] Last Admin: 01/18/17 10:03 Dose: 40 mg Ergocalciferol (Drisdol 50,000 Intl Units Cap) 1 cap PO QWK [facility] Fentanyl (Duragesic) 1 patch TD Q72H [facility] Last Admin: 01/18/17 10:03 Dose: 1 patch Gabapentin (Neurontin) 100 mg PO DAILY [facility] Last Admin: 01/18/17 10:03 Dose: 100 mg Hydromorphone HCl (Dilaudid) 0.5 mg IVP Q6H PRN PRN Reason: Pain, moderate (4-7) Last Admin: 01/16/17 15:25 Dose: 0.5 mg Montelukast Sodium (Singulair) 10 mg PO HS [facility] Last Admin: 01/17/17 21:38 Dose: 10 mg Pantoprazole Sodium (Protonix Ec Tab) 40 mg PO DAILY [facility] Last Admin: 01/18/17 10:02 Dose: 40 mg Rosuvastatin Calcium (Crestor) 5 mg PO HS [facility] Last Admin: 01/17/17 21:38 Dose: 5 mg Fluticasone/Salmeterol (Advair Diskus 250/50) 1 puff INH RQ12 [facility] Last Admin: 01/18/17 07:28 Dose: 1 puff Sertraline HCl (Zoloft) 50 mg PO DAILY [facility] Last Admin: 01/18/17 10:03 Dose: 50 mg Tiotropium [place] (Spiriva) 18 mcg IH DAILY [facility] Last Admin: 01/17/17 09:30 Dose: 18 mcg - Labs Labs: 01/18/17 13:48 01/18/17 13:48 PT 11.4 SECONDS (9.7-12.2) 01/15/17 07:40 INR 1.0 01/15/17 07:40 - Constitutional Appears: Non-toxic, No Acute Distress - Head Exam Head Exam: NORMAL INSPECTION - Eye Exam Eye Exam: EOMI - ENT Exam ENT Exam: Mucous Membranes Moist - Respiratory Exam Respiratory Exam: NORMAL BREATHING PATTERN. absent: Rales, Rhonchi, Respiratory Distress - Cardiovascular Exam Cardiovascular Exam: REGULAR RHYTHM, +S1, +S2 - GI/Abdominal Exam GI & Abdominal Exam: Soft, Normal Bowel Sounds. absent: Distended, Guarding, Rigid, Tenderness, Rebound - Extremities Exam Extremities Exam: absent: Pedal Edema, Tenderness - Neurological Exam Neurological Exam: Alert, Awake, Oriented x3 - Psychiatric Exam Psychiatric exam: Normal Affect, Normal Mood - Skin Skin Exam: Dry, Normal Color, Warm Assessment and Plan (1) COPD (chronic obstructive pulmonary disease) Status: Acute (2) Closed fracture of anterior column of left acetabulum Status: Acute (3) Closed sacral fracture Status: Acute (4) Fracture of glenoid process of left scapula Status: Acute (5) Fracture of left inferior pubic ramus Status: Acute (6) Hill-Sachs fracture of left humerus Status: Acute (7) Prophylactic measure Status: Acute - Assessment and Plan (Free Text) Assessment: 01/16: Per orthopedic, "Patient seen and examined with Dr. Roca, full consult to follow 3 weeks s/p left shoulder closed reduction dislocation x 2 Injection left shoulder subacromial and biceps tendon NWB LUE/LLE maintain shoulder immobilizer at all times x 2 more weeks. Starting 01/30, while at facility patient can start gentle passive ROM of left shoulder with PT and continue immobilizer when not with PT Patient to f/u in office of Dr. Roca in 4 weeks, continue non weight bearing orthopedically stable for d/c back to rehab after lumbar spine MRI" 01-17: Discussed with Dr. Roca, patient is orthopedically stable for discharge for rehabiltation when bed is available. Patient is not surgical candidate, will need rehab. Patient recommended to f/u orthopedic upon discharge while rehabbing. 01-18 pending authorization for rehab placement History of COPD/Asthma On Aspirin 81mg PO daily Spiriva 18mcg inhaled daily Duragescic transdermal patch Neurotonin 100mg PO daily Singulair 10mg PO daily Advair 250/50 1 puff q 12hours sees Dr. Rinaldi ([facility]) as outpatient not in acute exacerbation PPx -Lovenox 40mg subqdaily -Aspirin 81mg PO daily -Pain control: Duragescic transdermal patch Neurotonin 100mg PO daily Gabapentin 100mg PO daily PT eval: Pt taken to eob from lying position w/ mod-max a and did sit<>stand x2 NWB UE/LE w/ mod-max a x2; pt educated to weight bearing status while doing bed to commode transfers and put back to bed. OT eval in progress
[2017-01-18] MEDS: Albuterol HFA 90 mcg/actuation (8 g) INH SCH (19:32)
[2017-01-19] MEDS: Enoxaparin 40 mg Syringe SC SCH (09:51)
[2017-01-19] MEDS: Pantoprazole 40 mg EC Tab PO SCH (09:51)
[2017-01-19] MEDS: Clotrimazole/Betamethasone Cream(15 gm) TOP SCH ×3 (09:52→18:42)
[2017-01-19] MEDS: Benzocaine/Menthol (Cepacol) Lozenge MT PRN (09:53)
[2017-01-19] MEDS: Tiotropium 18 mcg Cap For Inhalation IH SCH (09:54)
[2017-01-19] MEDS: Fluticasone-Salmeterol 250-50mcg Diskus INH SCH ×2 (09:54→19:33)
[2017-01-19] MEDS: Albuterol HFA 90 mcg/actuation (8 g) INH SCH ×2 (09:54→19:34)
--- NOTE | 2017-01-19 09:56 | CP.PCM.PN ---
<Navid Molina - Last Filed: 01/19/17 09:53> Subjective - Date & Time of Evaluation Date of Evaluation: 01/19/17 Time of Evaluation: 09:57 - Subjective Subjective: Patient states that her shoulder pain is much better after injection, pain is now 2/10. She is still complaining of a lot of pain in her left hip/groin, especially while on bedpan. Denies CP/SOB/dizziness/numbness/tingling/ incontinence Review of Systems - Review of Systems All systems: reviewed and no additional remarkable complaints except - Constitutional Additional comments: denies - Cardiovascular Cardiovascular: UNREMARKABLE - Respiratory Respiratory: UNREMARKABLE - Musculoskeletal Musculoskeletal: As Par HPI - Integumentary Integumentary: UNREMARKABLE - Neurological Neurological: UNREMARKABLE - Hematologic/Lymphatic Hematologic: UNREMARKABLE Objective - Vital Signs/Intake and Output Vital Signs (last 24 hours): Temp Pulse Resp BP Pulse Ox 97.8 F 47 L 20 148/83 100 01/19/17 07:25 01/19/17 07:25 01/19/17 07:25 01/19/17 07:25 01/19/17 07:25 Intake and Output: 01/19/17 01/19/17 06:59 18:59 Intake Total 680 Balance 680 - Medications Medications: Current Medications Albuterol (Ventolin Hfa 90 Mcg/Actuation (8 G)) 1 puff INH BID [facility] Last Admin: 01/18/17 19:32 Dose: 1 puff Aspirin (Aspirin Chewable) 81 mg PO DAILY [facility] Last Admin: 01/18/17 10:03 Dose: 81 mg Benzocaine/Menthol (Cepacol Sore Throat) 1 alexa MT Q4H PRN PRN Reason: Sore Throat Last Admin: 01/18/17 10:04 Dose: 1 alexa Betamethasone/Clotrimazole (Lotrisone) 1 gm TOP TID [facility] Last Admin: 01/18/17 18:37 Dose: 1 applic Cyclobenzaprine HCl (Flexeril) 5 mg PO TID PRN PRN Reason: Muscle spasm Last Admin: 01/18/17 23:14 Dose: 5 mg Docusate Sodium (Colace) 100 mg PO BID [facility] Last Admin: 01/18/17 18:36 Dose: 100 mg Enoxaparin Sodium (Lovenox) 40 mg SC DAILY [facility] Last Admin: 01/18/17 10:03 Dose: 40 mg Ergocalciferol (Drisdol 50,000 Intl Units Cap) 1 cap PO QWK [facility] Fentanyl (Duragesic) 1 patch TD Q72H [facility] Last Admin: 01/18/17 10:03 Dose: 1 patch Gabapentin (Neurontin) 100 mg PO DAILY [facility] Last Admin: 01/18/17 10:03 Dose: 100 mg Montelukast Sodium (Singulair) 10 mg PO HS [facility] Last Admin: 01/18/17 22:15 Dose: 10 mg Pantoprazole Sodium (Protonix Ec Tab) 40 mg PO DAILY [facility] Last Admin: 01/18/17 10:02 Dose: 40 mg Rosuvastatin Calcium (Crestor) 5 mg PO HS [facility] Last Admin: 01/18/17 22:15 Dose: 5 mg Fluticasone/Salmeterol (Advair Diskus 250/50) 1 puff INH RQ12 [facility] Last Admin: 01/18/17 19:31 Dose: 1 puff Sertraline HCl (Zoloft) 50 mg PO DAILY [facility] Last Admin: 01/18/17 10:03 Dose: 50 mg Tiotropium [place] (Spiriva) 18 mcg IH DAILY [facility] Last Admin: 01/17/17 09:30 Dose: 18 mcg - Labs Labs: 01/18/17 13:48 01/18/17 13:48 PT 11.4 SECONDS (9.7-12.2) 01/15/17 07:40 INR 1.0 01/15/17 07:40 - Constitutional Appears: Well, No Acute Distress - Cardiovascular Exam Additional comments: +DP pulses B, +radial pulse LUE calves soft NT neg homans - Extremities Exam Additional comments: sensation intact BLE LUE: sensation intact +rad/ulnar/med - Neurological Exam Neurological Exam: Alert, Awake, Oriented x3 Neuro motor strength exam: Left Upper Extremity: 5 (+ROM wrist/fingers flex/ext/ add/abd), Left Lower Extremity: 5 (+DF/PF, pain with hip knee flexion), Right Lower Extremity: 5 (+DF/PF ankle, toes, Full flex knee/hip without pain) - Psychiatric Exam Psychiatric exam: Normal Affect, Normal Mood - Skin Skin Exam: Dry, Intact, Normal Color, Warm Assessment and Plan (1) Dislocation of left shoulder joint Assessment & Plan: s/p CR X 2 Maintain shoulder immobilizer for 2 more weeks, then can remove to begin gentle ROM with PT s/p injection by Dr. Farley f/u Dr. Manzo 4 weeks for f/u/xrays/progress PT ortho stable for transfer to rehab Status: Acute (2) Hill-Sachs fracture of left humerus Status: Acute (3) Scapula coracoid process fracture Status: Acute (4) Fracture of glenoid process of left scapula Status: Acute (5) Closed fracture of anterior column of left acetabulum Assessment & Plan: NWB LLE at this time VTE proph Status: Acute (6) Fracture of left inferior pubic ramus Status: Acute (7) Closed sacral fracture Status: Acute (8) Herniated lumbar disc without myelopathy Assessment & Plan: No acute findings noted on MRI PT/OT Status: Acute Radiology Interpretation - Natural Fabricator Natural Fabricator:: Radiologist - Radiology Interpretation #2 Interpretation: atient Name / ID : HILARIO MOREL / [id number] Exam Date : 01/16/2017 13:16:00 ( Approved ) Study Comment : Sex / Age : F / [id number] Creator : Tawanda Danielle MD Dictator : Tawanda Danielle MD Strip Presser : Decorating Inspector : Tawanda Danielle MD Approver2 : Report Date : 01/16/2017 15:20:24 My Comment : PROCEDURE: MRI lumbar spine dated 01/16/2017 HISTORY: Low back pain. History of HNP. COMPARISON: Comparison made with CT scan abdomen pelvis 09/28/2015 which image the lumbar spine in 3 planes. TECHNIQUE: Multiecho multiplanar sequences were performed through the lumbar spine without the use of intravenous contrast. FINDINGS: Current study reveals no acute compression fractures nor retropulsed fragments. Vertebral bodies exhibit normal stature. Vertebral bodies and facets normally aligned. At the L5-S1 level, there is disc desiccation and disc space narrowing with small central and bilateral though asymmetric disc bulge larger on the right than left with what appears represent small proximal bilateral foraminal herniation components right side slightly larger than left. The facet joints are mildly hypertrophic. The disc appears to compress and may slightly posteriorly displace the ventral surface of the right-sided descending S1 nerve roots however the overall central canal is adequate at this level. The exit foramina are narrowed bilaterally with mild the compression of the anterior inferior surfaces of both L 5 foraminal nerve roots more so on the left side. Note made of what appears represent small right-sided Tarlov cystic changes at the S1 and S2 segments. At the L4-L5 level, there is mild disc desiccation. Minimal posterior disc space narrowing. Small broad-based disc bulge ridge complex results in mild compression of the ventral surface of the thecal sac however the overall central canal appears adequate. Facets are hypertrophic. Minimal bulging extends into the proximal aspect of the right exit foramen. Exit foramina appear adequate. At the L3-L4 level, there is mild age related disc desiccation. Disc space heights maintained. Minimal broad-based bulge of the posterior annulus with slight extension into the proximal inferior borders of both exit foramina. Facets are hypertrophic. Central canal appears adequate. Exit foramina appear adequate. There is minimal age related disc desiccation changes seen at the remaining levels. No disc herniations nor significant disc bulges. Central canal and exit foramina appear adequate. Conus terminates at approximately the L1-L2 level Impression: Mild multilevel degenerative spondylosis most notably affecting L5- S1 and to a lesser degree L4-L5 and L3-L4 levels. <Elo Fry - Last Filed: 03/11/17 14:58> Subjective - Subjective Subjective: patient seen and examined. Agree with PA assessment and plan. Reports much improvement in pain after injection to left shoulder. Maintain strict nonweightbearing to left upper extremity and left lower extremity. Okay for DC to rehabilitation/subacute. Objective - Vital Signs/Intake and Output Vital Signs (last 24 hours): Temp Pulse Resp BP Pulse Ox 98.1 F 81 20 148/68 96 01/26/17 15:47 01/26/17 15:47 01/26/17 15:47 01/26/17 15:47 01/26/17 15:47 - Labs Labs: 01/18/17 13:48 01/18/17 13:48 PT 11.4 SECONDS (9.7-12.2) 01/15/17 07:40 INR 1.0 01/15/17 07:40
[2017-01-19] MEDS ORDERED: Oxycodone/Acetaminophen 5/325 mg Tab PO STA (20:00)
--- NOTE | 2017-01-19 21:27 | CP.PCM.DIS ---
<Abel Santos - Last Filed: 01/19/17 21:43> Provider - Provider Date of Admission: 01/15/17 11:18 Attending physician: Luis Santos MD Covered by Dr. Frank Vizcaino Primary care physician: unknown Consults: Ortho- Dr. Fry Time Spent in preparation of Discharge (in minutes): 45 Diagnosis - Discharge Diagnosis (1) Dislocation of left shoulder joint Status: Acute Comment: 3 weeks s/p left shoulder closed reduction dislocation x 2. Injection left shoulder subacromial and biceps tendon. NWB LUE/LLE. maintain shoulder immobilizer at all times x 2 more weeks. Starting 01/30, while at facility patient can start gentle passive ROM of left shoulder with PT and continue immobilizer when not with PT. Patient to f/u in office of Dr. Manzo in 4 weeks, continue non weight bearing. orthopedically stable for d/c back to rehab after lumbar spine MRI (patient complaining of LBP and gives hx of disc disease) Hospital Course - Lab Results Lab Results: Most Recent Lab Values WBC 10.2 K/uL (4.8-10.8) 01/18/17 13:48 RBC 4.52 Mil/uL (3.80-5.20) 01/18/17 13:48 Hgb 12.2 g/dL (11.0-16.0) 01/18/17 13:48 Hct 38.7 % (34.0-47.0) 01/18/17 13:48 MCV 85.7 fL (81.0-99.0) 01/18/17 13:48 MCH 27.0 pg (27.0-31.0) 01/18/17 13:48 MCHC 31.6 g/dL (33.0-37.0) L 01/18/17 13:48 RDW 13.8 % (11.5-14.5) 01/18/17 13:48 Plt Count 397 K/uL (130-400) 01/18/17 13:48 MPV 9.0 fL (7.2-11.7) 01/18/17 13:48 Neut % (Auto) 74.7 % (50.0-75.0) 01/18/17 13:48 Lymph % (Auto) 17.0 % (20.0-40.0) L 01/18/17 13:48 Caroline % (Auto) 6.0 % (0.0-10.0) 01/18/17 13:48 Eos % (Auto) 1.8 % (0.0-4.0) 01/18/17 13:48 Baso % (Auto) 0.5 % (0.0-2.0) 01/18/17 13:48 Neut # 7.6 K/uL (1.8-7.0) H 01/18/17 13:48 Lymph # 1.7 K/uL (1.0-4.3) 01/18/17 13:48 Caroline # 0.6 K/uL (0.0-0.8) 01/18/17 13:48 Eos # 0.2 K/uL (0.0-0.7) 01/18/17 13:48 Baso # 0.1 K/uL (0.0-0.2) 01/18/17 13:48 PT 11.4 SECONDS (9.7-12.2) 01/15/17 07:40 INR 1.0 01/15/17 07:40 Sodium 140 mmol/L (132-148) 01/18/17 13:48 Potassium 3.7 mmol/L (3.6-5.2) 01/18/17 13:48 Chloride 97 mmol/L (98-107) L 01/18/17 13:48 Carbon Dioxide 31 mmol/L (22-30) H 01/18/17 13:48 Anion Gap 16 (10-20) 01/18/17 13:48 BUN 15 mg/dL (7-17) 01/18/17 13:48 Creatinine 0.6 MG/DL (0.7-1.2) L 01/18/17 13:48 Est GFR ( Amer) > 60 01/18/17 13:48 Est GFR (Non-Af Amer) > 60 01/18/17 13:48 POC Glucose (mg/dL) 122 mg/dL (65-110) H 01/19/17 16:21 Random Glucose 160 mg/dL (65-105) H 01/18/17 13:48 Calcium 9.1 mg/dl (8.6-10.4) 01/18/17 13:48 Phosphorus 4.2 mg/dL (2.5-4.5) 01/18/17 13:48 Magnesium 1.9 mg/dL (1.6-2.3) 01/18/17 13:48 Total Bilirubin 0.4 mg/dL (0.2-1.3) 01/18/17 13:48 AST 11 U/L (14-36) L D 01/18/17 13:48 ALT 20 U/L (9-52) 01/18/17 13:48 Alkaline Phosphatase 91 U/L (38-126) 01/18/17 13:48 Troponin I < 0.0120 ng/mL (0.00-0.120) 01/13/17 14:04 Total Protein 6.9 g/dL (6.3-8.3) 01/18/17 13:48 Albumin 3.7 g/dL (3.5-5.0) 01/18/17 13:48 Globulin 3.2 gm/dL (2.2-3.9) 01/18/17 13:48 Albumin/Globulin Ratio 1.1 (1.0-2.1) 01/18/17 13:48 - Hospital Course Hospital Course: As per HPI: This is a 66 year old female with history of multiple medical problems including COPD on home oxygen therapy and history of multiple admissions to the hospital for COPD exacerbation. Patient fell at home about 2 weeks ago and sustained a suprapubic fracture as well as a left shoulder dislocation. Patient was sent to the ED and was treated, then transferred to subacute rehabilitation at [facility] for pain management and physical therapy. While the patient was there, she suffered from pain that was not controlled. The patient was transferred to the Emergency Room for evaluation and subsequently admitted. Patient was admitted to the hospital for intractable pain. Patient underwent numerous imaging tests, briefly summarized below. Please see each respective imaging study report for full details: Shoulder X ray showed no fracture dislocation. Bilateral shoulder arthrosis. CT of the upper left extremity without contrast showed mildly displaced oblique fracture of the anterior inferior left glenoid. Mildly displaced comminuted fracture of the tip of the coracoid process. CT of the Pelvis that showed a healing fracture of the left inferior pubic ramus. Probable nondisplaced fracture of the anterior medial left acetabulum. Suspected nondispalced vertical fracture through the left daniel sacrum. Pelvis MRI showed fracture deformity of the left acetabulum, the inferior left pubic bone and reactive edema in the left hemisacrum consistent with sacral fracture. (Please see full report). Shoulder MRI showed fracture deformity of the posterior lateral proximal humerus , possibly a Hill-Sachs deformity vs stress fracture vs subchrondral osseous injury, as well as focal signal abnormality concerning for a Bankart deformity. (Please see full report) Lumbar Spine MRI showed mild multi level degenerative spondylosis most notably affecting L5-S1 and to a lesser degree L4-L5 and L3-L4 Patient was evaluated by orthopedic surgery, Dr. Manzo, who performed a left shoulder/ subacromial and biceps tendon injection. Patient was instructed to maintain shoulder immobilizer at all times for 2 more weeks. Starting on 01/30, patient may begin gentle passive ROM of the left shoulder with PT and continue immobilizer when not with PT. Patient was instructed to followup in Dr. Manzo's office in 4 weeks and continue non-weight bearing. Patient was monitored for several days until she could be sent to [facility] to rehabilitation and physical therapy. Discharge Exam - Head Exam Head Exam: NORMAL INSPECTION - Eye Exam Pupil Exam: NORMAL ACCOMODATION, PERRL - ENT Exam ENT Exam: Mucous Membranes Moist - Respiratory Exam Respiratory Exam: Clear to PA & Lateral, NORMAL BREATHING PATTERN, UNREMARKABLE. absent: Rales, Rhonchi, Wheezes - Cardiovascular Exam Cardiovascular Exam: REGULAR RHYTHM, +S1, +S2 - GI/Abdominal Exam GI & Abdominal Exam: Normal Bowel Sounds, Soft. absent: Distended, Firm, Tenderness - Neurological Exam Neurological exam: Alert, Oriented x3 - Psychiatric Exam Psychiatric exam: Normal Affect, Normal Mood - Skin Skin Exam: Dry, Intact, Normal Color, Warm Discharge Plan - Follow Up Plan Condition: FAIR Disposition: TRANSF TO SNF Instructions: Shoulder Dislocation (DC), Pain Management in the Elderly (DC), COPD (Chronic Obstructive Pulmonary Disease) (DC) Additional Instructions: Please discharge patient to [facility] when bed available. Please resume current medications (see med reconcilation). as per ortho, non weight bearing of LLE at this time. VTE prophylaxis indicated. PT/OT Follow up with Dr. Willian Luna in 4 weeks for follow up xrays/progress PT Follow up with your primary care doctor in 1 week of discharge. Return to the emergency room if symptoms return. Referrals: Elo Fry MD [Staff Provider] - <Frank Vizcaino - Last Filed: 03/04/17 14:49> Provider - Provider Date of Admission: 01/15/17 11:18 Attending physician: Luis Santos MD Hospital Course - Lab Results Lab Results: Most Recent Lab Values WBC 10.2 K/uL (4.8-10.8) 01/18/17 13:48 RBC 4.52 Mil/uL (3.80-5.20) 01/18/17 13:48 Hgb 12.2 g/dL (11.0-16.0) 01/18/17 13:48 Hct 38.7 % (34.0-47.0) 01/18/17 13:48 MCV 85.7 fL (81.0-99.0) 01/18/17 13:48 MCH 27.0 pg (27.0-31.0) 01/18/17 13:48 MCHC 31.6 g/dL (33.0-37.0) L 01/18/17 13:48 RDW 13.8 % (11.5-14.5) 01/18/17 13:48 Plt Count 397 K/uL (130-400) 01/18/17 13:48 MPV 9.0 fL (7.2-11.7) 01/18/17 13:48 Neut % (Auto) 74.7 % (50.0-75.0) 01/18/17 13:48 Lymph % (Auto) 17.0 % (20.0-40.0) L 01/18/17 13:48 Caroline % (Auto) 6.0 % (0.0-10.0) 01/18/17 13:48 Eos % (Auto) 1.8 % (0.0-4.0) 01/18/17 13:48 Baso % (Auto) 0.5 % (0.0-2.0) 01/18/17 13:48 Neut # 7.6 K/uL (1.8-7.0) H 01/18/17 13:48 Lymph # 1.7 K/uL (1.0-4.3) 01/18/17 13:48 Caroline # 0.6 K/uL (0.0-0.8) 01/18/17 13:48 Eos # 0.2 K/uL (0.0-0.7) 01/18/17 13:48 Baso # 0.1 K/uL (0.0-0.2) 01/18/17 13:48 PT 11.4 SECONDS (9.7-12.2) 01/15/17 07:40 INR 1.0 01/15/17 07:40 Sodium 140 mmol/L (132-148) 01/18/17 13:48 Potassium 3.7 mmol/L (3.6-5.2) 01/18/17 13:48 Chloride 97 mmol/L (98-107) L 01/18/17 13:48 Carbon Dioxide 31 mmol/L (22-30) H 01/18/17 13:48 Anion Gap 16 (10-20) 01/18/17 13:48 BUN 15 mg/dL (7-17) 01/18/17 13:48 Creatinine 0.6 MG/DL (0.7-1.2) L 01/18/17 13:48 Est GFR ( Amer) > 60 01/18/17 13:48 Est GFR (Non-Af Amer) > 60 01/18/17 13:48 POC Glucose (mg/dL) 104 mg/dL (65-110) 01/20/17 21:33 Random Glucose 160 mg/dL (65-105) H 01/18/17 13:48 Calcium 9.1 mg/dl (8.6-10.4) 01/18/17 13:48 Phosphorus 4.2 mg/dL (2.5-4.5) 01/18/17 13:48 Magnesium 1.9 mg/dL (1.6-2.3) 01/18/17 13:48 Total Bilirubin 0.4 mg/dL (0.2-1.3) 01/18/17 13:48 AST 11 U/L (14-36) L D 01/18/17 13:48 ALT 20 U/L (9-52) 01/18/17 13:48 Alkaline Phosphatase 91 U/L (38-126) 01/18/17 13:48 Troponin I < 0.0120 ng/mL (0.00-0.120) 01/13/17 14:04 Total Protein 6.9 g/dL (6.3-8.3) 01/18/17 13:48 Albumin 3.7 g/dL (3.5-5.0) 01/18/17 13:48 Globulin 3.2 gm/dL (2.2-3.9) 01/18/17 13:48 Albumin/Globulin Ratio 1.1 (1.0-2.1) 01/18/17 13:48 Attending/Attestation - Attestation I have personally seen and examined this patient.: Yes I have fully participated in the care of the patient.: Yes I have reviewed all pertinent clinical information, including history, physical exam and plan: Yes Notes (Text): Patient seen and examined with the resident. Agree with the residents evaluation, assessment and plan. Shoulder dislocation managed by Ortho. Follow up with Dr. Tom HANCOCK and Ortho.
[2017-01-20] MEDS: Fluticasone-Salmeterol 250-50mcg Diskus INH SCH ×2 (09:13→20:41)
--- NOTE | 2017-01-20 09:50 | CP.PCM.PN ---
Subjective - Date & Time of Evaluation Date of Evaluation: 01/20/17 Time of Evaluation: 09:47 - Subjective Subjective: Patient states pain is a little better today. Complaining on being on the bedpan. Again encouraged patient that goal is to be out of bed to chair and using commode with assistance, and when she is in rehab, goal is to be out of bed also. Review of Systems - Review of Systems All systems: reviewed and no additional remarkable complaints except - Cardiovascular Cardiovascular: UNREMARKABLE - Respiratory Respiratory: UNREMARKABLE - Gastrointestinal Gastrointestinal: UNREMARKABLE - Musculoskeletal Musculoskeletal: As Par HPI - Integumentary Integumentary: UNREMARKABLE - Neurological Neurological: UNREMARKABLE - Hematologic/Lymphatic Hematologic: UNREMARKABLE Objective - Vital Signs/Intake and Output Vital Signs (last 24 hours): Temp Pulse Resp BP Pulse Ox 98.2 F 87 20 116/64 99 01/20/17 08:25 01/20/17 08:25 01/20/17 08:25 01/20/17 08:25 01/20/17 08:25 Intake and Output: 01/20/17 01/20/17 06:59 18:59 Intake Total 150 Output Total 300 Balance -150 - Medications Medications: Current Medications Albuterol (Ventolin Hfa 90 Mcg/Actuation (8 G)) 1 puff INH BID [facility] Last Admin: 01/19/17 19:34 Dose: 1 puff Aspirin (Aspirin Chewable) 81 mg PO DAILY [facility] Last Admin: 01/19/17 09:51 Dose: 81 mg Benzocaine/Menthol (Cepacol Sore Throat) 1 alexa MT Q4H PRN PRN Reason: Sore Throat Last Admin: 01/19/17 09:53 Dose: 1 alexa Betamethasone/Clotrimazole (Lotrisone) 1 gm TOP TID [facility] Last Admin: 01/19/17 18:42 Dose: 1 applic Cyclobenzaprine HCl (Flexeril) 5 mg PO TID PRN PRN Reason: Muscle spasm Last Admin: 01/18/17 23:14 Dose: 5 mg Docusate Sodium (Colace) 100 mg PO BID [facility] [place] Last Admin: 01/19/17 18:40 Dose: 100 mg Enoxaparin Sodium (Lovenox) 40 mg SC DAILY [facility] Last Admin: 01/19/17 09:51 Dose: 40 mg Ergocalciferol (Drisdol 50,000 Intl Units Cap) 1 cap PO QWK [facility] [place] Gabapentin (Neurontin) 100 mg PO DAILY [facility] Last Admin: 01/19/17 09:51 Dose: 100 mg Montelukast Sodium (Singulair) 10 mg PO HS [facility] Last Admin: 01/19/17 23:02 Dose: 10 mg Pantoprazole Sodium (Protonix Ec Tab) 40 mg PO DAILY [facility] [place] Last Admin: 01/19/17 09:51 Dose: 40 mg Rosuvastatin Calcium (Crestor) 5 mg PO HS [facility] Last Admin: 01/19/17 23:01 Dose: 5 mg Fluticasone/Salmeterol (Advair Diskus 250/50) 1 puff INH RQ12 [facility] Last Admin: 01/20/17 09:13 Dose: Not Given Sertraline HCl (Zoloft) 50 mg PO DAILY [facility] Last Admin: 01/19/17 09:51 Dose: 50 mg Tiotropium [place] (Spiriva) 18 mcg IH DAILY [facility] Last Admin: 01/19/17 09:54 Dose: 18 mcg - Labs Labs: 01/18/17 13:48 01/18/17 13:48 PT 11.4 SECONDS (9.7-12.2) 01/15/17 07:40 INR 1.0 01/15/17 07:40 - Constitutional Appears: Well, No Acute Distress - Cardiovascular Exam Additional comments: +DP/PT pulses LLE + Left radial pulse - Extremities Exam Additional comments: LLE: +ROM ankle/toes, calves soft NT neg homans Still pain with left hip ROM but slowing improving. LUE: shoulder immobilizer intact. sensation itnact to med/ulnar/rad nerve distrib - Neurological Exam Neurological Exam: Alert, Awake, Oriented x3 Neuro motor strength exam: Left Upper Extremity: 5 (wrist flex/ext, fingers flex /ext), Left Lower Extremity: 5 - Psychiatric Exam Psychiatric exam: Normal Affect, Normal Mood - Skin Skin Exam: Dry, Intact, Normal Color, Warm Assessment and Plan (1) Dislocation of left shoulder joint Assessment & Plan: s/p CR x 2 maintain shoulder immobilizer at this time on 01/30, patient to initiate PT with gentle passive ROM, f/u 02/16 or 02/17 for review of imaging, call for [phone] Dr. Manzo NWB LLE PT/OT VTE proph OOB d/w layne Zee with above awaiting auth for placement Status: Acute (2) Hill-Sachs fracture of left humerus Status: Acute (3) Scapula coracoid process fracture Status: Acute (4) Fracture of glenoid process of left scapula Status: Acute (5) Closed fracture of anterior column of left acetabulum Assessment & Plan: THIERNO MARTINES VTE proph Status: Acute (6) Fracture of left inferior pubic ramus Status: Acute (7) Closed sacral fracture Status: Acute
[2017-01-20] MEDS ORDERED: Ergocalciferol 50,000 Intl Units Cap PO SCH (10:00)
[2017-01-20] MEDS: Pantoprazole 40 mg EC Tab PO SCH (10:15)
[2017-01-20] MEDS: Enoxaparin 40 mg Syringe SC SCH (10:15)
[2017-01-20] MEDS: Clotrimazole/Betamethasone Cream(15 gm) TOP SCH ×3 (10:15→17:54)
[2017-01-20] MEDS: Albuterol HFA 90 mcg/actuation (8 g) INH SCH (20:42)
[2017-01-21] MEDS: Fluticasone-Salmeterol 250-50mcg Diskus INH SCH ×2 (08:19→19:54)
[2017-01-21] MEDS: Clotrimazole/Betamethasone Cream(15 gm) TOP SCH ×3 (09:18→17:48)
[2017-01-21] MEDS: Pantoprazole 40 mg EC Tab PO SCH (09:18)
[2017-01-21] MEDS: Enoxaparin 40 mg Syringe SC SCH (09:20)
--- NOTE | 2017-01-21 10:00 | CP.PCM.PN ---
Subjective - Date & Time of Evaluation Date of Evaluation: 01/21/17 Time of Evaluation: 10:00 - Subjective Subjective: Patient states she has minimal pain in her shoulder at this time. She still has pain in left hip and groin, but improving. Discussed with patient again that she needs to get out of bed with assistance to chair, and can not spent all day in bed. She says she was told she can not get out of bed by doctor. I again reinforced to her, as I have daily, that she can not put any weight on her left arm or her left leg, but that she is still able to do transfers with assistance and that is recommended. PT note appreciated, and noted patient refused OOB yesterday. Again advised patient OOB is encouraged. Objective - Vital Signs/Intake and Output Vital Signs (last 24 hours): Temp Pulse Resp BP Pulse Ox 98 F 65 20 115/57 L 97 01/21/17 07:25 01/21/17 07:25 01/21/17 07:25 01/21/17 07:25 01/21/17 07:25 Intake and Output: 01/21/17 01/21/17 06:59 18:59 Intake Total 150 Balance 150 - Medications Medications: Current Medications Albuterol (Ventolin Hfa 90 Mcg/Actuation (8 G)) 1 puff INH BID [facility] Last Admin: 01/20/17 20:42 Dose: 1 puff Aspirin (Aspirin Chewable) 81 mg PO DAILY [facility] Last Admin: 01/21/17 09:19 Dose: 81 mg Benzocaine/Menthol (Cepacol Sore Throat) 1 alexa MT Q4H PRN PRN Reason: Sore Throat Last Admin: 01/19/17 09:53 Dose: 1 alexa Betamethasone/Clotrimazole (Lotrisone) 1 gm TOP TID [facility] Last Admin: 01/21/17 09:18 Dose: 1 applic Cyclobenzaprine HCl (Flexeril) 5 mg PO TID PRN PRN Reason: Muscle spasm Last Admin: 01/18/17 23:14 Dose: 5 mg Docusate Sodium (Colace) 100 mg PO BID [facility] Last Admin: 01/21/17 09:18 Dose: 100 mg Enoxaparin Sodium (Lovenox) 40 mg SC DAILY [facility] Last Admin: 01/21/17 09:20 Dose: 40 mg Ergocalciferol (Drisdol 50,000 Intl Units Cap) 1 cap PO QWK [facility] Last Admin: 01/20/17 10:14 Dose: 1 cap Gabapentin (Neurontin) 100 mg PO DAILY [facility] Last Admin: 01/21/17 09:18 Dose: 100 mg Montelukast Sodium (Singulair) 10 mg PO HS [facility] Last Admin: 01/20/17 22:06 Dose: 10 mg Pantoprazole Sodium (Protonix Ec Tab) 40 mg PO DAILY [facility] Last Admin: 01/21/17 09:18 Dose: 40 mg Rosuvastatin Calcium (Crestor) 5 mg PO HS [facility] Last Admin: 01/20/17 22:06 Dose: 5 mg Fluticasone/Salmeterol (Advair Diskus 250/50) 1 puff INH RQ12 [facility] Last Admin: 01/21/17 08:19 Dose: 1 puff Sertraline HCl (Zoloft) 50 mg PO DAILY [facility] Last Admin: 01/21/17 09:19 Dose: 50 mg Tiotropium [place] (Spiriva) 18 mcg IH DAILY [facility] Last Admin: 01/19/17 09:54 Dose: 18 mcg - Labs Labs: 01/18/17 13:48 01/18/17 13:48 PT 11.4 SECONDS (9.7-12.2) 01/15/17 07:40 INR 1.0 01/15/17 07:40 - Constitutional Appears: Well, No Acute Distress - Respiratory Exam Respiratory Exam: NORMAL BREATHING PATTERN - Cardiovascular Exam Additional comments: +radial pulse - Extremities Exam Additional comments: sensation intact LUE/LLE +ROM ankle/toes, able to do SLR today with minimal complaints of pain calves soft NT neg homans - Neurological Exam Neurological Exam: Alert, Awake, Oriented x3 Neuro motor strength exam: Left Upper Extremity: 5, Left Lower Extremity: 5 - Psychiatric Exam Psychiatric exam: Normal Affect, Normal Mood - Skin Skin Exam: Dry, Intact, Normal Color, Warm Assessment and Plan (1) Dislocation of left shoulder joint Assessment & Plan: s/p CR x 2 maintain shoulder immobilizer at this time on 01/30, patient to initiate PT with gentle passive ROM, f/u 02/16 or 02/17 in office call for appt [phone] NWB LUE/LLE PT/OT OOB VTE proph awaiting auth d/w Dr. Manzo, agrees with above Status: Acute (2) Hill-Sachs fracture of left humerus Status: Acute (3) Scapula coracoid process fracture Status: Acute (4) Fracture of glenoid process of left scapula Status: Acute (5) Closed fracture of anterior column of left acetabulum Status: Acute (6) Fracture of left inferior pubic ramus Status: Acute (7) Closed sacral fracture Status: Acute
[2017-01-21] MEDS: Albuterol HFA 90 mcg/actuation (8 g) INH SCH (19:54)
--- NOTE | 2017-01-21 23:02 | CP.PCM.PN ---
Subjective - Date & Time of Evaluation Date of Evaluation: 01/20/17 Time of Evaluation: 19:00 - Subjective Subjective: Lt shoulder and Rt hip pain is controlled Objective - Vital Signs/Intake and Output Vital Signs (last 24 hours): Temp Pulse Resp BP Pulse Ox 98.3 F 66 20 118/59 L 96 01/21/17 15:12 01/21/17 15:12 01/21/17 15:12 01/21/17 15:12 01/21/17 15:12 Intake and Output: 01/21/17 01/22/17 18:59 06:59 Intake Total 400 Balance 400 - Medications Medications: Current Medications Albuterol (Ventolin Hfa 90 Mcg/Actuation (8 G)) 1 puff INH BID [facility] Last Admin: 01/21/17 19:54 Dose: 1 puff Aspirin (Aspirin Chewable) 81 mg PO DAILY [facility] Last Admin: 01/21/17 09:19 Dose: 81 mg Benzocaine/Menthol (Cepacol Sore Throat) 1 alexa MT Q4H PRN PRN Reason: Sore Throat Last Admin: 01/19/17 09:53 Dose: 1 alexa Betamethasone/Clotrimazole (Lotrisone) 1 gm TOP TID [facility] Last Admin: 01/21/17 17:48 Dose: 1 applic Cyclobenzaprine HCl (Flexeril) 5 mg PO TID PRN PRN Reason: Muscle spasm Last Admin: 01/18/17 23:14 Dose: 5 mg Docusate Sodium (Colace) 100 mg PO BID [facility] Last Admin: 01/21/17 17:47 Dose: 100 mg Ergocalciferol (Drisdol 50,000 Intl Units Cap) 1 cap PO QWK [facility] Last Admin: 01/20/17 10:14 Dose: 1 cap Gabapentin (Neurontin) 100 mg PO DAILY [facility] Last Admin: 01/21/17 09:18 Dose: 100 mg Montelukast Sodium (Singulair) 10 mg PO HS [facility] Last Admin: 01/21/17 22:28 Dose: 10 mg Pantoprazole Sodium (Protonix Ec Tab) 40 mg PO DAILY [facility] Last Admin: 01/21/17 09:18 Dose: 40 mg Rosuvastatin Calcium (Crestor) 5 mg PO HS [facility] Last Admin: 01/21/17 22:28 Dose: 5 mg Fluticasone/Salmeterol (Advair Diskus 250/50) 1 puff INH RQ12 [facility] Last Admin: 01/21/17 19:54 Dose: 1 puff Sertraline HCl (Zoloft) 50 mg PO DAILY [facility] Last Admin: 01/21/17 09:19 Dose: 50 mg Tiotropium [place] (Spiriva) 18 mcg IH DAILY [facility] Last Admin: 01/19/17 09:54 Dose: 18 mcg - Labs Labs: 01/18/17 13:48 01/18/17 13:48 PT 11.4 SECONDS (9.7-12.2) 01/15/17 07:40 INR 1.0 01/15/17 07:40 - Head Exam Head Exam: ATRAUMATIC, NORMAL INSPECTION, NORMOCEPHALIC - Eye Exam Eye Exam: PERRL - ENT Exam ENT Exam: Mucous Membranes Moist - Neck Exam Neck Exam: Full ROM - Respiratory Exam Respiratory Exam: NORMAL BREATHING PATTERN - Cardiovascular Exam Cardiovascular Exam: REGULAR RHYTHM - Neurological Exam Neurological Exam: Oriented x3 Assessment and Plan - Assessment and Plan (Free Text) Assessment: Assessment and Plan (1) Dislocation of left shoulder joint Assessment & Plan: s/p CR x 2 maintain shoulder immobilizer at this time on 01/30, patient to initiate PT with gentle passive ROM, f/u 02/16 or 02/17 in office call for appt [phone] NWB LUE/LLE PT/OT OOB VTE proph awaiting auth d/w Dr. Manzo, agrees with above Status: Acute (2) Hill-Sachs fracture of left humerus Status: Acute (3) Scapula coracoid process fracture Status: Acute (4) Fracture of glenoid process of left scapula Status: Acute (5) Closed fracture of anterior column of left acetabulum Status: Acute (6) Fracture of left inferior pubic ramus Status: Acute (7) Closed sacral fracture Status: Acute
--- NOTE | 2017-01-21 23:11 | CP.PCM.PN ---
Subjective - Date & Time of Evaluation Date of Evaluation: 01/21/17 Time of Evaluation: 16:00 - Subjective Subjective: No change in clinical condition. Objective - Vital Signs/Intake and Output Vital Signs (last 24 hours): Temp Pulse Resp BP Pulse Ox 98.3 F 66 20 118/59 L 96 01/21/17 15:12 01/21/17 15:12 01/21/17 15:12 01/21/17 15:12 01/21/17 15:12 Intake and Output: 01/21/17 01/22/17 18:59 06:59 Intake Total 400 Balance 400 - Medications Medications: Current Medications Albuterol (Ventolin Hfa 90 Mcg/Actuation (8 G)) 1 puff INH BID [facility] Last Admin: 01/21/17 19:54 Dose: 1 puff Aspirin (Aspirin Chewable) 81 mg PO DAILY [facility] Last Admin: 01/21/17 09:19 Dose: 81 mg Benzocaine/Menthol (Cepacol Sore Throat) 1 alexa MT Q4H PRN PRN Reason: Sore Throat Last Admin: 01/19/17 09:53 Dose: 1 alexa Betamethasone/Clotrimazole (Lotrisone) 1 gm TOP TID [facility] Last Admin: 01/21/17 17:48 Dose: 1 applic Cyclobenzaprine HCl (Flexeril) 5 mg PO TID PRN PRN Reason: Muscle spasm Last Admin: 01/18/17 23:14 Dose: 5 mg Docusate Sodium (Colace) 100 mg PO BID [facility] Last Admin: 01/21/17 17:47 Dose: 100 mg Ergocalciferol (Drisdol 50,000 Intl Units Cap) 1 cap PO QWK [facility] Last Admin: 01/20/17 10:14 Dose: 1 cap Gabapentin (Neurontin) 100 mg PO DAILY [facility] Last Admin: 01/21/17 09:18 Dose: 100 mg Montelukast Sodium (Singulair) 10 mg PO HS [facility] Last Admin: 01/21/17 22:28 Dose: 10 mg Pantoprazole Sodium (Protonix Ec Tab) 40 mg PO DAILY [facility] Last Admin: 01/21/17 09:18 Dose: 40 mg Rosuvastatin Calcium (Crestor) 5 mg PO HS [facility] Last Admin: 01/21/17 22:28 Dose: 5 mg Fluticasone/Salmeterol (Advair Diskus 250/50) 1 puff INH RQ12 [facility] Last Admin: 01/21/17 19:54 Dose: 1 puff Sertraline HCl (Zoloft) 50 mg PO DAILY [facility] Last Admin: 01/21/17 09:19 Dose: 50 mg Tiotropium [place] (Spiriva) 18 mcg IH DAILY [facility] Last Admin: 01/19/17 09:54 Dose: 18 mcg - Labs Labs: 01/18/17 13:48 01/18/17 13:48 PT 11.4 SECONDS (9.7-12.2) 01/15/17 07:40 INR 1.0 01/15/17 07:40 - Head Exam Head Exam: ATRAUMATIC, NORMOCEPHALIC - Eye Exam Eye Exam: PERRL - ENT Exam ENT Exam: Mucous Membranes Moist - Neck Exam Neck Exam: Full ROM - Respiratory Exam Respiratory Exam: NORMAL BREATHING PATTERN - Cardiovascular Exam Cardiovascular Exam: REGULAR RHYTHM - GI/Abdominal Exam GI & Abdominal Exam: Normal Bowel Sounds - Extremities Exam Extremities Exam: Normal Inspection - Neurological Exam Neurological Exam: Oriented x3 Assessment and Plan - Assessment and Plan (Free Text) Assessment: Assessment & Plan: s/p CR x 2 maintain shoulder immobilizer at this time on 01/30, patient to initiate PT with gentle passive ROM, f/u 02/16 or 02/17 in office call for appt [phone] NWB LUE/LLE PT/OT OOB VTE proph awaiting auth d/w Dr. Manzo, agrees with above Status: Acute (2) Hill-Sachs fracture of left humerus Status: Acute (3) Scapula coracoid process fracture Status: Acute (4) Fracture of glenoid process of left scapula Status: Acute (5) Closed fracture of anterior column of left acetabulum Status: Acute (6) Fracture of left inferior pubic ramus Status: Acute (7) Closed sacral fracture Status: Acute
[2017-01-22] MEDS: Fluticasone-Salmeterol 250-50mcg Diskus INH SCH ×2 (08:06→20:01)
[2017-01-22] MEDS: Tiotropium 18 mcg Cap For Inhalation IH SCH (08:32)
[2017-01-22] MEDS: Albuterol HFA 90 mcg/actuation (8 g) INH SCH ×2 (08:32→20:02)
[2017-01-22] MEDS: Clotrimazole/Betamethasone Cream(15 gm) TOP SCH ×3 (11:00→17:37)
[2017-01-22] MEDS: Pantoprazole 40 mg EC Tab PO SCH (11:00)
--- NOTE | 2017-01-22 13:24 | CP.PCM.PN ---
Subjective - Date & Time of Evaluation Date of Evaluation: 01/22/17 Time of Evaluation: 13:22 - Subjective Subjective: Patient states she was out of bed to the chair this morning. She says she is feeling better and the shoulder pain is minimal and hip/groin pain continues to improve. No new complaints. Review of Systems - Review of Systems All systems: reviewed and no additional remarkable complaints except - Cardiovascular Cardiovascular: UNREMARKABLE - Respiratory Respiratory: UNREMARKABLE - Gastrointestinal Gastrointestinal: UNREMARKABLE - Musculoskeletal Musculoskeletal: As Par HPI - Neurological Neurological: UNREMARKABLE Objective - Vital Signs/Intake and Output Vital Signs (last 24 hours): Temp Pulse Resp BP Pulse Ox 97.5 F L 60 20 116/63 99 01/22/17 07:05 01/22/17 07:05 01/22/17 07:05 01/22/17 07:05 01/22/17 07:05 - Medications Medications: Current Medications Albuterol (Ventolin Hfa 90 Mcg/Actuation (8 G)) 1 puff INH RBID [facility] Last Admin: 01/22/17 08:32 Dose: 1 puff Aspirin (Aspirin Chewable) 81 mg PO DAILY [facility] Last Admin: 01/22/17 11:00 Dose: 81 mg Benzocaine/Menthol (Cepacol Sore Throat) 1 alexa MT Q4H PRN PRN Reason: Sore Throat Last Admin: 01/19/17 09:53 Dose: 1 alexa Betamethasone/Clotrimazole (Lotrisone) 1 gm TOP TID [facility] Last Admin: 01/22/17 11:00 Dose: 1 applic Cyclobenzaprine HCl (Flexeril) 5 mg PO TID PRN PRN Reason: Muscle spasm Last Admin: 01/18/17 23:14 Dose: 5 mg Docusate Sodium (Colace) 100 mg PO BID [facility] Last Admin: 01/22/17 10:00 Dose: 100 mg Ergocalciferol (Drisdol 50,000 Intl Units Cap) 1 cap PO QWK [facility] Last Admin: 01/20/17 10:14 Dose: 1 cap Gabapentin (Neurontin) 100 mg PO DAILY [facility] Last Admin: 01/22/17 11:00 Dose: 100 mg Montelukast Sodium (Singulair) 10 mg PO HS [facility] Last Admin: 01/21/17 22:28 Dose: 10 mg Pantoprazole Sodium (Protonix Ec Tab) 40 mg PO DAILY [facility] Last Admin: 01/22/17 11:00 Dose: 40 mg Rosuvastatin Calcium (Crestor) 5 mg PO HS [facility] Last Admin: 01/21/17 22:28 Dose: 5 mg Fluticasone/Salmeterol (Advair Diskus 250/50) 1 puff INH RQ12 [facility] Last Admin: 01/22/17 08:06 Dose: 1 puff Sertraline HCl (Zoloft) 50 mg PO DAILY [facility] Last Admin: 01/22/17 11:00 Dose: 50 mg Tiotropium [place] (Spiriva) 18 mcg IH RQD [facility] Last Admin: 01/22/17 08:32 Dose: 18 mcg - Labs Labs: 01/18/17 13:48 01/18/17 13:48 PT 11.4 SECONDS (9.7-12.2) 01/15/17 07:40 INR 1.0 01/15/17 07:40 - Constitutional Appears: Well, No Acute Distress - Cardiovascular Exam Additional comments: calves soft NT neg homans +DP/PT pulse +radial pulse - Extremities Exam Additional comments: sensation intact +ROm wrist/fingers +Df/PF left ankle improving active ROM left hip, mild pain - Neurological Exam Neurological Exam: Alert, Awake, Oriented x3 Neuro motor strength exam: Left Upper Extremity: 5, Left Lower Extremity: 5 - Psychiatric Exam Psychiatric exam: Normal Affect, Normal Mood - Skin Skin Exam: Dry, Intact, Normal Color, Warm Assessment and Plan (1) Dislocation of left shoulder joint Assessment & Plan: s/p CR x 2 maintain shoulder immobilizer on 01/30 initiate PT with gentle passive ROM, f/u 02/16 aor 02/[address] Beth Luna, call for appointment [phone] NWB LUE/LLE PT/OT encourage OOB VTE proph to continue awaiting auth d/w Dr. Wynn agrees with above Status: Acute (2) Hill-Sachs fracture of left humerus Status: Acute (3) Scapula coracoid process fracture Status: Acute (4) Fracture of glenoid process of left scapula Status: Acute (5) Closed fracture of anterior column of left acetabulum Status: Acute (6) Fracture of left inferior pubic ramus Status: Acute (7) Closed sacral fracture Status: Acute
[2017-01-23] MEDS: Fluticasone-Salmeterol 250-50mcg Diskus INH SCH ×2 (08:16→20:20)
[2017-01-23] MEDS: Tiotropium 18 mcg Cap For Inhalation IH SCH (08:16)
[2017-01-23] MEDS: Albuterol HFA 90 mcg/actuation (8 g) INH SCH ×2 (08:16→20:20)
[2017-01-23] MEDS: Pantoprazole 40 mg EC Tab PO SCH (10:35)
[2017-01-23] MEDS: Clotrimazole/Betamethasone Cream(15 gm) TOP SCH ×3 (10:35→18:15)
--- NOTE | 2017-01-23 12:57 | CP.PCM.PN ---
Subjective - Date & Time of Evaluation Date of Evaluation: 01/23/17 Time of Evaluation: 12:00 - Subjective Subjective: Patient with PT/OT. Patient again encouraged to spend more and more time in chair out of bed. She says she feels a little dizzy sitting up, again stated that is due to spending too much time supine. Also complains of right arm pain since trapeze installed. Advised patient that is to be expected, and to use trapeze only when needed to position herself in bed. Review of Systems - Review of Systems All systems: reviewed and no additional remarkable complaints except - Cardiovascular Cardiovascular: UNREMARKABLE - Respiratory Respiratory: UNREMARKABLE - Gastrointestinal Gastrointestinal: UNREMARKABLE - Musculoskeletal Musculoskeletal: As Par HPI - Integumentary Integumentary: UNREMARKABLE - Neurological Neurological: Dizziness Objective - Vital Signs/Intake and Output Vital Signs (last 24 hours): Temp Pulse Resp BP Pulse Ox 97.6 F 59 L 20 121/68 99 01/23/17 07:00 01/23/17 07:00 01/23/17 07:00 01/23/17 07:00 01/23/17 07:00 - Medications Medications: Current Medications Albuterol (Ventolin Hfa 90 Mcg/Actuation (8 G)) 1 puff INH RBID [facility] Last Admin: 01/23/17 08:16 Dose: 1 puff Aspirin (Aspirin Chewable) 81 mg PO DAILY [facility] Last Admin: 01/23/17 10:35 Dose: 81 mg Benzocaine/Menthol (Cepacol Sore Throat) 1 alexa MT Q4H PRN PRN Reason: Sore Throat Last Admin: 01/19/17 09:53 Dose: 1 alexa Betamethasone/Clotrimazole (Lotrisone) 1 gm TOP TID [facility] Last Admin: 01/23/17 10:35 Dose: 1 applic Cyclobenzaprine HCl (Flexeril) 5 mg PO TID PRN PRN Reason: Muscle spasm Last Admin: 01/22/17 21:11 Dose: 5 mg Docusate Sodium (Colace) 100 mg PO BID [facility] Last Admin: 01/23/17 10:37 Dose: Not Given Ergocalciferol (Drisdol 50,000 Intl Units Cap) 1 cap PO QWK [facility] Last Admin: 01/20/17 10:14 Dose: 1 cap Gabapentin (Neurontin) 100 mg PO DAILY [facility] Last Admin: 01/23/17 10:35 Dose: 100 mg Montelukast Sodium (Singulair) 10 mg PO HS [facility] Last Admin: 01/22/17 21:09 Dose: 10 mg Pantoprazole Sodium (Protonix Ec Tab) 40 mg PO DAILY [facility] Last Admin: 01/23/17 10:35 Dose: 40 mg Rosuvastatin Calcium (Crestor) 5 mg PO HS [facility] Last Admin: 01/22/17 21:09 Dose: 5 mg Fluticasone/Salmeterol (Advair Diskus 250/50) 1 puff INH RQ12 [facility] Last Admin: 01/23/17 08:16 Dose: 1 puff Sertraline HCl (Zoloft) 50 mg PO DAILY [facility] Last Admin: 01/23/17 10:35 Dose: 50 mg Tiotropium [place] (Spiriva) 18 mcg IH RQD [facility] Last Admin: 01/23/17 08:16 Dose: 18 mcg - Labs Labs: 01/18/17 13:48 01/18/17 13:48 PT 11.4 SECONDS (9.7-12.2) 01/15/17 07:40 INR 1.0 01/15/17 07:40 - Constitutional Appears: Well, No Acute Distress - Respiratory Exam Respiratory Exam: NORMAL BREATHING PATTERN - Cardiovascular Exam Additional comments: +radial pulse +DP/PT pulses - Extremities Exam Additional comments: +ROM wrist/fingers LUE +DF/PF left ankle patient sitting on EOB in NAD in hip with PT calves soft NT neg homans - Neurological Exam Neurological Exam: Alert, Awake, Oriented x3 Neuro motor strength exam: Left Upper Extremity: 5, Left Lower Extremity: 5 - Psychiatric Exam Psychiatric exam: Normal Affect, Normal Mood - Skin Skin Exam: Dry, Intact, Normal Color, Warm Assessment and Plan (1) Dislocation of left shoulder joint Assessment & Plan: s/p CR x 2 left shoulder pain improving on 01/30 initiate Pt with gentle passive ROm, f/u 02/16 or 02/[address] Beth Luna call for appt [phone] NWB LUE/LLE PT/OT encourage OOb VTE proph to continue awaiting auth d/w Dr. Manzo agrees with above Status: Acute (2) Hill-Sachs fracture of left humerus Status: Acute (3) Scapula coracoid process fracture Status: Acute (4) Fracture of glenoid process of left scapula Status: Acute (5) Closed fracture of anterior column of left acetabulum Status: Acute (6) Fracture of left inferior pubic ramus Status: Acute (7) Closed sacral fracture Status: Acute
--- NOTE | 2017-01-23 15:44 | CP.PCM.PN ---
Subjective - Date & Time of Evaluation Date of Evaluation: 01/22/17 Time of Evaluation: 16:00 - Subjective Subjective: Pain is controlled on current medication. Objective - Vital Signs/Intake and Output Vital Signs (last 24 hours): Temp Pulse Resp BP Pulse Ox 97.6 F 59 L 20 121/68 99 01/23/17 07:00 01/23/17 07:00 01/23/17 07:00 01/23/17 07:00 01/23/17 07:00 Intake and Output: 01/23/17 01/23/17 06:59 18:59 Intake Total 450 Balance 450 - Medications Medications: Current Medications Albuterol (Ventolin Hfa 90 Mcg/Actuation (8 G)) 1 puff INH RBID [facility] Last Admin: 01/23/17 08:16 Dose: 1 puff Aspirin (Aspirin Chewable) 81 mg PO DAILY [facility] Last Admin: 01/23/17 10:35 Dose: 81 mg Benzocaine/Menthol (Cepacol Sore Throat) 1 alexa MT Q4H PRN PRN Reason: Sore Throat Last Admin: 01/19/17 09:53 Dose: 1 alexa Betamethasone/Clotrimazole (Lotrisone) 1 gm TOP TID [facility] Last Admin: 01/23/17 13:30 Dose: 1 applic Cyclobenzaprine HCl (Flexeril) 5 mg PO TID PRN PRN Reason: Muscle spasm Last Admin: 01/22/17 21:11 Dose: 5 mg Docusate Sodium (Colace) 100 mg PO BID [facility] Last Admin: 01/23/17 10:37 Dose: Not Given Ergocalciferol (Drisdol 50,000 Intl Units Cap) 1 cap PO QWK [facility] Last Admin: 01/20/17 10:14 Dose: 1 cap Gabapentin (Neurontin) 100 mg PO DAILY [facility] Last Admin: 01/23/17 10:35 Dose: 100 mg Montelukast Sodium (Singulair) 10 mg PO HS [facility] Last Admin: 01/22/17 21:09 Dose: 10 mg Pantoprazole Sodium (Protonix Ec Tab) 40 mg PO DAILY [facility] Last Admin: 01/23/17 10:35 Dose: 40 mg Rosuvastatin Calcium (Crestor) 5 mg PO HS [facility] Last Admin: 01/22/17 21:09 Dose: 5 mg Fluticasone/Salmeterol (Advair Diskus 250/50) 1 puff INH RQ12 [facility] Last Admin: 01/23/17 08:16 Dose: 1 puff Sertraline HCl (Zoloft) 50 mg PO DAILY [facility] Last Admin: 01/23/17 10:35 Dose: 50 mg Tiotropium [place] (Spiriva) 18 mcg IH RQD [facility] Last Admin: 01/23/17 08:16 Dose: 18 mcg - Labs Labs: 01/18/17 13:48 01/18/17 13:48 PT 11.4 SECONDS (9.7-12.2) 01/15/17 07:40 INR 1.0 01/15/17 07:40 - Head Exam Head Exam: ATRAUMATIC, NORMOCEPHALIC - Eye Exam Eye Exam: Normal appearance, PERRL - ENT Exam ENT Exam: Mucous Membranes Moist, Normal Exam - Neck Exam Neck Exam: Full ROM - Respiratory Exam Respiratory Exam: Clear to Ausculation Bilateral, NORMAL BREATHING PATTERN - Cardiovascular Exam Cardiovascular Exam: REGULAR RHYTHM - GI/Abdominal Exam GI & Abdominal Exam: Soft, Normal Bowel Sounds - Extremities Exam Additional comments: Lt shoulder is in a sling Painful ROM of the Lt. hip - Neurological Exam Neurological Exam: Alert, Oriented x3 Assessment and Plan - Assessment and Plan (Free Text) Assessment: Lt. shoulder dislocation S/P a fall Lt. pelvic Fx. H/O COPD Plan: Continue pain mangement PT TRISTEN DVT prophylaxis
--- NOTE | 2017-01-23 15:49 | CP.PCM.PN ---
Subjective - Date & Time of Evaluation Date of Evaluation: 01/23/17 Time of Evaluation: 15:45 - Subjective Subjective: Pain is well controlled on current medications. Objective - Vital Signs/Intake and Output Vital Signs (last 24 hours): Temp Pulse Resp BP Pulse Ox 97.6 F 59 L 20 121/68 99 01/23/17 07:00 01/23/17 07:00 01/23/17 07:00 01/23/17 07:00 01/23/17 07:00 Intake and Output: 01/23/17 01/23/17 06:59 18:59 Intake Total 450 Balance 450 - Medications Medications: Current Medications Albuterol (Ventolin Hfa 90 Mcg/Actuation (8 G)) 1 puff INH RBID [facility] Last Admin: 01/23/17 08:16 Dose: 1 puff Aspirin (Aspirin Chewable) 81 mg PO DAILY [facility] Last Admin: 01/23/17 10:35 Dose: 81 mg Benzocaine/Menthol (Cepacol Sore Throat) 1 alexa MT Q4H PRN PRN Reason: Sore Throat Last Admin: 01/19/17 09:53 Dose: 1 alexa Betamethasone/Clotrimazole (Lotrisone) 1 gm TOP TID [facility] Last Admin: 01/23/17 13:30 Dose: 1 applic Cyclobenzaprine HCl (Flexeril) 5 mg PO TID PRN PRN Reason: Muscle spasm Last Admin: 01/22/17 21:11 Dose: 5 mg Docusate Sodium (Colace) 100 mg PO BID [facility] Last Admin: 01/23/17 10:37 Dose: Not Given Ergocalciferol (Drisdol 50,000 Intl Units Cap) 1 cap PO QWK [facility] Last Admin: 01/20/17 10:14 Dose: 1 cap Gabapentin (Neurontin) 100 mg PO DAILY [facility] Last Admin: 01/23/17 10:35 Dose: 100 mg Montelukast Sodium (Singulair) 10 mg PO HS [facility] Last Admin: 01/22/17 21:09 Dose: 10 mg Pantoprazole Sodium (Protonix Ec Tab) 40 mg PO DAILY [facility] Last Admin: 01/23/17 10:35 Dose: 40 mg Rosuvastatin Calcium (Crestor) 5 mg PO HS [facility] Last Admin: 01/22/17 21:09 Dose: 5 mg Fluticasone/Salmeterol (Advair Diskus 250/50) 1 puff INH RQ12 [facility] Last Admin: 01/23/17 08:16 Dose: 1 puff Sertraline HCl (Zoloft) 50 mg PO DAILY [facility] Last Admin: 01/23/17 10:35 Dose: 50 mg Tiotropium [place] (Spiriva) 18 mcg IH RQD [facility] Last Admin: 01/23/17 08:16 Dose: 18 mcg - Labs Labs: 01/18/17 13:48 01/18/17 13:48 PT 11.4 SECONDS (9.7-12.2) 01/15/17 07:40 INR 1.0 01/15/17 07:40 - Constitutional Appears: Well - Head Exam Head Exam: ATRAUMATIC, NORMOCEPHALIC - Eye Exam Eye Exam: Normal appearance, PERRL - ENT Exam ENT Exam: Mucous Membranes Moist - Neck Exam Neck Exam: Full ROM - Respiratory Exam Respiratory Exam: Clear to Ausculation Bilateral, NORMAL BREATHING PATTERN - Cardiovascular Exam Cardiovascular Exam: REGULAR RHYTHM - GI/Abdominal Exam GI & Abdominal Exam: Soft, Normal Bowel Sounds - Extremities Exam Additional comments: Lt. shoulder is in sling , painful ROM of Lt. hip. - Back Exam Back Exam: NORMAL INSPECTION - Neurological Exam Neurological Exam: Alert, Oriented x3 - Skin Skin Exam: Normal Color Assessment and Plan - Assessment and Plan (Free Text) Assessment: Fall S/P Lt sholder dislocation. Lt. pelvic Fx. COPD Plan: Continue current pain mangement. DVT prophylaxis Continue curent medications.
[2017-01-24] MEDS: Fluticasone-Salmeterol 250-50mcg Diskus INH SCH ×2 (08:38→20:05)
[2017-01-24] MEDS: Albuterol HFA 90 mcg/actuation (8 g) INH SCH ×2 (08:38→20:05)
[2017-01-24] MEDS: Tiotropium 18 mcg Cap For Inhalation IH SCH (08:38)
[2017-01-24] MEDS: Pantoprazole 40 mg EC Tab PO SCH (10:36)
[2017-01-24] MEDS: Clotrimazole/Betamethasone Cream(15 gm) TOP SCH (10:37)
[2017-01-24] MEDS ORDERED: Enoxaparin 40 mg Syringe SC SCH (12:00)
--- NOTE | 2017-01-24 21:44 | CP.PCM.PN ---
Subjective - Date & Time of Evaluation Date of Evaluation: 01/24/17 Time of Evaluation: 11:00 - Subjective Subjective: Pain is controlled on current pain medications. She is getting out of bed to sit during PT. Objective - Vital Signs/Intake and Output Vital Signs (last 24 hours): Temp Pulse Resp BP Pulse Ox 98.0 F 63 18 119/75 98 01/24/17 08:47 01/24/17 08:47 01/24/17 08:47 01/24/17 08:47 01/24/17 08:47 - Medications Medications: Current Medications Albuterol (Ventolin Hfa 90 Mcg/Actuation (8 G)) 1 puff INH RBID [facility] Last Admin: 01/24/17 20:05 Dose: 1 puff Aspirin (Aspirin Chewable) 81 mg PO DAILY [facility] Last Admin: 01/24/17 10:36 Dose: 81 mg Benzocaine/Menthol (Cepacol Sore Throat) 1 alexa MT Q4H PRN PRN Reason: Sore Throat Last Admin: 01/19/17 09:53 Dose: 1 alexa Betamethasone/Clotrimazole (Lotrisone) 1 gm TOP TID [facility] Last Admin: 01/24/17 10:37 Dose: 1 applic Cyclobenzaprine HCl (Flexeril) 5 mg PO TID PRN PRN Reason: Muscle spasm Last Admin: 01/23/17 19:50 Dose: 5 mg Docusate Sodium (Colace) 100 mg PO BID [facility] Last Admin: 01/24/17 10:36 Dose: 100 mg Enoxaparin Sodium (Lovenox) 40 mg SC DAILY [facility] Ergocalciferol (Drisdol 50,000 Intl Units Cap) 1 cap PO QWK [facility] Last Admin: 01/20/17 10:14 Dose: 1 cap Fentanyl (Duragesic) 1 patch TD Q72H [facility] Gabapentin (Neurontin) 100 mg PO DAILY [facility] Last Admin: 01/24/17 10:36 Dose: 100 mg Montelukast Sodium (Singulair) 10 mg PO HS [facility] Last Admin: 01/23/17 22:56 Dose: 10 mg Pantoprazole Sodium (Protonix Ec Tab) 40 mg PO DAILY [facility] Last Admin: 01/24/17 10:36 Dose: 40 mg Rosuvastatin Calcium (Crestor) 5 mg PO HS [facility] Last Admin: 01/23/17 22:56 Dose: 5 mg Fluticasone/Salmeterol (Advair Diskus 250/50) 1 puff INH RQ12 [facility] Last Admin: 01/24/17 20:05 Dose: Not Given Sertraline HCl (Zoloft) 50 mg PO DAILY [facility] Last Admin: 01/24/17 10:36 Dose: 50 mg Tiotropium [place] (Spiriva) 18 mcg IH RQD [facility] Last Admin: 01/24/17 08:38 Dose: 18 mcg - Labs Labs: 01/18/17 13:48 01/18/17 13:48 PT 11.4 SECONDS (9.7-12.2) 01/15/17 07:40 INR 1.0 01/15/17 07:40 Assessment and Plan - Assessment and Plan (Free Text) Assessment: Fall S/P Lt sholder dislocation. Lt. pelvic Fx. COPD Plan: Continue current pain management PT For TRISTEN .
[2017-01-24] MEDS ORDERED: guaiFENesin 100 mg/5 ml Syrup UD PO ONE (23:30)
[2017-01-25] MEDS: Tiotropium 18 mcg Cap For Inhalation IH SCH (08:15)
[2017-01-25] MEDS: Fluticasone-Salmeterol 250-50mcg Diskus INH SCH ×3 (08:15→21:52)
[2017-01-25] MEDS: Albuterol HFA 90 mcg/actuation (8 g) INH SCH (08:15)
[2017-01-25] MEDS: Clotrimazole/Betamethasone Cream(15 gm) TOP SCH ×3 (11:00→18:30)
[2017-01-25] MEDS: Enoxaparin 40 mg Syringe SC SCH (11:00)
[2017-01-25] MEDS: Pantoprazole 40 mg EC Tab PO SCH (11:01)
[2017-01-26] MEDS: Enoxaparin 40 mg Syringe SC SCH (09:11)
[2017-01-26] MEDS: Pantoprazole 40 mg EC Tab PO SCH (09:12)
[2017-01-26] MEDS: Clotrimazole/Betamethasone Cream(15 gm) TOP SCH ×2 (09:13→13:07)
--- NOTE | 2017-01-26 09:46 | CP.PCM.PN ---
Subjective - Date & Time of Evaluation Date of Evaluation: 01/26/17 Time of Evaluation: 09:42 - Subjective Subjective: Patient states pain is much better. She is able to use the commode with assistance, and is getting out of bed daily. No new complaints. Review of Systems - Review of Systems All systems: reviewed and no additional remarkable complaints except - Cardiovascular Cardiovascular: UNREMARKABLE - Respiratory Respiratory: UNREMARKABLE - Gastrointestinal Gastrointestinal: UNREMARKABLE - Genitourinary Genitourinary: UNREMARKABLE - Musculoskeletal Musculoskeletal: As Par HPI - Integumentary Integumentary: UNREMARKABLE - Neurological Neurological: UNREMARKABLE - Hematologic/Lymphatic Hematologic: UNREMARKABLE Objective - Vital Signs/Intake and Output Vital Signs (last 24 hours): Temp Pulse Resp BP Pulse Ox 97.9 F 58 L 18 116/53 L 98 01/26/17 07:15 01/26/17 07:15 01/26/17 07:15 01/26/17 07:15 01/26/17 07:15 - Medications Medications: Current Medications Albuterol (Ventolin Hfa 90 Mcg/Actuation (8 G)) 1 puff INH RBID [facility] Last Admin: 01/25/17 08:15 Dose: 1 puff Aspirin (Aspirin Chewable) 81 mg PO DAILY [facility] Last Admin: 01/26/17 09:12 Dose: 81 mg Benzocaine/Menthol (Cepacol Sore Throat) 1 alexa MT Q4H PRN PRN Reason: Sore Throat Last Admin: 01/19/17 09:53 Dose: 1 alexa Betamethasone/Clotrimazole (Lotrisone) 1 gm TOP TID [facility] Last Admin: 01/26/17 09:13 Dose: 1 applic Cyclobenzaprine HCl (Flexeril) 5 mg PO TID PRN PRN Reason: Muscle spasm Last Admin: 01/23/17 19:50 Dose: 5 mg Docusate Sodium (Colace) 100 mg PO BID [facility] Last Admin: 01/26/17 09:12 Dose: 100 mg Enoxaparin Sodium (Lovenox) 40 mg SC DAILY [facility] Last Admin: 01/26/17 09:11 Dose: 40 mg Ergocalciferol (Drisdol 50,000 Intl Units Cap) 1 cap PO QWK [facility] Last Admin: 01/20/17 10:14 Dose: 1 cap Fentanyl (Duragesic) 1 patch TD Q72H [facility] Gabapentin (Neurontin) 100 mg PO DAILY [facility] Last Admin: 01/26/17 09:12 Dose: 100 mg Montelukast Sodium (Singulair) 10 mg PO HS [facility] Last Admin: 01/25/17 22:43 Dose: 10 mg Ondansetron HCl (Zofran Tab) 4 mg PO Q6H PRN PRN Reason: Nausea/Vomiting Last Admin: 01/25/17 18:27 Dose: 4 mg Pantoprazole Sodium (Protonix Ec Tab) 40 mg PO DAILY [facility] Last Admin: 01/26/17 09:12 Dose: 40 mg Rosuvastatin Calcium (Crestor) 5 mg PO HS [facility] Last Admin: 01/25/17 22:43 Dose: 5 mg Fluticasone/Salmeterol (Advair Diskus 250/50) 1 puff INH RQ12 [facility] Last Admin: 01/25/17 21:52 Dose: Not Given Sertraline HCl (Zoloft) 50 mg PO DAILY [facility] Last Admin: 01/26/17 09:12 Dose: 50 mg Tiotropium [place] (Spiriva) 18 mcg IH RQD [facility] Last Admin: 01/25/17 08:15 Dose: 18 mcg - Labs Labs: 01/18/17 13:48 01/18/17 13:48 PT 11.4 SECONDS (9.7-12.2) 01/15/17 07:40 INR 1.0 01/15/17 07:40 - Constitutional Appears: Well, No Acute Distress - Cardiovascular Exam Additional comments: calves soft NT neg homans - Extremities Exam Additional comments: sensation intact LUE/LLE shoulder immobilizer intact - Neurological Exam Neurological Exam: Alert, Awake, Oriented x3 Neuro motor strength exam: Left Upper Extremity: 5 (+rom fingers add/abd/flex/ ext, wrist flex/ext), Left Lower Extremity: 5 (left ankle DF/PF, toes, slowly increasing mobility of right hip with less pain) - Psychiatric Exam Psychiatric exam: Normal Affect, Normal Mood - Skin Skin Exam: Dry, Intact, Normal Color, Warm Assessment and Plan (1) Dislocation of left shoulder joint Assessment & Plan: s/p CR x 2 left shoulder on 01/30 initiate Pt with gentle passive ROm, f/u 02/16 or 02/[address] Beth Luna call for appt [phone] NWB LUE/LLE PT/OT encourage OOB VTE proph to continue awaiting auth for TRISTEN placement d/w Dr. Manzo agrees with above Status: Acute (2) Hill-Sachs fracture of left humerus Status: Acute (3) Scapula coracoid process fracture Status: Acute (4) Fracture of glenoid process of left scapula Status: Acute (5) Closed fracture of anterior column of left acetabulum Status: Acute (6) Fracture of left inferior pubic ramus Status: Acute (7) Closed sacral fracture Status: Acute
[2017-01-26 15:51] VITALS: BP 148/68; PULSE 81; RESP 20; TEMP 98.1; O2SAT 96
--- NOTE | 2017-01-26 17:46 | CP.PCM.PN ---
Subjective - Date & Time of Evaluation Date of Evaluation: 01/26/17 Time of Evaluation: 11:00 - Subjective Subjective: Awake, alert, no acute pain. Objective - Vital Signs/Intake and Output Vital Signs (last 24 hours): Temp Pulse Resp BP Pulse Ox 98.1 F 81 20 148/68 96 01/26/17 15:47 01/26/17 15:47 01/26/17 15:47 01/26/17 15:47 01/26/17 15:47 Intake and Output: 01/26/17 01/26/17 06:59 18:59 Intake Total 500 Balance 500 - Labs Labs: 01/18/17 13:48 01/18/17 13:48 PT 11.4 SECONDS (9.7-12.2) 01/15/17 07:40 INR 1.0 01/15/17 07:40 Assessment and Plan - Assessment and Plan (Free Text) Assessment: Patient is seen and examined, no acute complaints of pain. Alert and orientedx3 , NAD. [facility] D/W DR Tran, agreed with the plan. To be followed up be the ortho for left arm future treatment.
--- NOTE | 2017-03-06 07:48 | DS ---
REASON FOR ADMISSION: This is a 66-year-old female who was transferred from [facility] to emergency room for evaluation of severe uncontrolled left shoulder and pelvic pain. COURSE OF HOSPITALIZATION: The patient was admitted to medical floor for pain management. The patient had an orthopedic consultation done, and she had an MRI that showed left shoulder dislocation as well as left pelvic bone fracture. The patient was started on physical therapy and it was recommended not to bear weight on either left shoulder or left lower extremity for 4 weeks. The patient was kept on DVT prophylaxis and continued also on her bronchodilators and other medications. The patient did fairly well and was discharged to Subacute Rehabilitation at [facility]. FINAL DIAGNOSES: 1. Fall with left shoulder dislocation and left pubic bone fracture. 2. Severe chronic obstructive pulmonary disease, on home oxygen therapy. 3. Hypertension. [facility] MD Tom
== END 2017-01-26 16:15 | DRG 562 ==
LOC: C.ER 11:44 → C.9E 15:24 → INTOOBSV 15:24 → C.6T 18:02 → OBSVTOIN 01-15 11:18
PROVIDERS: ADMIT Internal Medicine; ATTEND Internal Medicine
DX: S42.132A Displaced fracture of coracoid process, left shoulder, initial encounter for closed fracture (principal); S32.435A Nondisplaced fracture of anterior column [iliopubic] of left acetabulum, initial encounter for closed fracture; S32.10XA Unspecified fracture of sacrum, initial encounter for closed fracture; S42.292A Other displaced fracture of upper end of left humerus, initial encounter for closed fracture; S42.145A Nondisplaced fracture of glenoid cavity of scapula, left shoulder, initial encounter for closed fracture; J44.9 Chronic obstructive pulmonary disease, unspecified; W19.XXXA Unspecified fall, initial encounter; M47.817 Spondylosis without myelopathy or radiculopathy, lumbosacral region; Y92.009 Unspecified place in unspecified non-institutional (private) residence as the place of occurrence of the external cause; J45.909 Unspecified asthma, uncomplicated; E78.00 Pure hypercholesterolemia, unspecified; I10 Essential (primary) hypertension; Z99.81 Dependence on supplemental oxygen; S83.105A Unspecified dislocation of left knee, initial encounter; Z79.82 Long term (current) use of aspirin

== ENCOUNTER 2017-04-28 12:28 | Emergency (ER) | payer MEDICARE, MEDICAID ==
[2017-04-28 12:34] VITALS: BMI 26.2
[2017-04-28 12:35] VITALS: TEMP 97.8
--- NOTE | 2017-04-28 13:23 | C.PDOC ---
History Of Present Illness 66 yr old female presents to the ER with complaints of pain under the bilateral ribs. Patient states she fell in November 2016, was admitted for 1 month and also went to rehab. Patient reports history of 6 herniated disc, states she takes Oxycodone and took 1 dose this morning but no improvement in the pain. Patient denies chest pain, SOB, nausea, vomiting, abdominal pain, diarrhea, dysuria, incontinence, weakness or numbness. Time Seen by Provider: 04/28/17 13:15 Chief Complaint (Nursing): Back Pain History Per: Patient History/Exam Limitations: no limitations Onset/Duration Of Symptoms: Days Current Symptoms Are (Timing): Still Present Past Medical History Reviewed: Historical Data, Nursing Documentation, Vital Signs Vital Signs: Last Vital Signs Temp 97.8 F 04/28/17 12:35 Pulse 90 04/28/17 13:37 Resp 25 H 04/28/17 13:37 BP 107/53 L 04/28/17 13:37 Pulse Ox 85 L 04/28/17 19:39 - Medical History PMH: Anemia, Arthritis, Asthma, COPD, Depression, Gastritis, HTN, Hypercholesterolemia, Rheumatoid Arthritis - [facility] Procedures ASSISTANCE WITH RESPIRATORY VENTILATION, 24-96 HRS, CPAP (09/22/16) ASSISTANCE WITH RESPIRATORY VENTILATION, <24 HRS, CPAP (05/19/15) ASSISTANCE WITH RESPIRATORY VENTILATION, >96 HRS, CPAP (05/12/16) EXCISION OF DESCENDING COLON, ENDO (09/30/15) EXCISION OF STOMACH, ENDO, DIAGN (09/30/15) INSERTION OF MONITOR DEV INTO PULM TRUNK, PERC APPROACH (04/04/16) MEASURE OF CARDIAC SAMPL & PRESSURE, L HEART, PERC APPROACH (04/04/16) NON-INVASIVE MECHANICAL VENTILATION (10/25/14) PLAIN RADIOGRAPHY OF LEFT HEART USING OTHER CONTRAST (04/04/16) PLAIN RADIOGRAPHY OF MULT COR ART USING OTH CONTRAST (04/04/16) REPOSITION LEFT SHOULDER JOINT, EXTERNAL APPROACH (12/22/16) Family History: States: No Known Family Hx - Social History Hx Tobacco Use: No Hx Alcohol Use: No Hx Substance Use: No - Immunization History Hx Tetanus Toxoid Vaccination: No Hx Influenza Vaccination: Yes Hx Pneumococcal Vaccination: Yes Review Of Systems Except As Marked, All Systems Reviewed And Found Negative. Cardiovascular: Negative for: Chest Pain Respiratory: Negative for: Shortness of Breath Gastrointestinal: Negative for: Nausea, Vomiting, Abdominal Pain, Diarrhea Genitourinary: Negative for: Dysuria, Incontinence Musculoskeletal: Positive for: Other ((+) Pain under bilateral ribs) Physical Exam - Physical Exam Appears: Non-toxic, No Acute Distress Skin: Warm, Dry, No Rash Head: Atraumatic, Normacephalic Oral Mucosa: Moist Neck: Normal, Normal ROM, Supple Chest: Symmetrical, No Tenderness Cardiovascular: Rhythm Regular, No Murmur Respiratory: Normal Breath Sounds, No Rales, No Rhonchi, No Wheezing Gastrointestinal/Abdominal: Normal Exam, Soft, No Tenderness, No Guarding, No Rebound Back: Other ((+) Bilateral paraspinal musculature tenderness.) Extremity: Normal ROM, No Swelling Neurological/Psych: Oriented x3, Normal Speech, Normal Motor ED Course And Treatment O2 Sat by Pulse Oximetry: 85 (RA) Pulse Ox Interpretation: Normal Progress Note: On reeval, patient reports improvement of pain. Patient was dozing off to sleep. Patient will be discharged home to follow up with PMD for further evaluation. Also advised to follow up with pain managment. Medical Decision Making Medical Decision Making: pt is a 66 yo with longstanding chronic back pain due to multiple disc herniations on prison pain mgmt which includes opiods and steroid injections.Now with acute exacerbation.Will tx for muscle spasms,pain with valium and toradol.Refer pt for f/u with PMD for further mgmt.Pt has no acute neuro deficits and denies urinary sx Disposition - Disposition Referrals: Jose Enrique Kent MD [Medical Doctor] - Disposition: HOME/ ROUTINE Disposition Time: 14:18 Condition: GOOD Prescriptions: Baclofen [Lioresal] 10 mg PO TID #20 tab Forms: My Top 10 (Icelandic) - Clinical Impression Clinical Impression: Thoracic back sprain, Back muscle spasm, Chronic back pain - Scribe Statement The provider has reviewed the documentation as recorded by the Maicol Patel Provider Attestation: All medical record entries made by the Nishantibrekha were at my direction and personally dictated by me. I have reviewed the chart and agree that the record accurately reflects my personal performance of the history, physical exam, medical decision making, and the department course for this patient. I have also personally directed, reviewed, and agree with the discharge instructions and disposition.
[2017-04-28] MEDS ORDERED: diaZEpam 10 mg/2 ml Inj IVP ONE (13:24)
[2017-04-28] MEDS ORDERED: diaZEpam 10 mg/2 ml Inj ONE (13:31)
[2017-04-28 13:38] VITALS: BP 107/53; PULSE 90; RESP 25
[2017-04-28 13:40] VITALS: O2SAT 85
--- NOTE | 2017-05-03 06:38 | CARD ---
APPROVED REPORT EKG Measurement Heart [id number] <Conclusion> Normal sinus rhythm Nonspecific T wave abnormality Abnormal ECG
== END 2017-04-28 14:36 | disposition home or self-care (01) ==
LOC: C.ER 12:28
DX: S23.3XXA Sprain of ligaments of thoracic spine, initial encounter (principal); X58.XXXA Exposure to other specified factors, initial encounter; M62.830 Muscle spasm of back; G89.29 Other chronic pain; M54.9 Dorsalgia, unspecified
CPT/HCPCS: 96374; 96375; 99285; J1885; J3360

== ENCOUNTER 2017-04-30 12:59 | Emergency (ER) | payer MEDICARE, OTHER ==
[2017-04-30 13:00] VITALS: BMI 26.2
[2017-04-30] MEDS ORDERED: Albuterol-Ipratrop 3 mg / 0.5 (3 ml) UD INH STA (13:42)
[2017-04-30] MEDS ORDERED: MethylPREDNISolone 40 mg Vial IVP STA (13:42)
[2017-04-30] MEDS ORDERED: oxyCODONE 5 mg Immediate Release Tab PO STA (13:43)
[2017-04-30] MEDS ORDERED: Albuterol-Ipratrop 3 mg / 0.5 (3 ml) UD ONE (14:07)
[2017-04-30 14:10] LABS: BASO # 0.1 K/uL (0.0-0.2); EOS # 0.3 K/uL (0.0-0.7); EOS % 3.6 % (0.0-4.0); HEMATOCRIT 39.6 % (34.0-47.0); LYMPH % 23.2 % (20.0-40.0); MEAN CORPUSCULAR HEMOGLOBIN 29.4 pg (27.0-31.0); MEAN CORPUSCULAR HGB CONC 33.7 g/dL (33.0-37.0); MEAN PLATELET VOLUME 8.6 fL (7.2-11.7); MONO # 0.8 K/uL (0.0-0.8); MONO % 9.3 % (0.0-10.0); RED CELL DISTRIBUTION WIDTH 14.2 % (11.5-14.5); WHITE BLOOD COUNT 8.7 K/uL (4.8-10.8)
[2017-04-30] MEDS ORDERED: oxyCODONE 5 mg Immediate Release Tab ONE (14:17)
[2017-04-30 14:21] LABS: CHLORIDE 99 mmol/L (98-107); POTASSIUM 4.4 mmol/L (3.6-5.2); SODIUM 139 mmol/L (132-148)
[2017-04-30 14:23] LABS: GFR AFRICAN-AMERICAN > 60
[2017-04-30 14:24] LABS: ALKALINE PHOSPHATASE 79 U/L (38-126); ALT/SGPT 24 U/L (9-52); AST/SGOT 27 U/L (14-36); BILIRUBIN,TOTAL 0.5 mg/dL (0.2-1.3); BLOOD UREA NITROGEN 9 mg/dL (7-17); CALCIUM 9.5 mg/dl (8.6-10.4); CARBON DIOXIDE 32 mmol/L (22-30); GLUCOSE,RANDOM 85 mg/dL (65-105); TOTAL PROTEIN 7.8 g/dL (6.3-8.3)
[2017-04-30 14:27] VITALS: O2SAT 100
--- NOTE | 2017-04-30 15:12 | RAD ---
Chest x-ray single frontal view History: Shortness of breath. Comparison: None available. Findings: Diffuse increased interstitial lung markings. Biapical pleural thickening with upper lobe granulomatous changes. Bilateral hilar prominence. Confluent increased markings in the bilateral suprahilar regions. Patchy bibasilar airspace opacities. Trace bilateral pleural effusions. Cardiomegaly. Degenerative changes in the spine and shoulders. Impression: Diffuse increased interstitial lung markings. Biapical pleural thickening with upper lobe granulomatous changes. Bilateral hilar prominence. Confluent increased markings in the bilateral suprahilar regions. Patchy bibasilar airspace opacities. Trace bilateral pleural effusions. Cardiomegaly.
[2017-04-30 15:53] VITALS: BP 127/58; PULSE 74; RESP 14; TEMP 97.9
--- NOTE | 2017-04-30 17:05 | C.PDOC ---
History Of Present Illness 66 year old female presents to the ED for evaluation of persistent left-sided rib pain which began after she sustained a fall around 5 months ago. Patient states she has not taken Percocet in 4 days and has not followed up with her PMD in around 3 weeks. She denies fever, chills, cough, shortness of breath, or any recent trauma/injuries or falls. Time Seen by Provider: 04/30/17 13:27 Chief Complaint (Nursing): Shortness Of Breath History Per: Patient History/Exam Limitations: no limitations Onset/Duration Of Symptoms: Days (4), Persistent (around 5 months ) Current Symptoms Are (Timing): Still Present Quality: "Pain" Current Respiratory Medications: See Home Med List Associated Symptoms: denies: Fever, Chills, Bloody Cough, Productive Cough Additional History Per: Patient Past Medical History Reviewed: Historical Data, Nursing Documentation, Vital Signs Vital Signs: Last Vital Signs Temp 97.9 F 04/30/17 15:51 Pulse 74 04/30/17 15:51 Resp 14 04/30/17 15:51 BP 127/58 L 04/30/17 15:51 Pulse Ox 100 04/30/17 17:11 - Medical History PMH: Anemia, Arthritis, Asthma, COPD, Depression, Gastritis, HTN, Hypercholesterolemia, Rheumatoid Arthritis Denies: Chronic Kidney Disease Surgical History: No Surg Hx - [facility] Procedures ASSISTANCE WITH RESPIRATORY VENTILATION, 24-96 HRS, CPAP (09/22/16) ASSISTANCE WITH RESPIRATORY VENTILATION, <24 HRS, CPAP (05/19/15) ASSISTANCE WITH RESPIRATORY VENTILATION, >96 HRS, CPAP (05/12/16) EXCISION OF DESCENDING COLON, ENDO (09/30/15) EXCISION OF STOMACH, ENDO, DIAGN (09/30/15) INSERTION OF MONITOR DEV INTO PULM TRUNK, PERC APPROACH (04/04/16) MEASURE OF CARDIAC SAMPL & PRESSURE, L HEART, PERC APPROACH (04/04/16) NON-INVASIVE MECHANICAL VENTILATION (10/25/14) PLAIN RADIOGRAPHY OF LEFT HEART USING OTHER CONTRAST (04/04/16) PLAIN RADIOGRAPHY OF MULT COR ART USING OTH CONTRAST (04/04/16) REPOSITION LEFT SHOULDER JOINT, EXTERNAL APPROACH (12/22/16) Family History: States: Unknown Family Hx - Social History Hx Tobacco Use: No Hx Alcohol Use: No Hx Substance Use: No - Immunization History Hx Tetanus Toxoid Vaccination: No Hx Influenza Vaccination: Yes Hx Pneumococcal Vaccination: Yes Review Of Systems Constitutional: Negative for: Fever, Chills Respiratory: Negative for: Cough, Shortness of Breath Musculoskeletal: Positive for: Other (left-sided rib pain ) Physical Exam - Physical Exam Appears: Non-toxic, No Acute Distress Skin: Normal Color, Warm, Dry Head: Atraumatic, Normacephalic Eye(s): bilateral: Normal Inspection Oral Mucosa: Moist Neck: Supple Chest: Symmetrical, No Deformity, No Tenderness Cardiovascular: Rhythm Regular, No Murmur Respiratory: No Decreased Breath Sounds (good air entry ), No Rales, No Rhonchi , Wheezing (mild expiratory, bilaterally ) Gastrointestinal/Abdominal: Soft, No Tenderness, No Guarding, No Rebound Extremity: Normal ROM, Capillary Refill (less than 2 seconds) Neurological/Psych: Oriented x3, Normal Speech, Normal Cognition Gait: Steady ED Course And Treatment - Laboratory Results Result Diagrams: 04/30/17 14:07 04/30/17 14:07 O2 Sat by Pulse Oximetry: 100 (on RA) Pulse Ox Interpretation: Normal Progress Note: EKG, CXR, bloodwork ordered and reviewed. Patient received Albuterol INH, Solu-Medrol IVP, Toradol IVP, and Percocet PO. On reassessment, patient is resting comfortably, showing no signs of respiratory distress and notes an improvement in her symptoms. Patient's lungs have cleared up with no wheezing on re-exam. Patient is stable for discharge and is advised to follow up with her PMD within 1-2 days for further evaluation. Disposition - Disposition Referrals: Alanna Kerr, [Non-Staff] - Disposition: HOME/ ROUTINE Disposition Time: 15:30 Condition: IMPROVED Additional Instructions: Thank you for letting us take care of you today. Your provider was Dr. Bang. You were treated for chest wall pain. The emergency medical care you received today was directed at your acute symptoms. If you were prescribed any medication, please fill it and take as directed. It may take several days for your symptoms to resolve. Return to the Emergency Department if your symptoms worsen, do not improve, or if you have any other problems. Please contact your doctor or call one of the physicians/clinics you have been referred to that are listed on the Patient Visit Information form that is included in your discharge packet. Bring any paperwork you were given at discharge with you along with any medications you are taking to your follow up visit. Our treatment cannot replace ongoing medical care by a primary care provider (PCP) outside of the emergency department. Thank you for allowing the [facility] team to be part of your care today. Follow up with your doctor in 2-3 days for re-evaluation and further management. Prescriptions: predniSONE [Prednisone] 40 mg PO DAILY #10 tab Instructions: Musculoskeletal Pain (ED) Forms: Gen Discharge Inst Taiwanese Print Language: MARSHALLESE - Clinical Impression Clinical Impression: MUSCULAR PAIN, COPD (chronic obstructive pulmonary disease), Back muscle spasm - Scribe Statement The provider has reviewed the documentation as recorded by the Scribe (Jessica Escobar) Provider Attestation: All medical record entries made by the Scribe were at my direction and personally dictated by me. I have reviewed the chart and agree that the record accurately reflects my personal performance of the history, physical exam, medical decision making, and the department course for this patient. I have also personally directed, reviewed, and agree with the discharge instructions and disposition.
--- NOTE | 2017-05-02 10:50 | CARD ---
APPROVED REPORT EKG Measurement Heart [id number] <Conclusion> Normal sinus rhythm T wave abnormality, consider anterolateral ischemia Abnormal ECG
== END 2017-04-30 16:00 | disposition home or self-care (01) ==
LOC: C.ER 12:59
DX: J02.9 Acute pharyngitis, unspecified (principal); M62.830 Muscle spasm of back; M79.1 Myalgia
CPT/HCPCS: 71010; 80053; 84484; 85025; 93005; 94640; 96374; 96375; 99285; J1885; J2920

== ENCOUNTER 2017-06-08 13:48 | Inpatient (IN) | payer MEDICARE, OTHER ==
[2017-06-08 13:48] VITALS: BMI 26.2
[2017-06-08] MEDS ORDERED: Oxycodone/Acetaminophen 5/325 mg Tab PO STA (14:32)
[2017-06-08] MEDS ORDERED: Oxycodone/Acetaminophen 5/325 mg Tab ONE (14:43)
[2017-06-08] MEDS ORDERED: Albuterol-Ipratrop 3 mg / 0.5 (3 ml) UD ONE ×2 (14:45→15:44)
--- NOTE | 2017-06-08 14:51 | C.PDOC ---
History Of Present Illness 66 yr old female with PMHx of COPD is on home O2 and chronic pain to the left side of back, was in hospital for 1 month and rehab for 2 months for management of chronic pain, is taking steroids and percocet with minimal resolution of symptoms, presents to the ER stating after being discharged from rehab she was doing well up until 1 month ago when the pain started again. Patient states the pain is 10/10 and left sided, increased with movement and breathing. Patient also reports of SOB, cough and chest heaviness. Otherwise patient denies fever, chills, nausea, vomiting, abdominal pain, dysuria, weakness or numbness. Time Seen by Provider: 06/08/17 13:55 Chief Complaint (Nursing): Back Pain History Per: Patient History/Exam Limitations: no limitations Onset/Duration Of Symptoms: Days, Persistent Current Symptoms Are (Timing): Still Present Past Medical History Reviewed: Historical Data, Nursing Documentation, Vital Signs Vital Signs: Last Vital Signs Temp 99.9 F H 06/08/17 13:51 Pulse 97 H 06/08/17 13:51 Resp 30 H 06/08/17 13:51 BP 122/66 06/08/17 13:51 Pulse Ox 95 06/08/17 15:38 - Medical History PMH: Anemia, Arthritis, Asthma, COPD, Depression, Gastritis, HTN, Hypercholesterolemia, Rheumatoid Arthritis - [facility] Procedures ASSISTANCE WITH RESPIRATORY VENTILATION, 24-96 HRS, CPAP (09/22/16) ASSISTANCE WITH RESPIRATORY VENTILATION, <24 HRS, CPAP (05/19/15) ASSISTANCE WITH RESPIRATORY VENTILATION, >96 HRS, CPAP (05/12/16) EXCISION OF DESCENDING COLON, ENDO (09/30/15) EXCISION OF STOMACH, ENDO, DIAGN (09/30/15) INSERTION OF MONITOR DEV INTO PULM TRUNK, PERC APPROACH (04/04/16) MEASURE OF CARDIAC SAMPL & PRESSURE, L HEART, PERC APPROACH (04/04/16) NON-INVASIVE MECHANICAL VENTILATION (10/25/14) PLAIN RADIOGRAPHY OF LEFT HEART USING OTHER CONTRAST (04/04/16) PLAIN RADIOGRAPHY OF MULT COR ART USING OTH CONTRAST (04/04/16) REPOSITION LEFT SHOULDER JOINT, EXTERNAL APPROACH (12/22/16) Family History: States: No Known Family Hx - Social History Hx Tobacco Use: No Hx Alcohol Use: No Hx Substance Use: No - Immunization History Hx Tetanus Toxoid Vaccination: No Hx Influenza Vaccination: Yes Hx Pneumococcal Vaccination: Yes Review Of Systems Except As Marked, All Systems Reviewed And Found Negative. Constitutional: Negative for: Fever, Chills Cardiovascular: Positive for: Other ((+) Chest heaviness.) Respiratory: Positive for: Cough, Shortness of Breath Gastrointestinal: Negative for: Nausea, Vomiting, Abdominal Pain Genitourinary: Negative for: Dysuria Musculoskeletal: Positive for: Back Pain (Left sided) Neurological: Negative for: Weakness, Numbness Physical Exam - Physical Exam Appears: In Acute Distress (Mild respirtory distress), Chronically Ill Skin: Warm, Dry, No Rash Head: Atraumatic, Normacephalic Eye(s): bilateral: Normal Inspection, PERRL, EOMI Ear(s): Bilateral: Normal Lips: Other ((+) Pursed lips) Throat: Normal, No Erythema, No Exudate, No Drooling Neck: Normal, Normal ROM, Supple Chest: Symmetrical, Other ((+) Slight suprasternal retractions.) Respiratory: No Rales, No Rhonchi, Wheezing (Intermittent bilateral wheezing.) Gastrointestinal/Abdominal: Normal Exam, Soft, No Tenderness, No Guarding, No Rebound Back: Other ((+) Diffuse left sided tenderness.) Extremity: Normal ROM, No Swelling Neurological/Psych: Oriented x3, Normal Speech ED Course And Treatment - Laboratory Results Result Diagrams: 06/08/17 14:58 06/08/17 14:58 O2 Sat by Pulse Oximetry: 95 (RA) Pulse Ox Interpretation: Normal - Other Rad CXR X-Ray: Viewed By Me, Read By Radiologist Interpretation: PROCEDURE: CHEST RADIOGRAPH, 1 VIEW. HISTORY: Shortness of breath. COMPARISON: 04/30/2017. FINDINGS: LUNGS: Patchy consolidative changes at both lung bases. Biapical pleural thickening with upper lobe granulomatous changes. Diffuse increased interstitial lung markings suggestive for edema and or infiltrate. Bilateral hilar prominence. PLEURA: As above. CARDIOVASCULAR: Cardiomegaly. Tortuous ectatic aorta. OSSEOUS STRUCTURES: No significant abnormalities. VISUALIZED UPPER ABDOMEN: Normal. OTHER FINDINGS: None. IMPRESSION: Patchy consolidative changes at both lung bases. Biapical pleural thickening with upper lobe granulomatous changes. Diffuse increased interstitial lung markings suggestive for edema and or infiltrate. Bilateral hilar prominence. Progress Note: Spoke to DR. Santos regarding patient. Patient to be admitted for COPD exacerbation and intractable pain. Medical Decision Making Medical Decision Making: PLAN: * CXR * EKG * Drug Screen * Troponin * CBC * CMP * BNP * Albuterol IH * Percocet PO * Prednisone PO * Rocephin IVPB Disposition Discussed With : Luis Santos Doctor Will See Patient In The: Hospital Counseled Patient/Family Regarding: Studies Performed, Diagnosis - Disposition Disposition: HOSPITALIZED Disposition Time: 14:48 Condition: GUARDED - Clinical Impression Clinical Impression: Back muscle spasm, COPD (chronic obstructive pulmonary disease), COPD exacerbation - Scribe Statement The provider has reviewed the documentation as recorded by the Nishantibe Renate Patel Provider Attestation: All medical record entries made by the Scribe were at my direction and personally dictated by me. I have reviewed the chart and agree that the record accurately reflects my personal performance of the history, physical exam, medical decision making, and the department course for this patient. I have also personally directed, reviewed, and agree with the discharge instructions and disposition. Decision To Admit - Pt Status Changed To: Hospital Disposition Of: Inpatient - Admit Certification Admit to Inpatient:: After my assessment, the patient will require hospitalization for at least two midnights. This is because of the severity of symptoms shown, intensity of services needed, and/or the medical risk in this patient being treated as an outpatient. - InPatient: Physician Admission Certification:: COPD exacerbation, complicated by intractible pain - . Bed Request Type: Regular Patient Diagnosis: Back muscle spasm, COPD (chronic obstructive pulmonary disease), COPD exacerbation
--- NOTE | 2017-06-08 14:59 | RAD ---
PROCEDURE: CHEST RADIOGRAPH, 1 VIEW HISTORY: Shortness of breath COMPARISON: 04/30/2017 FINDINGS: LUNGS: Patchy consolidative changes at both lung bases. Biapical pleural thickening with upper lobe granulomatous changes. Diffuse increased interstitial lung markings suggestive for edema and or infiltrate. Bilateral hilar prominence. PLEURA: As above. CARDIOVASCULAR: Cardiomegaly. Tortuous ectatic aorta. OSSEOUS STRUCTURES: No significant abnormalities. VISUALIZED UPPER ABDOMEN: Normal. OTHER FINDINGS: None. IMPRESSION: Patchy consolidative changes at both lung bases. Biapical pleural thickening with upper lobe granulomatous changes. Diffuse increased interstitial lung markings suggestive for edema and or infiltrate. Bilateral hilar prominence.
[2017-06-08 15:04] LABS: BASO # 0.1 K/uL (0.0-0.2); BASO % 0.5 % (0.0-2.0); EOS # 0.1 K/uL (0.0-0.7); EOS % 0.7 % (0.0-4.0); HEMATOCRIT 36.8 % (34.0-47.0); LYMPH # 0.9 K/uL (1.0-4.3); MEAN CELL VOLUME 86.6 fL (81.0-99.0); MEAN CORPUSCULAR HEMOGLOBIN 28.2 pg (27.0-31.0); MEAN CORPUSCULAR HGB CONC 32.6 g/dL (33.0-37.0); MONO # 0.8 K/uL (0.0-0.8); MONO % 5.4 % (0.0-10.0); NRBC % 0.1 % (0.0-2.0); PLATELET COUNT 327 K/uL (130-400); RED CELL DISTRIBUTION WIDTH 13.2 % (11.5-14.5); WHITE BLOOD COUNT 15.5 K/uL (4.8-10.8)
[2017-06-08 15:16] LABS: CHLORIDE 91 mmol/L (98-107); SODIUM 133 mmol/L (132-148)
[2017-06-08 15:17] LABS: POTASSIUM 3.8 mmol/L (3.6-5.2)
[2017-06-08 15:19] LABS: ALB/GLOB RATIO 1.5 (1.0-2.1); ALKALINE PHOSPHATASE 67 U/L (38-126); ALT/SGPT 31 U/L (9-52); AST/SGOT 15 U/L (14-36); BILIRUBIN,TOTAL 0.6 mg/dL (0.2-1.3); BLOOD UREA NITROGEN 7 mg/dL (7-17); CARBON DIOXIDE 36 mmol/L (22-30); GFR AFRICAN-AMERICAN > 60; TOTAL PROTEIN 6.6 g/dL (6.3-8.3)
[2017-06-08] MEDS ORDERED: cefTRIAXone IV 1 gm in Dextros 50 ML IVPB ONE ×2 (15:19→16:05)
[2017-06-08 15:20] LABS: CALCIUM 8.4 mg/dl (8.6-10.4); GLUCOSE,RANDOM 117 mg/dL (65-105)
[2017-06-08] MEDS: Albuterol-Ipratrop 3 mg / 0.5 (3 ml) UD IH SCH ×2 (15:40→15:50)
[2017-06-08 15:50] LABS: EOSINOPHIL 2 % (0-4); NEUTROPHIL 87 % (50-75); TOTAL CELLS COUNTED 100
[2017-06-08] MEDS: Oxycodone/Acetaminophen 5/325 mg Tab PO PRN (22:18)
[2017-06-09] MEDS: Albuterol-Ipratrop 3 mg / 0.5 (3 ml) UD INH SCH ×4 (01:34→19:39)
[2017-06-09] MEDS: Fluticasone-Salmeterol 250-50mcg Diskus INH SCH ×2 (08:30→19:40)
[2017-06-09] MEDS: Tiotropium 18 mcg Cap For Inhalation INH SCH (08:30)
[2017-06-09] MEDS: Oxycodone/Acetaminophen 5/325 mg Tab PO PRN ×2 (10:05→21:59)
[2017-06-09] MEDS: Pantoprazole 40 mg EC Tab PO SCH (10:05)
--- NOTE | 2017-06-09 12:11 | CARD ---
APPROVED REPORT EKG Measurement Heart [id number] <Conclusion> Normal sinus rhythm Normal ECG
--- NOTE | 2017-06-09 21:13 | HP ---
HISTORY OF PRESENT ILLNESS: This is a 66-year-old female with history of severe COPD, on home oxygen, status post fall with fractured pelvis and left shoulder. The patient was at home when she started to have uncontrolled pain associated with exacerbation of her cough and shortness of breath. The patient presented to emergency room for evaluation and the she was admitted for further management. The patient denied to have any another fall. The patient denied to have any fever. OTHER REVIEW OF SYSTEMS: Negative. ALLERGIES: POSITIVE FOR CIPROFLOXACIN AND AVELOX. SOCIAL HISTORY: No history of smoking, EtOH, or substance abuse. FAMILY HISTORY: Noncontributory. HOME MEDICATIONS: As per MAR. PAST MEDICAL HISTORY: Severe COPD, hypertension, osteoarthritis, degenerative spine disease. PHYSICAL EXAMINATION: GENERAL: The patient is in bed, not in any cardiopulmonary distress. VITAL SIGNS: Blood pressure 110/60, temperature 98.6, respiratory rate 20, and pulse 85. HEENT: Pupils equal, reactive to light. Normal-appearing mucosa of the conjunctivae, oropharynx, and nasal membrane mucosa. NECK: Supple. No JVD. No carotid bruit. No lymph node. No thyromegaly. CHEST AND LUNGS: Bilateral symmetrical expansion. Good air exchange. Scattered rhonchi over lung lundy. CARDIOVASCULAR SYSTEM: PMI not localized, S1 and S2. No additional sounds. ABDOMEN: Normoactive bowel sounds. No tenderness. No organomegaly. No masses. EXTREMITIES: No cyanosis. No clubbing. No edema. CENTRAL NERVOUS SYSTEM: Alert, awake, oriented x3. No neurological deficit could be appreciated. ASSESSMENT: 1. Exacerbation of chronic obstructive pulmonary disease. 2. Severe intractable low back pain and shoulder pain. PLAN: Pain management with Dilaudid, physical therapy. Resume the patient's home medications including prednisone, DVT prophylaxis, physical therapy. Luis Santos MD
[2017-06-10] MEDS: Albuterol-Ipratrop 3 mg / 0.5 (3 ml) UD INH SCH ×4 (01:43→19:42)
[2017-06-10] MEDS: Tiotropium 18 mcg Cap For Inhalation INH SCH (07:15)
[2017-06-10] MEDS: Fluticasone-Salmeterol 250-50mcg Diskus INH SCH ×2 (07:15→19:42)
[2017-06-10] MEDS: HYDROmorphone 1 mg/ml ISec IVP PRN (08:29)
[2017-06-10] MEDS: Pantoprazole 40 mg EC Tab PO SCH (10:57)
[2017-06-10] MEDS: Piperacill/Tazo 3.375gm in Dex 3.375 GM/50 ML BAG IVPB SCH ×2 (14:20→21:02)
[2017-06-10] MEDS: Oxycodone/Acetaminophen 5/325 mg Tab PO PRN (21:08)
[2017-06-11] MEDS: Albuterol-Ipratrop 3 mg / 0.5 (3 ml) UD INH SCH ×4 (01:48→19:37)
[2017-06-11] MEDS: Piperacill/Tazo 3.375gm in Dex 3.375 GM/50 ML BAG IVPB SCH ×3 (05:15→22:49)
[2017-06-11 06:24] LABS: BASO # 0.1 K/uL (0.0-0.2); BASO % 0.5 % (0.0-2.0); EOS # 0.1 K/uL (0.0-0.7); EOS % 0.9 % (0.0-4.0); HEMATOCRIT 36.5 % (34.0-47.0); LYMPH # 2.6 K/uL (1.0-4.3); LYMPH % 26.4 % (20.0-40.0); MEAN CELL VOLUME 86.2 fL (81.0-99.0); MEAN CORPUSCULAR HGB CONC 32.5 g/dL (33.0-37.0); MEAN PLATELET VOLUME 8.2 fL (7.2-11.7); MONO % 10.1 % (0.0-10.0); RED CELL DISTRIBUTION WIDTH 12.9 % (11.5-14.5)
[2017-06-11 06:45] LABS: BLOOD UREA NITROGEN 13 mg/dL (7-17); CALCIUM 8.5 mg/dl (8.6-10.4); CHLORIDE 95 mmol/L (98-107); GFR AFRICAN-AMERICAN > 60; GLUCOSE,RANDOM 81 mg/dL (65-105); POTASSIUM 3.7 mmol/L (3.6-5.2); SODIUM 140 mmol/L (132-148)
[2017-06-11 07:02] LABS: CARBON DIOXIDE 36 mmol/L (22-30)
[2017-06-11] MEDS: Fluticasone-Salmeterol 250-50mcg Diskus INH SCH ×2 (07:20→19:38)
[2017-06-11] MEDS: Tiotropium 18 mcg Cap For Inhalation INH SCH (07:20)
[2017-06-11] MEDS: HYDROmorphone 1 mg/ml ISec IVP PRN (08:29)
[2017-06-11] MEDS ORDERED: Influenza Vaccine 60 mcg/0.5 mL SYR (4YR UP) IM ONE (10:00)
[2017-06-11] MEDS: Pantoprazole 40 mg EC Tab PO SCH (10:14)
--- NOTE | 2017-06-11 10:43 | PN ---
DAILY PROGRESS NOTE DATE: 06/11/2017 SUBJECTIVE: She is less short of breath and less wheezing. PHYSICAL EXAMINATION: VITAL SIGNS: Blood pressure is 128/73, temperature 97.9, respiratory rate 20 and pulse 80. HEENT: Pupils equal, reactive to light. Normal-appearing mucosa of the conjunctivae, oropharynx and nasal membrane mucosa. NECK: Supple. No JVD. No carotid bruit. No lymph node. No thyromegaly. CHEST AND LUNGS: Bilateral symmetrical expansion. Scattered rhonchi all over lung lundy. CARDIOVASCULAR SYSTEM: PMI not localized. S1, S2. No additional sounds. ABDOMEN: Normoactive bowel sounds. No tenderness. No organomegaly. No masses. EXTREMITIES: No cyanosis, no clubbing, no edema. ANTHROPOLOGICAL LINGUIST: Alert, awake, oriented x3. No neurological deficit could be appreciated. ASSESSMENT: 1. Bilateral pneumonia, health-care related. 2. Exacerbation of chronic obstructive pulmonary disease. 3. Back pain and shoulder pain. PLAN: 1. Orthopedic consult, Dr. Manzo, who knows the patient from before. 2. Pulmonary consult and follow the recommendations. 3. Continue current IV antibiotics, steroids and nebulizer treatment. Luis Santos MD
--- NOTE | 2017-06-11 12:03 | CP.PCM.CON ---
History of Present Illness - History of Present Illness History of Present Illness: reason for consultation: shortness of breath 66-year-old female with history of COPD on home walks each in presented to emergency room complaining of left side chest pain at the back associated with shortness of breath and cough. Pain is increased with movement and breathing. Chest x-ray done consistent with by basilar infiltrate and is being treated for COPD exacerbation and pneumonia Review of Systems - Review of Systems All systems: reviewed and no additional remarkable complaints except (chest pain , shortness of breath and cough) Past Patient History - Infectious Disease Hx of Infectious Diseases: None - Past Medical History & Family History Past Medical History?: Yes - Past Social History Smoking Status: Former Smoker - CARDIAC Hx Hypercholesterolemia: Yes Hx Hypertension: Yes - PULMONARY Hx Chronic Obstructive Pulmonary Disease (COPD): Yes - NEUROLOGICAL Hx Neurological Disorder: No - HEENT Hx HEENT Problems: Yes Hx Cataracts: Yes Hx Glaucoma: Yes (Sx last Apr 2015) - RENAL Hx Chronic Kidney Disease: No - ENDOCRINE/METABOLIC Hx Endocrine Disorders: No - HEMATOLOGICAL/ONCOLOGICAL Hx Anemia: Yes - INTEGUMENTARY Hx Dermatological Problems: No - MUSCULOSKELETAL/RHEUMATOLOGICAL Hx Arthritis: Yes (back) - GASTROINTESTINAL Hx Gastritis: Yes - GENITOURINARY/GYNECOLOGICAL Hx Genitourinary Disorders: No - PSYCHIATRIC Hx Depression: Yes Hx Substance Use: No - SURGICAL HISTORY Hx Surgeries: Yes Hx Breast Biopsy: Yes Hx Eye Surgery: Yes (glaucoma OU) Hx Musculoskeletal Surgery: Yes (L leg) Other/Comment: left leg surgery - ANESTHESIA Hx Anesthesia: Yes Hx Anesthesia Reactions: No Hx Malignant Hyperthermia: No Meds Allergies/Adverse Reactions: Allergies Allergy/AdvReac Type Severity Reaction Status Date / Time ciprofloxacin [From Cipro] Allergy Verified 06/08/17 13:54 moxifloxacin HCl Allergy Verified 06/08/17 13:54 [From Avelox] - Medications Medications: Current Medications Albuterol/Ipratropium (Duoneb 3 Mg/0.5 Mg (3 Ml) Ud) 3 ml INH RQ6 [facility] Last Admin: 06/11/17 07:20 Dose: 3 ml Aspirin (Aspirin Chewable) 81 mg PO DAILY [facility] Last Admin: 06/11/17 10:14 Dose: 81 mg Gabapentin (Neurontin) 100 mg PO TID [facility] Last Admin: 06/11/17 10:14 Dose: 100 mg Heparin Sodium (Porcine) (Heparin) 5,000 units SC Q12 [facility] Last Admin: 06/11/17 10:14 Dose: 5,000 units Hydromorphone HCl (Dilaudid) 1 mg IVP Q8H PRN PRN Reason: Pain, moderate (4-7) Last Admin: 06/11/17 08:29 Dose: 1 mg Piperacillin Sod/Tazobactam Sod (Zosyn 3.375 Gm Iv Premix) 3.375 gm in 50 mls @ 100 mls/hr IVPB Q8H [facility] Last Admin: 06/11/17 05:15 Dose: 100 mls/hr Loratadine (Claritin) 10 mg PO DAILY [facility] Last Admin: 06/11/17 10:14 Dose: 10 mg Montelukast Sodium (Singulair) 10 mg PO HS [facility] Last Admin: 06/10/17 21:03 Dose: 10 mg Oxycodone/Acetaminophen (Percocet 5/325 Mg Tab) 1 tab PO Q8H PRN PRN Reason: Pain, Mild (1-3) Stop: 06/11/17 22:07 Last Admin: 06/10/17 21:08 Dose: 1 tab Pantoprazole Sodium (Protonix Ec Tab) 40 mg PO DAILY [facility] Last Admin: 06/11/17 10:14 Dose: 40 mg Prednisone (Prednisone Tab) 40 mg PO DAILY [facility] Last Admin: 06/11/17 10:14 Dose: 40 mg Rosuvastatin Calcium (Crestor) 5 mg PO HS [facility] Last Admin: 06/10/17 21:03 Dose: 5 mg Fluticasone/Salmeterol (Advair Diskus 250/50) 1 puff INH RQ12 [facility] Last Admin: 06/11/17 07:20 Dose: 1 puff Sertraline HCl (Zoloft) 25 mg PO DAILY [facility] Last Admin: 06/11/17 10:14 Dose: 25 mg Tiotropium [place] (Spiriva) 18 mcg INH RQ24 [facility] Last Admin: 06/11/17 07:20 Dose: 18 mcg Physical Exam - Head Exam Head Exam: ATRAUMATIC, NORMOCEPHALIC - Eye Exam Eye Exam: Normal appearance - ENT Exam ENT Exam: Mucous Membranes Moist - Neck Exam Neck exam: Positive for: Normal Inspection - Respiratory Exam Respiratory Exam: Decreased Breath Sounds - Cardiovascular Exam Cardiovascular Exam: REGULAR RHYTHM - GI/Abdominal Exam GI & Abdominal Exam: Normal Bowel Sounds, Soft - Extremities Exam Extremities exam: Positive for: normal inspection Results - Vital Signs Recent Vital Signs: Last Vital Signs Temp 97.7 F 06/11/17 07:49 Pulse 80 06/11/17 07:49 Resp 20 06/11/17 07:49 BP 128/73 06/11/17 07:49 Pulse Ox 97 06/11/17 07:49 - Labs Result Diagrams: 06/11/17 06:17 06/11/17 06:17 Labs: Laboratory Results - last 24 hr 06/11/17 06/11/17 06:17 06:17 WBC 10.0 RBC 4.23 Hgb 11.9 Hct 36.5 MCV 86.2 MCH 28.0 MCHC 32.5 L RDW 12.9 Plt Count 375 MPV 8.2 Neut % (Auto) 62.1 Lymph % (Auto) 26.4 [place] % (Auto) 10.1 H Eos % (Auto) 0.9 Baso % (Auto) 0.5 Neut # 6.2 Lymph # 2.6 [place] # 1.0 H Eos # 0.1 Baso # 0.1 Sodium 140 Potassium 3.7 Chloride 95 L Carbon Dioxide 36 H Anion Gap 13 BUN 13 Creatinine 0.6 L Est GFR ( Amer) > 60 Est GFR (Non-Af Amer) > 60 Random Glucose 81 Calcium 8.5 L Assessment & Plan (1) COPD exacerbation Assessment and Plan: taper p.o. prednisone Continue nebulizer treatment Continue home oxygen Status: Acute (2) Pneumonia Status: Acute Comment: Clinically improving. Continue antibiotics
--- NOTE | 2017-06-11 13:14 | PN ---
DATE: 06/10/2017 SUBJECTIVE: The patient was short of breath and she has bilateral wheezing and complaining of pain on the lower back and also the left shoulder, as well as the pelvis area. PHYSICAL EXAMINATION: VITAL SIGNS: Blood pressure was 146/78, temperature 98.2, respiratory rate 21, and pulse 78. HEENT: Pupils equal, reactive to light. Normal-appearing mucosa of the conjunctivae, oropharynx, and nasal membrane mucosa. NECK: Supple. No JVD. No carotid bruit. No lymph node. No thyromegaly. CHEST AND LUNGS: Bilateral symmetrical expansion. Prolonged expiration with wheezing was heard. Rhonchi scattered all over lung lundy. CARDIOVASCULAR SYSTEM: PMI not localized. S1, S2. No additional sounds. ABDOMEN: Normoactive bowel sounds. No tenderness. No organomegaly. No masses. EXTREMITIES: No cyanosis. No clubbing. No edema. GRAPHIC PRODUCTION ARTIST: Alert, awake, oriented x3. No neurological deficit could be appreciated. ASSESSMENT: 1. Exacerbation of chronic obstructive pulmonary disease. 2. Bilateral lower lobe pneumonia, health-care related as the patient was in rehabilitation within the last 60 days. 3. Uncontrolled lower back pain and left shoulder pain status post fall with fractured pelvis as well as left shoulder dislocation. PLAN: Continue current antibiotics and bronchodilators and steroids as well as pain management. Luis Santos MD
[2017-06-12] MEDS: Albuterol-Ipratrop 3 mg / 0.5 (3 ml) UD INH SCH ×4 (01:43→19:11)
[2017-06-12] MEDS: HYDROmorphone 1 mg/ml ISec IVP PRN (01:56)
[2017-06-12] MEDS: Piperacill/Tazo 3.375gm in Dex 3.375 GM/50 ML BAG IVPB SCH ×3 (05:23→21:51)
[2017-06-12] MEDS: Tiotropium 18 mcg Cap For Inhalation INH SCH (07:29)
[2017-06-12] MEDS: Fluticasone-Salmeterol 250-50mcg Diskus INH SCH ×2 (07:29→19:11)
[2017-06-12] MEDS: Pantoprazole 40 mg EC Tab PO SCH (10:41)
--- NOTE | 2017-06-12 14:08 | CP.PCM.PN ---
Subjective - Date & Time of Evaluation Date of Evaluation: 06/12/17 Time of Evaluation: 08:20 - Subjective Subjective: patient seen and examined. Breathing much improved Still complaining of back pain Afebrile Objective - Vital Signs/Intake and Output Vital Signs (last 24 hours): Temp Pulse Resp BP Pulse Ox 97.5 F L 87 20 133/77 98 06/12/17 07:55 06/12/17 07:55 06/12/17 07:55 06/12/17 07:55 06/12/17 07:55 Intake and Output: 06/12/17 06/12/17 06:59 18:59 Intake Total 400 Balance 400 - Medications Medications: Current Medications Albuterol/Ipratropium (Duoneb 3 Mg/0.5 Mg (3 Ml) Ud) 3 ml INH RQ6 [facility] Last Admin: 06/12/17 13:17 Dose: 3 ml Aspirin (Aspirin Chewable) 81 mg PO DAILY [facility] Last Admin: 06/12/17 10:41 Dose: 81 mg Gabapentin (Neurontin) 100 mg PO TID [facility] Last Admin: 06/12/17 10:42 Dose: 100 mg Hydromorphone HCl (Dilaudid) 1 mg IVP Q8H PRN PRN Reason: Pain, moderate (4-7) Last Admin: 06/12/17 01:56 Dose: 1 mg Piperacillin Sod/Tazobactam Sod (Zosyn 3.375 Gm Iv Premix) 3.375 gm in 50 mls @ 100 mls/hr IVPB Q8H [facility] Last Admin: 06/12/17 05:23 Dose: 100 mls/hr Loratadine (Claritin) 10 mg PO DAILY [facility] Last Admin: 06/12/17 10:42 Dose: 10 mg Montelukast Sodium (Singulair) 10 mg PO HS [facility] Last Admin: 06/11/17 22:47 Dose: 10 mg Pantoprazole Sodium (Protonix Ec Tab) 40 mg PO DAILY [facility] Last Admin: 06/12/17 10:41 Dose: 40 mg Prednisone (Prednisone Tab) 40 mg PO DAILY [facility] Last Admin: 06/12/17 10:41 Dose: 40 mg Rosuvastatin Calcium (Crestor) 5 mg PO HS [facility] Last Admin: 06/11/17 22:46 Dose: 5 mg Fluticasone/Salmeterol (Advair Diskus 250/50) 1 puff INH RQ12 [facility] Last Admin: 06/12/17 07:29 Dose: 1 puff Sertraline HCl (Zoloft) 25 mg PO DAILY [facility] Last Admin: 06/12/17 10:41 Dose: 25 mg Tiotropium [place] (Spiriva) 18 mcg INH RQ24 [facility] Last Admin: 06/12/17 07:29 Dose: 18 mcg - Labs Labs: 06/11/17 06:17 06/11/17 06:17 - Constitutional Appears: No Acute Distress - Head Exam Head Exam: ATRAUMATIC, NORMOCEPHALIC - Eye Exam Eye Exam: Normal appearance - ENT Exam ENT Exam: Mucous Membranes Moist - Neck Exam Neck Exam: Normal Inspection - Respiratory Exam Respiratory Exam: Decreased Breath Sounds - Cardiovascular Exam Cardiovascular Exam: REGULAR RHYTHM - GI/Abdominal Exam GI & Abdominal Exam: Soft, Normal Bowel Sounds - Extremities Exam Extremities Exam: Normal Inspection - Neurological Exam Neurological Exam: Alert, Oriented x3 Assessment and Plan (1) COPD exacerbation Assessment & Plan: Continue nebulizer treatment, prednisone and home oxygen Okay to transfer to subacute Status: Acute (2) Pneumonia Status: Acute
[2017-06-13] MEDS: Albuterol-Ipratrop 3 mg / 0.5 (3 ml) UD INH SCH ×4 (01:36→20:11)
[2017-06-13] MEDS: Piperacill/Tazo 3.375gm in Dex 3.375 GM/50 ML BAG IVPB SCH ×3 (05:13→21:37)
[2017-06-13] MEDS: Tiotropium 18 mcg Cap For Inhalation INH SCH (07:50)
[2017-06-13] MEDS: Fluticasone-Salmeterol 250-50mcg Diskus INH SCH ×2 (07:51→20:10)
[2017-06-13] MEDS: HYDROmorphone 1 mg/ml ISec IVP PRN (09:40)
[2017-06-13] MEDS: Pantoprazole 40 mg EC Tab PO SCH (09:42)
--- NOTE | 2017-06-13 12:45 | CP.PCM.PN ---
Subjective - Date & Time of Evaluation Date of Evaluation: 06/13/17 Time of Evaluation: 09:00 - Subjective Subjective: The patient seen and examined Sitting comfortably in no acute distress Complaining of slight cough breathing much better Denies any pain Objective - Vital Signs/Intake and Output Vital Signs (last 24 hours): Temp Pulse Resp BP Pulse Ox 98 F 70 20 123/78 95 06/13/17 07:44 06/13/17 07:44 06/13/17 07:44 06/13/17 07:44 06/13/17 07:44 - Medications Medications: Current Medications Albuterol/Ipratropium (Duoneb 3 Mg/0.5 Mg (3 Ml) Ud) 3 ml INH RQ6 [facility] Last Admin: 06/13/17 07:50 Dose: 3 ml Aspirin (Aspirin Chewable) 81 mg PO DAILY [facility] Last Admin: 06/13/17 09:42 Dose: 81 mg Gabapentin (Neurontin) 100 mg PO TID [facility] Last Admin: 06/13/17 09:41 Dose: 100 mg Hydromorphone HCl (Dilaudid) 1 mg IVP Q8H PRN PRN Reason: Pain, moderate (4-7) Last Admin: 06/13/17 09:40 Dose: 1 mg Piperacillin Sod/Tazobactam Sod (Zosyn 3.375 Gm Iv Premix) 3.375 gm in 50 mls @ 100 mls/hr IVPB Q8H [facility] Last Admin: 06/13/17 05:13 Dose: 100 mls/hr Loratadine (Claritin) 10 mg PO DAILY [facility] Last Admin: 06/13/17 09:42 Dose: 10 mg Montelukast Sodium (Singulair) 10 mg PO HS [facility] Last Admin: 06/12/17 21:52 Dose: 10 mg Pantoprazole Sodium (Protonix Ec Tab) 40 mg PO DAILY [facility] Last Admin: 06/13/17 09:42 Dose: 40 mg Prednisone (Prednisone Tab) 40 mg PO DAILY [facility] Last Admin: 06/13/17 09:42 Dose: 40 mg Rosuvastatin Calcium (Crestor) 5 mg PO HS [facility] Last Admin: 06/12/17 21:52 Dose: 5 mg Fluticasone/Salmeterol (Advair Diskus 250/50) 1 puff INH RQ12 [facility] Last Admin: 06/13/17 07:51 Dose: 1 puff Sertraline HCl (Zoloft) 25 mg PO DAILY [facility] Last Admin: 06/12/17 10:41 Dose: 25 mg Tiotropium [place] (Spiriva) 18 mcg INH RQ24 [facility] Last Admin: 06/13/17 07:50 Dose: 18 mcg - Labs Labs: 06/11/17 06:17 06/11/17 06:17 Assessment and Plan (1) COPD exacerbation Status: Acute (2) Pneumonia Status: Acute
--- NOTE | 2017-06-13 18:31 | PN ---
DATE: 06/13/2017 SUBJECTIVE: She is not in any cardiopulmonary distress. The patient still has some exertional wheezing and she is currently on physical therapy. PHYSICAL EXAMINATION: VITAL SIGNS: Blood pressure is 100/61, temperature 98.3, respiratory rate 20, pulse 80. HEENT: Pupils equal, reactive to light. Normal-appearing mucosa of the conjunctivae, oropharynx, and nasal membrane mucosa. NECK: Supple. No JVD. No carotid bruit. No lymph nodes. No thyromegaly. CHEST AND LUNGS: Bilateral symmetrical expansion. Good air exchange. A few scattered rhonchi all over lung lundy. CARDIOVASCULAR SYSTEM: PMI not localized. S1, S2. No additional sounds. ABDOMEN: Normoactive bowel sounds. No tenderness. No organomegaly. No masses. EXTREMITIES: No cyanosis. No clubbing. No edema. CENTRAL NERVOUS SYSTEM: Alert, awake, oriented x3. No neurological deficit could be appreciated. ASSESSMENT: Exacerbation of chronic obstructive pulmonary disease, pneumonia, left shoulder and left hip pain. PLAN: Continue physical therapy and pain management. Continue current steroid as well as bronchodilators and follow recommendations of kiln stacker. Luis Santos MD
[2017-06-13] MEDS: Oxycodone/Acetaminophen 5/325 mg Tab PO PRN (22:28)
--- NOTE | 2017-06-13 22:55 | PN ---
DAILY PROGRESS NOTE DATE: 06/12/2017 This is a late entry for progress note done on 06/12/2017. The patient was seen on 06/12/2017. SUBJECTIVE: She was less short of breath and less wheezing. OBJECTIVE: VITAL SIGNS: Blood pressure 116/69, temperature 98.6, respiratory rate 20, and pulse 97. HEENT: Pupils equal, reactive to light. Normal-appearing mucosa of the conjunctivae, oropharynx and nasal membrane mucosa. NECK: Supple. No JVD. No carotid bruit. No lymph node. No thyromegaly. CHEST AND LUNGS: Bilateral symmetrical expansion. Scattered rhonchi all over lung lundy with prolonged expiration. CARDIOVASCULAR SYSTEM: PMI not localized. S1, S2. No additional sounds. ABDOMEN: Normoactive bowel sounds. No tenderness. No organomegaly. No masses. EXTREMITIES: No cyanosis, no clubbing, no edema. DIGITAL CARTOGRAPHIC TECHNICIAN: Alert, awake, oriented x3. No neurological deficit could be appreciated. ASSESSMENT: Exacerbation of chronic obstructive pulmonary disease, pneumonia, intractable back pain and left shoulder pain. PLAN: Continue current IV antibiotics, steroids as well as nebulizer treatment. Follow pulmonary recommendations, physical therapy. Luis Santos MD
[2017-06-14] MEDS: Albuterol-Ipratrop 3 mg / 0.5 (3 ml) UD INH SCH (01:39)
[2017-06-14] MEDS: Piperacill/Tazo 3.375gm in Dex 3.375 GM/50 ML BAG IVPB SCH ×3 (04:58→21:13)
[2017-06-14] MEDS: Fluticasone-Salmeterol 250-50mcg Diskus INH SCH ×2 (07:56→19:27)
[2017-06-14] MEDS: Tiotropium 18 mcg Cap For Inhalation INH SCH (07:56)
[2017-06-14] MEDS: Pantoprazole 40 mg EC Tab PO SCH (10:58)
[2017-06-14] MEDS: Oxycodone/Acetaminophen 5/325 mg Tab PO PRN (22:14)
[2017-06-15 00:46] VITALS: O2SAT 96
[2017-06-15] MEDS ORDERED: Albuterol-Ipratrop 3 mg / 0.5 (3 ml) UD INH SCH (02:00)
[2017-06-15] MEDS: Piperacill/Tazo 3.375gm in Dex 3.375 GM/50 ML BAG IVPB SCH (05:15)
[2017-06-15] MEDS: Tiotropium 18 mcg Cap For Inhalation INH SCH (08:14)
[2017-06-15] MEDS: Fluticasone-Salmeterol 250-50mcg Diskus INH SCH (08:14)
[2017-06-15 09:29] VITALS: BP 111/70; PULSE 75; RESP 21; TEMP 97.7
[2017-06-15] MEDS: Pantoprazole 40 mg EC Tab PO SCH (10:39)
[2017-06-15] MEDS: HYDROmorphone 1 mg/ml ISec IVP PRN (10:46)
--- NOTE | 2017-06-15 14:10 | CP.PCM.PN ---
Subjective - Date & Time of Evaluation Date of Evaluation: 06/15/17 Time of Evaluation: 11:00 - Subjective Subjective: Alert, awake, no sob or chest pains now, NAD. Objective - Vital Signs/Intake and Output Vital Signs (last 24 hours): Temp Pulse Resp BP Pulse Ox 97.7 F 75 21 111/70 96 06/15/17 09:28 06/15/17 09:28 06/15/17 09:28 06/15/17 09:28 06/15/17 09:28 Intake and Output: 06/15/17 06/15/17 06:59 18:59 Intake Total 200 300 Balance 200 300 - Labs Labs: 06/11/17 06:17 06/11/17 06:17 Assessment and Plan - Assessment and Plan (Free Text) Assessment: Patient is seen and examined. Alert, orientedx3, ambulating with walker, sats 96 %. Says feeling much better today. Denies sob or chest pains. Refusing to go to rehab, discussed with DR Santos, plan to discharge home today with family. Advised to follow up in the office in 1 week. Prescriptions given for medrol dose pack and percocet for home.
--- NOTE | 2017-06-21 15:26 | DS ---
REASON FOR ADMISSION: This is a 66-year-old female with history of multiple medical problems, who was admitted for both persistent back pain and exacerbation of COPD. COURSE OF HOSPITALIZATION: The patient was admitted to medical floor and she was continued on her bronchodilators, steroid as well as IV antibiotics. The patient's symptoms gradually improved and the patient had an orthopedic consult done by Dr. Manzo during this admission. The patient was discharged back home to continue tapering dose of steroid as well as antibiotics. The patient wanted to still think and considered subacute rehabilitation if she feels she is not able to have deconditioning at home. FINAL DIAGNOSES: 1. Exacerbation of COPD. 2. Lower back pain. 3. Status post left shoulder dislocation and tendinopathy. 4. History of chronic obstructive pulmonary disease, on home oxygen. Sirena MD Tom
== END 2017-06-15 13:45 | disposition home or self-care (01) | DRG 190 ==
LOC: C.ER 13:48 → C.9E 14:50 → C.3T 19:05
PROVIDERS: ADMIT Internal Medicine; ATTEND Internal Medicine
DX: J44.0 Chronic obstructive pulmonary disease with (acute) lower respiratory infection (principal); J18.9 Pneumonia, unspecified organism; G31.89 Other specified degenerative diseases of nervous system; Z99.81 Dependence on supplemental oxygen; F32.9 Major depressive disorder, single episode, unspecified; D64.9 Anemia, unspecified; E78.00 Pure hypercholesterolemia, unspecified; M06.9 Rheumatoid arthritis, unspecified; M25.512 Pain in left shoulder; Z87.891 Personal history of nicotine dependence; M25.552 Pain in left hip; G89.29 Other chronic pain; M54.9 Dorsalgia, unspecified

== ENCOUNTER 2017-10-20 11:29 | Inpatient (IN) | payer MEDICARE, OTHER ==
[2017-10-20 11:29] VITALS: BMI 26.2
[2017-10-20] MEDS ORDERED: Sodium Chloride 0.9% 500 ML IV ONE ×2 (12:23→12:28)
[2017-10-20 12:44] LABS: BASO # 0.1 K/uL (0.0-0.2); BASO % 0.6 % (0.0-2.0); EOS # 0.3 K/uL (0.0-0.7); EOS % 2.5 % (0.0-4.0); LYMPH # 2.1 K/uL (1.0-4.3); LYMPH % 15.4 % (20.0-40.0); MEAN CORPUSCULAR HEMOGLOBIN 28.5 pg (27.0-31.0); MEAN CORPUSCULAR HGB CONC 33.1 g/dL (33.0-37.0); MEAN PLATELET VOLUME 9.8 fL (7.2-11.7); MONO # 0.6 K/uL (0.0-0.8); MONO % 4.7 % (0.0-10.0); NEUT # 10.5 K/uL (1.8-7.0); NEUT % 76.8 % (50.0-75.0); NRBC % 0.1 % (0.0-2.0); RED CELL DISTRIBUTION WIDTH 13.3 % (11.5-14.5); WHITE BLOOD COUNT 13.6 K/uL (4.8-10.8)
[2017-10-20 12:48] LABS: HEMOGLOBIN 14.3 g/dL (11.0-16.0)
[2017-10-20 13:07] LABS: ALB/GLOB RATIO 1.2 (1.0-2.1); ALBUMIN 4.2 g/dL (3.5-5.0); CALCIUM 9.6 mg/dl (8.6-10.4); GFR AFRICAN-AMERICAN > 60; GFR NON-AFRICAN AMERICAN > 60; LIPASE 39 U/L (23-300)
[2017-10-20 13:09] LABS: ALT/SGPT 16 U/L (9-52); AST/SGOT 44 U/L (14-36); BLOOD UREA NITROGEN 8 mg/dL (7-17)
--- NOTE | 2017-10-20 13:19 | RAD ---
PROCEDURE: CHEST RADIOGRAPH, 1 VIEW HISTORY: rectal bleeding COMPARISON: 06/08/2017. FINDINGS: LUNGS: Again seen are fibrotic changes in the upper lobes with superior hilar retraction. There are chronic changes in the lower lobes. No focal consolidation. There is pulmonary hyperinflation. PLEURA: No pneumothorax or pleural fluid seen. CARDIOVASCULAR: Normal. OSSEOUS STRUCTURES: No significant abnormalities. VISUALIZED UPPER ABDOMEN: Normal. OTHER FINDINGS: None. IMPRESSION: No significant interval change. COPD with fibrotic changes in the upper lobes.
--- NOTE | 2017-10-20 13:20 | C.PDOC ---
History Of Present Illness 67-year-old female presents to the emergency department with complaints of diffuse abdominal pain and diarrhea with bright red blood since yesterday. She is also complaining of mild associated nausea. Patient states she was once previously diagnosed with colitis. She denies fever, vomiting, chest pain, shortness of breath, dysuria/hematuria. Time Seen by Provider: 10/20/17 11:45 Chief Complaint (Nursing): Abdominal Pain History Per: Patient History/Exam Limitations: no limitations Onset/Duration Of Symptoms: Days (1) Current Symptoms Are (Timing): Still Present Severity: Moderate Quality Of Discomfort: "Pain" Associated Symptoms: Nausea, Diarrhea Abnormal Vaginal Bleeding: No Past Medical History Reviewed: Historical Data, Nursing Documentation, Vital Signs Vital Signs: Last Vital Signs Temp 99.2 F 10/21/17 15:53 Pulse 84 10/21/17 15:53 Resp 20 10/21/17 15:53 BP 100/62 10/21/17 15:53 Pulse Ox 95 10/21/17 15:53 - Medical History PMH: Anemia, Arthritis (back), Asthma, COPD, Depression, Gastritis, HTN, Hypercholesterolemia, Rheumatoid Arthritis - [facility] Procedures ASSISTANCE WITH RESPIRATORY VENTILATION, 24-96 HRS, CPAP (09/22/16) ASSISTANCE WITH RESPIRATORY VENTILATION, <24 HRS, CPAP (05/19/15) ASSISTANCE WITH RESPIRATORY VENTILATION, >96 HRS, CPAP (05/12/16) EXCISION OF DESCENDING COLON, ENDO (09/30/15) EXCISION OF STOMACH, ENDO, DIAGN (09/30/15) INSERTION OF MONITOR DEV INTO PULM TRUNK, PERC APPROACH (04/04/16) MEASURE OF CARDIAC SAMPL & PRESSURE, L HEART, PERC APPROACH (04/04/16) NON-INVASIVE MECHANICAL VENTILATION (10/25/14) PLAIN RADIOGRAPHY OF LEFT HEART USING OTHER CONTRAST (04/04/16) PLAIN RADIOGRAPHY OF MULT COR ART USING OTH CONTRAST (04/04/16) REPOSITION LEFT SHOULDER JOINT, EXTERNAL APPROACH (12/22/16) Family History: States: No Known Family Hx - Social History Hx Tobacco Use: No Hx Alcohol Use: No Hx Substance Use: No - Immunization History Hx Tetanus Toxoid Vaccination: No Hx Influenza Vaccination: Yes Hx Pneumococcal Vaccination: Yes Review Of Systems Except As Marked, All Systems Reviewed And Found Negative. Constitutional: Negative for: Fever, Chills Cardiovascular: Negative for: Chest Pain, Palpitations Respiratory: Negative for: Cough, Shortness of Breath Gastrointestinal: Positive for: Nausea, Abdominal Pain, Diarrhea, Hematochezia. Negative for: Vomiting Genitourinary: Negative for: Dysuria, Hematuria Musculoskeletal: Negative for: Back Pain Neurological: Negative for: Weakness, Numbness, Dizziness Physical Exam - Physical Exam Appears: Well, Non-toxic, Other (in moderate distress ) Skin: Normal Color, Warm, Dry, No Rash Head: Normacephalic Eye(s): bilateral: Normal Inspection Oral Mucosa: Moist Neck: Normal Cardiovascular: Rhythm Regular Respiratory: Normal Breath Sounds, No Rales, No Rhonchi, No Wheezing Gastrointestinal/Abdominal: Bowel Sounds, Soft, Tenderness (Mild, diffuse TTP. ( -)McBurney's, (-)Cardona's.), No Guarding, No Rebound Rectal: Rectal Tone (Normal), No Hemorrhoids, No Mass, No Tenderness, Other ( Blood tinged stool) Back: No CVA Tenderness Extremity: Normal ROM, No Deformity, No Swelling Neurological/Psych: Oriented x3 ED Course And Treatment - Laboratory Results Result Diagrams: 10/20/17 12:35 10/20/17 12:35 O2 Sat by Pulse Oximetry: 95 (RA) Pulse Ox Interpretation: Normal - CT Scan/US ct abd/pelvis Other Rad Studies (CT/US): Read By Radiologist, Radiology Report Reviewed CT/US Interpretation: Accession No. : [id number]. Patient Name / ID : HILARIO MOREL / [id number]. Exam Date : 10/20/2017 15:22:11 ( Approved ). Study Comment : Sex / Age : F / 67Y. Creator : Ynes Fu. Dictator : Meeta Espinal MD. Cafe Assistant : Pot Runner : Meeta Espinal MD. Approver2 : Report Date : 10/20/2017 15:47:06. My Comment : . PROCEDURE: CT Abdomen and Pelvis with contrast. HISTORY: ABD PAIN, BLOODY DIARRHEA, R/ O COLITIS. COMPARISON: 09/28/2015. TECHNIQUE: CT scan of the abdomen and pelvis was performed after administration of intravenous contrast. Oral contrast was not administered. Coronal and sagittal reformatted images were obtained. Contrast dose: 100 mL Visipaque 320. Radiation dose: Total exam DLP = 460.85 mGy-cm. This CT exam was performed using one or more of the following dose reduction techniques: Automated exposure control, adjustment of the mA and/or kV according to patient size, and/or use of iterative reconstruction technique. FINDINGS: LOWER THORAX: There is a 5 mm nodule in the lateral right lower lobe and 9 mm subpleural nodule in the left lung base. There is centrilobular emphysema in the visualized lungs. LIVER: The liver is stable in appearance with diffuse fatty infiltration. There are stable simple cysts in the anterior right hepatic lobe. A stable 3.0 cm enhancing lesion in the subcapsular right hepatic lobe likely represents a hemangioma. GALLBLADDER AND BILE DUCTS: There are no calcified gallstones. PANCREAS: Normal in size with homogeneous enhancement. No gross lesion or ductal dilatation. SPLEEN: Normal in size and appearance. ADRENALS: No discrete nodule. KIDNEYS AND URETERS: Both kidneys are normal in size and there is homogeneous enhancement without hydronephrosis or mass. VASCULATURE: There is at least a of the infrarenal aorta with mural thrombus along the lateral wall. . No aortic aneurysm. BOWEL: The small bowel loops are normal in caliber. There is segmental moderate circumferential mural thickening of the transverse colon and splenic flexure of the colon with pericolonic inflammatory changes. There is colonic diverticulosis without CT evidence for acute diverticulitis. No bowel dilatation or obstruction. APPENDIX: Normal appendix. PERITONEUM: No free fluid. No free air. LYMPH NODES: No enlarged lymph nodes. BLADDER: Grossly normal in appearance. REPRODUCTIVE: The uterus is normal in size. BONES: Diffuse bone demineralization. There is an age indeterminate but likely chronic inferior endplate osteoporotic compression fracture deformity in the T9 vertebral body. OTHER FINDINGS: None. IMPRESSION: 1. Findings are most compatible with acute segmental nonspecific infectious/inflammatory colitis involving the transverse colon and splenic flexure of colon. 2. Colonic diverticulosis without CT evidence for acute diverticulitis. 3. Stable findings in the liver as described above. 4. 5 mm nodule in the right lower lobe and 8 mm subpleural nodule in the left lung base. A dedicated CT scan of the thorax without intravenous contrast on a non emergent basis is recommended for complete evaluation of the lungs. Progress Note: Blood work, CT Abd/Pel, EKG, and Chest X-Ray ordered and reviewed. Patient given IV NS bolus, IV Protonix, IV Morphine. CT scan shows colitis - IV Zosyn given (patient has quinolone allergy). - Physician Consult Information Physician Contacted: Luis Santos Outcome Of Conversation: Discussed patient with PMD, agrees with admission to his service. Disposition - Disposition Disposition: HOSPITALIZED Disposition Time: 17:57 Condition: STABLE - Clinical Impression Clinical Impression: Bloody diarrhea, Colitis - Scribe Statement The provider has reviewed the documentation as recorded by the Scribe (José Elizabeth) All medical record entries made by the Scribe were at my direction and personally dictated by me. I have reviewed the chart and agree that the record accurately reflects my personal performance of the history, physical exam, medical decision making, and the department course for this patient. I have also personally directed, reviewed, and agree with the discharge instructions and disposition. Decision To Admit - Pt Status Changed To: Hospital Disposition Of: Inpatient - Admit Certification Admit to Inpatient:: After my assessment, the patient will require hospitalization for at least two midnights. This is because of the severity of symptoms shown, intensity of services needed, and/or the medical risk in this patient being treated as an outpatient. - InPatient: Physician Admission Certification:: see notes - . Bed Request Type: Regular Admitting Physician: Luis Santos Patient Diagnosis: Colitis, Bloody diarrhea
[2017-10-20] MEDS ORDERED: Iodixanol 320 MG/ML 100 ML BOTTLE IV ONE (14:48)
--- NOTE | 2017-10-20 16:44 | CT ---
PROCEDURE: CT Abdomen and Pelvis with contrast HISTORY: ABD PAIN, BLOODY DIARRHEA, R/O COLITIS COMPARISON: 09/28/2015. TECHNIQUE: CT scan of the abdomen and pelvis was performed after administration of intravenous contrast. Oral contrast was not administered. Coronal and sagittal reformatted images were obtained. Contrast dose: 100 mL Visipaque 320 Radiation dose: Total exam DLP = 460.85 mGy-cm. This CT exam was performed using one or more of the following dose reduction techniques: Automated exposure control, adjustment of the mA and/or kV according to patient size, and/or use of iterative reconstruction technique. FINDINGS: LOWER THORAX: There is a 5 mm nodule in the lateral right lower lobe and 9 mm subpleural nodule in the left lung base. There is centrilobular emphysema in the visualized lungs. LIVER: The liver is stable in appearance with diffuse fatty infiltration. There are stable simple cysts in the anterior right hepatic lobe. A stable 3.0 cm enhancing lesion in the subcapsular right hepatic lobe likely represents a hemangioma. GALLBLADDER AND BILE DUCTS: There are no calcified gallstones. PANCREAS: Normal in size with homogeneous enhancement. No gross lesion or ductal dilatation. SPLEEN: Normal in size and appearance. ADRENALS: No discrete nodule. KIDNEYS AND URETERS: Both kidneys are normal in size and there is homogeneous enhancement without hydronephrosis or mass. VASCULATURE: There is at least a of the infrarenal aorta with mural thrombus along the lateral wall. . No aortic aneurysm. BOWEL: The small bowel loops are normal in caliber. There is segmental moderate circumferential mural thickening of the transverse colon and splenic flexure of the colon with pericolonic inflammatory changes. There is colonic diverticulosis without CT evidence for acute diverticulitis. No bowel dilatation or obstruction. APPENDIX: Normal appendix. PERITONEUM: No free fluid. No free air. LYMPH NODES: No enlarged lymph nodes. BLADDER: Grossly normal in appearance. REPRODUCTIVE: The uterus is normal in size. BONES: Diffuse bone demineralization. There is an age indeterminate but likely chronic inferior endplate osteoporotic compression fracture deformity in the T9 vertebral body. OTHER FINDINGS: None. IMPRESSION: 1. Findings are most compatible with acute segmental nonspecific infectious/inflammatory colitis involving the transverse colon and splenic flexure of colon. 2. Colonic diverticulosis without CT evidence for acute diverticulitis. 3. Stable findings in the liver as described above. 4. 5 mm nodule in the right lower lobe and 8 mm subpleural nodule in the left lung base. A dedicated CT scan of the thorax without intravenous contrast on a non emergent basis is recommended for complete evaluation of the lungs.
[2017-10-20] MEDS ORDERED: Piperacillin/Tazobact 3.375 gm 100 ML IV STA (17:27)
[2017-10-20] MEDS ORDERED: Morphine 4 MG/ML VIAL ONE (18:10)
[2017-10-20 19:49] VITALS: RESP 20
[2017-10-20] MEDS ORDERED: Bisacodyl 5mg EC Tab PO PRN (19:57)
[2017-10-20] MEDS: Albuterol-Ipratrop 3 mg / 0.5 (3 ml) UD IH PRN (20:29)
[2017-10-20] MEDS: metroNIDAZOLE IV 500 mg/100 ml 500 MG/100 ML BAG IVPB SCH (22:13)
[2017-10-21] MEDS: Piperacill/Tazo 2.25gm in Dex 2.25 GM/50 ML BAG IVPB SCH ×3 (02:10→17:45)
[2017-10-21] MEDS: metroNIDAZOLE IV 500 mg/100 ml 500 MG/100 ML BAG IVPB SCH ×3 (05:15→21:04)
[2017-10-21] MEDS: Albuterol-Ipratrop 3 mg / 0.5 (3 ml) UD IH PRN ×3 (07:11→20:19)
[2017-10-21] MEDS: Tiotropium 18 mcg Cap For Inhalation IH SCH (07:12)
[2017-10-21] MEDS: Lactobacillus Acidophilus 500 MU Cap PO SCH ×2 (09:54→17:45)
[2017-10-21] MEDS: Omega-3-Acid Ethyl Esters 1 GM Cap PO SCH (09:54)
[2017-10-22] MEDS: Piperacill/Tazo 2.25gm in Dex 2.25 GM/50 ML BAG IVPB SCH ×3 (01:13→17:42)
[2017-10-22] MEDS: metroNIDAZOLE IV 500 mg/100 ml 500 MG/100 ML BAG IVPB SCH ×3 (05:26→21:41)
[2017-10-22 07:35] LABS: BLOOD UREA NITROGEN 5 mg/dL (7-17); CALCIUM 8.6 mg/dl (8.6-10.4); GFR AFRICAN-AMERICAN > 60; GFR NON-AFRICAN AMERICAN > 60
[2017-10-22 07:40] LABS: BASO # 0.1 K/uL (0.0-0.2); BASO % 0.5 % (0.0-2.0); EOS # 0.5 K/uL (0.0-0.7); EOS % 4.6 % (0.0-4.0); HEMOGLOBIN 12.8 g/dL (11.0-16.0); LYMPH # 2.2 K/uL (1.0-4.3); LYMPH % 22.3 % (20.0-40.0); MEAN CELL VOLUME 85.9 fL (81.0-99.0); MEAN CORPUSCULAR HEMOGLOBIN 28.6 pg (27.0-31.0); MEAN CORPUSCULAR HGB CONC 33.3 g/dL (33.0-37.0); MEAN PLATELET VOLUME 9.3 fL (7.2-11.7); MONO # 0.9 K/uL (0.0-0.8); MONO % 8.8 % (0.0-10.0); NEUT # 6.3 K/uL (1.8-7.0); NEUT % 63.8 % (50.0-75.0); RBC 4.47 Mil/uL (3.80-5.20); RED CELL DISTRIBUTION WIDTH 13.3 % (11.5-14.5); WHITE BLOOD COUNT 9.9 K/uL (4.8-10.8)
[2017-10-22] MEDS: Tiotropium 18 mcg Cap For Inhalation IH SCH (07:43)
[2017-10-22] MEDS: Albuterol-Ipratrop 3 mg / 0.5 (3 ml) UD IH PRN ×3 (07:43→19:42)
[2017-10-22] MEDS: Lactobacillus Acidophilus 500 MU Cap PO SCH ×2 (09:54→17:41)
[2017-10-22] MEDS: Omega-3-Acid Ethyl Esters 1 GM Cap PO SCH (09:54)
--- NOTE | 2017-10-22 15:38 | PN ---
DATE: SUBJECTIVE: The patient was seen on 10/21/2017. She was not in any cardiopulmonary distress and diarrhea has improved. PHYSICAL EXAMINATION: VITAL SIGNS: Blood pressure was 132/68, temperature 98.4, respiratory rate 20, and pulse 78. HEENT: Pupils equal and reactive to light. Normal-appearing mucosa of the conjunctivae, oropharynx, and nasal membrane mucosa. NECK: Supple. No JVD. No carotid bruit. No lymph node. No thyromegaly. CHEST AND LUNGS: Bilateral symmetrical expansion. Good air exchange. No rales or rhonchi. CARDIOVASCULAR SYSTEM: PMI not localized. S1, S2. No additional sounds. ABDOMEN: Normoactive bowel sounds. No tenderness. No organomegaly. No masses. EXTREMITIES: No cyanosis, no clubbing, no edema. PROJECT CONTROL MANAGER: Alert, awake, and oriented x2. No neurological deficit could be appreciated. ASSESSMENT: 1. Colitis. 2. Chronic obstructive pulmonary disease. 3. Hypertension. 4. Hypercholesterolemia. PLAN: Continue current antibiotics and monitor electrolytes and blood work and advance diet as tolerated. Luis Santos MD
--- NOTE | 2017-10-22 15:51 | PN ---
DATE: SUBJECTIVE: The patient is seen today, 10/22/2017. She has less abdominal pain and less diarrhea. PHYSICAL EXAMINATION: VITAL SIGNS: Blood pressure 107/62, temperature 98.5, respiratory rate 20, and pulse is 76. HEENT: Pupils equal, and reactive to light. Normal-appearing mucosa of the conjunctivae, oropharynx, and nasal membrane mucosa. NECK: Supple. No JVD. No carotid bruits, no lymph nodes. No thyromegaly. CHEST/LUNGS: Bilateral symmetrical expansion. Good air exchange. No rales, no rhonchi. CARDIOVASCULAR SYSTEM: PMI not localized. S1, S2. No additional sounds. ABDOMEN: Normoactive bowel sounds. No tenderness. No organomegaly. No masses. EXTREMITIES: No cyanosis, no clubbing, no edema. CASH GRAIN FARMER: Alert, awake, and oriented x3. No neurological deficit could be appreciated. ASSESSMENT: 1. Colitis. 2. Hypertension. 3. Chronic obstructive pulmonary disease. 4. Hypercholesterolemia. PLAN: Continue current IV antibiotics. We will advance diet to soft mechanical as tolerated and continue monitoring electrolytes. Luis Santos MD
--- NOTE | 2017-10-22 21:32 | HP ---
The patient was seen in the emergency room on the day of admission, 10/20/2017. She is a 67-year-old female who is known to me, presented to emergency room with 3-day history of abdominal pain and bloody diarrhea. The patient was evaluated in the emergency room and she had a CAT scan done of the abdomen and pelvis that showed acute segmental nonspecific colitis involving the transverse colon and the splenic flexure of the colon. There is chronic diverticulosis without diverticulitis. The patient was started on both Zosyn and Flagyl and admitted for further management. Other review of system is negative. ALLERGIES: POSITIVE FOR CIPROFLOXACIN AND MOXIFLOXACIN. PAST MEDICAL HISTORY: COPD, hypercholesterolemia, hypertension, osteoarthritis. SOCIAL HISTORY: No history of smoking, EtOH, or substance abuse. FAMILY HISTORY: Noncontributory. PHYSICAL EXAMINATION: VITAL SIGNS: Blood pressure 132/65, temperature 98, respiratory rate 14, and pulse 86. HEENT: Pupils equal, reactive to light. Normal-appearing mucosa of the conjunctivae, oropharynx, and nasal membrane mucosa. NECK: Supple. No JVD. No carotid bruit. No lymph node. No thyromegaly. CHEST/LUNGS: Bilateral symmetrical expansion. Good air exchange. No rales, no rhonchi. CARDIOVASCULAR: PMI not localized. S1, S2. No additional sounds. ABDOMEN: Normoactive bowel sounds. Slight tenderness on both the right upper and lower quadrants as well as left upper quadrant. No rebound tenderness. No rigidity. No organomegaly. No masses. EXTREMITIES: No cyanosis, no clubbing, no edema. SET AND EXHIBIT DESIGNER: Alert, awake, oriented x2. No neurological deficit could be appreciated. ASSESSMENT: 1. Colitis, inflammatory versus infectious. 2. History of chronic obstructive pulmonary disease, on home oxygen. 3. Hypertension. 4. Hypercholesterolemia. PLAN: We will continue the Zosyn as well as Flagyl and probiotic. The patient will need a colonoscopy as an outpatient after resolving the acute colitis. Luis Santos MD
[2017-10-23] MEDS: Piperacill/Tazo 2.25gm in Dex 2.25 GM/50 ML BAG IVPB SCH ×2 (01:26→09:29)
[2017-10-23] MEDS: metroNIDAZOLE IV 500 mg/100 ml 500 MG/100 ML BAG IVPB SCH ×2 (05:36→13:40)
--- NOTE | 2017-10-23 07:27 | CARD ---
APPROVED REPORT EKG Measurement Heart [id number] <Conclusion> Normal sinus rhythm Normal ECG
[2017-10-23 07:36] VITALS: PULSE 85; TEMP 98.3; O2SAT 98
[2017-10-23] MEDS: Albuterol-Ipratrop 3 mg / 0.5 (3 ml) UD IH PRN ×2 (07:59→13:01)
[2017-10-23] MEDS: Tiotropium 18 mcg Cap For Inhalation IH SCH (07:59)
[2017-10-23 09:21] VITALS: BP 121/77
[2017-10-23] MEDS: Omega-3-Acid Ethyl Esters 1 GM Cap PO SCH (09:28)
[2017-10-23] MEDS: Lactobacillus Acidophilus 500 MU Cap PO SCH (09:29)
[2017-10-23 11:25] LABS: BASO # 0.1 K/uL (0.0-0.2); EOS # 0.4 K/uL (0.0-0.7); EOS % 5.1 % (0.0-4.0); HEMOGLOBIN 12.6 g/dL (11.0-16.0); LYMPH # 1.6 K/uL (1.0-4.3); LYMPH % 17.9 % (20.0-40.0); MEAN CELL VOLUME 86.3 fL (81.0-99.0); MEAN CORPUSCULAR HEMOGLOBIN 28.4 pg (27.0-31.0); MEAN CORPUSCULAR HGB CONC 32.9 g/dL (33.0-37.0); MEAN PLATELET VOLUME 9.3 fL (7.2-11.7); MONO # 0.6 K/uL (0.0-0.8); MONO % 6.6 % (0.0-10.0); NEUT % 69.4 % (50.0-75.0); RBC 4.43 Mil/uL (3.80-5.20); RED CELL DISTRIBUTION WIDTH 13.5 % (11.5-14.5); WHITE BLOOD COUNT 8.7 K/uL (4.8-10.8)
[2017-10-23 11:40] LABS: ALB/GLOB RATIO 1.1 (1.0-2.1); ALBUMIN 3.5 g/dL (3.5-5.0); ALT/SGPT 15 U/L (9-52); AST/SGOT 16 U/L (14-36); BLOOD UREA NITROGEN 4 mg/dL (7-17); CALCIUM 8.7 mg/dl (8.6-10.4); GFR AFRICAN-AMERICAN > 60; GFR NON-AFRICAN AMERICAN > 60
--- NOTE | 2017-10-23 14:08 | CP.PCM.PN ---
Subjective - Date & Time of Evaluation Date of Evaluation: 10/23/17 Time of Evaluation: 14:07 - Subjective Subjective: PT SEEN WITH Hema KEE AT BEDSIDE; EVALUATED BY DR. KEE. CLEARED FOR D/C HOME TODAY. PT IN AGREEMENT SHE IS REQUESTING D/C. RX GIVEN PER DR. KEE' REQUEST. PT VERBALIZES UNDERSTANDING OF F/U, NEW RX, AND DIET MODIFICATIONS. SEE BELOW FOR D/C PLAN. NO FURTHER ORDERS. -FOLLOW UP WITH DR. KEE IN THE OFFICE IN 7 DAYS--CALL FOR APPT TIME. -CONTINUE YOUR HOME MEDICATIONS USUAL. -NEW PRESCRIPTIONS INCLUDE: 1) AUGMENTIN (ANTIBIOTIC) 875 MG, TAKE 1 PILL, 2 TIMES A DAY FOR 10 DAYS. 2) FLAGYL (ANTIBIOTIC) 500 MG, TAKE 1 PILL, 3 TIMES A DAY FOR 10 DAYS. 3) BACID (VITAMIN FOR STOMACH PROTECT) TAKE 1 PILL, 2 TIMES A DAY FOR 10 DAYS. Objective - Vital Signs/Intake and Output Vital Signs (last 24 hours): Temp Pulse Resp BP Pulse Ox 98.3 F 85 20 121/77 98 10/23/17 07:32 10/23/17 07:32 10/23/17 07:32 10/23/17 08:45 10/23/17 07:32 Intake and Output: 10/23/17 10/23/17 06:59 18:59 Intake Total 450 440 Balance 450 440 - Medications Medications: Current Medications Acetaminophen (Tylenol 325mg Tab) 650 mg PO Q6 PRN PRN Reason: Pain, moderate (4-7) Last Admin: 10/23/17 08:49 Dose: 650 mg Albuterol/Ipratropium (Duoneb 3 Mg/0.5 Mg (3 Ml) Ud) 3 ml IH Q6 PRN PRN Reason: Shortness of Breath Last Admin: 10/23/17 13:01 Dose: 3 ml Bisacodyl (Dulcolax) 5 mg PO ONCE PRN PRN Reason: Constipation Gabapentin (Neurontin) 100 mg PO DAILY [facility] Last Admin: 10/23/17 09:28 Dose: 100 mg Piperacillin Sod/Tazobactam Sod (Zosyn 2.25 Gm Iv Premix) 2.25 gm in 50 mls @ 100 mls/hr IVPB Q8H MICHAEL PRN Reason: Protocol Last Admin: 10/23/17 09:29 Dose: 100 mls/hr Metronidazole (Flagyl) 500 mg in 100 mls @ 100 mls/hr IVPB Q8 MICHAEL PRN Reason: Protocol Last Admin: 10/23/17 13:40 Dose: 100 mls/hr Lactobacillus Acidophilus (Bacid Acidophilus) 1 cap PO BID [facility] Last Admin: 10/23/17 09:29 Dose: 1 cap Montelukast Sodium (Singulair) 10 mg PO HS [facility] Last Admin: 10/22/17 21:39 Dose: 10 mg Oreoa-0-Tndb Ethyl Esters (Lovaza) 1 gm PO DAILY [facility] Last Admin: 10/23/17 09:28 Dose: 1 gm Rosuvastatin Calcium (Crestor) 5 mg PO HS [facility] Last Admin: 10/22/17 21:40 Dose: 5 mg Sertraline HCl (Zoloft) 25 mg PO DAILY [facility] Last Admin: 10/23/17 09:29 Dose: 25 mg Tiotropium [place] (Spiriva) 18 mcg IH RQD [facility] Last Admin: 10/23/17 07:59 Dose: 18 mcg - Labs Labs: 10/23/17 11:19 10/23/17 11:19 PT 11.0 SECONDS (9.7-12.2) 10/20/17 12:35 INR 1.0 10/20/17 12:35 APTT 36 SECONDS (21-34) H 10/20/17 12:35
--- NOTE | 2017-10-24 11:53 | DS ---
REASON FOR ADMISSION: This is a 67-year-old female, who is known to me, was admitted for colitis. COURSE OF HOSPITALIZATION: The patient was admitted to medical floor. She was started on both Zosyn and Flagyl. Stool workup was done and showed only positive for occult blood. Her white blood cell count went down from 13.6 to 8.7 and after hydration, hemoglobin from 14.3 to 12.6. The patient was also continued on oxygen and she went home on oxygen therapy. The patient did well and diet was advanced from liquid diet to regular, which the patient tolerated very well. The patient would like to go home to spend Easter weekend at home. We will discharge the patient to home on both Augmentin as well as Flagyl and probiotics. The patient will follow up with Dr. Kent who makes home visit. FINAL DIAGNOSES: Segmental colitis, history of chronic obstructive pulmonary disease with home oxygen, radiculopathy/neuropathy, vitamin D deficiency, hypercholesterolemia. Luis Santos MD
== END 2017-10-23 16:45 | disposition home or self-care (01) | DRG 387 ==
LOC: C.ER 11:29 → C.9E 17:57 → C.3T 17:57
PROVIDERS: ADMIT Internal Medicine; ATTEND Internal Medicine
DX: K50.10 Crohn's disease of large intestine without complications (principal); E55.9 Vitamin D deficiency, unspecified; G62.9 Polyneuropathy, unspecified; I10 Essential (primary) hypertension; J44.9 Chronic obstructive pulmonary disease, unspecified; M06.9 Rheumatoid arthritis, unspecified; M54.10 Radiculopathy, site unspecified; E78.00 Pure hypercholesterolemia, unspecified; Z99.81 Dependence on supplemental oxygen; Z88.1 Allergy status to other antibiotic agents; J45.909 Unspecified asthma, uncomplicated

== ENCOUNTER 2018-12-10 12:43 | Inpatient (IN) | payer MEDICARE, OTHER ==
[2018-12-10 12:44] VITALS: BMI 26.2
[2018-12-10] MEDS ORDERED: Albuterol-Ipratrop 3 mg / 0.5 (3 ml) UD ONE ×2 (12:50→14:05)
--- NOTE | 2018-12-10 13:02 | C.PDOC ---
History Of Present Illness 68 year old female with PMHx of asthma presents to the ED complaining of shortness of breath. Patient came in with home O2. Reports she has not been feeling well for one week. Also complains of chest discomfort. Denies any chills, fever, nausea, or vomiting. Time Seen by Provider: 12/10/18 13:02 Chief Complaint (Nursing): Shortness Of Breath History Per: Patient History/Exam Limitations: no limitations Onset/Duration Of Symptoms: Days Current Symptoms Are (Timing): Still Present Current Respiratory Medications: See Home Med List Associated Symptoms: Other (chest discomfort ). denies: Fever, Chills Past Medical History Reviewed: Historical Data, Nursing Documentation, Vital Signs Vital Signs: Last Vital Signs Temp 98.3 F 12/10/18 12:49 Pulse 66 12/10/18 12:49 Resp 20 12/10/18 12:49 BP 110/44 L 12/10/18 12:49 Pulse Ox 89 L 12/10/18 12:49 Primary Care Provider: Braeden Kent - Medical History PMH: Anemia, Arthritis (back), Asthma, COPD, Depression, Gastritis, HTN, Hypercholesterolemia, Rheumatoid Arthritis Denies: Chronic Kidney Disease Other Surgeries: Hx of surgeries - [facility] Procedures ASSISTANCE WITH RESPIRATORY VENTILATION, 24-96 HRS, CPAP (09/22/16) ASSISTANCE WITH RESPIRATORY VENTILATION, <24 HRS, CPAP (05/19/15) ASSISTANCE WITH RESPIRATORY VENTILATION, >96 HRS, CPAP (05/12/16) EXCISION OF DESCENDING COLON, ENDO (09/30/15) EXCISION OF STOMACH, ENDO, DIAGN (09/30/15) INSERTION OF MONITOR DEV INTO PULM TRUNK, PERC APPROACH (04/04/16) MEASURE OF CARDIAC SAMPL & PRESSURE, L HEART, PERC APPROACH (04/04/16) NON-INVASIVE MECHANICAL VENTILATION (10/25/14) PLAIN RADIOGRAPHY OF LEFT HEART USING OTHER CONTRAST (04/04/16) PLAIN RADIOGRAPHY OF MULT COR ART USING OTH CONTRAST (04/04/16) REPOSITION LEFT SHOULDER JOINT, EXTERNAL APPROACH (12/22/16) Family History: States: No Known Family Hx - Social History Hx Tobacco Use: No Hx Alcohol Use: No Hx Substance Use: No - Immunization History Hx Tetanus Toxoid Vaccination: No Hx Influenza Vaccination: Yes Hx Pneumococcal Vaccination: Yes Review Of Systems Constitutional: Negative for: Fever, Chills Cardiovascular: Positive for: Other (chest discomfort) Respiratory: Positive for: Shortness of Breath Gastrointestinal: Negative for: Nausea, Vomiting Physical Exam - Physical Exam Appears: Non-toxic, No Acute Distress Skin: Warm, Dry Head: Normacephalic Eye(s): bilateral: PERRL Oral Mucosa: Moist Neck: Supple Chest: Symmetrical Cardiovascular: Rhythm Regular Respiratory: Decreased Breath Sounds, No Rales, No Rhonchi, Wheezing (scattered wheezing) Gastrointestinal/Abdominal: Soft, No Tenderness Neurological/Psych: Oriented x3, Normal Speech Gait: Steady ED Course And Treatment O2 Sat by Pulse Oximetry: 89 (RA) Pulse Ox Interpretation: Abnormal - Radiology CXR: Interpreted by Me, Viewed By Me CXR Interpretation: Yes: COPD, Other (unchanged from 10/20/17). No: Infiltrates, Fracture, Cardiomegaly Progress Note: Blood collected and sent to the lab for analysis. Patient treated with Medrol, Aspirin, and given Neb treatment. CXR ordered. Critical Care Time - Critical Care Note Total Time (in mins): 30 Documented critical care: time excludes all time spent performing seperately billable procedures. Disposition Counseled Patient/Family Regarding: Studies Performed, Diagnosis - Disposition Disposition Time: 13:02 Condition: FAIR Forms: [employer] (Monegasque) - Clinical Impression Clinical Impression: COPD exacerbation - Scribe Statement The provider has reviewed the documentation as recorded by the Scribe Seema Brewster All medical record entries made by the Scribe were at my direction and personally dictated by me. I have reviewed the chart and agree that the record accurately reflects my personal performance of the history, physical exam, medical decision making, and the department course for this patient. I have also personally directed, reviewed, and agree with the discharge instructions and disposition. Physician Patient Turnover Patient Signed Over To: Helene Mac Handoff Comments: pemdomg re-eval and disposition
[2018-12-10] MEDS ORDERED: Aspirin 325 mg EC Tablets PO STA (13:07)
[2018-12-10] MEDS ORDERED: Albuterol-Ipratrop 3 mg / 0.5 (3 ml) UD IH SCH (13:15)
[2018-12-10] MEDS ORDERED: Aspirin 325 mg EC Tablets PO ONE (13:56)
[2018-12-10 13:57] LABS: ABG ALLEN TEST POS; ARTERIAL BLOOD GAS O2 SAT 81.7 % (95-98); ARTERIAL BLOOD GAS PCO2 70 mm/Hg (35-45); ARTERIAL BLOOD GAS PH 7.35 (7.35-7.45); ARTERIAL BLOOD GAS PO2 38 mm/Hg (80-100); ARTERIAL BLOOD GAS TCO2 40.7 mmol/L (22-28)
[2018-12-10 13:59] LABS: BASO % 0.5 % (0.0-2.0); EOS % 0.3 % (0.0-4.0); HEMOGLOBIN 13.6 g/dL (11.0-16.0); LYMPH # 1.1 K/uL (1.0-4.3); LYMPH % 12.6 % (20.0-40.0); MEAN CORPUSCULAR HEMOGLOBIN 29.2 pg (27.0-31.0); MEAN CORPUSCULAR HGB CONC 33.6 g/dL (33.0-37.0); MONO # 1.3 K/uL (0.0-0.8); MONO % 15.2 % (0.0-10.0); NEUT # 6.2 K/uL (1.8-7.0); NEUT % 71.4 % (50.0-75.0); RBC 4.66 Mil/uL (3.80-5.20); RED CELL DISTRIBUTION WIDTH 13.3 % (11.5-14.5); WHITE BLOOD COUNT 8.7 K/uL (4.8-10.8)
[2018-12-10 14:36] LABS: ALB/GLOB RATIO 1.1 (1.0-2.1); ALBUMIN 3.7 g/dL (3.5-5.0); ALT/SGPT 20 U/L (9-52); AST/SGOT 24 U/L (14-36); BLOOD UREA NITROGEN 11 mg/dL (7-17); CALCIUM 8.7 mg/dl (8.6-10.4); GFR NON-AFRICAN AMERICAN > 60
--- NOTE | 2018-12-10 14:37 | RAD ---
Date of service: 12/10/2018 PROCEDURE: CHEST RADIOGRAPH, 1 VIEW HISTORY: SOB COMPARISON: 10/20/2017 FINDINGS: LUNGS: The lungs are hyperinflated and there is peribronchial thickening with chronic changes in both lungs. No focal consolidation. Bilateral hilar prominent with mild superior retraction. Again seen are fibrotic changes in the upper lobes. PLEURA: No pneumothorax or pleural effusion. CARDIOVASCULAR: The heart is normal in size. No aortic atherosclerotic calcifications present. OSSEOUS STRUCTURES: Within normal limits for the patient's age. VISUALIZED UPPER ABDOMEN: Normal. OTHER FINDINGS: None. IMPRESSION: No active pulmonary disease. COPD. Stable fibrotic changes in the upper lobes and superior retraction of bilateral vita.
[2018-12-10 16:26] LABS: B-TYPE NATRIURETIC PEPTIDE 1180 pg/mL (0-900)
[2018-12-10] MEDS: Acetylcysteine 20% Inhal Soln (4ml) INH SCH ×2 (17:30→19:17)
[2018-12-10] MEDS: Albuterol-Ipratrop 3 mg / 0.5 (3 ml) UD INH SCH ×2 (17:30→19:17)
[2018-12-10] MEDS: MethylPREDNISolone 40 mg Vial IVP SCH (22:51)
[2018-12-11] MEDS: Albuterol-Ipratrop 3 mg / 0.5 (3 ml) UD INH SCH ×4 (00:56→19:15)
[2018-12-11] MEDS: Acetylcysteine 20% Inhal Soln (4ml) INH SCH ×4 (00:58→19:15)
--- NOTE | 2018-12-11 03:04 | HP ---
HISTORY OF PRESENT ILLNESS: This is a 68-year-old female who is known to me with severe COPD, on home oxygen therapy, presented with symptoms of progressive shortness of breath and wheezing over the past week. The patient tried her regular nebulizer treatment at home and outpatient treatment failed. On the day prior to admission, the patient started to have cough with yellowish sputum. The patient presented to emergency room and she was found to be in severe COPD that failed outpatient management as well as still was quite symptomatic after emergency room treatment. The patient was admitted for further management. Other review of system is negative. ALLERGIES: POSITIVE FOR CIPROFLOXACIN AND MOXIFLOXACIN. PAST MEDICAL HISTORY: COPD, hypertension, neuropathy/radiculopathy, depression, vitamin deficiency, hypercholesterolemia. MEDICATIONS: As per MAR, was reviewed and ordered. SOCIAL HISTORY No history of smoking, EtOH or substance abuse. FAMILY HISTORY: Not contributory. PHYSICAL EXAMINATION: GENERAL: The patient is in bed in mild respiratory distress. VITAL SIGNS: Respiratory rate of 28, pulse 85, blood pressure 101/57, and temperature 99.3. HEENT: Pupils equal, reactive to light. Normal-appearing mucosa of the conjunctivae, oropharynx and nasal membrane mucosa. NECK: Supple. No JVD, no carotid bruit. No lymph node. No thyromegaly. CHEST AND LUNGS: Bilateral symmetrical expansion. Good air exchange. Scattered rhonchi all over lung lundy. Coarse rales that change with cough. CARDIOVASCULAR SYSTEM: PMI not localized. S1, S2. No additional sounds. ABDOMEN: Normoactive bowel sounds. No tenderness, no organomegaly. No masses. EXTREMITIES: No cyanosis, no clubbing, no edema. CENTRAL NERVOUS SYSTEM: Alert, awake, oriented x3. No neurological deficit could be appreciated. ASSESSMENT: 1. Acute exacerbation of chronic obstructive pulmonary disease. 2. Acute bronchitis/clinical pneumonia. 3. History of depression. 4. Radiculopathy/neuropathy. 5. Hypercholesterolemia. PLAN: We will start the patient on bronchodilators and Mucomyst as well as Solu-Medrol. Resume the patient's home medications. We will start the patient also on both Rocephin and azithromycin. Pulmonary consult. Luis Santos MD [facility] # [id number]
[2018-12-11] MEDS: MethylPREDNISolone 40 mg Vial IVP SCH ×3 (05:42→21:52)
[2018-12-11] MEDS: Pantoprazole 40 mg EC Tab PO SCH (10:02)
[2018-12-11] MEDS: Ergocalciferol 50,000 Intl Units Cap PO SCH (10:22)
--- NOTE | 2018-12-11 10:41 | PQF ---
PROVIDER RESPONSE TEXT: Acute on Chronic Respiratory Failure REVIEWER QUERY TEXT: Clarification of Clinical Diagnostic Findings Please clarify documentation or clinical relevance for the clinical / diagnostic findings or whether those are insignificant or unable to be further specified. The patient's Clinical Indicators include: 68 Y O F with a PMHx of COPD, asthma, who presents to the ED struggling with SOB and dyspnea for the past 2 weeks with associated cough.Patient is home O2 dependent and is persis tently hypoxic in ED in the 80's.Patient is sitting comfortably, but is SOB and speaking short senten da ABG pO2 38 / pCO2 70 / pH 7.35 Query created by: Jazmin Proctor on 12/10/2018 4:56 PM Electronically signed by: Luis Santos MD 12/11/2018 10:38 AM
--- NOTE | 2018-12-11 12:03 | CP.PCM.CON ---
History of Present Illness - History of Present Illness History of Present Illness: Reason for consultation: Shortness of breath and cough 68-year-old female with history of COPD with multiple admissions in the past pr esented with worsening shortness of breath for the past 2 weeks associated with cough. Cough is mostly dry but sometimes productive of scanty phlegm. In the emergency room patient was hypoxic with a saturation in the 80s. Patient states that she is feeling better now. Review of Systems - Review of Systems All systems: reviewed and no additional remarkable complaints except (Shortness of breath and cough) Past Patient History - Infectious Disease Hx of Infectious Diseases: None - Past Medical History & Family History Past Medical History?: Yes - Past Social History Smoking Status: Former Smoker - CARDIAC Hx Hypercholesterolemia: Yes Hx Hypertension: Yes - PULMONARY Hx Asthma: Yes Hx Chronic Obstructive Pulmonary Disease (COPD): Yes - NEUROLOGICAL Hx Neurological Disorder: No - HEENT Hx HEENT Problems: Yes Hx Cataracts: Yes Hx Glaucoma: Yes (Sx last Apr 2015) - RENAL Hx Chronic Kidney Disease: No - ENDOCRINE/METABOLIC Hx Endocrine Disorders: No - HEMATOLOGICAL/ONCOLOGICAL Hx Anemia: Yes - INTEGUMENTARY Hx Dermatological Problems: No - MUSCULOSKELETAL/RHEUMATOLOGICAL Hx Arthritis: Yes (back) Hx Falls: No Hx Rheumatoid Arthritis: Yes - GASTROINTESTINAL Hx Gastritis: Yes - GENITOURINARY/GYNECOLOGICAL Hx Genitourinary Disorders: No - PSYCHIATRIC Hx Depression: Yes Hx Substance Use: No - SURGICAL HISTORY Hx Surgeries: Yes Hx Breast Biopsy: Yes Hx Eye Surgery: Yes (glaucoma OU) Hx Musculoskeletal Surgery: Yes (L leg) Other/Comment: left leg surgery - ANESTHESIA Hx Anesthesia: Yes Hx Anesthesia Reactions: No Hx Malignant Hyperthermia: No Meds Allergies/Adverse Reactions: Allergies Allergy/AdvReac Type Severity Reaction Status Date / Time ciprofloxacin [From Cipro] Allergy Verified 12/10/18 12:53 moxifloxacin HCl Allergy Verified 12/10/18 12:53 [From Avelox] - Medications Medications: Current Medications Acetaminophen (Tylenol 325mg Tab) 650 mg PO Q6 PRN PRN Reason: Pain, Mild (1-3) Acetylcysteine (Acetylcysteine 20%) 4 ml INH RQ6 [facility] Last Admin: 12/11/18 07:51 Dose: 4 ml Albuterol/Ipratropium (Duoneb 3 Mg/0.5 Mg (3 Ml) Ud) 3 ml INH RQ6 [facility] Last Admin: 12/11/18 07:51 Dose: 3 ml Aspirin (Aspirin Chewable) 81 mg PO DAILY [facility] Last Admin: 12/11/18 10:01 Dose: 81 mg Duloxetine HCl (Cymbalta) 60 mg PO BID [facility] Enoxaparin Sodium (Lovenox) 40 mg SC DAILY [facility] Ergocalciferol (Drisdol 50,000 Intl Units Cap) 1 cap PO QWK [facility] Last Admin: 12/11/18 10:22 Dose: 1 cap Folic Acid (Folic Acid) 1 mg PO DAILY [facility] Last Admin: 12/11/18 10:02 Dose: 1 mg Gabapentin (Neurontin) 100 mg PO DAILY [facility] Last Admin: 12/11/18 10:01 Dose: 100 mg Azithromycin 500 mg/ Sodium (Chloride) 250 mls @ 250 mls/hr IVPB DAILY [facility] Ceftriaxone Sodium 1 gm/ (Sodium Chloride) 100 mls @ 100 mls/hr IVPB DAILY [facility]; Protocol Last Admin: 12/11/18 10:21 Dose: 100 mls/hr Methylprednisolone (Solu-Medrol) 40 mg IVP Q8 [facility] Last Admin: 12/11/18 05:42 Dose: 40 mg Montelukast Sodium (Singulair) 10 mg PO DAILY [facility] Pantoprazole Sodium (Protonix Ec Tab) 40 mg PO DAILY [facility] Last Admin: 12/11/18 10:02 Dose: 40 mg Rosuvastatin Calcium (Crestor) 5 mg PO HS [facility] Last Admin: 12/10/18 22:50 Dose: 5 mg Sertraline HCl (Zoloft) 25 mg PO DAILY [facility] Last Admin: 12/11/18 10:02 Dose: 25 mg Physical Exam - Head Exam Head Exam: ATRAUMATIC, NORMOCEPHALIC - ENT Exam ENT Exam: Mucous Membranes Moist - Neck Exam Neck exam: Positive for: Normal Inspection - Respiratory Exam Respiratory Exam: Decreased Breath Sounds - Cardiovascular Exam Cardiovascular Exam: REGULAR RHYTHM - GI/Abdominal Exam GI & Abdominal Exam: Normal Bowel Sounds, Soft - Extremities Exam Extremities exam: Positive for: normal inspection - Neurological Exam Neurological exam: Alert, Oriented x3 Results - Vital Signs Recent Vital Signs: Last Vital Signs Temp 97.8 F 12/11/18 07:32 Pulse 65 12/11/18 07:32 Resp 20 12/11/18 07:32 BP 107/57 L 12/11/18 07:32 Pulse Ox 99 12/11/18 07:32 - Labs Result Diagrams: 12/10/18 13:49 12/10/18 13:49 Labs: Laboratory Results - last 24 hr 12/10/18 12/10/18 12/10/18 13:44 13:49 13:49 WBC 8.7 RBC 4.66 Hgb 13.6 Hct 40.5 MCV 87.0 MCH 29.2 MCHC 33.6 RDW 13.3 Plt Count 217 MPV 9.0 Neut % (Auto) 71.4 Lymph % (Auto) 12.6 L [place] % (Auto) 15.2 H Eos % (Auto) 0.3 Baso % (Auto) 0.5 Neut # (Auto) 6.2 Lymph # (Auto) 1.1 [place] # (Auto) 1.3 H Eos # (Auto) 0.0 Baso # (Auto) 0.0 Puncture Site Rb pCO2 70 H pO2 38 L* HCO3 32.0 H ABG pH 7.35 ABG Total CO2 40.7 H ABG O2 Saturation 81.7 L ABG Base Excess 10.1 H Jamey Test Pos ABG Potassium 3.7 A-a O2 Difference 74.0 Respiratory Index 1.9 Sodium 136.0 135 Chloride 99.0 88 L Glucose 91 Lactate 0.6 L Liter Flow 2.0 FiO2 28.0 Crit Value Called To ute [place] Crit Value Called By [place] Crit Value Read Back Y Blood Gas Notified Time 1356 Potassium 4.7 Carbon Dioxide 38 H Anion Gap 11 BUN 11 Creatinine 0.5 L Est GFR ( Amer) > 60 Est GFR (Non-Af Amer) > 60 Random Glucose 95 Calcium 8.7 Total Bilirubin 0.4 AST 24 ALT 20 Alkaline Phosphatase 62 Troponin I NT-Pro-B Natriuret Pep Total Protein 7.1 Albumin 3.7 Globulin 3.3 Albumin/Globulin Ratio 1.1 TSH 3rd Generation 0.36 L Arterial Blood Potassium 3.7 12/10/18 15:56 WBC RBC Hgb Hct MCV MCH MCHC RDW Plt Count MPV Neut % (Auto) Lymph % (Auto) [place] % (Auto) Eos % (Auto) Baso % (Auto) Neut # (Auto) Lymph # (Auto) [place] # (Auto) Eos # (Auto) Baso # (Auto) Puncture Site pCO2 pO2 HCO3 ABG pH ABG Total CO2 ABG O2 Saturation ABG Base Excess Jamey Test ABG Potassium A-a O2 Difference Respiratory Index Sodium Chloride Glucose Lactate Liter Flow FiO2 Crit Value Called To Crit Value Called By Crit Value Read Back Blood Gas Notified Time Potassium Carbon Dioxide Anion Gap BUN Creatinine Est GFR ( Amer) Est GFR (Non-Af Amer) Random Glucose Calcium Total Bilirubin AST ALT Alkaline Phosphatase Troponin I < 0.0120 NT-Pro-B Natriuret Pep 1180 H Total Protein Albumin Globulin Albumin/Globulin Ratio TSH 3rd Generation Arterial Blood Potassium Assessment & Plan (1) COPD exacerbation Status: Acute Comment: Continue with the IV steroids and nebulizer treatment. BiPAP as needed. Chest x-ray reviewed with no acute infiltrate. Antibiotics
[2018-12-11] MEDS: Azithromycin 500 MG in Sodium Chloride 0.9% 250 ML IVPB SCH (13:13)
[2018-12-11] MEDS: Enoxaparin 40 mg Syringe SC SCH (13:15)
--- NOTE | 2018-12-11 23:08 | PN ---
DATE: 12/11/2018 SUBJECTIVE: The patient is seen today, 12/11/2018. She still has wheezing and shortness of breath. She is holding adequate O2 saturation on oxygen by nasal cannula. PHYSICAL EXAMINATION: VITAL SIGNS: Blood pressure 107/55, temperature 98.2, respiratory rate 20, and pulse 66. HEENT: Pupils equal, reactive to light. Normal-appearing mucosa of the conjunctivae, oropharynx and nasal membrane mucosa. NECK: Supple. No JVD, no carotid bruits, no lymph nodes, no thyromegaly. CHEST AND LUNGS: Bilateral symmetrical expansion. Good air exchange. Bilateral scattered rhonchi all over lung lundy. CARDIOVASCULAR SYSTEM: PMI not localized. S1 and S2. No additional sounds. ABDOMEN: Normoactive bowel sounds. No tenderness, no organomegaly, no masses. EXTREMITIES: No cyanosis, no clubbing, no edema. CENTRAL NERVOUS SYSTEM: Alert, awake, oriented x2. No neurological deficits could be appreciated. ASSESSMENT: 1. Acute exacerbation of chronic obstructive pulmonary disease. 2. Acute bronchitis. 3. Depression. 4. Hypercholesterolemia. PLAN: Continue current bronchodilators and steroids and IV antibiotics. Follow up with pulmonary consult recommendations. Luis Santos MD
[2018-12-12] MEDS: Albuterol-Ipratrop 3 mg / 0.5 (3 ml) UD INH SCH ×4 (01:22→19:35)
[2018-12-12] MEDS: Acetylcysteine 20% Inhal Soln (4ml) INH SCH ×4 (01:22→19:35)
[2018-12-12] MEDS: MethylPREDNISolone 40 mg Vial IVP SCH ×3 (05:53→21:24)
[2018-12-12] MEDS: guaiFENesin 200 mg/10 ml Syrup UD PO PRN (10:00)
[2018-12-12] MEDS: Pantoprazole 40 mg EC Tab PO SCH (10:01)
[2018-12-12] MEDS: Enoxaparin 40 mg Syringe SC SCH (10:02)
[2018-12-12] MEDS: Azithromycin 500 MG in Sodium Chloride 0.9% 250 ML IVPB SCH (10:09)
[2018-12-12] MEDS: Oxycodone/Acetaminophen 5/325 mg Tab PO PRN (16:28)
--- NOTE | 2018-12-12 20:23 | PN ---
DATE: 12/12/2018 SUBJECTIVE: The patient is seen today, 12/12/2018. She is still having shortness of breath and wheezing. PHYSICAL EXAMINATION: VITAL SIGNS: Blood pressure 128/60, temperature 98.1, respiratory rate 20 and pulse 65. HEENT: Pupils equal, reactive to light. Normal-appearing mucosa of the conjunctivae, oropharynx and nasal membrane mucosa. NECK: Supple. No JVD, no carotid bruit. No lymph node. No thyromegaly. CHEST AND LUNGS: Bilateral symmetrical expansion. Good air exchange. Bilateral scattered rhonchi all over lung lundy. CARDIOVASCULAR SYSTEM: PMI not localized. S1 and S2. No additional sounds. ABDOMEN: Normoactive bowel sounds. No tenderness, no organomegaly. No masses. EXTREMITIES: No cyanosis, no clubbing, no edema. CENTRAL NERVOUS SYSTEM: Alert, awake, oriented x3. No neurological deficit could be appreciated. ASSESSMENT: 1. Acute exacerbation of chronic obstructive pulmonary disease. 2. History of chronic obstructive pulmonary disease, on home oxygen therapy. 3. Hypercholesterolemia. 4. Osteoarthritis. PLAN: Start the patient on physical therapy and continue current medications including bronchodilators and steroids. Follow Pulmonary recommendation and we will start the patient on physical therapy. Luis Santos MD
[2018-12-13] MEDS: Albuterol-Ipratrop 3 mg / 0.5 (3 ml) UD INH SCH ×3 (02:45→20:11)
[2018-12-13] MEDS: Acetylcysteine 20% Inhal Soln (4ml) INH SCH ×3 (02:45→20:12)
[2018-12-13] MEDS: MethylPREDNISolone 40 mg Vial IVP SCH ×3 (05:22→21:32)
[2018-12-13] MEDS: Oxycodone/Acetaminophen 5/325 mg Tab PO PRN ×2 (08:59→17:02)
[2018-12-13] MEDS: guaiFENesin 200 mg/10 ml Syrup UD PO PRN (09:04)
[2018-12-13] MEDS: Pantoprazole 40 mg EC Tab PO SCH (09:04)
[2018-12-13] MEDS: Enoxaparin 40 mg Syringe SC SCH (09:05)
[2018-12-13 13:00] LABS: BLOOD UREA NITROGEN 13 mg/dL (7-17); CALCIUM 8.6 mg/dl (8.6-10.4); GFR NON-AFRICAN AMERICAN > 60
--- NOTE | 2018-12-13 17:48 | CP.PCM.PN ---
Subjective - Date & Time of Evaluation Date of Evaluation: 12/13/18 Time of Evaluation: 11:00 - Subjective Subjective: Patient seen and examined Complaining of shortness of breath and appears drowsy Afebrile Patient placed on BiPAP Objective - Vital Signs/Intake and Output Vital Signs (last 24 hours): Temp Pulse Resp BP Pulse Ox 98.3 F 72 18 133/74 96 12/13/18 07:00 12/13/18 16:00 12/13/18 07:00 12/13/18 07:00 12/13/18 07:00 Intake and Output: 12/13/18 12/13/18 06:59 18:59 Intake Total 350 300 Balance 350 300 - Medications Medications: Current Medications Acetaminophen (Tylenol 325mg Tab) 650 mg PO Q6 PRN PRN Reason: Pain, Mild (1-3) Last Admin: 12/12/18 07:14 Dose: 650 mg Acetylcysteine (Acetylcysteine 20%) 4 ml INH RQ6 [facility] Last Admin: 12/13/18 07:46 Dose: 4 ml Albuterol/Ipratropium (Duoneb 3 Mg/0.5 Mg (3 Ml) Ud) 3 ml INH RQ6 [facility] Last Admin: 12/13/18 07:46 Dose: 3 ml Aspirin (Aspirin Chewable) 81 mg PO DAILY [facility] Last Admin: 12/13/18 09:04 Dose: 81 mg Duloxetine HCl (Cymbalta) 60 mg PO BID [facility] Last Admin: 12/13/18 17:00 Dose: 60 mg Enoxaparin Sodium (Lovenox) 40 mg SC DAILY [facility] Last Admin: 12/13/18 09:05 Dose: 40 mg Ergocalciferol (Drisdol 50,000 Intl Units Cap) 1 cap PO QWK [facility] Last Admin: 12/11/18 10:22 Dose: 1 cap Folic Acid (Folic Acid) 1 mg PO DAILY [facility] Last Admin: 12/13/18 09:04 Dose: 1 mg Gabapentin (Neurontin) 100 mg PO DAILY [facility] Last Admin: 12/13/18 09:04 Dose: 100 mg Guaifenesin (Robitussin) 200 mg PO Q4H PRN PRN Reason: Cough and congestion Last Admin: 12/13/18 09:04 Dose: 200 mg Methylprednisolone (Solu-Medrol) 40 mg IVP Q8 [facility] Last Admin: 12/13/18 13:28 Dose: 40 mg Montelukast Sodium (Singulair) 10 mg PO HS [facility] Last Admin: 12/12/18 21:24 Dose: 10 mg Oxycodone/Acetaminophen (Percocet 5/325 Mg Tab) 1 tab PO Q6H PRN PRN Reason: Pain, moderate (4-7) Stop: 12/15/18 16:23 Last Admin: 12/13/18 17:02 Dose: 1 tab Pantoprazole Sodium (Protonix Ec Tab) 40 mg PO DAILY [facility] Last Admin: 12/13/18 09:04 Dose: 40 mg Rosuvastatin Calcium (Crestor) 5 mg PO HS [facility] Last Admin: 12/12/18 21:24 Dose: 5 mg Sertraline HCl (Zoloft) 25 mg PO DAILY [facility] Last Admin: 12/13/18 09:05 Dose: 25 mg - Labs Labs: 12/10/18 13:49 12/13/18 12:05 - Head Exam Head Exam: ATRAUMATIC, NORMOCEPHALIC - ENT Exam ENT Exam: Mucous Membranes Moist - Neck Exam Neck Exam: Normal Inspection - Respiratory Exam Respiratory Exam: Decreased Breath Sounds - Cardiovascular Exam Cardiovascular Exam: REGULAR RHYTHM - GI/Abdominal Exam GI & Abdominal Exam: Soft Assessment and Plan (1) COPD exacerbation Assessment & Plan: Continue with BiPAP, nebulizer treatment, steroids and mucolytic's Status: Acute
[2018-12-14] MEDS: Acetylcysteine 20% Inhal Soln (4ml) INH SCH ×4 (01:24→19:41)
[2018-12-14] MEDS: Albuterol-Ipratrop 3 mg / 0.5 (3 ml) UD INH SCH ×4 (01:24→19:41)
[2018-12-14] MEDS: MethylPREDNISolone 40 mg Vial IVP SCH ×3 (05:16→21:43)
[2018-12-14] MEDS: guaiFENesin 200 mg/10 ml Syrup UD PO PRN (09:15)
[2018-12-14] MEDS: Pantoprazole 40 mg EC Tab PO SCH (09:15)
[2018-12-14] MEDS: Enoxaparin 40 mg Syringe SC SCH (09:16)
--- NOTE | 2018-12-14 16:07 | CP.PCM.PN ---
Subjective - Date & Time of Evaluation Date of Evaluation: 12/14/18 Time of Evaluation: 15:00 - Subjective Subjective: Patient seen and examined Having trouble breathing and placed on BiPAP Awake and responsive Afebrile Objective - Vital Signs/Intake and Output Vital Signs (last 24 hours): Temp Pulse Resp BP Pulse Ox 98.1 F 72 20 126/72 95 12/14/18 08:37 12/14/18 13:42 12/14/18 08:37 12/14/18 08:37 12/14/18 08:37 Intake and Output: 12/14/18 12/14/18 06:59 18:59 Intake Total 240 Balance 240 - Medications Medications: Current Medications Acetaminophen (Tylenol 325mg Tab) 650 mg PO Q6 PRN PRN Reason: Pain, Mild (1-3) Last Admin: 12/12/18 07:14 Dose: 650 mg Acetylcysteine (Acetylcysteine 20%) 4 ml INH RQ6 [facility] Last Admin: 12/14/18 13:40 Dose: 4 ml Albuterol/Ipratropium (Duoneb 3 Mg/0.5 Mg (3 Ml) Ud) 3 ml INH RQ6 [facility] Last Admin: 12/14/18 13:40 Dose: 3 ml Aspirin (Aspirin Chewable) 81 mg PO DAILY [facility] Last Admin: 12/14/18 09:15 Dose: 81 mg Duloxetine HCl (Cymbalta) 60 mg PO BID [facility] Last Admin: 12/14/18 09:16 Dose: 60 mg Enoxaparin Sodium (Lovenox) 40 mg SC DAILY [facility] Last Admin: 12/14/18 09:16 Dose: 40 mg Ergocalciferol (Drisdol 50,000 Intl Units Cap) 1 cap PO QWK [facility] Last Admin: 12/11/18 10:22 Dose: 1 cap Folic Acid (Folic Acid) 1 mg PO DAILY [facility] Last Admin: 12/14/18 09:16 Dose: 1 mg Gabapentin (Neurontin) 100 mg PO DAILY [facility] Last Admin: 12/14/18 09:15 Dose: 100 mg Guaifenesin (Robitussin) 200 mg PO Q4H PRN PRN Reason: Cough and congestion Last Admin: 12/14/18 09:15 Dose: 200 mg Methylprednisolone (Solu-Medrol) 40 mg IVP Q8 [facility] Last Admin: 12/14/18 13:16 Dose: 40 mg Montelukast Sodium (Singulair) 10 mg PO HS [facility] Last Admin: 12/13/18 21:32 Dose: 10 mg Oxycodone/Acetaminophen (Percocet 5/325 Mg Tab) 1 tab PO Q6H PRN PRN Reason: Pain, moderate (4-7) Stop: 12/15/18 16:23 Last Admin: 12/13/18 17:02 Dose: 1 tab Pantoprazole Sodium (Protonix Ec Tab) 40 mg PO DAILY [facility] Last Admin: 12/14/18 09:15 Dose: 40 mg Rosuvastatin Calcium (Crestor) 5 mg PO HS [facility] Last Admin: 12/13/18 21:32 Dose: 5 mg Sertraline HCl (Zoloft) 25 mg PO DAILY [facility] Last Admin: 12/13/18 09:05 Dose: 25 mg - Labs Labs: 12/10/18 13:49 12/13/18 12:05 - Head Exam Head Exam: ATRAUMATIC, NORMOCEPHALIC - ENT Exam ENT Exam: Mucous Membranes Moist - Neck Exam Neck Exam: Normal Inspection - Respiratory Exam Respiratory Exam: Decreased Breath Sounds - Cardiovascular Exam Cardiovascular Exam: REGULAR RHYTHM - GI/Abdominal Exam GI & Abdominal Exam: Soft, Normal Bowel Sounds (And gram-negative breast) - Extremities Exam Extremities Exam: Normal Inspection - Neurological Exam Neurological Exam: Alert, Oriented x3 Assessment and Plan (1) COPD exacerbation Assessment & Plan: Continue with BiPAP Nebulizer treatment and IV steroids Follow-up ABG and chest x-ray Status: Acute
[2018-12-14] MEDS: Oxycodone/Acetaminophen 5/325 mg Tab PO PRN (17:13)
--- NOTE | 2018-12-14 21:17 | CARD ---
APPROVED REPORT Date of service: 12/10/2018 EKG Measurement Heart [id number] <Conclusion> Normal sinus rhythm Indeterminate axis Anterior infarct, age undetermined Abnormal ECG
[2018-12-15] MEDS: Acetylcysteine 20% Inhal Soln (4ml) INH SCH ×4 (01:22→19:34)
[2018-12-15] MEDS: Albuterol-Ipratrop 3 mg / 0.5 (3 ml) UD INH SCH ×3 (01:22→13:25)
[2018-12-15] MEDS: MethylPREDNISolone 40 mg Vial IVP SCH ×3 (06:27→21:10)
[2018-12-15] MEDS: Enoxaparin 40 mg Syringe SC SCH (10:30)
[2018-12-15] MEDS: guaiFENesin 200 mg/10 ml Syrup UD PO PRN (10:31)
[2018-12-15] MEDS: Pantoprazole 40 mg EC Tab PO SCH (11:00)
[2018-12-15 12:53] LABS: ABG ALLEN TEST POS; ARTERIAL BLOOD GAS HCO3 38.5 mmol/L (21-28); ARTERIAL BLOOD GAS HEMOGLOBIN 14.5 g/dL (11.7-17.4); ARTERIAL BLOOD GAS O2 SAT 99.5 % (95-98); ARTERIAL BLOOD GAS PCO2 71 mm/Hg (35-45); ARTERIAL BLOOD GAS PH 7.42 (7.35-7.45); ARTERIAL BLOOD GAS PO2 161 mm/Hg (80-100); ARTERIAL BLOOD GAS TCO2 48.3 mmol/L (22-28)
--- NOTE | 2018-12-15 14:55 | CP.PCM.PN ---
Subjective - Date & Time of Evaluation Date of Evaluation: 12/15/18 Time of Evaluation: 11:00 - Subjective Subjective: Patient seen and examined Remains on BiPAP Awake and responsive Afebrile Denies any chest pain Breathing better Objective - Vital Signs/Intake and Output Vital Signs (last 24 hours): Temp Pulse Resp BP Pulse Ox 97.2 F L 88 20 120/64 97 12/15/18 07:00 12/15/18 11:11 12/15/18 07:00 12/15/18 07:00 12/15/18 07:00 Intake and Output: 12/15/18 12/15/18 06:59 18:59 Intake Total 200 Balance 200 - Medications Medications: Current Medications Acetaminophen (Tylenol 325mg Tab) 650 mg PO Q6 PRN PRN Reason: Pain, Mild (1-3) Last Admin: 12/12/18 07:14 Dose: 650 mg Acetylcysteine (Acetylcysteine 20%) 4 ml INH RQ6 [facility] Last Admin: 12/15/18 13:25 Dose: 4 ml Albuterol/Ipratropium (Duoneb 3 Mg/0.5 Mg (3 Ml) Ud) 3 ml INH RQ6 [facility] Last Admin: 12/15/18 13:25 Dose: 3 ml Aspirin (Aspirin Chewable) 81 mg PO DAILY [facility] Last Admin: 12/15/18 10:31 Dose: 81 mg Duloxetine HCl (Cymbalta) 60 mg PO BID [facility] Last Admin: 12/15/18 10:30 Dose: Not Given Enoxaparin Sodium (Lovenox) 40 mg SC DAILY [facility] Last Admin: 12/15/18 10:30 Dose: 40 mg Ergocalciferol (Drisdol 50,000 Intl Units Cap) 1 cap PO QWK [facility] Last Admin: 12/11/18 10:22 Dose: 1 cap Folic Acid (Folic Acid) 1 mg PO DAILY [facility] Last Admin: 12/15/18 10:31 Dose: 1 mg Gabapentin (Neurontin) 100 mg PO DAILY [facility] Last Admin: 12/15/18 10:31 Dose: 100 mg Guaifenesin (Robitussin) 200 mg PO Q4H PRN PRN Reason: Cough and congestion Last Admin: 12/15/18 10:31 Dose: 200 mg Methylprednisolone (Solu-Medrol) 40 mg IVP Q8 [facility] Last Admin: 12/15/18 13:00 Dose: 40 mg Montelukast Sodium (Singulair) 10 mg PO HS [facility] Last Admin: 12/14/18 21:43 Dose: 10 mg Oxycodone/Acetaminophen (Percocet 5/325 Mg Tab) 1 tab PO Q6H PRN PRN Reason: Pain, moderate (4-7) Stop: 12/15/18 16:23 Last Admin: 12/14/18 17:13 Dose: 1 tab Pantoprazole Sodium (Protonix Ec Tab) 40 mg PO DAILY [facility] Last Admin: 12/15/18 11:00 Dose: 40 mg Rosuvastatin Calcium (Crestor) 5 mg PO HS [facility] Last Admin: 12/14/18 21:43 Dose: 5 mg Sertraline HCl (Zoloft) 25 mg PO DAILY [facility] Last Admin: 12/15/18 10:31 Dose: 25 mg - Labs Labs: 12/10/18 13:49 12/13/18 12:05 - Head Exam Head Exam: ATRAUMATIC, NORMOCEPHALIC - ENT Exam ENT Exam: Mucous Membranes Moist - Neck Exam Neck Exam: Normal Inspection - Respiratory Exam Respiratory Exam: Decreased Breath Sounds, Rhonchi, Wheezes - Cardiovascular Exam Cardiovascular Exam: REGULAR RHYTHM - GI/Abdominal Exam GI & Abdominal Exam: Soft, Normal Bowel Sounds - Extremities Exam Extremities Exam: Full ROM Assessment and Plan (1) COPD exacerbation Assessment & Plan: Follow-up ABG without BiPAP Continue with the steroids and nebulizer treatment Continue with Mucomyst Status: Acute
[2018-12-15] MEDS: Oxycodone/Acetaminophen 5/325 mg Tab PO PRN (15:38)
[2018-12-16] MEDS: Acetylcysteine 20% Inhal Soln (4ml) INH SCH ×2 (01:27→20:30)
--- NOTE | 2018-12-16 01:36 | PN ---
DATE: 12/13/2018 SUBJECTIVE: The patient was still complaining of shortness of breath and she was started on BiPAP. She started to desaturate. PHYSICAL EXAMINATION: VITAL SIGNS: Blood pressure was 121/66, temperature 97.5, respiratory rate 26, and pulse 72. HEENT: Pupils equal and reactive to light. Normal-appearing mucosa of the conjunctivae, oropharynx and nasal membrane mucosa. NECK: Supple. No JVD. No carotid bruit. No lymph nodes. No thyromegaly. CHEST AND LUNGS: Bilateral symmetrical expansion. Good air exchange. The patient has bilateral rhonchi, scattered all over the lung lundy and positive coarse rales bilaterally. CARDIOVASCULAR SYSTEM: PMI not localized. S1 and S2. No additional sounds. ABDOMEN: Normoactive bowel sounds. No tenderness. No organomegaly. No masses. EXTREMITIES: No cyanosis. No clubbing. No edema. CENTRAL NERVOUS SYSTEM: Alert, awake, oriented x2. No neurological deficit could be appreciated. ASSESSMENT: 1. Exacerbation of chronic obstructive pulmonary disease. 2. Acute bronchitis. 3. Hypercholesterolemia. PLAN: Continue current medications including steroids and bronchodilators. Follow Pulmonary recommendations and continue BiPAP. Luis Santos MD
--- NOTE | 2018-12-16 01:44 | PN ---
DATE: 12/14/2018 SUBJECTIVE: The patient was seen on 12/14/2018. She was still short of breath, having wheezing, and on BiPAP. PHYSICAL EXAMINATION: VITAL SIGNS: Blood pressure 126/72, temperature 98.1, respiratory rate 20, and pulse 72. HEENT: Pupils equal, reactive to light. Normal-appearing mucosa of the conjunctivae, oropharynx and nasal membrane mucosa. NECK: Supple. No JVD, no carotid bruit. No lymph node. No thyromegaly. CHEST AND LUNGS: Bilateral symmetrical expansion. Scattered rhonchi all over lung lundy. CARDIOVASCULAR SYSTEM: PMI not localized. S1 and S2. No additional sounds. ABDOMEN: Normoactive bowel sounds. No tenderness. No organomegaly. No masses. EXTREMITIES: No cyanosis, no clubbing, no edema. CENTRAL NERVOUS SYSTEM: Alert, awake, oriented x3. No neurological deficit could be appreciated. ASSESSMENT: 1. Acute exacerbation of chronic obstructive pulmonary disease. 2. Hypercholesterolemia. 3. Depression. 4. Acute bronchitis. PLAN: Continue current medications, steroids, and bronchodilators. Continue BiPAP. Follow Pulmonary recommendations. [facility] MD Tom
--- NOTE | 2018-12-16 01:50 | PN ---
DATE: 12/15/2018 SUBJECTIVE: The patient is seen today, 12/15/2018. She is still wheezing and short of breath, on BiPAP. PHYSICAL EXAMINATION: VITAL SIGNS: Blood pressure is 113/68, temperature 98.7, respiratory rate 20, and pulse 84. HEENT: Pupils equal, reactive to light. Normal-appearing mucosa of the conjunctivae, oropharynx and nasal membrane mucosa. NECK: Supple. No JVD, no carotid bruit. No lymph nodes. No thyromegaly. CHEST AND LUNGS: Bilateral symmetrical expansion. Good air exchange. No rales, no rhonchi. CARDIOVASCULAR SYSTEM: PMI not localized. S1, S2. No additional sounds. ABDOMEN: Normoactive bowel sounds. No tenderness. No organomegaly. No masses. EXTREMITIES: No cyanosis, no clubbing, no edema. CENTRAL NERVOUS SYSTEM: Alert, awake, oriented x3. No neurological deficit could be appreciated. ASSESSMENT: Exacerbation of chronic obstructive pulmonary disease, hypercholesterolemia, depression. PLAN: Continue current medications, bronchodilators, and steroids. Continue BiPAP. Follow recommendations of retail support associate. Luis Santos MD
[2018-12-16] MEDS: guaiFENesin 200 mg/10 ml Syrup UD PO PRN ×2 (01:57→09:55)
[2018-12-16] MEDS: MethylPREDNISolone 40 mg Vial IVP SCH ×3 (05:42→21:28)
[2018-12-16 06:57] LABS: BASO % 0.1 % (0.0-2.0); HEMOGLOBIN 14.5 g/dL (11.0-16.0); LYMPH # 1.2 K/uL (1.0-4.3); LYMPH % 8.3 % (20.0-40.0); MEAN CELL VOLUME 87.4 fL (81.0-99.0); MEAN CORPUSCULAR HEMOGLOBIN 28.6 pg (27.0-31.0); MEAN CORPUSCULAR HGB CONC 32.7 g/dL (33.0-37.0); MEAN PLATELET VOLUME 8.4 fL (7.2-11.7); MONO # 0.7 K/uL (0.0-0.8); NEUT # 12.8 K/uL (1.8-7.0); NEUT % 86.6 % (50.0-75.0); PLATELET COUNT 278 K/uL (130-400); RBC 5.09 Mil/uL (3.80-5.20); RED CELL DISTRIBUTION WIDTH 12.8 % (11.5-14.5); WHITE BLOOD COUNT 14.7 K/uL (4.8-10.8)
[2018-12-16 08:08] LABS: BLOOD UREA NITROGEN 13 mg/dL (7-17); CALCIUM 8.7 mg/dl (8.6-10.4); GFR NON-AFRICAN AMERICAN > 60
[2018-12-16 08:18] LABS: LYMPHOCYTE 13 % (20-40); MONOCYTE 3 % (0-10); NEUTROPHIL 84 % (50-75); PLATELET ESTIMATE NORMAL (NORMAL); TOTAL CELLS COUNTED 100
[2018-12-16] MEDS: Pantoprazole 40 mg EC Tab PO SCH (09:56)
[2018-12-16] MEDS: Enoxaparin 40 mg Syringe SC SCH (09:56)
--- NOTE | 2018-12-16 14:42 | CP.PCM.PN ---
Subjective - Date & Time of Evaluation Date of Evaluation: 12/16/18 Time of Evaluation: 10:20 - Subjective Subjective: Patient seen and examined Still having shortness of breath ABG consistent with hypercapnia Adjust BiPAP setting Objective - Vital Signs/Intake and Output Vital Signs (last 24 hours): Temp Pulse Resp BP Pulse Ox 97.3 F L 90 18 125/73 95 12/16/18 07:00 12/16/18 13:40 12/16/18 07:00 12/16/18 07:00 12/16/18 07:00 Intake and Output: 12/16/18 12/16/18 06:59 18:59 Intake Total 240 380 Balance 240 380 - Medications Medications: Current Medications Acetaminophen (Tylenol 325mg Tab) 650 mg PO Q6 PRN PRN Reason: Pain, Mild (1-3) Last Admin: 12/12/18 07:14 Dose: 650 mg Acetylcysteine (Acetylcysteine 20%) 4 ml INH RQ6 [facility] Last Admin: 12/16/18 01:27 Dose: Not Given Aspirin (Aspirin Chewable) 81 mg PO DAILY [facility] Last Admin: 12/16/18 09:56 Dose: 81 mg Duloxetine HCl (Cymbalta) 60 mg PO DAILY [facility] Enoxaparin Sodium (Lovenox) 40 mg SC DAILY [facility] Last Admin: 12/16/18 09:56 Dose: 40 mg Ergocalciferol (Drisdol 50,000 Intl Units Cap) 1 cap PO QWK [facility] Last Admin: 12/11/18 10:22 Dose: 1 cap Folic Acid (Folic Acid) 1 mg PO DAILY [facility] Last Admin: 12/16/18 09:56 Dose: 1 mg Gabapentin (Neurontin) 100 mg PO DAILY [facility] Last Admin: 12/16/18 09:56 Dose: 100 mg Guaifenesin (Robitussin) 200 mg PO Q4H PRN PRN Reason: Cough and congestion Last Admin: 12/16/18 09:55 Dose: 200 mg Methylprednisolone (Solu-Medrol) 40 mg IVP Q8 [facility] Last Admin: 12/16/18 13:14 Dose: 40 mg Montelukast Sodium (Singulair) 10 mg PO HS [facility] Last Admin: 12/15/18 21:10 Dose: 10 mg Oxycodone/Acetaminophen (Percocet 5/325 Mg Tab) 1 tab PO Q6H PRN PRN Reason: Pain, moderate (4-7) Stop: 12/18/18 21:21 Pantoprazole Sodium (Protonix Ec Tab) 40 mg PO DAILY [facility] Last Admin: 12/16/18 09:56 Dose: 40 mg Rosuvastatin Calcium (Crestor) 5 mg PO HS [facility] Last Admin: 12/15/18 21:10 Dose: 5 mg Sertraline HCl (Zoloft) 25 mg PO DAILY [facility] Last Admin: 12/16/18 09:59 Dose: 25 mg - Labs Labs: 12/16/18 06:52 12/16/18 06:52 - Head Exam Head Exam: ATRAUMATIC, NORMOCEPHALIC - ENT Exam ENT Exam: Mucous Membranes Moist - Neck Exam Neck Exam: Normal Inspection - Respiratory Exam Respiratory Exam: Decreased Breath Sounds - Cardiovascular Exam Cardiovascular Exam: REGULAR RHYTHM - GI/Abdominal Exam GI & Abdominal Exam: Soft, Normal Bowel Sounds - Extremities Exam Extremities Exam: Pedal Edema Assessment and Plan (1) COPD exacerbation Assessment & Plan: Chronic respiratory failure secondary to COPD Continue BiPAP Nebulizer treatment IV steroids, Brovana and budesonide Status: Acute
[2018-12-16] MEDS: Oxycodone/Acetaminophen 5/325 mg Tab PO PRN (17:11)
[2018-12-16] MEDS: Budesonide 0.5 mg/2 ml Inhal Susp UD INH SCH (20:29)
[2018-12-16] MEDS: Albuterol-Ipratrop 3 mg / 0.5 (3 ml) UD INH SCH (20:29)
[2018-12-16] MEDS: Arformoterol 15 mcg/2 ml Inh Sol INH SCH (21:04)
[2018-12-17] MEDS: Albuterol-Ipratrop 3 mg / 0.5 (3 ml) UD INH SCH ×4 (01:17→19:57)
[2018-12-17] MEDS: Acetylcysteine 20% Inhal Soln (4ml) INH SCH ×4 (01:17→19:57)
--- NOTE | 2018-12-17 02:35 | PN ---
DATE: 12/16/2018 DAILY PROGRESS NOTE SUBJECTIVE: The patient is seen today, 12/16/2018. She is still on respiratory distress with CO2 retention, needing BiPAP. OBJECTIVE: VITAL SIGNS: Blood pressure is 152/74, temperature 98, respiratory rate 20, and pulse 78. HEENT: Pupils equal and reactive to light. Normal-appearing mucosa of the conjunctivae, oropharynx, and nasal membrane mucosa. NECK: Supple. No JVD. No carotid bruit. No lymph node. No thyromegaly. CHEST AND LUNGS: Bilateral symmetrical expansion. Good air exchange. No rales. The patient has bilateral scattered rhonchi all over lung lundy. CARDIOVASCULAR SYSTEM: PMI not localized. S1, S2. No additional sounds. ABDOMEN: Normoactive bowel sounds. No tenderness, no organomegaly, no masses. EXTREMITIES: No cyanosis, no clubbing, no edema. CENTRAL NERVOUS SYSTEM: Alert, awake, oriented x3. No neurological deficit could be appreciated. ASSESSMENT: 1. Exacerbation of chronic obstructive pulmonary disease. 2. Hypercholesterolemia. 3. Depression. PLAN: Continue current bronchodilators and steroids. Follow with balance truing inspector. Sirena MD Tom
[2018-12-17] MEDS: MethylPREDNISolone 40 mg Vial IVP SCH ×3 (05:54→21:28)
--- NOTE | 2018-12-17 07:36 | CP.PCM.PN ---
<Estevan Rose - Last Filed: 12/17/18 13:45> Subjective - Date & Time of Evaluation Date of Evaluation: 12/17/18 Time of Evaluation: 07:15 - Subjective Subjective: PGY1 medicine progress note for Dr. Hernandez, covering for Dr. Santos Pt seen and examined at bedside. Pt is conversationally short of breath but speaking in full sentences. She reports feeling better than yesterday regarding shortness of breath. Denies fevers, chills, chest pain, palpitations, abdominal pain, n/v/d, headache, dizziness, lethargy, numbness or tingling. Objective - Vital Signs/Intake and Output Vital Signs (last 24 hours): Temp Pulse Resp BP Pulse Ox 98 F 65 20 111/62 100 12/17/18 04:15 12/17/18 05:58 12/17/18 05:58 12/17/18 05:58 12/17/18 05:58 Intake and Output: 12/17/18 12/17/18 06:59 18:59 Intake Total 400 Balance 400 - Medications Medications: Current Medications Acetaminophen (Tylenol 325mg Tab) 650 mg PO Q6 PRN PRN Reason: Pain, Mild (1-3) Last Admin: 12/12/18 07:14 Dose: 650 mg Acetylcysteine (Acetylcysteine 20%) 4 ml INH RQ6 [facility] Last Admin: 12/17/18 01:17 Dose: 4 ml Albuterol/Ipratropium (Duoneb 3 Mg/0.5 Mg (3 Ml) Ud) 3 ml INH RQ6 [facility] Last Admin: 12/17/18 01:17 Dose: 3 ml Arformoterol Tartrate (Brovana) 15 mcg INH RQ12@1000,2200 [facility] Last Admin: 12/16/18 21:04 Dose: 15 mcg Aspirin (Aspirin Chewable) 81 mg PO DAILY [facility] Last Admin: 12/16/18 09:56 Dose: 81 mg Budesonide (Pulmicort Respules) 0.5 mg INH RQ12 [facility] Last Admin: 12/16/18 20:29 Dose: 0.5 mg Duloxetine HCl (Cymbalta) 60 mg PO DAILY [facility] Last Admin: 12/16/18 17:11 Dose: Not Given Enoxaparin Sodium (Lovenox) 40 mg SC DAILY [facility] Last Admin: 12/16/18 09:56 Dose: 40 mg Ergocalciferol (Drisdol 50,000 Intl Units Cap) 1 cap PO QWK [facility] Last Admin: 12/11/18 10:22 Dose: 1 cap Folic Acid (Folic Acid) 1 mg PO DAILY [facility] Last Admin: 12/16/18 09:56 Dose: 1 mg Gabapentin (Neurontin) 100 mg PO DAILY [facility] Last Admin: 12/16/18 09:56 Dose: 100 mg Guaifenesin (Robitussin) 200 mg PO Q4H PRN PRN Reason: Cough and congestion Last Admin: 12/16/18 09:55 Dose: 200 mg Methylprednisolone (Solu-Medrol) 40 mg IVP Q8 [facility] Last Admin: 12/17/18 05:54 Dose: 40 mg Montelukast Sodium (Singulair) 10 mg PO HS [facility] Last Admin: 12/16/18 21:27 Dose: 10 mg Oxycodone/Acetaminophen (Percocet 5/325 Mg Tab) 1 tab PO Q6H PRN PRN Reason: Pain, moderate (4-7) Stop: 12/18/18 21:21 Last Admin: 12/16/18 17:11 Dose: 1 tab Pantoprazole Sodium (Protonix Ec Tab) 40 mg PO DAILY [facility] Last Admin: 12/16/18 09:56 Dose: 40 mg Rosuvastatin Calcium (Crestor) 5 mg PO HS [facility] Last Admin: 12/16/18 21:28 Dose: 5 mg Sertraline HCl (Zoloft) 25 mg PO DAILY [facility] Last Admin: 12/16/18 09:59 Dose: 25 mg - Labs Labs: 12/16/18 06:52 12/16/18 06:52 - Constitutional Appears: Non-toxic, No Acute Distress, Chronically Ill - Head Exam Head Exam: ATRAUMATIC, NORMAL INSPECTION - Eye Exam Eye Exam: EOMI - ENT Exam ENT Exam: Mucous Membranes Moist - Respiratory Exam Respiratory Exam: Decreased Breath Sounds, Rhonchi, Wheezes. absent: Rales, Respiratory Distress, Stridor, NORMAL BREATHING PATTERN - Cardiovascular Exam Cardiovascular Exam: REGULAR RHYTHM, +S1, +S2. absent: Tachycardia - GI/Abdominal Exam GI & Abdominal Exam: Soft, Normal Bowel Sounds. absent: Distended, Firm, Guarding, Tenderness - Extremities Exam Extremities Exam: Calf Tenderness, Normal Capillary Refill, Normal Inspection. absent: Pedal Edema, Tenderness - Back Exam Back Exam: vertebral tenderness. absent: CVA tenderness (L), CVA tenderness (R) - Neurological Exam Neurological Exam: Alert, Awake, Oriented x3 - Psychiatric Exam Psychiatric exam: Normal Affect, Normal Mood - Skin Skin Exam: Intact, Normal Color, Warm Assessment and Plan (1) COPD exacerbation Assessment & Plan: CXR shows no active pulmonary disease. COPD Pulmonology, Dr. Rinaldi, consulted. Meds: Acetylcysteine 20% INH Q6 Duonebs Q6 Brovana INH Q12 Pulmicort INH Q12 Robitussin 200 mg PO Q4H PRN Solumedrol 40 mg IVP Q8 Singulair 10 mg PO HS Pt afebrile, no leukocytosis. ABG today on 3L [place] O2 shows respiratory acidosis; PCO2 is 73, increased from 71 yesterday. pO2 is low at 79. pH is 7.[address] pt back on BPAP (16/8 40%) to reduce PCO2 and increase pO2, will repeat ABG at 1700 today Status: Acute (2) Neuropathy Assessment & Plan: Continue Cymbalta 60 mg PO daily, Gabapentin 100 mg PO daily Status: Chronic (3) Hyperlipidemia Assessment & Plan: Continue Rosuvastatin 5 mg PO daily Status: Chronic (4) Depressed Assessment & Plan: Continue Zoloft 25 mg PO daily Pt is also on Cymbalta Status: Chronic (5) Lumbago Assessment & Plan: Continue Tylenol PRN mild pain/fever, Percocet 5/325 mg PO Q6H PRN moderate pain Pt is also on Gabapentin, Cymbalta as above Status: Chronic (6) Prophylactic measure Assessment & Plan: Lovenox 40 mg SC daily Protonix 40 mg PO daily Regular diet PT Status: Acute - Assessment and Plan (Free Text) Assessment: Case discussed with Dr. Mary Rose PGY1 <Christopher Hernandez - Last Filed: 12/17/18 17:36> Objective - Vital Signs/Intake and Output Vital Signs (last 24 hours): Temp Pulse Resp BP Pulse Ox 97.4 F L 70 28 H 118/59 L 92 L 12/17/18 15:27 12/17/18 16:03 12/17/18 15:27 12/17/18 15:27 12/17/18 15:27 Intake and Output: 12/17/18 12/17/18 06:59 18:59 Intake Total 400 Balance 400 - Medications Medications: Current Medications Acetaminophen (Tylenol 325mg Tab) 650 mg PO Q6 PRN PRN Reason: Pain, Mild (1-3) Last Admin: 12/12/18 07:14 Dose: 650 mg Acetylcysteine (Acetylcysteine 20%) 4 ml INH RQ6 [facility] Last Admin: 12/17/18 14:56 Dose: 4 ml Albuterol/Ipratropium (Duoneb 3 Mg/0.5 Mg (3 Ml) Ud) 3 ml INH RQ6 [facility] Last Admin: 12/17/18 14:56 Dose: 3 ml Arformoterol Tartrate (Brovana) 15 mcg INH RQ12@1000,2200 [facility] Last Admin: 12/17/18 09:36 Dose: 15 mcg Aspirin (Aspirin Chewable) 81 mg PO DAILY [facility] Last Admin: 12/17/18 09:38 Dose: 81 mg Budesonide (Pulmicort Respules) 0.5 mg INH RQ12 [facility] Last Admin: 12/17/18 09:36 Dose: 0.5 mg Duloxetine HCl (Cymbalta) 60 mg PO DAILY [facility] Last Admin: 12/17/18 09:39 Dose: Not Given Enoxaparin Sodium (Lovenox) 40 mg SC DAILY [facility] Last Admin: 12/17/18 09:41 Dose: 40 mg Ergocalciferol (Drisdol 50,000 Intl Units Cap) 1 cap PO QWK [facility] Last Admin: 12/11/18 10:22 Dose: 1 cap Folic Acid (Folic Acid) 1 mg PO DAILY [facility] Last Admin: 12/17/18 09:38 Dose: 1 mg Gabapentin (Neurontin) 100 mg PO DAILY [facility] Last Admin: 12/17/18 09:38 Dose: 100 mg Guaifenesin (Robitussin) 200 mg PO Q4H PRN PRN Reason: Cough and congestion Last Admin: 12/16/18 09:55 Dose: 200 mg Methylprednisolone (Solu-Medrol) 40 mg IVP Q8 [facility] Last Admin: 12/17/18 13:38 Dose: 40 mg Montelukast Sodium (Singulair) 10 mg PO HS [facility] Last Admin: 12/16/18 21:27 Dose: 10 mg Oxycodone/Acetaminophen (Percocet 5/325 Mg Tab) 1 tab PO Q6H PRN PRN Reason: Pain, moderate (4-7) Stop: 12/18/18 21:21 Last Admin: 12/17/18 09:38 Dose: 1 tab Pantoprazole Sodium (Protonix Ec Tab) 40 mg PO DAILY [facility] Last Admin: 12/17/18 09:38 Dose: 40 mg Rosuvastatin Calcium (Crestor) 5 mg PO HS [facility] Last Admin: 12/16/18 21:28 Dose: 5 mg Sertraline HCl (Zoloft) 25 mg PO DAILY [facility] Last Admin: 12/17/18 09:39 Dose: 25 mg - Labs Labs: 12/17/18 08:28 12/17/18 08:28 Attending/Attestation - Attestation I have personally seen and examined this patient.: Yes I have fully participated in the care of the patient.: Yes I have reviewed all pertinent clinical information, including history, physical exam and plan: Yes Notes (Text): covering Dr Santos 's service today This is a 68 years old pleasant female with history of severe copd on home oxygen was admitted with shortness of breath and failed out pt treatment and bronchitis/clinical pneumonia Patient was seen and examined with the resident patient was on BIPAP on examination. Patient feels better than yesterday.she is hypoxic off BIPAP,Tolerating BIPAP. continue BIPAP continue Duoneb,Brovana,asprin,pulmicort,cymbalta,lovenox,gabapentin,solumedrol 40 q8h,singular,zoloft we will follow ABG
[2018-12-17 09:00] LABS: ALB/GLOB RATIO 1.2 (1.0-2.1); ALBUMIN 3.9 g/dL (3.5-5.0); ALT/SGPT 15 U/L (9-52); AST/SGOT 27 U/L (14-36); BLOOD UREA NITROGEN 16 mg/dL (7-17); CALCIUM 8.9 mg/dl (8.6-10.4); GFR NON-AFRICAN AMERICAN > 60
[2018-12-17 09:13] LABS: BASO % 0.1 % (0.0-2.0); EOS % 0.1 % (0.0-4.0); HEMOGLOBIN 15.9 g/dL (11.0-16.0); LYMPH % 9.3 % (20.0-40.0); MEAN CORPUSCULAR HEMOGLOBIN 29.1 pg (27.0-31.0); MEAN PLATELET VOLUME 8.9 fL (7.2-11.7); MONO # 0.6 K/uL (0.0-0.8); MONO % 5.6 % (0.0-10.0); NEUT # 9.3 K/uL (1.8-7.0); NEUT % 84.9 % (50.0-75.0); PLATELET COUNT 308 K/uL (130-400); RBC 5.46 Mil/uL (3.80-5.20); RED CELL DISTRIBUTION WIDTH 12.7 % (11.5-14.5)
[2018-12-17] MEDS: Budesonide 0.5 mg/2 ml Inhal Susp UD INH SCH ×2 (09:36→19:57)
[2018-12-17] MEDS: Arformoterol 15 mcg/2 ml Inh Sol INH SCH ×2 (09:36→19:57)
[2018-12-17] MEDS: Pantoprazole 40 mg EC Tab PO SCH (09:38)
[2018-12-17] MEDS: Oxycodone/Acetaminophen 5/325 mg Tab PO PRN ×2 (09:38→18:21)
[2018-12-17] MEDS: Enoxaparin 40 mg Syringe SC SCH (09:41)
[2018-12-17 10:16] LABS: NEUTROPHIL 86 % (50-75); TOTAL CELLS COUNTED 100
[2018-12-17 10:17] LABS: LYMPHOCYTE 10 % (20-40); MONOCYTE 4 % (0-10); PLATELET ESTIMATE NORMAL (NORMAL)
--- NOTE | 2018-12-17 10:39 | CP.PCM.PN ---
Subjective - Date & Time of Evaluation Date of Evaluation: 12/17/18 Time of Evaluation: 08:20 - Subjective Subjective: Patient seen and examined No change in breathing status Remains on BiPAP Complaining of back pain Objective - Vital Signs/Intake and Output Vital Signs (last 24 hours): Temp Pulse Resp BP Pulse Ox 98.0 F 64 18 110/64 100 12/17/18 07:00 12/17/18 08:13 12/17/18 07:00 12/17/18 07:00 12/17/18 07:00 Intake and Output: 12/17/18 12/17/18 06:59 18:59 Intake Total 400 Balance 400 - Medications Medications: Current Medications Acetaminophen (Tylenol 325mg Tab) 650 mg PO Q6 PRN PRN Reason: Pain, Mild (1-3) Last Admin: 12/12/18 07:14 Dose: 650 mg Acetylcysteine (Acetylcysteine 20%) 4 ml INH RQ6 [facility] Last Admin: 12/17/18 01:17 Dose: 4 ml Albuterol/Ipratropium (Duoneb 3 Mg/0.5 Mg (3 Ml) Ud) 3 ml INH RQ6 [facility] Last Admin: 12/17/18 01:17 Dose: 3 ml Arformoterol Tartrate (Brovana) 15 mcg INH RQ12@1000,2200 [facility] Last Admin: 12/16/18 21:04 Dose: 15 mcg Aspirin (Aspirin Chewable) 81 mg PO DAILY [facility] Last Admin: 12/17/18 09:38 Dose: 81 mg Budesonide (Pulmicort Respules) 0.5 mg INH RQ12 [facility] Last Admin: 12/16/18 20:29 Dose: 0.5 mg Duloxetine HCl (Cymbalta) 60 mg PO DAILY [facility] Last Admin: 12/17/18 09:39 Dose: Not Given Enoxaparin Sodium (Lovenox) 40 mg SC DAILY [facility] Last Admin: 12/17/18 09:41 Dose: 40 mg Ergocalciferol (Drisdol 50,000 Intl Units Cap) 1 cap PO QWK [facility] Last Admin: 12/11/18 10:22 Dose: 1 cap Folic Acid (Folic Acid) 1 mg PO DAILY [facility] Last Admin: 12/17/18 09:38 Dose: 1 mg Gabapentin (Neurontin) 100 mg PO DAILY [facility] Last Admin: 12/17/18 09:38 Dose: 100 mg Guaifenesin (Robitussin) 200 mg PO Q4H PRN PRN Reason: Cough and congestion Last Admin: 12/16/18 09:55 Dose: 200 mg Methylprednisolone (Solu-Medrol) 40 mg IVP Q8 [facility] Last Admin: 12/17/18 05:54 Dose: 40 mg Montelukast Sodium (Singulair) 10 mg PO HS [facility] Last Admin: 12/16/18 21:27 Dose: 10 mg Oxycodone/Acetaminophen (Percocet 5/325 Mg Tab) 1 tab PO Q6H PRN PRN Reason: Pain, moderate (4-7) Stop: 12/18/18 21:21 Last Admin: 12/17/18 09:38 Dose: 1 tab Pantoprazole Sodium (Protonix Ec Tab) 40 mg PO DAILY [facility] Last Admin: 12/17/18 09:38 Dose: 40 mg Rosuvastatin Calcium (Crestor) 5 mg PO HS [facility] Last Admin: 12/16/18 21:28 Dose: 5 mg Sertraline HCl (Zoloft) 25 mg PO DAILY [facility] Last Admin: 12/17/18 09:39 Dose: 25 mg - Labs Labs: 12/17/18 08:28 12/17/18 08:28 - Head Exam Head Exam: ATRAUMATIC, NORMOCEPHALIC - ENT Exam ENT Exam: Mucous Membranes Moist - Neck Exam Neck Exam: Normal Inspection - Respiratory Exam Respiratory Exam: Decreased Breath Sounds, Rhonchi, Wheezes - Cardiovascular Exam Cardiovascular Exam: REGULAR RHYTHM - GI/Abdominal Exam GI & Abdominal Exam: Soft, Normal Bowel Sounds Assessment and Plan (1) COPD exacerbation Assessment & Plan: Continue with BiPAP Nebulizer treatment, IV steroids, budesonide and Brovana Follow-up ABG Repeat chest x-ray Status: Acute
[2018-12-17 13:05] LABS: ABG ALLEN TEST POS; ARTERIAL BLOOD GAS HCO3 39.3 mmol/L (21-28); ARTERIAL BLOOD GAS HEMOGLOBIN 14.5 g/dL (11.7-17.4); ARTERIAL BLOOD GAS O2 SAT 97.6 % (95-98); ARTERIAL BLOOD GAS PCO2 73 mm/Hg (35-45); ARTERIAL BLOOD GAS PH 7.42 (7.35-7.45); ARTERIAL BLOOD GAS PO2 79 mm/Hg (80-100); ARTERIAL BLOOD GAS TCO2 49.6 mmol/L (22-28)
[2018-12-17 22:07] LABS: ABG ALLEN TEST POS; ARTERIAL BLOOD GAS HCO3 39.1 mmol/L (21-28); ARTERIAL BLOOD GAS HEMOGLOBIN 13.9 g/dL (11.7-17.4); ARTERIAL BLOOD GAS O2 SAT 98.7 % (95-98); ARTERIAL BLOOD GAS PCO2 81 mm/Hg (35-45); ARTERIAL BLOOD GAS PH 7.38 (7.35-7.45); ARTERIAL BLOOD GAS PO2 89 mm/Hg (80-100); ARTERIAL BLOOD GAS TCO2 50.4 mmol/L (22-28)
[2018-12-18 00:51] VITALS: RESP 20
[2018-12-18] MEDS: Acetylcysteine 20% Inhal Soln (4ml) INH SCH ×4 (01:16→19:24)
[2018-12-18] MEDS: Albuterol-Ipratrop 3 mg / 0.5 (3 ml) UD INH SCH ×4 (01:16→19:24)
[2018-12-18] MEDS: MethylPREDNISolone 40 mg Vial IVP SCH ×3 (05:51→21:16)
[2018-12-18 07:10] LABS: EOS % 0.1 % (0.0-4.0); HEMOGLOBIN 14.1 g/dL (11.0-16.0); LYMPH # 1.4 K/uL (1.0-4.3); LYMPH % 9.7 % (20.0-40.0); MEAN CELL VOLUME 87.1 fL (81.0-99.0); MEAN CORPUSCULAR HEMOGLOBIN 28.7 pg (27.0-31.0); MEAN CORPUSCULAR HGB CONC 32.9 g/dL (33.0-37.0); MEAN PLATELET VOLUME 8.8 fL (7.2-11.7); MONO % 6.9 % (0.0-10.0); NEUT # 12.1 K/uL (1.8-7.0); NEUT % 83.3 % (50.0-75.0); PLATELET COUNT 312 K/uL (130-400); RED CELL DISTRIBUTION WIDTH 12.8 % (11.5-14.5); WHITE BLOOD COUNT 14.5 K/uL (4.8-10.8)
[2018-12-18 07:30] LABS: ALB/GLOB RATIO 1.1 (1.0-2.1); ALBUMIN 3.3 g/dL (3.5-5.0); ALT/SGPT 20 U/L (9-52); AST/SGOT 16 U/L (14-36); BLOOD UREA NITROGEN 17 mg/dL (7-17); CALCIUM 8.8 mg/dl (8.6-10.4); GFR NON-AFRICAN AMERICAN > 60
[2018-12-18 09:15] LABS: BANDS 1 % (0-2); LYMPHOCYTE 7 % (20-40); MONOCYTE 6 % (0-10); NEUTROPHIL 83 % (50-75); PLATELET ESTIMATE NORMAL (NORMAL); REACTIVE LYMPHOCYTES 3 % (0-0); TOTAL CELLS COUNTED 100
[2018-12-18] MEDS: Arformoterol 15 mcg/2 ml Inh Sol INH SCH ×3 (09:28→19:24)
[2018-12-18] MEDS: Budesonide 0.5 mg/2 ml Inhal Susp UD INH SCH ×2 (09:28→19:24)
[2018-12-18] MEDS: Enoxaparin 40 mg Syringe SC SCH (10:30)
[2018-12-18] MEDS: Pantoprazole 40 mg EC Tab PO SCH (10:30)
[2018-12-18] MEDS: Ergocalciferol 50,000 Intl Units Cap PO SCH (10:32)
[2018-12-18] MEDS: Oxycodone/Acetaminophen 5/325 mg Tab PO PRN ×3 (11:04→21:16)
--- NOTE | 2018-12-18 15:03 | CP.PCM.PN ---
<Prashant Arteaga - Last Filed: 12/18/18 14:59> Subjective - Date & Time of Evaluation Date of Evaluation: 12/18/18 Time of Evaluation: 15:04 - Subjective Subjective: PGY-[address] Hernandez Patient seen and examined at bedside. No acute events overnight. Patient has been taking off BIPAP to see if she can tolerate NC. I advised patient to keep BIPAP in place when she is feeling short of breath. Patient denies n/v/d/c, chest pain, headache, dizziness. Objective - Vital Signs/Intake and Output Vital Signs (last 24 hours): Temp Pulse Resp BP Pulse Ox 98.1 F 62 20 118/65 100 12/18/18 07:30 12/18/18 09:31 12/18/18 07:30 12/18/18 07:30 12/18/18 07:30 Intake and Output: 12/18/18 12/18/18 06:59 18:59 Intake Total 350 Balance 350 - Medications Medications: Current Medications Acetaminophen (Tylenol 325mg Tab) 650 mg PO Q6 PRN PRN Reason: Pain, Mild (1-3) Last Admin: 12/12/18 07:14 Dose: 650 mg Acetylcysteine (Acetylcysteine 20%) 4 ml INH RQ6 [facility] Last Admin: 12/18/18 14:21 Dose: 4 ml Albuterol/Ipratropium (Duoneb 3 Mg/0.5 Mg (3 Ml) Ud) 3 ml INH RQ6 [facility] Last Admin: 12/18/18 14:21 Dose: 3 ml Arformoterol Tartrate (Brovana) 15 mcg INH RQ12@1000,2200 [facility] Last Admin: 12/18/18 09:28 Dose: 15 mcg Aspirin (Aspirin Chewable) 81 mg PO DAILY [facility] Last Admin: 12/18/18 10:30 Dose: 81 mg Budesonide (Pulmicort Respules) 0.5 mg INH RQ12 [facility] Last Admin: 12/18/18 09:28 Dose: 0.5 mg Duloxetine HCl (Cymbalta) 60 mg PO DAILY [facility] Last Admin: 12/18/18 10:34 Dose: Not Given Enoxaparin Sodium (Lovenox) 40 mg SC DAILY [facility] Last Admin: 12/18/18 10:30 Dose: 40 mg Ergocalciferol (Drisdol 50,000 Intl Units Cap) 1 cap PO QWK [facility] Last Admin: 12/18/18 10:32 Dose: 1 cap Folic Acid (Folic Acid) 1 mg PO DAILY [facility] Last Admin: 12/18/18 10:30 Dose: 1 mg Gabapentin (Neurontin) 100 mg PO DAILY [facility] Last Admin: 12/18/18 10:30 Dose: 100 mg Guaifenesin (Robitussin) 200 mg PO Q4H PRN PRN Reason: Cough and congestion Last Admin: 12/16/18 09:55 Dose: 200 mg Methylprednisolone (Solu-Medrol) 40 mg IVP Q8 [facility] Last Admin: 12/18/18 13:10 Dose: 40 mg Montelukast Sodium (Singulair) 10 mg PO HS [facility] Last Admin: 12/17/18 21:28 Dose: 10 mg Oxycodone/Acetaminophen (Percocet 5/325 Mg Tab) 1 tab PO Q4H PRN PRN Reason: Pain, moderate (4-7) Stop: 12/21/18 10:41 Last Admin: 12/18/18 11:04 Dose: 1 tab Pantoprazole Sodium (Protonix Ec Tab) 40 mg PO DAILY [facility] Last Admin: 12/18/18 10:30 Dose: 40 mg Rosuvastatin Calcium (Crestor) 5 mg PO HS [facility] Last Admin: 12/17/18 21:28 Dose: 5 mg Sertraline HCl (Zoloft) 25 mg PO DAILY [facility] Last Admin: 12/18/18 10:30 Dose: 25 mg - Labs Labs: 12/18/18 07:02 12/18/18 07:02 - Constitutional Appears: Non-toxic, No Acute Distress - Head Exam Head Exam: ATRAUMATIC, NORMOCEPHALIC - Eye Exam Eye Exam: EOMI - ENT Exam ENT Exam: Mucous Membranes Moist - Respiratory Exam Respiratory Exam: Rhonchi, Wheezes (diffuse wheezes), Respiratory Distress (mild respiratory distress, patient had taken BIPAP off, using NC). absent: Rales - Cardiovascular Exam Cardiovascular Exam: REGULAR RHYTHM, +S1, +S2 - GI/Abdominal Exam GI & Abdominal Exam: Soft, Normal Bowel Sounds. absent: Tenderness - Neurological Exam Neurological Exam: Alert, Awake, CN II-XII Intact, Oriented x3 - Skin Skin Exam: Dry, Intact Assessment and Plan - Assessment and Plan (Free Text) Assessment: COPD Exacerbation -CXR shows no active pulmonary disease. COPD -Pulmonology, Dr. Rinaldi, consulted. Meds: -Acetylcysteine 20% INH Q6 -Duonebs Q6 -Brovana INH Q12 -Pulmicort INH Q12 -Robitussin 200 mg PO Q4H PRN -Solumedrol 40 mg IVP Q8 -Singulair 10 mg PO HS Pt afebrile, no leukocytosis. -ABG 12/17 3L [place] O2 shows respiratory acidosis; PCO2 is 73, increased from 71 y esterday. pO2 is low at 79. pH is 7.42 --> Repeat ABG mostly unchanged, patient remains hypocarbic, hypoxic -Per Dr. Rinaldi, BIPAP settings increased to 18/8 --> F/u repeat ABG Neuropathy Continue Cymbalta 60 mg PO daily, Gabapentin 100 mg PO daily HLD Continue Rosuvastatin 5 mg PO daily Depression Continue Zoloft 25 mg PO daily Pt is also on Cymbalta Lumbago Continue Tylenol PRN mild pain/fever, Percocet 5/325 mg PO Q6H PRN moderate pain Pt is also on Gabapentin, Cymbalta as above PPx -Lovenox 40 mg SC daily -Protonix 40 mg PO daily -Regular diet -PT Case discussed with Dr. Mary Arteaga, PGY1 <Christopher Hernandez - Last Filed: 12/18/18 17:19> Objective - Vital Signs/Intake and Output Vital Signs (last 24 hours): Temp Pulse Resp BP Pulse Ox 98.9 F 83 20 108/59 L 93 L 12/18/18 15:39 12/18/18 16:00 12/18/18 15:39 12/18/18 15:39 12/18/18 15:39 Intake and Output: 12/18/18 12/18/18 06:59 18:59 Intake Total 350 Balance 350 - Medications Medications: Current Medications Acetaminophen (Tylenol 325mg Tab) 650 mg PO Q6 PRN PRN Reason: Pain, Mild (1-3) Last Admin: 12/12/18 07:14 Dose: 650 mg Acetylcysteine (Acetylcysteine 20%) 4 ml INH RQ6 [facility] Last Admin: 12/18/18 14:21 Dose: 4 ml Albuterol/Ipratropium (Duoneb 3 Mg/0.5 Mg (3 Ml) Ud) 3 ml INH RQ6 [facility] Last Admin: 12/18/18 14:21 Dose: 3 ml Arformoterol Tartrate (Brovana) 15 mcg INH RQ12@1000,2200 [facility] Last Admin: 12/18/18 09:28 Dose: 15 mcg Aspirin (Aspirin Chewable) 81 mg PO DAILY [facility] Last Admin: 12/18/18 10:30 Dose: 81 mg Budesonide (Pulmicort Respules) 0.5 mg INH RQ12 [facility] Last Admin: 12/18/18 09:28 Dose: 0.5 mg Duloxetine HCl (Cymbalta) 60 mg PO DAILY [facility] Last Admin: 12/18/18 10:34 Dose: Not Given Enoxaparin Sodium (Lovenox) 40 mg SC DAILY [facility] Last Admin: 12/18/18 10:30 Dose: 40 mg Ergocalciferol (Drisdol 50,000 Intl Units Cap) 1 cap PO QWK [facility] Last Admin: 12/18/18 10:32 Dose: 1 cap Folic Acid (Folic Acid) 1 mg PO DAILY [facility] Last Admin: 12/18/18 10:30 Dose: 1 mg Gabapentin (Neurontin) 100 mg PO DAILY [facility] Last Admin: 12/18/18 10:30 Dose: 100 mg Guaifenesin (Robitussin) 200 mg PO Q4H PRN PRN Reason: Cough and congestion Last Admin: 12/16/18 09:55 Dose: 200 mg Methylprednisolone (Solu-Medrol) 40 mg IVP Q8 [facility] Last Admin: 12/18/18 13:10 Dose: 40 mg Montelukast Sodium (Singulair) 10 mg PO HS [facility] Last Admin: 12/17/18 21:28 Dose: 10 mg Oxycodone/Acetaminophen (Percocet 5/325 Mg Tab) 1 tab PO Q4H PRN PRN Reason: Pain, moderate (4-7) Stop: 12/21/18 10:41 Last Admin: 12/18/18 15:04 Dose: 1 tab Pantoprazole Sodium (Protonix Ec Tab) 40 mg PO DAILY [facility] Last Admin: 12/18/18 10:30 Dose: 40 mg Rosuvastatin Calcium (Crestor) 5 mg PO HS [facility] Last Admin: 12/17/18 21:28 Dose: 5 mg Sertraline HCl (Zoloft) 25 mg PO DAILY [facility] Last Admin: 12/18/18 10:30 Dose: 25 mg - Labs Labs: 12/18/18 07:02 12/18/18 07:02 Attending/Attestation - Attestation I have personally seen and examined this patient.: Yes I have fully participated in the care of the patient.: Yes I have reviewed all pertinent clinical information, including history, physical exam and plan: Yes Notes (Text): seen and examined by me. patient has mild sob,c/o cough and shortness of breath. Looks better than yesterday. chest x ray done.no infiltrate BIPAP setting changes,uses BIPAP. contineu solumedrol,pulmicort and brovana seen by Dr rinaldi today we will follow
--- NOTE | 2018-12-18 16:59 | CP.PCM.PN ---
Subjective - Date & Time of Evaluation Date of Evaluation: 12/18/18 Time of Evaluation: 16:00 - Subjective Subjective: Patient seen and examined Breathing better On examination patient off BiPAP and in no respiratory distress Denies cough, denies fever chills Objective - Vital Signs/Intake and Output Vital Signs (last 24 hours): Temp Pulse Resp BP Pulse Ox 98.9 F 83 20 108/59 L 93 L 12/18/18 15:39 12/18/18 16:00 12/18/18 15:39 12/18/18 15:39 12/18/18 15:39 Intake and Output: 12/18/18 12/18/18 06:59 18:59 Intake Total 350 Balance 350 - Medications Medications: Current Medications Acetaminophen (Tylenol 325mg Tab) 650 mg PO Q6 PRN PRN Reason: Pain, Mild (1-3) Last Admin: 12/12/18 07:14 Dose: 650 mg Acetylcysteine (Acetylcysteine 20%) 4 ml INH RQ6 [facility] Last Admin: 12/18/18 14:21 Dose: 4 ml Albuterol/Ipratropium (Duoneb 3 Mg/0.5 Mg (3 Ml) Ud) 3 ml INH RQ6 [facility] Last Admin: 12/18/18 14:21 Dose: 3 ml Arformoterol Tartrate (Brovana) 15 mcg INH RQ12@1000,2200 [facility] Last Admin: 12/18/18 09:28 Dose: 15 mcg Aspirin (Aspirin Chewable) 81 mg PO DAILY [facility] Last Admin: 12/18/18 10:30 Dose: 81 mg Budesonide (Pulmicort Respules) 0.5 mg INH RQ12 [facility] Last Admin: 12/18/18 09:28 Dose: 0.5 mg Duloxetine HCl (Cymbalta) 60 mg PO DAILY [facility] Last Admin: 12/18/18 10:34 Dose: Not Given Enoxaparin Sodium (Lovenox) 40 mg SC DAILY [facility] Last Admin: 12/18/18 10:30 Dose: 40 mg Ergocalciferol (Drisdol 50,000 Intl Units Cap) 1 cap PO QWK [facility] Last Admin: 12/18/18 10:32 Dose: 1 cap Folic Acid (Folic Acid) 1 mg PO DAILY [facility] Last Admin: 12/18/18 10:30 Dose: 1 mg Gabapentin (Neurontin) 100 mg PO DAILY [facility] Last Admin: 12/18/18 10:30 Dose: 100 mg Guaifenesin (Robitussin) 200 mg PO Q4H PRN PRN Reason: Cough and congestion Last Admin: 12/16/18 09:55 Dose: 200 mg Methylprednisolone (Solu-Medrol) 40 mg IVP Q8 [facility] Last Admin: 12/18/18 13:10 Dose: 40 mg Montelukast Sodium (Singulair) 10 mg PO HS [facility] Last Admin: 12/17/18 21:28 Dose: 10 mg Oxycodone/Acetaminophen (Percocet 5/325 Mg Tab) 1 tab PO Q4H PRN PRN Reason: Pain, moderate (4-7) Stop: 12/21/18 10:41 Last Admin: 12/18/18 15:04 Dose: 1 tab Pantoprazole Sodium (Protonix Ec Tab) 40 mg PO DAILY [facility] Last Admin: 12/18/18 10:30 Dose: 40 mg Rosuvastatin Calcium (Crestor) 5 mg PO [facility] Last Admin: 12/17/18 21:28 Dose: 5 mg Sertraline HCl (Zoloft) 25 mg PO DAILY [facility] Last Admin: 12/18/18 10:30 Dose: 25 mg - Labs Labs: 12/18/18 07:02 12/18/18 07:02 - Head Exam Head Exam: ATRAUMATIC, NORMOCEPHALIC - ENT Exam ENT Exam: Mucous Membranes Moist - Neck Exam Neck Exam: Normal Inspection - Respiratory Exam Respiratory Exam: Decreased Breath Sounds - Cardiovascular Exam Cardiovascular Exam: REGULAR RHYTHM - GI/Abdominal Exam GI & Abdominal Exam: Soft, Normal Bowel Sounds Assessment and Plan (1) COPD exacerbation Assessment & Plan: Continue present medication BiPAP as needed Brovana and budesonide and nebulizer treatment Status: Acute
[2018-12-19] MEDS: Albuterol-Ipratrop 3 mg / 0.5 (3 ml) UD INH SCH ×4 (01:45→19:37)
[2018-12-19] MEDS: Acetylcysteine 20% Inhal Soln (4ml) INH SCH ×4 (01:45→19:37)
[2018-12-19] MEDS: MethylPREDNISolone 40 mg Vial IVP SCH ×3 (05:48→22:20)
[2018-12-19 08:14] LABS: BASO % 0.1 % (0.0-2.0); HEMOGLOBIN 13.9 g/dL (11.0-16.0); LYMPH # 1.3 K/uL (1.0-4.3); MEAN CELL VOLUME 87.6 fL (81.0-99.0); MEAN CORPUSCULAR HEMOGLOBIN 29.4 pg (27.0-31.0); MEAN CORPUSCULAR HGB CONC 33.5 g/dL (33.0-37.0); MEAN PLATELET VOLUME 9.2 fL (7.2-11.7); MONO # 1.3 K/uL (0.0-0.8); MONO % 6.1 % (0.0-10.0); NEUT # 18.9 K/uL (1.8-7.0); NEUT % 87.8 % (50.0-75.0); PLATELET COUNT 331 K/uL (130-400); RBC 4.72 Mil/uL (3.80-5.20); RED CELL DISTRIBUTION WIDTH 13.1 % (11.5-14.5); WHITE BLOOD COUNT 21.6 K/uL (4.8-10.8)
[2018-12-19 08:41] LABS: ALB/GLOB RATIO 1.1 (1.0-2.1); ALBUMIN 3.2 g/dL (3.5-5.0); ALT/SGPT 22 U/L (9-52); AST/SGOT 14 U/L (14-36); BLOOD UREA NITROGEN 15 mg/dL (7-17); CALCIUM 8.9 mg/dl (8.6-10.4); GFR NON-AFRICAN AMERICAN > 60
[2018-12-19] MEDS: Budesonide 0.5 mg/2 ml Inhal Susp UD INH SCH ×2 (09:19→19:37)
[2018-12-19] MEDS: Arformoterol 15 mcg/2 ml Inh Sol INH SCH ×3 (09:19→22:00)
[2018-12-19 09:41] LABS: MONOCYTE 5 % (0-10); TOTAL CELLS COUNTED 100
[2018-12-19 09:42] LABS: LYMPHOCYTE 7 % (20-40); NEUTROPHIL 88 % (50-75); PLATELET ESTIMATE NORMAL (NORMAL)
[2018-12-19] MEDS: Pantoprazole 40 mg EC Tab PO SCH (10:11)
[2018-12-19] MEDS: Enoxaparin 40 mg Syringe SC SCH (10:11)
--- NOTE | 2018-12-19 11:52 | CP.PCM.PN ---
Subjective - Date & Time of Evaluation Date of Evaluation: 12/19/18 Time of Evaluation: 11:52 - Subjective Subjective: Pulmonary Follow Up, Covering Dr. Rinaldi The patient was Seen/interviewed and examined by me at the bedside during, Medical records reviewed and Management issues were discussed and formulated with the house staff. Events reviewed. Objective - Vital Signs/Intake and Output Vital Signs (last 24 hours): Temp Pulse Resp BP Pulse Ox 98 F 65 20 117/56 L 97 12/19/18 07:30 12/19/18 07:30 12/19/18 07:30 12/19/18 07:30 12/19/18 07:30 Intake and Output: 12/19/18 12/19/18 06:59 18:59 Intake Total 480 Balance 480 - Medications Medications: Current Medications Acetaminophen (Tylenol 325mg Tab) 650 mg PO Q6 PRN PRN Reason: Pain, Mild (1-3) Last Admin: 12/12/18 07:14 Dose: 650 mg Acetylcysteine (Acetylcysteine 20%) 4 ml INH RQ6 [facility] Last Admin: 12/19/18 09:19 Dose: 4 ml Albuterol/Ipratropium (Duoneb 3 Mg/0.5 Mg (3 Ml) Ud) 3 ml INH RQ6 [facility] Last Admin: 12/19/18 09:19 Dose: 3 ml Arformoterol Tartrate (Brovana) 15 mcg INH RQ12@1000,2200 [facility] Last Admin: 12/19/18 09:19 Dose: 15 mcg Aspirin (Aspirin Chewable) 81 mg PO DAILY [facility] Last Admin: 12/19/18 10:11 Dose: 81 mg Budesonide (Pulmicort Respules) 0.5 mg INH RQ12 [facility] Last Admin: 12/19/18 09:19 Dose: 0.5 mg Duloxetine HCl (Cymbalta) 60 mg PO DAILY [facility] Last Admin: 12/19/18 10:11 Dose: Not Given Enoxaparin Sodium (Lovenox) 40 mg SC DAILY [facility] Last Admin: 12/19/18 10:11 Dose: 40 mg Ergocalciferol (Drisdol 50,000 Intl Units Cap) 1 cap PO QWK [facility] Last Admin: 12/18/18 10:32 Dose: 1 cap Folic Acid (Folic Acid) 1 mg PO DAILY [facility] Last Admin: 12/19/18 10:10 Dose: 1 mg Gabapentin (Neurontin) 100 mg PO DAILY [facility] Last Admin: 12/19/18 10:11 Dose: 100 mg Guaifenesin (Robitussin) 200 mg PO Q4H PRN PRN Reason: Cough and congestion Last Admin: 12/16/18 09:55 Dose: 200 mg Methylprednisolone (Solu-Medrol) 40 mg IVP Q8 [facility] Last Admin: 12/19/18 05:48 Dose: 40 mg Montelukast Sodium (Singulair) 10 mg PO [facility] Last Admin: 12/18/18 21:16 Dose: 10 mg Oxycodone/Acetaminophen (Percocet 5/325 Mg Tab) 1 tab PO Q4H PRN PRN Reason: Pain, moderate (4-7) Stop: 12/21/18 10:41 Last Admin: 12/18/18 21:16 Dose: 1 tab Pantoprazole Sodium (Protonix Ec Tab) 40 mg PO DAILY [facility] Last Admin: 12/19/18 10:11 Dose: 40 mg Rosuvastatin Calcium (Crestor) 5 mg PO HS [facility] Last Admin: 12/18/18 21:16 Dose: 5 mg Sertraline HCl (Zoloft) 25 mg PO DAILY [facility] Last Admin: 12/19/18 10:11 Dose: 25 mg - Labs Labs: 12/19/18 08:02 12/19/18 08:02
[2018-12-19] MEDS: Oxycodone/Acetaminophen 5/325 mg Tab PO PRN ×2 (11:54→22:20)
--- NOTE | 2018-12-19 16:41 | CT ---
Date of service: 12/19/2018 PROCEDURE: CT Chest without contrast HISTORY: COPD with fibrotic changes in the upper lobes COMPARISON: Comparison is made with 02/18/2016 TECHNIQUE: Contiguous axial images were obtained through the chest without intravenous contrast enhancement. Sagittal and coronal reconstructions were performed. Radiation dose: Total exam DLP = 265.55 mGy-cm. This CT exam was performed using one or more of the following dose reduction techniques: Automated exposure control, adjustment of the mA and/or kV according to patient size, and/or use of iterative reconstruction technique. FINDINGS: LUNGS: Again noted is moderate to severe quiroz lobar emphysema. Again seen are segmental/subsegmental foci of bronchiectasis in the left upper lobe right upper lobe which have not significantly changed since the prior exam. Again noted is 5.3 millimeter noncalcified nodule at the right lower lobe. Also again noted is pleural base nodule at the left lower lobe measures 8 millimeter has increased in size since the prior exam. There are reticular opacities in the bilateral upper lobe likely represent scar tissue. There are scattered tree in bud and small nodular opacities likely represent mild infectious process. MEDIASTINUM: Unremarkable thoracic aorta. No aneurysm. Normal sized heart. The main pulmonary artery is mildly to moderately enlarged. No lymphadenopathy. Small foci of atherosclerotic calcification noted in the aortic arch PLEURA: No pleural fluid. No pneumothorax. BONES: [id number] compression deformity of T9 vertebral body is noted. Mild compression deformity in the superior endplate of T6 is also noted. UPPER ABDOMEN: Grossly unremarkable. OTHER FINDINGS: None. IMPRESSION: Moderate to mildly severe diffuse emphysema. Stable reticular opacities and foci of bronchiectasis in the upper lobes likely sequela of prior infection or inflammatory process. Stable 5.3 millimeter nodule at the right lower lobe. Interval mild increase in the size of pleural base nodule at the left lower lobe measures 8 millimeter in the current study. Tree in bud and small nodular opacities in the lower lobes likely due to infectious process. Please correlate clinically.
--- NOTE | 2018-12-19 16:47 | CP.PCM.PN ---
Subjective - Date & Time of Evaluation Date of Evaluation: 12/19/18 Time of Evaluation: 11:00 - Subjective Subjective: seen and examined by me this morning. she was talking to her family member ,on [place] oxygen She is able to talk full sentence ,feels herself today. no fever Her white cells went up Objective - Vital Signs/Intake and Output Vital Signs (last 24 hours): Temp Pulse Resp BP Pulse Ox 98 F 65 20 117/56 L 97 12/19/18 07:30 12/19/18 07:30 12/19/18 07:30 12/19/18 07:30 12/19/18 07:30 Intake and Output: 12/19/18 12/19/18 06:59 18:59 Intake Total 480 Balance 480 - Medications Medications: Current Medications Acetaminophen (Tylenol 325mg Tab) 650 mg PO Q6 PRN PRN Reason: Pain, Mild (1-3) Last Admin: 12/12/18 07:14 Dose: 650 mg Acetylcysteine (Acetylcysteine 20%) 4 ml INH RQ6 [facility] Last Admin: 12/19/18 14:21 Dose: 4 ml Albuterol/Ipratropium (Duoneb 3 Mg/0.5 Mg (3 Ml) Ud) 3 ml INH RQ6 [facility] Last Admin: 12/19/18 14:21 Dose: 3 ml Arformoterol Tartrate (Brovana) 15 mcg INH RQ12@1000,2200 [facility] Last Admin: 12/19/18 09:19 Dose: 15 mcg Aspirin (Aspirin Chewable) 81 mg PO DAILY [facility] Last Admin: 12/19/18 10:11 Dose: 81 mg Budesonide (Pulmicort Respules) 0.5 mg INH RQ12 [facility] Last Admin: 12/19/18 09:19 Dose: 0.5 mg Duloxetine HCl (Cymbalta) 60 mg PO DAILY [facility] Last Admin: 12/19/18 10:11 Dose: Not Given Enoxaparin Sodium (Lovenox) 40 mg SC DAILY [facility] Last Admin: 12/19/18 10:11 Dose: 40 mg Ergocalciferol (Drisdol 50,000 Intl Units Cap) 1 cap PO QWK [facility] Last Admin: 12/18/18 10:32 Dose: 1 cap Folic Acid (Folic Acid) 1 mg PO DAILY [facility] Last Admin: 12/19/18 10:10 Dose: 1 mg Gabapentin (Neurontin) 100 mg PO DAILY [facility] Last Admin: 12/19/18 10:11 Dose: 100 mg Guaifenesin (Robitussin) 200 mg PO Q4H PRN PRN Reason: Cough and congestion Last Admin: 12/16/18 09:55 Dose: 200 mg Methylprednisolone (Solu-Medrol) 40 mg IVP Q8 [facility] Last Admin: 12/19/18 14:42 Dose: 40 mg Montelukast Sodium (Singulair) 10 mg PO HS [facility] Last Admin: 12/18/18 21:16 Dose: 10 mg Oxycodone/Acetaminophen (Percocet 5/325 Mg Tab) 1 tab PO Q4H PRN PRN Reason: Pain, moderate (4-7) Stop: 12/21/18 10:41 Last Admin: 12/19/18 11:54 Dose: 1 tab Pantoprazole Sodium (Protonix Ec Tab) 40 mg PO DAILY [facility] Last Admin: 12/19/18 10:11 Dose: 40 mg Rosuvastatin Calcium (Crestor) 5 mg PO HS [facility] Last Admin: 12/18/18 21:16 Dose: 5 mg Sertraline HCl (Zoloft) 25 mg PO DAILY [facility] Last Admin: 12/19/18 10:11 Dose: 25 mg - Labs Labs: 12/19/18 08:02 12/19/18 08:02 - Constitutional Appears: Non-toxic - Head Exam Head Exam: NORMAL INSPECTION - Eye Exam Eye Exam: Normal appearance - ENT Exam ENT Exam: Mucous Membranes Moist - Neck Exam Neck Exam: Full ROM - Respiratory Exam Respiratory Exam: Decreased Breath Sounds. absent: Accessory Muscle Use - Cardiovascular Exam Cardiovascular Exam: REGULAR RHYTHM - GI/Abdominal Exam GI & Abdominal Exam: Soft, Normal Bowel Sounds - Extremities Exam Extremities Exam: Full ROM - Back Exam Back Exam: NORMAL INSPECTION - Neurological Exam Neurological Exam: Awake, Oriented x3 - Psychiatric Exam Psychiatric exam: Normal Mood - Skin Skin Exam: Dry Assessment and Plan - Assessment and Plan (Free Text) Plan: 1.COPD Exacerbation and hypercapneic rsepiratory failure -repeat CXR done yesterday shows no active pulmonary disease. COPD Has high wbc 21 -Pulmonology Dr harris saw the pt and CT chest ordered.Aspergilus ab ordered -tolerating [place] 3l this morning,on BIPAP (18/8) at night and PRN Meds: -Acetylcysteine 20% INH Q6 -Duonebs Q6 -Brovana INH Q12 -Pulmicort INH Q12 -Robitussin 200 mg PO Q4H PRN -Solumedrol 40 mg IVP Q8 -Singulair 10 mg PO HS Neuropathy Continue Cymbalta 60 mg PO daily, Gabapentin 100 mg PO daily HLD Continue Rosuvastatin 5 mg PO daily Depression Continue Zoloft 25 mg PO daily Pt is also on Cymbalta Lumbago Continue Tylenol PRN mild pain/fever, Percocet 5/325 mg PO Q6H PRN moderate pain Pt is also on Gabapentin, Cymbalta as above PPx -Lovenox 40 mg SC daily -Protonix 40 mg PO daily -Regular diet Patient is not ready for discharge to TCU. we will follow up with pulmonary closely
--- NOTE | 2018-12-19 18:17 | RAD ---
Date of service: 12/18/2018 HISTORY: shortness of breath and cough,hypercapnea COMPARISON: 12/10/2018 TECHNIQUE: 1 view obtained. FINDINGS: LUNGS: Interval improvement in the lungs noted since the previous exam. No evidence of new infiltrate or consolidation in the lungs. PLEURA: No significant pleural effusion identified, no pneumothorax apparent. CARDIOVASCULAR: No aortic atherosclerotic calcification present. Normal cardiac size. No pulmonary vascular congestion. OSSEOUS STRUCTURES: No significant abnormalities. VISUALIZED UPPER ABDOMEN: Normal. OTHER FINDINGS: None. IMPRESSION: No active disease.
[2018-12-20] MEDS: Albuterol-Ipratrop 3 mg / 0.5 (3 ml) UD INH SCH ×4 (01:22→19:58)
[2018-12-20] MEDS: Acetylcysteine 20% Inhal Soln (4ml) INH SCH ×4 (01:24→19:59)
[2018-12-20] MEDS: MethylPREDNISolone 40 mg Vial IVP SCH ×3 (05:54→21:46)
--- NOTE | 2018-12-20 08:12 | CP.PCM.PN ---
Subjective - Date & Time of Evaluation Date of Evaluation: 12/20/18 Time of Evaluation: 08:12 Objective - Vital Signs/Intake and Output Vital Signs (last 24 hours): Temp Pulse Resp BP Pulse Ox 98.3 F 69 20 145/73 96 12/19/18 23:30 12/20/18 01:00 12/19/18 23:30 12/19/18 23:30 12/19/18 23:30 - Medications Medications: Current Medications Acetaminophen (Tylenol 325mg Tab) 650 mg PO Q6 PRN PRN Reason: Pain, Mild (1-3) Last Admin: 12/12/18 07:14 Dose: 650 mg Acetylcysteine (Acetylcysteine 20%) 4 ml INH RQ6 [facility] Last Admin: 12/20/18 01:24 Dose: 4 ml Albuterol/Ipratropium (Duoneb 3 Mg/0.5 Mg (3 Ml) Ud) 3 ml INH RQ6 [facility] Last Admin: 12/20/18 01:22 Dose: 3 ml Arformoterol Tartrate (Brovana) 15 mcg INH RQ12@1000,2200 [facility] Last Admin: 12/19/18 19:37 Dose: 15 mcg Aspirin (Aspirin Chewable) 81 mg PO DAILY [facility] Last Admin: 12/19/18 10:11 Dose: 81 mg Budesonide (Pulmicort Respules) 0.5 mg INH RQ12 [facility] Last Admin: 12/19/18 19:37 Dose: 0.5 mg Duloxetine HCl (Cymbalta) 60 mg PO DAILY [facility] Last Admin: 12/19/18 10:11 Dose: Not Given Enoxaparin Sodium (Lovenox) 40 mg SC DAILY [facility] Last Admin: 12/19/18 10:11 Dose: 40 mg Ergocalciferol (Drisdol 50,000 Intl Units Cap) 1 cap PO QWK [facility] Last Admin: 12/18/18 10:32 Dose: 1 cap Folic Acid (Folic Acid) 1 mg PO DAILY [facility] Last Admin: 12/19/18 10:10 Dose: 1 mg Gabapentin (Neurontin) 100 mg PO DAILY [facility] Last Admin: 12/19/18 10:11 Dose: 100 mg Guaifenesin (Robitussin) 200 mg PO Q4H PRN PRN Reason: Cough and congestion Last Admin: 12/16/18 09:55 Dose: 200 mg Methylprednisolone (Solu-Medrol) 40 mg IVP Q8 [facility] Last Admin: 12/20/18 05:54 Dose: 40 mg Montelukast Sodium (Singulair) 10 mg PO HS [facility] Last Admin: 12/19/18 22:20 Dose: 10 mg Oxycodone/Acetaminophen (Percocet 5/325 Mg Tab) 1 tab PO Q4H PRN PRN Reason: Pain, moderate (4-7) Stop: 12/21/18 10:41 Last Admin: 12/19/18 22:20 Dose: 1 tab Pantoprazole Sodium (Protonix Ec Tab) 40 mg PO DAILY [facility] Last Admin: 12/19/18 10:11 Dose: 40 mg Rosuvastatin Calcium (Crestor) 5 mg PO HS [facility] Last Admin: 12/19/18 22:20 Dose: 5 mg Sertraline HCl (Zoloft) 25 mg PO DAILY [facility] Last Admin: 12/19/18 10:11 Dose: 25 mg - Labs Labs: 12/19/18 08:02 12/19/18 08:02
[2018-12-20 08:22] LABS: BASO % 0.2 % (0.0-2.0); HEMOGLOBIN 13.8 g/dL (11.0-16.0); LYMPH # 1.1 K/uL (1.0-4.3); LYMPH % 7.5 % (20.0-40.0); MEAN CELL VOLUME 87.6 fL (81.0-99.0); MEAN CORPUSCULAR HEMOGLOBIN 28.6 pg (27.0-31.0); MEAN CORPUSCULAR HGB CONC 32.7 g/dL (33.0-37.0); MEAN PLATELET VOLUME 9.2 fL (7.2-11.7); MONO # 0.6 K/uL (0.0-0.8); NEUT # 12.9 K/uL (1.8-7.0); NEUT % 88.3 % (50.0-75.0); NRBC % 0.1 % (0.0-2.0); PLATELET COUNT 349 K/uL (130-400); RBC 4.82 Mil/uL (3.80-5.20); WHITE BLOOD COUNT 14.6 K/uL (4.8-10.8)
[2018-12-20] MEDS: Arformoterol 15 mcg/2 ml Inh Sol INH SCH ×3 (08:27→22:46)
[2018-12-20] MEDS: Budesonide 0.5 mg/2 ml Inhal Susp UD INH SCH (08:28)
[2018-12-20 09:06] LABS: ALB/GLOB RATIO 1.2 (1.0-2.1); ALBUMIN 3.4 g/dL (3.5-5.0); ALT/SGPT 19 U/L (9-52); AST/SGOT 14 U/L (14-36); BLOOD UREA NITROGEN 18 mg/dL (7-17); CALCIUM 9.1 mg/dl (8.6-10.4); GFR NON-AFRICAN AMERICAN > 60
[2018-12-20] MEDS: Pantoprazole 40 mg EC Tab PO SCH (09:23)
[2018-12-20] MEDS: Enoxaparin 40 mg Syringe SC SCH (09:25)
[2018-12-20] MEDS: Oxycodone/Acetaminophen 5/325 mg Tab PO PRN ×2 (09:37→22:29)
[2018-12-20 10:50] LABS: LYMPHOCYTE 5 % (20-40); MONOCYTE 4 % (0-10); PLATELET ESTIMATE NORMAL (NORMAL); TOTAL CELLS COUNTED 100
[2018-12-20 10:51] LABS: ANISOCYTOSIS SLIGHT; HYPOCHROMIC SLIGHT; LARGE PLATELETS PRESENT
[2018-12-20 10:53] LABS: BANDS 1 % (0-2); NEUTROPHIL 89 % (50-75); REACTIVE LYMPHOCYTES 1 % (0-0)
--- NOTE | 2018-12-20 17:04 | CP.PCM.PN ---
Subjective - Date & Time of Evaluation Date of Evaluation: 12/20/18 Time of Evaluation: 11:00 - Subjective Subjective: sitting on bed and talking in full sentence today. Feels better. Has cough Objective - Vital Signs/Intake and Output Vital Signs (last 24 hours): Temp Pulse Resp BP Pulse Ox 97 F L 86 20 118/69 96 12/20/18 15:00 12/20/18 15:00 12/20/18 15:00 12/20/18 15:00 12/20/18 15:00 - Medications Medications: Current Medications Acetaminophen (Tylenol 325mg Tab) 650 mg PO Q6 PRN PRN Reason: Pain, Mild (1-3) Last Admin: 12/12/18 07:14 Dose: 650 mg Acetylcysteine (Acetylcysteine 20%) 4 ml INH RQ6 [facility] Last Admin: 12/20/18 14:38 Dose: 4 ml Albuterol/Ipratropium (Duoneb 3 Mg/0.5 Mg (3 Ml) Ud) 3 ml INH RQ6 [facility] Last Admin: 12/20/18 14:38 Dose: 3 ml Arformoterol Tartrate (Brovana) 15 mcg INH RQ12@1000,2200 [facility] Last Admin: 12/20/18 10:00 Dose: Not Given Aspirin (Aspirin Chewable) 81 mg PO DAILY [facility] Last Admin: 12/20/18 09:24 Dose: 81 mg Budesonide (Pulmicort Respules) 0.5 mg INH RQ12 [facility] Last Admin: 12/20/18 08:28 Dose: 0.5 mg Duloxetine HCl (Cymbalta) 60 mg PO DAILY [facility] Last Admin: 12/20/18 09:25 Dose: Not Given Enoxaparin Sodium (Lovenox) 40 mg SC DAILY [facility] Last Admin: 12/20/18 09:25 Dose: 40 mg Ergocalciferol (Drisdol 50,000 Intl Units Cap) 1 cap PO QWK [facility] Last Admin: 12/18/18 10:32 Dose: 1 cap Folic Acid (Folic Acid) 1 mg PO DAILY [facility] Last Admin: 12/20/18 09:24 Dose: 1 mg Gabapentin (Neurontin) 100 mg PO DAILY [facility] Last Admin: 12/20/18 09:24 Dose: 100 mg Guaifenesin (Robitussin) 200 mg PO Q4H PRN PRN Reason: Cough and congestion Last Admin: 12/16/18 09:55 Dose: 200 mg Methylprednisolone (Solu-Medrol) 40 mg IVP Q8 [facility] Last Admin: 12/20/18 14:00 Dose: 40 mg Montelukast Sodium (Singulair) 10 mg PO HS [facility] Last Admin: 12/19/18 22:20 Dose: 10 mg Oxycodone/Acetaminophen (Percocet 5/325 Mg Tab) 1 tab PO Q4H PRN PRN Reason: Pain, moderate (4-7) Stop: 12/21/18 10:41 Last Admin: 12/20/18 09:37 Dose: 1 tab Pantoprazole Sodium (Protonix Ec Tab) 40 mg PO DAILY [facility] Last Admin: 12/20/18 09:23 Dose: 40 mg Rosuvastatin Calcium (Crestor) 5 mg PO HS [facility] Last Admin: 12/19/18 22:20 Dose: 5 mg Sertraline HCl (Zoloft) 25 mg PO DAILY [facility] Last Admin: 12/20/18 09:23 Dose: 25 mg - Labs Labs: 12/20/18 08:07 12/20/18 08:07 - Constitutional Appears: No Acute Distress - Eye Exam Eye Exam: Normal appearance Pupil Exam: NORMAL ACCOMODATION - ENT Exam ENT Exam: Mucous Membranes Moist - Neck Exam Neck Exam: Full ROM - Respiratory Exam Respiratory Exam: Decreased Breath Sounds - Cardiovascular Exam Cardiovascular Exam: REGULAR RHYTHM - GI/Abdominal Exam GI & Abdominal Exam: Soft, Normal Bowel Sounds - Extremities Exam Extremities Exam: Full ROM - Back Exam Back Exam: NORMAL INSPECTION - Neurological Exam Neurological Exam: Awake, Oriented x3 - Psychiatric Exam Psychiatric exam: Normal Mood - Skin Skin Exam: Intact Assessment and Plan - Assessment and Plan (Free Text) Plan: 1.COPD Exacerbation and hypercapneic respiratory failure leukocytosis is improving tolerating NC 3l ,on BIPAP (18/8) at night and PRN repeat CXR no active pulmonary disease. COPD Has high wbc [address] harris saw the pt yesterday CT chest done-Diffuse emphysema,bronchiectasis,pulmonary nodule 8mm and bud and small nodular opacities likely infectious process Aspergilus ab ordered,report pending Meds: -Acetylcysteine 20% INH Q6 -Duonebs Q6 -Brovana INH Q12 -Pulmicort INH Q12 -Solumedrol 40 mg IVP Q8 -Singulair 10 mg PO HS Neuropathy Continue Cymbalta 60 mg PO daily, Gabapentin 100 mg PO daily [facility] Continue Rosuvastatin 5 mg PO daily Depression Continue Zoloft 25 mg PO daily Pt is also on Cymbalta Lumbago Continue Tylenol PRN mild pain/fever, Percocet 5/325 mg PO Q6H PRN moderate pain Pt is also on Gabapentin, Cymbalta as above PPx -Lovenox 40 mg SC daily -Protonix 40 mg PO daily -Regular diet Patient is not ready .PT recommending discharge to TCU.Patient wants to go home.Uses BIPAP at home .
[2018-12-21] MEDS: Albuterol-Ipratrop 3 mg / 0.5 (3 ml) UD INH SCH ×4 (01:16→13:33)
[2018-12-21] MEDS: Acetylcysteine 20% Inhal Soln (4ml) INH SCH ×3 (01:21→13:33)
[2018-12-21] MEDS: MethylPREDNISolone 40 mg Vial IVP SCH ×2 (05:57→13:40)
[2018-12-21 07:24] LABS: BASO % 0.1 % (0.0-2.0); HEMOGLOBIN 13.4 g/dL (11.0-16.0); LYMPH # 1.4 K/uL (1.0-4.3); LYMPH % 5.9 % (20.0-40.0); MEAN CELL VOLUME 87.1 fL (81.0-99.0); MEAN CORPUSCULAR HEMOGLOBIN 28.9 pg (27.0-31.0); MEAN CORPUSCULAR HGB CONC 33.2 g/dL (33.0-37.0); MEAN PLATELET VOLUME 9.2 fL (7.2-11.7); MONO # 1.1 K/uL (0.0-0.8); MONO % 4.5 % (0.0-10.0); NEUT # 20.9 K/uL (1.8-7.0); NEUT % 89.5 % (50.0-75.0); NRBC % 0.1 % (0.0-2.0); PLATELET COUNT 373 K/uL (130-400); RBC 4.65 Mil/uL (3.80-5.20); RED CELL DISTRIBUTION WIDTH 12.8 % (11.5-14.5)
[2018-12-21 07:27] LABS: WHITE BLOOD COUNT 23.4 K/uL (4.8-10.8)
--- NOTE | 2018-12-21 07:27 | CP.PCM.PN ---
Objective - Vital Signs/Intake and Output Vital Signs (last 24 hours): Temp Pulse Resp BP Pulse Ox 98 F 90 20 127/52 L 94 L 12/20/18 23:25 12/21/18 01:00 12/20/18 23:25 12/20/18 23:25 12/20/18 23:25 Intake and Output: 12/21/18 12/21/18 06:59 18:59 Intake Total 300 Balance 300 - Medications Medications: Current Medications Acetaminophen (Tylenol 325mg Tab) 650 mg PO Q6 PRN PRN Reason: Pain, Mild (1-3) Last Admin: 12/12/18 07:14 Dose: 650 mg Acetylcysteine (Acetylcysteine 20%) 4 ml INH RQ6 [facility] Last Admin: 12/21/18 01:21 Dose: 4 ml Albuterol/Ipratropium (Duoneb 3 Mg/0.5 Mg (3 Ml) Ud) 3 ml INH RQ6 [facility] Last Admin: 12/21/18 01:20 Dose: 3 ml Arformoterol Tartrate (Brovana) 15 mcg INH RQ12@1000,2200 [facility] Last Admin: 12/20/18 22:46 Dose: 15 mcg Aspirin (Aspirin Chewable) 81 mg PO DAILY [facility] Last Admin: 12/20/18 09:24 Dose: 81 mg Budesonide (Pulmicort Respules) 0.5 mg INH RQ12 [facility] Last Admin: 12/20/18 08:28 Dose: 0.5 mg Duloxetine HCl (Cymbalta) 60 mg PO DAILY [facility] Last Admin: 12/20/18 09:25 Dose: Not Given Enoxaparin Sodium (Lovenox) 40 mg SC DAILY [facility] Last Admin: 12/20/18 09:25 Dose: 40 mg Ergocalciferol (Drisdol 50,000 Intl Units Cap) 1 cap PO QWK [facility] Last Admin: 12/18/18 10:32 Dose: 1 cap Folic Acid (Folic Acid) 1 mg PO DAILY [facility] Last Admin: 12/20/18 09:24 Dose: 1 mg Gabapentin (Neurontin) 100 mg PO DAILY [facility] Last Admin: 12/20/18 09:24 Dose: 100 mg Guaifenesin (Robitussin) 200 mg PO Q4H PRN PRN Reason: Cough and congestion Last Admin: 12/16/18 09:55 Dose: 200 mg Methylprednisolone (Solu-Medrol) 40 mg IVP Q8 [facility] Last Admin: 12/21/18 05:57 Dose: 40 mg Montelukast Sodium (Singulair) 10 mg PO HS [facility] Last Admin: 12/20/18 21:46 Dose: 10 mg Oxycodone/Acetaminophen (Percocet 5/325 Mg Tab) 1 tab PO Q4H PRN PRN Reason: Pain, moderate (4-7) Stop: 12/21/18 10:41 Last Admin: 12/20/18 22:29 Dose: 1 tab Pantoprazole Sodium (Protonix Ec Tab) 40 mg PO DAILY [facility] Last Admin: 12/20/18 09:23 Dose: 40 mg Rosuvastatin Calcium (Crestor) 5 mg PO [facility] Last Admin: 12/20/18 21:46 Dose: 5 mg Sertraline HCl (Zoloft) 25 mg PO DAILY [facility] Last Admin: 12/20/18 09:23 Dose: 25 mg - Labs Labs: 12/20/18 08:07 12/20/18 08:07 Assessment and Plan (1) COPD exacerbation Status: Acute (2) Neuropathy Status: Chronic (3) Hyperlipidemia Status: Chronic (4) Depressed Status: Chronic (5) Lumbago Status: Chronic (6) Prophylactic measure Status: Acute
[2018-12-21] MEDS: Arformoterol 15 mcg/2 ml Inh Sol INH SCH ×2 (08:11→10:00)
[2018-12-21] MEDS: Budesonide 0.5 mg/2 ml Inhal Susp UD INH SCH (08:12)
[2018-12-21 08:28] LABS: ALB/GLOB RATIO 1.1 (1.0-2.1); ALBUMIN 3.2 g/dL (3.5-5.0); ALT/SGPT 22 U/L (9-52); AST/SGOT 20 U/L (14-36); BLOOD UREA NITROGEN 17 mg/dL (7-17); CALCIUM 8.9 mg/dl (8.6-10.4); GFR NON-AFRICAN AMERICAN > 60
[2018-12-21 08:34] VITALS: BP 127/58; TEMP 98; O2SAT 99
[2018-12-21] MEDS: Oxycodone/Acetaminophen 5/325 mg Tab PO PRN (08:49)
[2018-12-21 09:04] LABS: LYMPHOCYTE 10 % (20-40); MONOCYTE 5 % (0-10); NEUTROPHIL 85 % (50-75); PLATELET ESTIMATE NORMAL (NORMAL); TOTAL CELLS COUNTED 100
[2018-12-21] MEDS: Enoxaparin 40 mg Syringe SC SCH (09:47)
[2018-12-21] MEDS: Pantoprazole 40 mg EC Tab PO SCH (09:47)
[2018-12-21 12:01] VITALS: PULSE 86
--- NOTE | 2018-12-21 13:23 | CP.PCM.DIS ---
Provider - Provider Date of Admission: 12/10/18 15:34 Attending physician: Luis Santos MD Consults: 12/10/18 16:58 Pulmonology Consult Routine Comment: Consulting Provider: Chandan Rinaldi Consulting Physician: Chandan Rinaldi Reason for Consult: SOB Time Spent in preparation of Discharge (in minutes): 35 Diagnosis - Discharge Diagnosis (1) COPD exacerbation Status: Acute (2) Neuropathy Status: Chronic (3) Hyperlipidemia Status: Chronic (4) Depressed Status: Chronic Priority: Medium (5) Lumbago Status: Chronic Priority: Medium (6) Prophylactic measure Status: Acute Hospital Course - Lab Results Lab Results: Micro Results 12/10/18 14:54 Blood Blood Culture - Final NO GROWTH AFTER 5 DAYS 12/10/18 14:54 Blood Gram Stain - Final TEST NOT PERFORMED 12/10/18 13:41 Blood Blood Culture - Final NO GROWTH AFTER 5 DAYS 12/10/18 13:41 Blood Gram Stain - Final TEST NOT PERFORMED Most Recent Lab Values WBC 23.4 K/uL (4.8-10.8) H D 12/21/18 07:09 RBC 4.65 Mil/uL (3.80-5.20) 12/21/18 07:09 Hgb 13.4 g/dL (11.0-16.0) 12/21/18 07:09 Hct 40.5 % (34.0-47.0) 12/21/18 07:09 MCV 87.1 fL (81.0-99.0) 12/21/18 07:09 MCH 28.9 pg (27.0-31.0) 12/21/18 07:09 MCHC 33.2 g/dL (33.0-37.0) 12/21/18 07:09 RDW 12.8 % (11.5-14.5) 12/21/18 07:09 Plt Count 373 K/uL (130-400) 12/21/18 07:09 MPV 9.2 fL (7.2-11.7) 12/21/18 07:09 Neut % (Auto) 89.5 % (50.0-75.0) H 12/21/18 07:09 Lymph % (Auto) 5.9 % (20.0-40.0) L 12/21/18 07:09 [place] % (Auto) 4.5 % (0.0-10.0) 12/21/18 07:09 Eos % (Auto) 0.0 % (0.0-4.0) 12/21/18 07:09 Baso % (Auto) 0.1 % (0.0-2.0) 12/21/18 07:09 Neut # (Auto) 20.9 K/uL (1.8-7.0) H 12/21/18 07:09 Lymph # (Auto) 1.4 K/uL (1.0-4.3) 12/21/18 07:09 [place] # (Auto) 1.1 K/uL (0.0-0.8) H 12/21/18 07:09 Eos # (Auto) 0.0 K/uL (0.0-0.7) 12/21/18 07:09 Baso # (Auto) 0.0 K/uL (0.0-0.2) 12/21/18 07:09 Neutrophils % (Manual) 85 % (50-75) H 12/21/18 07:09 Band Neutrophils % 1 % (0-2) 12/20/18 08:07 Lymphocytes % (Manual) 10 % (20-40) L 12/21/18 07:09 Reactive Lymphs % 1 % (0-0) H 12/20/18 08:07 Monocytes % (Manual) 5 % (0-10) 12/21/18 07:09 Platelet Estimate Normal (NORMAL) 12/21/18 07:09 Large Platelets Present 12/20/18 08:07 RBC Morphology Normal 12/21/18 07:09 Hypochromasia (manual) Slight 12/20/18 08:07 Anisocytosis (manual) Slight 12/20/18 08:07 Puncture Site Lr 12/17/18 22:00 pCO2 81 mm/Hg (35-45) H* 12/17/18 22:00 pO2 89 mm/Hg (80-100) 12/17/18 22:00 HCO3 39.1 mmol/L (21-28) H 12/17/18 22:00 ABG pH 7.38 (7.35-7.45) 12/17/18 22:00 ABG Total CO2 50.4 mmol/L (22-28) H 12/17/18 22:00 ABG O2 Saturation 98.7 % (95-98) H 12/17/18 22:00 ABG Base Excess 18.2 mmol/L (-2.0-3.0) H 12/17/18 22:00 ABG Hemoglobin 13.9 g/dL (11.7-17.4) 12/17/18 22:00 ABG Carboxyhemoglobin 2.0 % (0.5-1.5) H 12/17/18 22:00 POC ABG HHb (Measured) 1.3 % (0.0-5.0) 12/17/18 22:00 ABG Methemoglobin 1.7 % (0.0-3.0) 12/17/18 22:00 Jamey Test Pos 12/17/18 22:00 ABG Potassium 3.7 mmol/L (3.6-5.2) 12/10/18 13:44 A-a O2 Difference 95.0 mm/Hg 12/17/18 22:00 Respiratory Index 1.1 12/17/18 22:00 Hgb O2 Saturation 95.1 % (95.0-98.0) 12/17/18 22:00 Sodium 136.0 mmol/l (132-148) 12/10/18 13:44 Chloride 99.0 mmol/L (98-107) 12/10/18 13:44 Glucose 91 mg/dl (65-105) 12/10/18 13:44 Lactate 0.6 mmol/L (0.7-2.1) L 12/10/18 13:44 Liter Flow 4.0 12/17/18 13:00 Vent Mode Bipap 12/17/18 22:00 FiO2 40.0 % 12/17/18 22:00 Inspiratory BiPAP 16 12/17/18 22:00 Expiratory BiPAP 8 12/17/18 22:00 Crit Value Called To Lj vanegas rn 12/17/18 22:00 Crit Value Called By Marianna grey video manager 12/17/18 22:00 Crit Value Read Back Y 12/17/18 22:00 Blood Gas Notified Time 220612/17/18 22:00 Sodium 136 mmol/L (132-148) 12/21/18 07:09 Potassium 4.6 mmol/L (3.6-5.2) 12/21/18 07:09 Chloride 93 mmol/L (98-107) L 12/21/18 07:09 Carbon Dioxide 39 mmol/L (22-30) H 12/21/18 07:09 Anion Gap 9 (10-20) L 12/21/18 07:09 BUN 17 mg/dL (7-17) 12/21/18 07:09 Creatinine 0.5 mg/dL (0.7-1.2) L 12/21/18 07:09 Est GFR ( Amer) > 60 12/21/18 07:09 Est GFR (Non-Af Amer) > 60 12/21/18 07:09 Random Glucose 119 mg/dL (65-105) H 12/21/18 07:09 Hemoglobin A1c 6.3 % (4.2-6.5) 12/12/18 07:49 Calcium 8.9 mg/dl (8.6-10.4) 12/21/18 07:09 Phosphorus 3.3 mg/dL (2.5-4.5) 12/20/18 08:07 Magnesium 2.1 mg/dL (1.6-2.3) 12/20/18 08:07 Total Bilirubin 0.2 mg/dL (0.2-1.3) 12/21/18 07:09 AST 20 U/L (14-36) 12/21/18 07:09 ALT 22 U/L (9-52) 12/21/18 07:09 Alkaline Phosphatase 66 U/L (38-126) 12/21/18 07:09 Troponin I < 0.0120 ng/mL (0.00-0.120) 12/10/18 15:56 NT-Pro-B Natriuret Pep 1180 pg/mL (0-900) H 12/10/18 15:56 Total Protein 6.1 g/dL (6.3-8.3) L 12/21/18 07:09 Albumin 3.2 g/dL (3.5-5.0) L 12/21/18 07:09 Globulin 2.8 gm/dL (2.2-3.9) 12/21/18 07:09 Albumin/Globulin Ratio 1.1 (1.0-2.1) 12/21/18 07:09 TSH 3rd Generation 0.36 mIU/L (0.46-4.68) L 12/10/18 13:49 Arterial Blood Potassium 3.7 mmol/L (3.6-5.2) 12/10/18 13:44 - Hospital Course Hospital Course: On admission: This is a 68-year-old female who is known to Dr. Santos with severe COPD, on home oxygen therapy, presented with symptoms of progressive shortness of breath and wheezing over the past week. The patient tried her regular nebulizer treatment at home and outpatient treatment failed. On the day prior to admission, the patient started to have cough with yellowish sputum. The patient presented to emergency room and she was found to be in severe COPD that failed outpatient management as well as still was quite symptomatic after emergency room treatment. The patient was admitted for further management. Other review of system is negative. Hospital course: Patient presented with exacerbation of COPD and hypercapneic respiratory failure. Pulmonology Dr. Rinaldi consulted. Patient had a leukocytosis. Started on broad spectrum antibiotics to cover for pneumonia, but discontinued when CXR was clear and pt without signs of infection. Patients CXR showed no active pulmonary disease and COPD. Pt started on LABA, MIGUEL/antimuscarinic, ICS, IV steroids. Pt responded well to these medications, as well as BPAP as needed (which she uses at home, as well as NC o2). Blood culture were negative to date, pt afebrile during hospital stay. CT chest showed diffuse emphysema, bronchiectasis, pulmonary nodule 8mm and bud small nodular opacities likely an infectious process. Pulmonolgy aware of Chest CT findings and recommends discharge home with medrol dose pack. Patients chronic neuropathy, lumbago, depression and hyperlipidemia were controlled on home medications. This is a summary of the hospital course. Please see EMR for full details. Discharge Exam - Additional Findings Additional findings: - Constitutional Appears: Non-toxic, No Acute Distress, Chronically Ill - Head Exam Head Exam: ATRAUMATIC, NORMAL INSPECTION - Eye Exam Eye Exam: EOMI - ENT Exam ENT Exam: Mucous Membranes Moist - Respiratory Exam Respiratory Exam: Decreased Breath Sounds, Wheezes. absent: Rales, Respiratory Distress, Stridor, NORMAL BREATHING PATTERN - Cardiovascular Exam Cardiovascular Exam: REGULAR RHYTHM, +S1, +S2. absent: Tachycardia - GI/Abdominal Exam GI & Abdominal Exam: Soft, Normal Bowel Sounds. absent: Distended, Firm, Guarding, Tenderness - Extremities Exam Extremities Exam: Calf Tenderness, Normal Capillary Refill, Normal Inspection. absent: Pedal Edema, Tenderness - Back Exam Back Exam: absent: CVA tenderness (L), CVA tenderness (R) - Neurological Exam Neurological Exam: Alert, Awake, Oriented x3 - Psychiatric Exam Psychiatric exam: Normal Affect, Normal Mood - Skin Skin Exam: Intact, Normal Color, Warm Discharge Plan - Discharge Medications Prescriptions: Methylprednisolone [Medrol Dose Pack (21 tabs)] 4 mg PO DAILY #21 mg - Follow Up Plan Condition: FAIR Disposition: TRANSF TO SNF Instructions: Heart Healthy Diet, Shortness of Breath (Dyspnea) (DC), Exacerbation of COPD (DC), Methylprednisolone Additional Instructions: Pt is medically stable for discharge home. Pt should continue home medications as previously prescribed. Additionally, should fill and complete Medrol dose pack. Pt should follow up with PMD and Pulmologist, within 2 weeks of discharge home. Should symptoms worsen, please return to the nearest Emergency Department for further evaluation. Instructions explained to the patient, who understands and agrees with discharge plan. Referrals: Chandan Rinaldi MD [Staff Provider] - Luis Santos MD [Staff Provider] -
--- NOTE | 2018-12-21 16:12 | CP.PCM.PN ---
Subjective - Date & Time of Evaluation Date of Evaluation: 12/21/18 Time of Evaluation: 11:00 - Subjective Subjective: Patient seen and examined Breathing much improved Off BiPAP Discharge home on Medrol pack Nebulizer treatment Follow-up in the office Patient states that she has trilogy at home Objective - Vital Signs/Intake and Output Vital Signs (last 24 hours): Temp Pulse Resp BP Pulse Ox 98.0 F 86 20 127/58 L 99 12/21/18 08:32 12/21/18 11:58 12/21/18 08:32 12/21/18 08:32 12/21/18 08:32 Intake and Output: 12/21/18 12/21/18 06:59 18:59 Intake Total 300 Balance 300 - Labs Labs: 12/21/18 07:09 12/21/18 07:09 Assessment and Plan (1) COPD exacerbation Status: Acute
== END 2018-12-21 15:56 | DRG 190 ==
LOC: C.ER 12:43 → C.6T 15:34
PROVIDERS: ADMIT Internal Medicine; ATTEND Internal Medicine
PROC: 5A09557 Assistance with Respiratory Ventilation, Greater than 96 Consecutive Hours, Continuous Positive Airway Pressure (ICD-10-PCS; principal; 2018-12-10)
DX: J44.1 Chronic obstructive pulmonary disease with (acute) exacerbation (principal); J18.9 Pneumonia, unspecified organism; J96.21 Acute and chronic respiratory failure with hypoxia; E87.2 Acidosis; J44.0 Chronic obstructive pulmonary disease with (acute) lower respiratory infection; M06.9 Rheumatoid arthritis, unspecified; J20.9 Acute bronchitis, unspecified; I10 Essential (primary) hypertension; G62.9 Polyneuropathy, unspecified; D64.9 Anemia, unspecified; M19.90 Unspecified osteoarthritis, unspecified site; F32.9 Major depressive disorder, single episode, unspecified; E78.5 Hyperlipidemia, unspecified; H40.9 Unspecified glaucoma; M54.16 Radiculopathy, lumbar region; E78.00 Pure hypercholesterolemia, unspecified; Z99.81 Dependence on supplemental oxygen; Z87.891 Personal history of nicotine dependence; Z79.899 Other long term (current) drug therapy